=== PATIENT | female | born 1975 | race Caucasian/White ===

== ENCOUNTER → 2017-11-08 09:13 | Outpatient (CLI) | payer OTHER, SELFPAY ==
--- NOTE | 2017-11-08 09:19 | US_ITS ---
US abdomen limited COMPARISON: None HISTORY: Right upper quadrant pain and nausea TECHNIQUE: Ultrasound right upper quadrant FINDINGS: The pancreas appears normal. The liver is normal in size and shows diffuse overall increased echogenicity consistent with fatty infiltration. The gallbladder is surgically absent. The common bile duct is normal caliber. Right kidney measures 12.2 x 4.4 x 7.2 cm and shows a good cortical medullary junction with no abnormality. Scanning was performed over palpable lumps in the abdomen which are somewhat tender to pressure of the transducer. The largest appears be in right upper quadrant measuring 2.4 cm in diameter and showing increased echogenicity in relation to the adjacent subcutaneous tissue. There is another similar area in the midabdomen measuring 1.0 cm in diameter and showing increased echogenicity. IMPRESSION: 1. Diffuse fatty infiltration of liver. 2. Possible lipomas within the abdominal wall
== END ==
PROVIDERS: PCP Family Medicine; Visit Provider Nurse Practitioner Family
DX: R19.01 Right upper quadrant abdominal swelling, mass and lump (principal); R11.0 Nausea
CPT/HCPCS: 76705

== ENCOUNTER → 2018-06-17 08:37 | Outpatient (CLI) | payer OTHER, SELFPAY ==
--- NOTE | 2018-06-17 08:49 | XR_ITS ---
XR shoulder RT min 2V HISTORY: ITS.REASON: RT ANTERIOR SHOULDER PAIN ORDERING PHYSICIAN: Cami Davis PATIENT AGE: 42 years Comparison: None FINDINGS: No fracture or dislocation. No lytic or blastic change. There is normal mineralization. The joint spaces are well-preserved. No significant degenerative/arthritic changes. No erosive changes evident. IMPRESSION: Negative, no acute finding
== END ==
PROVIDERS: PCP Nurse Practitioner Family; Visit Provider Nurse Practitioner Family
DX: M25.511 Pain in right shoulder (principal)
CPT/HCPCS: 73030

== ENCOUNTER → 2018-07-01 15:54 | Outpatient (CLI) | payer OTHER, SELFPAY ==
--- NOTE | 2018-07-01 15:56 | MR_ITS ---
MR shoulder RT wo con COMPARISON: 06/17/2018 HISTORY: Anterior shoulder pain with limited range of motion ORDERING PHYSICIAN: Cami Davis PATIENT AGE: 42 years TECHNIQUE: Routine multiplanar multiecho sequences are performed without contrast. FINDINGS: There is mild acromioclavicular arthropathy with hypertrophic changes of the AC joint. The hypertrophic change does cause some contour deformity along the musculotendinous junction of the supraspinatus tendon. There is mild thickening of the supraspinatus tendon with slight increased T2 signal suggesting tendinopathy/tendinosis. The infraspinatus and teres minor tendons are unremarkable. There is mild thickening of the subscapularis tendon distally as well. No definite tendon tears. There is a curvilinear area of increased T2 signal along the superior aspect of the glenoid labrum. This has the appearance of a sublabral recess however, the abnormal signal intensity extends beyond the 12 to 1:00 position anteriorly and posteriorly and is suspicious for a SLAP lesion. No fracture or dislocation evident. The bicipital tendon is in place. There is a small amount of fluid in the subcoracoid region. IMPRESSION: 1. Acromioclavicular hypertrophy with mild impingement upon the supraspinatus tendon with mild tendinopathy/tendinosis of the supraspinatus tendon and subscapularis tendon. 2. No definite rotator cuff tears. 3. SLAP lesion of the superior glenoid labrum
== END ==
PROVIDERS: PCP Family Medicine; Visit Provider Nurse Practitioner Family
DX: M25.511 Pain in right shoulder (principal); M75.81 Other shoulder lesions, right shoulder
CPT/HCPCS: 73221

== ENCOUNTER 2018-07-02 08:00 | Outpatient (RCR) | payer OTHER, SELFPAY ==
--- NOTE | 2018-06-30 09:31 | HMH.OTOPEV ---
OT Inpatient Evaluation Rehab OT Outpatient Eval Start: 06/30/18 09:04 Freq: Status: Active Protocol: Document 06/30/18 09:05 JENNIE (Rec: 06/30/18 09:31 JENNIE [id number]) Electronically Signed By Kam Rolle OT 06/30/18 09:05 Outpatient Therapy Subjective History Subjective History Pt is a 42 year old female who reports to therapy for initial evaluation to right shoulder. Pt reports her shoulder began hurting her ~ 1 and 1/2 months ago. Pt does not recall a specific injury that would have caused her pain in the right shoulder. 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 Pt explains she does use her upper body significantly more than prior. Pt does demonstrate with decrease in right shoulder AROM and strength. Pt will continue to be seen twice a week in order to increase functional use of Upper body. Chief Complaint Pain Stiff Symptom Type Ache Throb Sharp Dull Stabbing Shooting Symptoms Relieved By Rest/Positioning Symptoms Aggravated By Physical Activity Lifting Prior Functional Limitations None Current Functional Limitations Reaching Lifting Housework Dressing Sleeping Recreation Activity Symptom Description Intermittent Activity Dependent Level of pain today (0-10) 2 Pain scale - at its best (0-10) 4 Pain scale - at its worst (0-10) 1 Shoulder/Elbow Eval Shoulder Objective Measurements Shoulder ROM Right Shoulder ROM Limitations Pain Shoulder Abduction Active Range of 132 degrees Motion (degrees) Shoulder Flexion Active Range of Motion 122 degrees (degrees) Query Text: Shoulder External Rotatio
== END 2018-07-02 08:05 | disposition home or self-care (01) ==
LOC: OT 08:00
PROVIDERS: Visit Provider Nurse Practitioner Family
DX: M75.81 Other shoulder lesions, right shoulder (principal)
CPT/HCPCS: 97014; 97033; 97110; 97165; G0283

== ENCOUNTER 2018-11-25 08:30 | Outpatient (RCR) | payer BC, SELFPAY | END 2018-11-25 08:35 | disposition home or self-care (01) | LOC: PT 08:30 | PROVIDERS: Visit Provider Orthopaedic Surgery | DX: M25.511 Pain in right shoulder (principal) | CPT/HCPCS: 97010; 97014; 97016; 97110; 97140; 97163; 97164; G0283 ==

== ENCOUNTER → 2020-09-16 11:41 | Outpatient (CLI) | payer BC, SELFPAY ==
--- NOTE | 2020-09-16 11:46 | XR_ITS ---
PROCEDURE: XR LUMBAR SPINE MIN 4V CLINICAL INDICATION: ACUTE MIDLINE LOW BACKPAIN W/O SCIATICA COMPARISON: CR LS5 LUMBAR SPINE 5 VIEWS from 08/06/2014 FINDINGS: No fracture or dislocation. No lytic or blastic change. There is normal mineralization. Minimal anterior osteophytes are present at L2-L3 and L4. These are not significantly changed. There is degenerative disc disease in the lower thoracic spine at T10-T11 and T11-T12. Other findings:None. IMPRESSION: 1. No acute finding of the lumbar spine with minimal degenerative changes. 2. Degenerative disc disease lower thoracic spine Dictated by: Jadiel Fan MD 09/16/2020 12:07 Jadiel Fan MD in [facility] 09/16/2020 12:07
== END ==
LOC: RAD 11:44
PROVIDERS: PCP Family Medicine; Visit Provider Nurse Practitioner Family
DX: M54.5 Low back pain (principal)
CPT/HCPCS: 72110

== ENCOUNTER → 2020-10-11 09:13 | Outpatient (CLI) | payer BC, SELFPAY ==
[2020-10-11 09:29] LABS: Basophils # 0.1 K/mm3 (0-0.2); Basophils % 0.5 % (0.1-2.0); Eosinophils # 0.2 K/mm3 (0.0-0.4); Eosinophils % 1.9 % (0.1-12.0); Hemoglobin 13.9 g/dL (12.2-16.2); Lymphocytes # 2.5 K/mm3 (0.7-4.5); Lymphocytes % 23.2 % (10-50); Mean Corpuscular HGB Conc 32.4 g/dL (31.8-35.4); Mean Corpuscular Volume 83.4 fl (81-99); Mean Platelet Volume 7.6 fl (7.4-10.4); Monocytes # 0.3 K/mm3 (0.1-1.0); Monocytes % 2.7 % (1.7-9.3); Neutrophils # 7.6 K/mm3 (1.8-7.8); Neutrophils % 71.7 % (37.0-80.0); Platelet Count 352 K/mm3 (142-424); Red Blood Count 5.15 M/mm3 (4.20-5.40); Red Cell Distribution Width 14.7 % (11.5-17.5); White Blood Count 10.6 K/mm3 (4.8-10.8)
--- NOTE | 2020-10-11 09:45 | ECG_ITS ---
APPROVED REPORT Exam: Resting ECG HR:83 bpm ECG Measurements Heart Rate 83 AXES MI 174 P 67 QRSd 84 QRS 81 QT 378 T 69 QTc 444 Conclusion Normal sinus rhythm Normal ECG Electronically signed by : Wing Vizcaino, 10/11/2020 14:47:19
[2020-10-11 10:30] LABS: Chloride 107 mmol/L (98-107); Sodium 140 mmol/L (136-145)
[2020-10-11 10:31] LABS: Potassium 4.8 mmoL/L (3.5-5.1)
[2020-10-11 10:33] LABS: Alanine Aminotransferase 27 U/L (12-78); Albumin Level 4.3 g/dl (3.5-5.0); Albumin/Globulin Ratio 1.4 (1.1-1.8); Alkaline Phosphatase 67 U/L (38-126); Anion Gap 11.8 mEq/L (5-15); Aspartate Amino Transferase 23 U/L (14-36); Bilirubin,Total 0.5 mg/dl (0.2-1.3); Blood Urea Nitrogen 16 mg/dl (7-17); Calcium 10.1 mg/dl (8.4-10.2); Carbon Dioxide 26 mmol/L (22.0-30.0); Cholesterol 186 mg/dl (140-200); Estimated Glomerular Filt Rate 91 ml/min (>60); GFR (African American) 110 ML/MIN (>60); Glucose 136 mg/dl (74-100); Total Protein,Serum 7.3 g/dl (6.3-8.2); Triglycerides 220 mg/dl (30-150); VLDL Cholesterol 44 mg/dL (0-40)
[2020-10-11 10:34] LABS: Chol/HDL Ratio 4.2 (1-3.5); HDL Cholesterol 44 mg/dl (40-60)
[2020-10-11 10:45] LABS: Direct LDL Cholesterol 111.42 mg/dL (100-129); Troponin I < 0.01 ng/ml (0.00-0.034)
[2020-10-11 11:02] LABS: Thyroid Stimulating Hormone 2.36 uIU/mL (0.465-4.68)
== END ==
PROVIDERS: Visit Provider Nurse Practitioner Family
DX: R07.9 Chest pain, unspecified (principal)
CPT/HCPCS: 36415; 80053; 80061; 83735; 84443; 84484; 85025; 93005

== ENCOUNTER 2020-10-19 13:00 | Outpatient (RCR) | payer BC, SELFPAY ==
--- NOTE | 2020-09-27 10:36 | HMH.PTOPEV ---
PT Outpatient Evaluation Rehab PT Outpatient Evaluation Start: 09/27/20 08:55 Freq: Status: Active Protocol: Document 09/27/20 09:56 SARAVANAN (Rec: 09/27/20 10:35 PHOSARBJIT [id number]) Electronically Signed By Donavan Crow, PT 09/27/20 09:56 Outpatient Therapy Subjective History Subjective History Pt is 45 yowf who presents with c/o acute, insidious onset of low back pain x ~ 1 wk. She reports she has had mild back discomfort for ~ 1 yr, but nothing like it was this episode. She had X-rays performed which shows mild DDD and OA. She reports no numbness or tingling in the LEs. She reports PMH of HTN. Chief Complaint Pain,Stiff Symptom Type Ache Symptoms Relieved By Rest/Positioning Symptoms Aggravated By Standing,Bending/Stooping Prior Functional Limitations None Current Functional Limitations Standing,Bending/Stooping Symptom Description Constant but Variable Level of pain today (0-10) 3 Pain scale - at its worst (0-10) 8 Lumbopelvic Eval Accessory Movement T-spine Vertebrae Accessory Movements Central P/A [place] that Elicit Symptoms T11 bilateral T12 bilateral L-spine Vertebrae Accessory Movements Central P/A [place] that [place] Symptoms L2 bilateral L3 bilateral L4 bilateral L5 bilateral Range of Motion Lumbar Spine Active Flexion Range of 0-65 Motion (degrees) Lumbar Spine Active Extension Range of 0-20 Motion (degrees) Left Lumbar Spine Lateral Flexion Active 0-20 Range of Motion (degrees) Right Lumbar Spine Lateral Flexion 0-20 Active Range of Motion (degrees) Manual Muscle Test Bilateral Knee Extension Strength Grade 5 Normal Knee Flexion Strength Grade 5 Normal Hip Flexion Strength Grade 5 Normal Hip Abduction Strength Grade 5 Normal Hip Adduction Strength Grade 5 Normal Extensor Hallucis Longus Strength Grade 5 Normal Ankle Dorsiflexion Strength Grade 5 Normal Gastronemius/Soleus Strength Grade 5 Normal DTR Rt Patellar 2+ Lt Patellar 2+ Rt Gastroc/Soleus 2+ Lt Gastroc/Soleus 2+ Special Tests Hip Scouring (Quadrant) Test Negative Left,Negative Right Hip Thomas (NORIS) Test Negative Left,Negative Right Hip Bowstring (Cram) Test Negative Left,Negative R
== END 2020-10-19 13:05 | disposition home or self-care (01) ==
LOC: PT 13:00
PROVIDERS: PCP Family Medicine; Visit Provider Nurse Practitioner Family
DX: M54.5 Low back pain (principal)
CPT/HCPCS: 97010; 97014; 97110; 97140; 97163; G0283

== ENCOUNTER → 2020-10-19 16:15 | Outpatient (CLI) | payer BC, SELFPAY ==
--- NOTE | 2020-10-19 16:27 | MR_ITS ---
PROCEDURE: MR LUMBAR SPINE WO CON CLINICAL INDICATION: LBP Pt c/o lbp with rt sided low back burning sensation. Pt denies injury or trauma and has no hx of surgery. COMPARISON: CR XR LUMBAR SPINE MIN 4V from 09/16/2020 TECHNIQUE: Standard multiplanar multiecho sequences are performed without contrast. 3-D MIP and myelographic images are also rendered and reviewed FINDINGS: There is normal alignment. The spinal cord ends at the L1 level. L1-L2: Unremarkable. L2-L3: Minimal bulging disc with minimal central disc protrusion. L3-L4: Mild degenerative disc disease with small broad-based right-sided foraminal and lateral disc protrusion/disc osteophyte complex resulting in right-sided foraminal narrowing abutting the exiting L3 nerve root. Mild facet and ligamentum hypertrophy. L4-5: Minimal bulging disc with facet ligamentum hypertrophy with mild bilateral lateral recess narrowing. L5-S1: Degenerative disc disease with bulging disc and small central disc protrusion abutting the medial aspect of both S1 nerve roots. There is mild facet and ligamentum hypertrophy. No extruded herniated disc or bony canal stenosis. IMPRESSION: 1. L2-L3: Minimal bulging disc with minimal central disc protrusion. 2. L3-L4: Mild degenerative disc disease with small broad-based right-sided foraminal and lateral disc protrusion/disc osteophyte complex resulting in right-sided foraminal narrowing abutting the exiting L3 nerve root. Mild facet and ligamentum hypertrophy. 3. L4-5: Minimal bulging disc with facet ligamentum hypertrophy with mild bilateral lateral recess narrowing. 4. L5-S1: Degenerative disc disease with bulging disc and small central disc protrusion abutting the medial aspect of both S1 nerve roots. There is mild facet and ligamentum hypertrophy. 5. No extruded herniated disc or bony canal stenosis. Dictated by: Jadiel Fan MD 10/23/2020 06:48 Jadiel Fan MD in [facility] 10/23/2020 06:48
== END ==
PROVIDERS: PCP Family Medicine; Visit Provider Nurse Practitioner Family
DX: M54.5 Low back pain (principal)
CPT/HCPCS: 72148; 76376

== ENCOUNTER → 2021-06-30 10:21 | Outpatient (CLI) | payer BC, SELFPAY ==
--- NOTE | 2021-06-30 10:27 | XR_ITS ---
PROCEDURE: XR CERVICAL SPINE 5V CLINICAL INDICATION: RADICULOPATHY,CERVICAL REGION/NECK PAIN COMPARISON: No exams were available for comparison FINDINGS: There is straightening/reversal of the normal lordosis which may be due to patient positioning or muscle spasm. Mild facet hypertrophic changes with mild foraminal narrowing on the right at C4-C5 and on the left at C4-C5. No fracture or dislocation. No lytic or blastic change. Other findings:None. IMPRESSION: Straightening of cervical lordosis with cervical spondylosis as described above Dictated by: Jadiel Fan MD 06/30/2021 12:26 Jadiel Fan MD in [facility] 06/30/2021 12:26
== END ==
PROVIDERS: PCP Family Medicine; Visit Provider Family Medicine
DX: M54.2 Cervicalgia (principal); M54.12 Radiculopathy, cervical region
CPT/HCPCS: 72050

== ENCOUNTER → 2021-07-17 07:26 | Outpatient (CLI) | payer BC, SELFPAY ==
--- NOTE | 2021-07-17 07:42 | MR_ITS ---
PROCEDURE: MR CERVICAL SPINE WO CON CLINICAL INDICATION: RADICULOPATHY OF CERVICAL REGION COMPARISON: CR XR CERVICAL SPINE 5V from 06/30/2021 TECHNIQUE: Standard multiplanar multiecho sequences are performed without contrast. 3-D MIP and myelographic images are also rendered and reviewed FINDINGS: There is normal alignment. The craniocervical junction has an unremarkable appearance. C2-C3: Unremarkable. C3-C4: 2 mm anterolisthesis of C3 with minimal bulging disc and a small central disc protrusion. Mild prominence of the posterior longitudinal ligament. Severe left-sided foraminal narrowing from facet hypertrophic change. There is narrowing of the canal at 9 mm. Minimal contour deformity of the cord anteriorly. C4-C5: Moderate to severe right and moderate left foraminal narrowing from facet and uncovertebral hypertrophic change. Tiny central disc protrusion with narrowing of the canal at 9 mm. C5-C6: There is a small broad-based left paracentral and foraminal disc protrusion/disc osteophyte complex with mild left lateral recess narrowing. Mild bilateral foraminal narrowing. C6-C7: Degenerative disc disease with a small right foraminal disc protrusion resulting in severe right-sided foraminal narrowing C7-T1 and T1-T2 have an unremarkable appearance. IMPRESSION: 1. C3-C4: 2 mm anterolisthesis of C3 with minimal bulging disc and a small central disc protrusion. Mild prominence of the posterior longitudinal ligament. Severe left-sided foraminal narrowing from facet hypertrophic change. There is narrowing of the canal at 9 mm. Minimal contour deformity of the cord anteriorly. 2. C4-C5: Moderate to severe right and moderate left foraminal narrowing from facet and uncovertebral hypertrophic change. Tiny central disc protrusion with narrowing of the canal at 9 mm. 3. C5-C6: There is a small broad-based left paracentral and foraminal disc protrusion/disc osteophyte complex with mild left lateral recess narrowing. Mild bilateral foraminal narrowing. 4. C6-C7: Degenerative disc disease with a small right foraminal disc protrusion resulting in severe right-sided foraminal narrowing Dictated by: Jadiel Fan MD 07/17/2021 14:21 Jadiel Fan MD in [facility] 07/17/2021 14:21
== END ==
PROVIDERS: PCP Family Medicine; Visit Provider Family Medicine
DX: M54.2 Cervicalgia (principal); M54.12 Radiculopathy, cervical region; M50.00 Cervical disc disorder with myelopathy, unspecified cervical region; G95.9 Disease of spinal cord, unspecified
CPT/HCPCS: 72141; 76376

== ENCOUNTER 2021-12-12 09:06 | Emergency (ER) | payer BC, SELFPAY ==
[2021-12-12 09:06] VITALS: BP 171/91; PULSE 79; RESP 18; TEMP 36.4; O2SAT 100; BMI 36.0
--- NOTE | 2021-12-12 09:10 | PC.NURSE ---
ED MD at
--- NOTE | 2021-12-12 09:13 | CT_ITS ---
FINAL REPORT CLINICAL HISTORY: Right flank pain FINDINGS: CT OF THE ABDOMEN AND PELVIS WITH CONTRAST Axial CT images of the abdomen and pelvis were obtained after the administration of IV contrast. Coronal reformatted images were also obtained and reviewed.This study was performed with techniques to keep radiation doses as low as reasonably achievable (ALARA). Individualized dose reduction techniques using automated exposure control or adjustment of mA and/or kV according to the patient's size were employed. Abdomen: There are calcified granulomas in the lingula.. The heart is normal in size. There is fatty infiltration of the liver. There is no evidence of mass or biliary ductal dilatation. The gallbladder is surgically absent. The spleen is unremarkable. No adrenal mass is present. The pancreas has an unremarkable appearance. There is right hydronephrosis secondary to a 2 mm right UVJ stone. The aorta is normal in caliber. There is no free fluid or adenopathy. No mass or abnormal fluid collection is seen. There is a small umbilical hernia containing fat. Pelvis: The appendix normal. The urinary bladder is unremarkable. No inflammatory process is seen. There is no evidence of mass or adenopathy. There is no evidence of bowel obstruction. IMPRESSION: 2 mm right UVJ stone with right hydronephrosis. Fatty infiltrated liver. Reviewed, Interpreted and Dictated by Ritesh Best III, MD Transcribed by Nai Euceda Authenticated by Ritesh Best III, MD on 12/12/2021 11:03:17 AM [facility]
--- NOTE | 2021-12-12 09:15 | HMH.EDGENADL ---
ED Disposition Clinical Impression: Kidney stone Disposition: Home, Self-Care Condition on Discharge: Good Instructions: DI for Kidney Stones Additional Instructions: You have been evaluated for right flank pain, diagnosed with a kidney stone. Stone is 2 mm, high likelihood of passing. Please take ibuprofen every 6 hours. Take Zofran for nausea. Take Flomax. Take Windsor as needed for severe pain. Follow-up with urology, Dr. Aleman for symptom recheck. Return to the emergency department at once for any new or worsening symptoms, pain, fever, vomiting, other concerns. Prescriptions: Hydrocod/Acet 5/325 mg [Windsor 5/325mg tablet] 1 tab PO Q6HP PRN #12 tab PRN Reason: Severe Pain Transmission Status: Sent to [facility] Tamsulosin HCl [Flomax 0.4mg capsule] 0.4 mg PO HS #5 cap Transmission Status: Pending to [facility] Ibuprofen [Ibuprofen 600mg Tablet] 600 mg PO Q6 PRN #30 tab PRN Reason: Moderate Pain Transmission Status: Pending to [facility] Ondansetron [Zofran 4mg ODT] 4 mg PO Q6 PRN #12 tab PRN Reason: Nausea Transmission Status: Pending to [facility] Referrals: Wing Rivera MD [Primary Care Provider] - Time of Disposition: 11:28 - Critical Care Critical Care Time: No Attestation: On 12/12/21, the high probability of a clinically significant, sudden or life threatening deterioration of the following system(s) required my full and direct attention, intervention and personal management. The time I documented below is in addition to time spent performing reported procedures but includes the following listed in this critical care notation. Medical Decision Making - Medical Records Medical records reviewed: Yes: I reviewed the patient's medical records. - Braulio Inquiry Pt receiving controlled substance: No Vital Signs: 12/12/21 09:06 12/12/21 09:57 12/12/21 10:01 Temperature 97.6 F Temperature Source Oral Pulse Rate 80 80 Pulse Rate [Right Radial] 79 Respiratory Rate 18 Blood Pressure 149/78 H 151/85 H Blood Pressure [Right Arm] 171/91 H Blood Pressure Mean [Right Arm] 117 Blood Pressure Source Automatic Cuff Automatic Cuff Blood Pressure Source [Right Arm] Automatic Cuff Blood Pressure Position Sitting Sitting Blood Pressure Position [Right Arm] Sitting 02 Sat by Pulse Oximetry 100 99 Oxygen Delivery Method Room Air Room Air - Lab Data Lab Results 12/12/21 09:18: WBC 8.3, RBC 5.07, Hgb 14.8, Hct 41.4, MCV 81.7, MCH 29.2, MCHC 35.7 H, RDW 14.4, Plt Count 328, MPV 8.1, Neut % (Auto) 65.8, Lymph % (Auto) 26.2, [place] % (Auto) 3.5, Eos % (Auto) 2.0, Baso % (Auto) 2.5 H, Neut # (Auto) 5.5, Lymph # (Auto) 2.2, [place] # (Auto) 0.3, Eos # (Auto) 0.2, Baso # (Auto) 0.2 12/12/21 09:18: Sodium 137, Potassium 3.8, Chloride 103, Carbon Dioxide 22, Anion Gap 15.8 H, BUN 15, Creatinine 0.60, Estimated Creat Clear 195, Estimated GFR 108, Est GFR ( Amer) 131, Glucose 244 H, Calcium 9.8, Total Bilirubin 0.8, AST 56 H, ALT 56, Alkaline Phosphatase 96, Total Protein 7.1, Albumin 4.2, Globulin 2.9, Albumin/Globulin Ratio 1.4, Lipase 137 Result diagrams: 12/12/21 09:18 12/12/21 09:18 Orders (Tests/Meds): ED MEDICATIONS Generic Name Dose Route Start Last Admin Trade Name Freq PRN Reason Stop Dose Admin Sodium Chloride 1,000 mls @ 200 mls/hr 12/12/21 09:15 12/12/21 09:27 Sod Chlor 0.9% 1000ml Bag IV 01/11/22 09:14 200 mls/hr .Q5H GUY Administration Discontinued Medications Generic Name Dose Route Start Last Admin Trade Name Freq PRN Reason Stop Dose Admin Iopamidol 75 ml 12/12/21 09:53 12/12/21 09:53 Iopamidol-370 (76%);100ml Bottle IV 12/12/21 09:54 75 ml ONCE ONE Administration Ketorolac Tromethamine 15 mg 12/12/21 09:19 12/12/21 09:26 Ketorolac 30mg/Ml Vial IV 12/12/21 09:20 15 mg ONCE ONE Administration Morphine Sulfate 4 mg 12/12/21 09:56 12/12/21 09:58 Morphine 4mg/Ml
[2021-12-12 09:27] LABS: Basophils # 0.2 K/mm3 (0-0.2); Basophils % 2.5 % (0.1-2.0); Eosinophils # 0.2 K/mm3 (0.0-0.4); Hematocrit 41.4 % (37.0-47.0); Hemoglobin 14.8 g/dL (12.2-16.2); Lymphocytes # 2.2 K/mm3 (0.7-4.5); Lymphocytes % 26.2 % (10-50); Mean Corpuscular HGB Conc 35.7 g/dL (31.8-35.4); Mean Corpuscular Hemoglobin 29.2 pg (27.0-31.2); Mean Corpuscular Volume 81.7 fl (81-99); Mean Platelet Volume 8.1 fl (7.4-10.4); Monocytes # 0.3 K/mm3 (0.1-1.0); Monocytes % 3.5 % (1.7-9.3); Neutrophils # 5.5 K/mm3 (1.8-7.8); Neutrophils % 65.8 % (37.0-80.0); Platelet Count 328 K/mm3 (142-424); Red Blood Count 5.07 M/mm3 (4.20-5.40); Red Cell Distribution Width 14.4 % (11.5-17.5); White Blood Count 8.3 K/mm3 (4.8-10.8)
[2021-12-12 09:30] LABS: Chloride 103 mmol/L (98-107); Potassium 3.8 mmoL/L (3.5-5.1); Sodium 137 mmol/L (136-145)
[2021-12-12 09:33] LABS: Alanine Aminotransferase 56 U/L (12-78); Albumin Level 4.2 g/dl (3.5-5.0); Albumin/Globulin Ratio 1.4 (1.1-1.8); Alkaline Phosphatase 96 U/L (38-126); Anion Gap 15.8 mEq/L (5-15); Aspartate Amino Transferase 56 U/L (14-36); Bilirubin,Total 0.8 mg/dl (0.2-1.3); Blood Urea Nitrogen 15 mg/dl (7-17); Calcium 9.8 mg/dl (8.4-10.2); Carbon Dioxide 22 mmol/L (22.0-30.0); Creatinine Clearance Estimated 195 mL/min (50-200); Estimated Glomerular Filt Rate 108 ml/min (>60); GFR (African American) 131 ML/MIN (>60); Globulin 2.9 g/dL (1.3-3.2); Glucose 244 mg/dl (74-100); Lipase 137 U/L (23-300); Total Protein,Serum 7.1 g/dl (6.3-8.2)
--- NOTE | 2021-12-12 09:50 | PC.NURSE ---
pt return from CT
[2021-12-12 09:57] VITALS: BP 149/78; PULSE 80
[2021-12-12 10:01] VITALS: BP 151/85; PULSE 80; O2SAT 99
[2021-12-12 12:00] LABS: Microscopic, Urine URINE MICROSCOPIC (MICROSCOPIC)
[2021-12-12 12:06] LABS: Appearance,Urine CLEAR (Clear); Bilirubin,Urine Negative (Negative); Blood, Urine Negative (Negative); Color,Urine YELLOW (Yellow); Glucose,Urine (UA) 1+ (Negative); Ketones,Urine 1+ (Negative); Leukocyte Esterase,Urine Negative (Negative); Nitrate,Urine Negative (Negative); PH,Urine 6.5 (5.0-8.5); Protein,Urine Negative (Negative); Urobilinogen,Urine 0.2 EU/dl (0.2)
[2021-12-12 12:20] LABS: Bacteria,Urine Trace /lpf
[2021-12-12 12:30] VITALS: BP 151/85; PULSE 80; RESP 18; TEMP 36.4; O2SAT 99
== END 2021-12-12 12:30 | disposition home or self-care (01) ==
PROVIDERS: Emergency Provider Emergency Medicine; PCP Family Medicine
DX: N13.2 Hydronephrosis with renal and ureteral calculous obstruction (principal); M54.9 Dorsalgia, unspecified; R11.2 Nausea with vomiting, unspecified; Z79.1 Long term (current) use of non-steroidal anti-inflammatories (NSAID); Z79.899 Other long term (current) drug therapy
CPT/HCPCS: 74177; 80053; 81001; 83690; 85025; 96374; 96375; 96376; 99285; J2405; Q9967

== ENCOUNTER → 2023-07-26 13:13 | Outpatient (CLI) | payer BC, SELFPAY ==
--- NOTE | 2023-07-26 13:18 | MM_ITS ---
PROCEDURE INFORMATION: Exam: Bilateral Screening 3D Mammography Exam date and time: 07/26/2023 1:11 PM Age: 48 years old Clinical indication: Screening mammogram TECHNIQUE: Imaging protocol: Bilateral Screening tomosynthesis and 2D mammography including computer-aided detection (CAD) when performed. COMPARISON: [facility] DIG MAMM-SCREEN ROMA 03/23/2014 8:20 AM FINDINGS: MAMMOGRAPHY: Breast composition: The breast is heterogeneously dense, which may obscure small masses. Mass: None. Architectural distortion: No new or suspicious architectural distortion. Calcifications: No new or suspicious calcifications are present Asymmetric density: No new or suspicious asymmetric density is present Skin thickening: None. Axillary adenopathy: None. IMPRESSION: No mammographic evidence of malignancy. Recommend annual screening mammography unless otherwise clinically indicated. ASSESSMENT: BI-RADS category 1: Negative
== END ==
PROVIDERS: PCP Family Medicine; Visit Provider Nurse Practitioner Family
DX: Z12.31 Encounter for screening mammogram for malignant neoplasm of breast (principal)
CPT/HCPCS: 77063; 77067

== ENCOUNTER 2023-09-09 12:58 | Outpatient (CLI) | payer BC, SELFPAY ==
--- NOTE | 2023-09-09 13:03 | XR_ITS ---
FINAL REPORT CLINICAL HISTORY: LT SHOULDER PAIN FINDINGS: LEFT SHOULDER 3 views of the left shoulder were obtained. There is a small calcification adjacent to the humeral head which may represent calcific tendinitis. There is mild AC joint arthrosis. There is no acute fracture or dislocation. Visualized joint spaces are normally aligned. Soft tissues are unremarkable. Postoperative changes are noted of the lower cervical spine. IMPRESSION: No acute bony abnormality. Reviewed, Interpreted and Dictated by Ritesh Best III, MD Transcribed by Sveta Hall Authenticated and [facility]
== END 2023-09-09 23:59 ==
PROVIDERS: PCP Nurse Practitioner Family; Visit Provider Nurse Practitioner Family
DX: M25.512 Pain in left shoulder (principal)
CPT/HCPCS: 73030

== ENCOUNTER 2024-03-30 05:36 | Observation (INO) | payer BC, SELFPAY ==
[2024-03-30] VITALS (26 sets, daily range): BP systolic 109–165; BP diastolic 62–100; PULSE 82–128; RESP 16–21; TEMP 36.6–37.6; O2SAT 91–99; BMI 28.8
--- NOTE | 2024-03-30 05:39 | CT_ITS ---
PROCEDURE INFORMATION: Exam: CT Abdomen And Pelvis With Contrast Exam date and time: 03/30/2024 6:26 AM Age: 48 years old Clinical indication: Abdominal pain; Additional info: Rlq abd pain TECHNIQUE: Imaging protocol: Computed tomography of the abdomen and pelvis with contrast. Radiation optimization: All CT scans at this facility use at least one of these dose optimization techniques: automated exposure control; mA and/or kV adjustment per patient size (includes targeted exams where dose is matched to clinical indication); or iterative reconstruction. Contrast material: ISOVUE; Contrast volume: 75 ml; Contrast route: IV; COMPARISON: CT ABDOMEN PELVIS W CON 12/12/2021 9:37 AM FINDINGS: Liver: Normal. No mass. Gallbladder and biliary ducts: There are postsurgical changes from a cholecystectomy. Pancreas: Normal. No ductal dilation. Spleen: Normal. No splenomegaly. Adrenal glands: Normal. No mass. Kidneys and ureters: Normal. No hydronephrosis. Stomach and bowel: There are postsurgical changes from a previous gastric surgery. The stomach is otherwise unremarkable. Appendix: The appendix is dilated measuring 12 mm. There are surrounding inflammatory changes. There is no evidence of perforation. There is no drainable fluid collection. Intraperitoneal space: Unremarkable. No free air. No significant fluid collection. Vasculature: Unremarkable. No abdominal aortic aneurysm. Lymph nodes: Unremarkable. No enlarged lymph nodes. Urinary bladder: Unremarkable as visualized. Reproductive: Unremarkable as visualized. Bones/joints: Unremarkable. No acute fracture. Soft tissues: Unremarkable. IMPRESSION: 1. Acute appendicitis. There is no perforation or abscess. 2. The remainder of the examination is unremarkable. There is no bowel obstruction. There is no other acute inflammatory process.
--- NOTE | 2024-03-30 05:45 | HMH.EDGENADL ---
Discharge Plan Disposition Chief Complaint: Abdominal Pain Prescriptions Prescriptions: No Action ibuprofen 600 MG tablet 600 mg PO Q6 PRN (Reason: Moderate Pain) Qty: 30 0RF ondansetron 4 MG tablet,disintegrating 4 mg PO Q6 PRN (Reason: Nausea) Qty: 12 0RF tamsulosin 0.4 MG capsule 0.4 mg PO HS Qty: 5 0RF hydrocodone-acetaminophen 1 TAB tablet 1 tab PO Q6HP PRN (Reason: Severe Pain) Qty: 12 0RF Referrals Follow up/Referrals: Debora Olsen APRN [Primary Care Provider] - See instructions Clinical Impressions Clinical Impression: Acute appendicitis Instructions Patient Instructions: DI for Acute Abdominal Pain Print Language Print Language: Nepalese Discharge ED Provider: Gume Osorio Adult HPI General Chief complaint: Abdominal Pain Stated complaint: right side abd pain Time Seen by Provider: 03/30/24 05:39 Mode of Arrival: Ambulatory Source of Information: Patient and Spouse Limitations: No Limitations Description of Symptoms (Recalled from ER Triage Doc. by RN): Patient reports that she began to have sudden right lower quadrant abdominal pain at approximately 5pm yesterday and she believed to be trapped gas patient states she gave herself and enema to attempt to relieve the pain. Reports nausea without emesis at this time. Denies dysuria, fevers. Patient states that the pain is currently 9/10 and remains relatively constant without factors that increase or relieve the pain. History of Present Illness HPI narrative: 48-year-old female with a history of unilateral nephrectomy, 2 previous C-sections presents to the ER for complaints of right lower quadrant abdominal pain that started around 5 PM yesterday. She states that initially started in the middle of her abdomen and migrated to the right lower quadrant. She has been nauseous but not having vomiting. No diarrhea. Patient reports pain is currently 9 out of 10 and has been gradually increasing since it started. Patient reports she has had intermittent similar episodes previously that were just trapped gas and spontaneously resolved, however the symptoms are not going away and she has been unable to sleep overnight. Patient did not take any medications for her symptoms prior to arrival. ROS otherwise negative Related Data Previous Rx's ?Medication ?Instructions ?Recorded hydrocodone 5 mg-acetaminophen 325 1 tab PO Q6HP PRN Severe Pain #12 05/10/22 mg tablet tabs ibuprofen 600 mg tablet 600 mg PO Q6 PRN Moderate Pain #30 12/12/21 tabs ondansetron 4 mg disintegrating 4 mg PO Q6 PRN Nausea #12 tabs 12/12/21 tablet tamsulosin 0.4 mg capsule 0.4 mg PO HS #5 caps 12/12/21 Allergies Allergy/AdvReac Type Severity Reaction Status Date / Time NO KNOWN ALLERGIES - NKA Allergy Unknown Uncoded 07/23/17 14:30 [facility] Disclaimer: The information contained in this section may have been updated after the patient was seen, as this information can be updated by other users. Social History Smoking Status: Former smoker alcohol intake: never current occupational status: other Travel in the last 8 weeks: None ROS Obtained: Yes All systems reviewed & no additional complaints except as documented Positive ROS per HPI Physical Exam General General appearance: alert Comment: Uncomfortable appearing but nontoxic Head Head exam: atraumatic and normocephalic Eye Eye exam: Present PERRL and EOMI ENT ENT exam: Present mucous membranes moist Neck Neck exam: Present normal inspection and full ROM Chest Chest inspection: Present symmetric chest wall rise Respiratory Respiratory exam: Absent respiratory distress or stridor Cardiovascular Cardiovascular exam: Present regular rate and normal rhythm Abdominal Exam Abdominal exam: Present soft, tenderness (Right lower quadrant), guarding (Voluntary), Rovsing's sign and tenderness at McBurney's Point; Absent distention or rigidity Extremities Exam Extremities exam: Pres
[2024-03-30 05:59] LABS: Basophils # 0.1 K/mm3 (0-0.2); Basophils % 0.4 % (0.1-2.0); Eosinophils # 0.2 K/mm3 (0.0-0.4); Eosinophils % 0.9 % (0.1-12.0); Hematocrit 42.4 % (37.0-47.0); Hemoglobin 14.4 g/dL (12.2-16.2); Lymphocytes # 1.8 K/mm3 (0.7-4.5); Lymphocytes % 10.4 % (10-50); Mean Corpuscular Hemoglobin 30.2 pg (27.0-31.2); Mean Corpuscular Volume 88.6 fl (81-99); Mean Platelet Volume 8.3 fl (7.4-10.4); Monocytes # 0.5 K/mm3 (0.1-1.0); Monocytes % 3.1 % (1.7-9.3); Neutrophils # 14.4 K/mm3 (1.8-7.8); Neutrophils % 85.1 % (37.0-80.0); Platelet Count 298 K/mm3 (142-424); Red Blood Count 4.78 M/mm3 (4.20-5.40); Red Cell Distribution Width 14.5 % (11.5-17.5)
[2024-03-30 06:01] LABS: MANUAL DIFFERENTIAL MANUAL DIFFERENTIAL (MANUAL DIFF)
[2024-03-30 06:03] LABS: Albumin Level 4.7 g/dl (3.5-5.0); Chloride 109 mmol/L (98-107); Sodium 142 mmol/L (136-145)
[2024-03-30 06:04] LABS: HCG Qualitative, Serum Negative (Negative); Potassium 4.8 mmoL/L (3.5-5.1)
[2024-03-30 06:05] LABS: Lipase 58 U/L (23-300)
[2024-03-30 06:06] LABS: Alanine Aminotransferase 31 U/L (12-78); Anion Gap 13.8 mEq/L (5-15); Aspartate Amino Transferase 34 U/L (14-36); Blood Urea Nitrogen 9 mg/dl (7-17); Carbon Dioxide 24 mmol/L (22.0-30.0); Creatinine Clearance Estimated 153 mL/min (50-200); Estimated Glomerular Filt Rate 107 ml/min (>60); GFR (African American) 130 ML/MIN (>60); INR 0.92 (0.9-1.1); Prothrombin Time 10.4 seconds (10.1-12.5)
[2024-03-30 06:07] LABS: Albumin/Globulin Ratio 1.5 (1.1-1.8); Alkaline Phosphatase 71 U/L (38-126); Calcium 9.7 mg/dl (8.4-10.2); Globulin 3.1 g/dL (1.3-3.2); Glucose 126 mg/dl (74-100); Lactic Acid 2.9 mmol/L (0.7-2.1); Total Protein,Serum 7.8 g/dl (6.3-8.2)
--- NOTE | 2024-03-30 06:42 | PC.NURSE ---
on phone w/ Sandeep regarding surgery.
--- NOTE | 2024-03-30 07:01 | EXP.SURG.CON ---
History of Present Illness *Admission Date: 03/30/24 *Reason for visit:: Appendicitis *History of present illness: Patient is a 48-year-old female from [facility] who has undergone previous unilateral oophorectomy, 2 prior C-sections, laparoscopic cholecystectomy, laparoscopic sleeve gastrectomy, who had developed mid abdominal pain beginning approximately 5 PM on 03/29/2024 which became localized to the right lower quadrant. She had nausea but no vomiting. Pain was quite significant and rated as a 9 out of 10. She has had previous similar symptoms which had been self-limited. Prior to presentation she had self administered enema without relief. Evaluation in the emergency department with a white blood cell count of 17,000. CT scan performed revealed findings of dilated inflamed appendix consistent with acute appendicitis. Surgical consultation was obtained. . [facility] Disclaimer: The information contained in this section may have been updated after the patient was seen, as this information can be updated by other users. Medical History (Updated 03/30/24 @ 08:55 by Kenneth Gale MD) Hypothyroid Surgical History (Updated 03/30/24 @ 08:19 by Margaret Muse RN) H/O gastric sleeve Hx of cholecystectomy H/O section H/O oophorectomy H/O neck surgery H/O shoulder surgery H/O knee surgery Family History (Updated 03/30/24 @ 08:19 by Margaret Muse RN) Other No significant family history Social History (Updated 03/30/24 @ 08:19 by Margaret Muse RN) Smoking Status: Former smoker alcohol intake: never current occupational status: other Travel in the last 8 weeks: None Meds Home Medications and Allergies Home Medications ?Medication ?Instructions ?Recorded ?Confirmed ?Type escitalopram oxalate 10 mg tablet 10 mg PO DAILY 03/30/24 03/30/24 History levothyroxine 50 mcg tablet 50 mcg PO DAILY 03/30/24 03/30/24 History levothyroxine 75 mcg tablet 75 mcg PO DAILY 03/30/24 03/30/24 History New Prescriptions to Start Prescriptions: Allergies Allergy/AdvReac Type Severity Reaction Status Date / Time No Known Allergies Allergy Unverified 03/30/24 07:37 Exam (Inpt) Vital signs and Labs for Last 24 Hours: Temp Pulse Resp BP Pulse Ox O2 Del Method 97.9 F 83 20 165/100 H 96 Room Air 03/30/24 05:37 03/30/24 05:37 03/30/24 05:37 03/30/24 05:37 03/30/24 05:37 03/30/24 05:37 Laboratory Results - last 24 hr 03/30/24 05:47: WBC 17.0 H, RBC 4.78, Hgb 14.4, Hct 42.4, MCV 88.6, MCH 30.2, MCHC 34.0, RDW 14.5, Plt Count 298, MPV 8.3, Neut % (Auto) 85.1 H, Lymph % (Auto) 10.4, [place] % (Auto) 3.1, Eos % (Auto) 0.9, Baso % (Auto) 0.4, Neut # (Auto) 14.4 H, Lymph # (Auto) 1.8, [place] # (Auto) 0.5, Eos # (Auto) 0.2, Baso # (Auto) 0.1, PT 10.4, INR 0.92, Sodium 142, Potassium 4.8, Chloride 109 H, Carbon Dioxide 24, Anion Gap 13.8, BUN 9, Creatinine 0.60, Estimated Creat Clear 153, Estimated GFR 107, Est GFR ( Amer) 130, Glucose 126 H, Lactate 2.9 H, Calcium 9.7, Total Bilirubin 1.0, AST 34, ALT 31, Alkaline Phosphatase 71, Total Protein 7.8, Albumin 4.7, Globulin 3.1, Albumin/Globulin Ratio 1.5, Lipase 58, Serum HCG, Qual Negative I & O for Labs for Last 24 Hours: Intake & Output 03/27/24 03/28/24 03/29/24 03/30/24 11:59 11:59 11:59 11:59 Weight 184 lb Constitutional: no acute distress Head: Present normocephalic Respiratory: Present CTA bilaterally Cardiac: Present Reg Rate and Rhythm GI: Present soft and tenderness Comments:: Patient has significant tenderness with some voluntary guarding diffusely most pronounced in the right lower quadrant. Rectal (female): Present deferred (female): Present deferred Results Labs 03/30/24 05:47 03/30/24 05:47 Labs: Laboratory Results - last 24 hr 03/30/24 05:47: WBC 17.0 H, RBC 4.78, Hgb 14.4, Hct 42.4, MCV 88.6, MCH 30.2, MCHC 34.0, RDW 14.5, Plt Count 298, MPV 8.3, Neut % (Auto) 85.1
[2024-03-30 07:05] LABS: Lymphocytes % 8 % (10-50); Monocytes % 2 % (2-9); Neutrophils % 90 % (42-76); RBC Morphology Normal; Total Cells Counted 100
[2024-03-30 07:06] LABS: Platelet Estimate Normal
--- NOTE | 2024-03-30 07:25 | PC.NURSE ---
assisted pt to the restroom and back to her room. pt tolerated well. no needs voiced at this time. at bedside. call light within reach.
--- NOTE | 2024-03-30 07:27 | PC.NURSE ---
Dr. Osorio s/w KATINAAD
--- NOTE | 2024-03-30 07:28 | PC.NURSE ---
per dr galo pt is accepted to hospitalist.
--- NOTE | 2024-03-30 07:29 | PC.NURSE ---
house aware of admission. pt is going to room 200.
--- NOTE | 2024-03-30 07:30 | PC.NURSE ---
coal yard supervisor notified of admission
--- NOTE | 2024-03-30 07:31 | PC.NURSE ---
admissions aware of pt getting admitted to room 200
--- NOTE | 2024-03-30 07:34 | PC.NURSE ---
hospitalist at bedside
--- NOTE | 2024-03-30 07:40 | PC.NURSE ---
called report to Afshan GOMEZ
--- NOTE | 2024-03-30 08:01 | PC.NURSE ---
arrived by w/c from ED
--- NOTE | 2024-03-30 08:02 | PC.NURSE ---
Surgery packet completed and reviewed with pt. New set of pt labels printed for surgery. Med/Surg staff here to take pt to room 200/ Called Maik in Surgery to notify that pt is headed to m/s 200.
--- NOTE | 2024-03-30 08:30 | EXP.HP ---
History of Present Illness *Admission Date: 03/30/24 *History of present illness: Really nice 48-year-old female with past medical history of hypothyroidism and perimenopausal syndrome(escitalopram) . Patient presents complaining of nausea, abdominal discomfort beginning at 5 PM 03/29/2024. Patient describes abdominal discomfort as 10/10, achy, focused in epigastric with eventual radiation of right lower quadrant, occurring with nausea chills and constipation. Patient presented to emergency room around 5 AM 03/30/2024, with CT abdomen/pelvis showing large appendix, and signs of acute appendicitis. Surgically evaluated patient, recommended patient be admitted to medicine service, and plans to take patient to the OR BRE. Patient admits to history of multiple surgeries including gastric sleeve, x 2, cholecystectomy, oophorectomy. Denies fevers, known sick contacts, recent travel. with patient emergency room and collaborates the story. Patient also noted left jaw swelling starting in emergency room around 7:30 AM. Denies any recent dental procedures, dental caries, or issues with dental abscesses. WBC in emergency room 17,000. Patient also reports using enema at home without relief of constipation. [facility] Disclaimer: The information contained in this section may have been updated after the patient was seen, as this information can be updated by other users. Medical History (Updated 03/30/24 @ 08:55 by Kenneth Gale MD) Hypothyroid Surgical History (Updated 03/30/24 @ 08:19 by Margaret Muse RN) H/O gastric sleeve Hx of cholecystectomy H/O section H/O oophorectomy H/O neck surgery H/O shoulder surgery H/O knee surgery Family History (Updated 03/30/24 @ 08:19 by Margaret Muse, JASON) Other No significant family history Social History (Updated 03/30/24 @ 08:19 by Margaret Muse RN) Smoking Status: Former smoker alcohol intake: never current occupational status: other Travel in the last 8 weeks: None Review of Systems Review of Systems Review of systems:: pertinent systems reviewed and negative unless documented below Meds Home Medications and Allergies Home Medications ?Medication ?Instructions ?Recorded ?Confirmed ?Type escitalopram oxalate 10 mg tablet 10 mg PO DAILY 03/30/24 03/30/24 History levothyroxine 50 mcg tablet 50 mcg PO DAILY 03/30/24 03/30/24 History levothyroxine 75 mcg tablet 75 mcg PO DAILY 03/30/24 03/30/24 History New Prescriptions to Start Prescriptions: Allergies Allergy/AdvReac Type Severity Reaction Status Date / Time No Known Allergies Allergy Unverified 03/30/24 07:37 Exam Data for Last 24 hours Vital signs and Labs for Last 24 Hours: Temp Pulse Resp BP Pulse Ox O2 Del Method 97.9 F 90 20 158/94 H 98 Room Air 03/30/24 08:03 03/30/24 08:03 03/30/24 08:03 03/30/24 08:03 03/30/24 08:00 03/30/24 08:03 Laboratory Results - last 24 hr 03/30/24 05:47: WBC 17.0 H, RBC 4.78, Hgb 14.4, Hct 42.4, MCV 88.6, MCH 30.2, MCHC 34.0, RDW 14.5, Plt Count 298, MPV 8.3, Neut % (Auto) 85.1 H, Lymph % (Auto) 10.4, [place] % (Auto) 3.1, Eos % (Auto) 0.9, Baso % (Auto) 0.4, Neut # (Auto) 14.4 H, Lymph # (Auto) 1.8, [place] # (Auto) 0.5, Eos # (Auto) 0.2, Baso # (Auto) 0.1, Total Counted 100, Neutrophils % (Manual) 90 H, Lymphocytes % (Manual) 8 L, Monocytes % (Manual) 2, Platelet Estimate Normal, RBC Morphology Normal, PT 10.4, INR 0.92, Sodium 142, Potassium 4.8, Chloride 109 H, Carbon Dioxide 24, Anion Gap 13.8, BUN 9, Creatinine 0.60, Estimated Creat Clear 153, Estimated GFR 107, Est GFR ( Amer) 130, Glucose 126 H, Lactate 2.9 H, Calcium 9.7, Total Bilirubin 1.0, AST 34, ALT 31, Alkaline Phosphatase 71, Total Protein 7.8, Albumin 4.7, Globulin 3.1, Albumin/Globulin Ratio 1.5, Lipase 58, Serum HCG, Qual Negative I & O for Last 24 hours: Intake & Output 03/27/24 03/28/24 03/29/24 08/26/24 23:59 23:59 23:59 23:59
--- NOTE | 2024-03-30 08:48 | CA_ITS ---
APPROVED REPORT EXAM: Comprehensive 2D, Doppler, and color-flow Echocardiogram Road Supervisor Of Engines: Reshma Bradford RVT Ht: 5 ft 6 in Wt: 184lbs BSA: 1.93 BP: 165/100 mmHg Indications: CP,S/P APPENDECTOMY TODAY,EX SMOKER,HLD TDS-S/P SURGERY AND FLAT ON BACK 2D Dimensions IVSd 1.41 cm F: 0.6-1.0 LVEF (Visual) 60.90 % PWd 1.22 cm F: 0.6 - 1.0 LA Volume 54.10 mL LVDd 4.04 cm F: 3.9 - 5.3 LA Volume Index 28.03 mL/m2 (M/F) 16-34 LVDs 2.74 cm F: 2.2 - 3.5 EF AP4 52.50 % Aortic Root 2.12 cm F: 2.7 - 3.3 GL Strain -17.2 % Left Atrium 4.12 cm F: 2.7 - 3.8 RVID Base (AP4) 2.33 cm (M/F) 2.5-4.1 LVOT 2.62 cm (M/F) 1.5-2.5 M-Mode Dimensions LVDd 4.04 cm (3.5-5.7) Ao Diam 2.76 cm (2.0-3.7) LVDs 2.74 cm (3.5-5.7) IVSd 1.41 cm (0.6-1.1) PWd 1.22 cm (0.6-1.1) FS 32.20% LV Diastology E Decel Time 150 (160-240 msec) E/A Ratio 2.9 MED E' 19.9 (>= 7 cm/sec) E'/MED E' Ratio 5.90 (<= 14) LAT E' 19.8 (>= 10 cm/sec) E/LAT E' Ratio 5.93 (<= 14) Aortic Valve LVOT Max 125.0 (70-110 cm/s) LUCRETIA Index 2.90 cm2/m2 LVOT VTI 24.07 cm AoV Peak Ari. 167.0 (50-130 cm/s) AO Peak GR. 11.20 mmHg AO Mean GR. 5.40 (<5 mmHg) AO VTI 23.2 (18-25 cm) LUCRETIA (VTI) 5.60 (2.5-4.5 cm2) Mitral Valve MV E Max Ari. 117.0 (40-130 cm/s) MV A Velocity 40.0 (40-130 cm/s) E/A Ratio 2.93 MV Decel. Time 150 (160-240 ms) Left Ventricle The left ventricle is normal size. The left ventricular systolic function is normal. The left ventricular ejection fraction is within the normal range. There is increased LV wall thickness. There is normal LV segmental wall motion. Transmitral Doppler flow pattern suggests impaired LV relaxation. LVEF is 60%. Right Ventricle The right ventricle is normal size. The right ventricular systolic function is normal. Atria The left atrium size is normal. The right atrium size is normal. The interatrial septum is not well-visualized. Aortic Valve The aortic valve opens well. There is no aortic valvular stenosis. No aortic regurgitation is present. Mitral Valve The mitral valve is normal in structure. No evidence of mitral valve stenosis. There is no mitral valve regurgitation noted. Tricuspid Valve The tricuspid valve leaflets are thin and pliable. Trace tricuspid regurgitation. There is insufficient TR jet to estimate RVSP. Pulmonic Valve The pulmonary valve is normal in structure. Trace pulmonic regurgitation. Great Vessels The aortic root is normal in size. The ascending aorta is not well-visualized. IVC is normal in size and collapses >50% with inspiration. Pericardium There is no pericardial effusion. Other Information Study Quality: Technically Difficult Conclusion Technically difficult study due to poor acoustic windows. Normal biventricular systolic function. No significant valvular stenosis or regurgitation. Electronically signed by : Mariana Wilson MD 03/30/2024 15:29:36
[2024-03-30 09:55] LABS: Reflex Lactic Add Lactic Reflex
--- NOTE | 2024-03-30 10:02 | EXP.ANES.CKL ---
[facility] Disclaimer: The information contained in this section may have been updated after the patient was seen, as this information can be updated by other users. Medical History (Updated 03/30/24 @ 08:55 by Kenneth Gale MD) Hypothyroid Surgical History (Updated 03/30/24 @ 08:19 by Margaret Muse, JASON) H/O gastric sleeve Hx of cholecystectomy H/O section H/O oophorectomy H/O neck surgery H/O shoulder surgery H/O knee surgery Family History (Updated 03/30/24 @ 08:19 by Margaret Muse, RN) Other No significant family history Social History (Updated 03/30/24 @ 08:19 by Margaret Muse RN) Smoking Status: Former smoker alcohol intake: never substance use type: denies use current occupational status: other Travel in the last 8 weeks: None [facility] Anesthesia Checklist Patient Identification Patient Identification: Arm Band, Family and Verbal (Name & ) Structural Data Admitted From: Emergency Dept Planned Operative Procedure/s: Lap Appy; possible open laparotomy Consent for Planned Operative Procedure(s) Verified: Yes Verified Documents: Surgical Consent and History and Physical NPO Status Verified Time NPO: 20:00 Chart Verification Results Verified: CBC, BMP, PT, PTT, INR, ECG and HCG Additional verifications Patient : No Anesthesia Reactions: No Cardiovascular Assessment Heart Sounds: S1 & S2 Pulse Rhythm: Irregular Peripheral Edema: No Airway Assessment Mallampati Score:: Class II C-Spine Mobility Assessed: Yes (FROM demonstrated) TMJ Mobility Assessed: No Dentition: Good Dentition (Nothing loose per pt.) Neurological Assessment Level of Consciousness: Awake, Alert, Appropriate and Follows Commands Hx Seizures: No Numbness or tingling in extremities: No Anesthesia Plan Anesthesia Risk discussed: Yes Anesthesia Plan: Verified ASA Class: III Anesthesia Type: General
--- NOTE | 2024-03-30 11:17 | P.OP_ITS ---
Date of procedure: 03/30/24 Pre-op Diagnosis:: Acute appendicitis Post-op Diagnosis:: Same Procedure performed:: Laparoscopic appendectomy Surgeon:: Ritesh Hopkins MD DATA ANALYTICS CHIEF SCIENTIST:: Criss Mcdonough Anesthesia: GETA Estimated blood loss (mL): 10 Operative findings:: Findings consistent with acute necrotizing suppurative appendicitis without perforation . Operative note:: Consent was obtained and patient was taken the operating room. She was positioned in supine position. General anesthesia was induced via endotracheal tube. Abdomen was prepped and draped in the standard surgical fashion. Subumbilical skin incision was made in the previous laparoscopy scar. Dissection was carried down to the fascia. While performing abdominal wall lift Veress needle was inserted. CO2 pneumoperitoneum was achieved. 12 mm optical trocar was inserted at the umbilicus. Initially the trocar was posterior to the omentum as there were minimal focal adhesions at the umbilicus. Trocar was slowly withdrawn and positioned above the omentum. Laparoscopic surveillance was carried out. 5 mm trocar was inserted in the lower abdomen in her previous scar. 5 mm trocar was inserted in right upper abdominal trocar scar. Appendix was identified and found to be significantly distended and adherent to the right pelvic sidewall. It was dissected free as this was acute inflammatory adhesions. There were a few adhesions of periappendiceal fat to the appendix which were dissected free. The appendix was suppurative with necrosis but no perforation. Appendix was grasped with endoscopic [place]. Is elevated. The mesoappendix was carefully divided with a's ultrasonic harmonic jackson with dissection carried down to the appendiceal base. At the appendiceal stump there was limited inflammation. The appendix was divided at its base with a endoscopic SELENA linear cutting stapling device. For a few remaining attachments additional load of the stapler was used to divide the remaining attachments. Appendix was placed within an Endo Catch retrieval device and removed from the peritoneal cavity via the umbilical trocar site which required some minimal extension of the fascial incision for delivery. The appendiceal stump staple line was then inspected for hemostasis and integrity which was assured. Limited irrigation was performed with aspiration until clear. Trocars were then removed and CO2 pneumoperitoneum was evacuated. Fascia at the umbilicus was closed with multiple interrupted 0 Vicryl sutures. Local anesthetic was infiltrated. Skin incision was closed with 4-0 Monocryl in a subcuticular fashion. Dressings were applied. . Condition: stable Disposition: PACU Complications:: None immediately apparent .
[2024-03-30 11:30] LABS: Microscopic,Cath URINE MICROSCOPIC (MICROSCOPIC)
--- NOTE | 2024-03-30 11:33 | P.PNANES_ITS ---
[facility] Anesthesia Record Part I Anesthesia Record I Intake, IV Amount: 1,000 Hydration: Adequate Estimated blood loss (mL): 25 Urine output (mL): 750 Blood Products used (#): none Blood Pressure: 125/65 SaO2: 94 Pulse Rate: 122 Airway Patency: Patent Respiratory Rate: 16 Temperature: 99.3 F Patient is:: Awake (Talking after removal of oral airway.), Drowsy, Oral/Nasal airway (9.0 oral airway upon arrival to PACU. Removed @ 1130.) and Stable Stable to PACU at:: 11:30
--- NOTE | 2024-03-30 11:36 | SUR.PHASEI ---
30 mg Toradol given IV per v/o from Milagros McdonoughRN @ 5250
[2024-03-30 11:39] LABS: Appearance,Urine/Cath CLEAR (Clear); Bilirubin,Cath Negative (Negative); Blood, Urine/Cath 1+ (Negative); Color,Urine/Cath YELLOW (Yellow); Glucose,Urine/Cath (UA) Negative (Negative); Ketones,Urine/Cath Negative (Negative); Leukocyte Esterase,Cath Negative (Negative); Nitrate,Cath Negative (Negative); Protein,Urine/Cath Negative (Negative); Urobilinogen,Cath 0.2 EU/dl (0.2)
[2024-03-30 12:03] LABS: Bacteria,Urine/Cath TRACE /lpf; Squamous Epithelial Ur./Cath Occasional #/hpf (0-5); WBC,Urine/Cath Occasional #/hpf (0-3)
[2024-03-30 12:45] LABS: Lactic Acid Follow Up (RFLX 1) 2.5 mmol/L (0.7-2.1)
[2024-03-30 12:54] LABS: Troponin I < 0.01 ng/ml (0.00-0.034)
--- NOTE | 2024-03-30 13:43 | P.PNANES_ITS ---
[facility] Anesthesia Record Part II Anesthesia Record Part II Discharge Time: 11:55 Destination: Medical Surgical Department PACU nurse assessment reviewed?: Yes Patient Condition:: Good Anesthesia Complications:: None Swallowing reflex intact?: Yes Airway Patency: Patent Cyanosis?: No Blood Pressure: 133/69 SaO2: 94 Respiratory Rate: 17 Pulse Rate: 123 Temperature: 99.6 F Mental Status: Alert & Oriented Pain level:: 0 Nausea and/or vomitting:: None Intake, IV Amount: 1,000 Hydration: Adequate
[2024-03-30 14:25] LABS: Reflex Lactic (2 hrs) Add Lactic Reflex
[2024-03-30 15:02] LABS: Lactic Acid Follow up (RFLX 2) 4.2 mmol/L (0.7-2.1)
--- NOTE | 2024-03-30 15:36 | EXP.CARD.CON ---
History of Present Illness History of Present Illness Consult date: 03/30/24 Requesting physician: Kenneth Gale Consult reason: chest pain Chief complaint: Chest pain, abdominal pain History of present illness: This is a 48-year-old white female with past medical history of kidney stones who presented to emergency department with complaints of epigastric pain and right lower abdominal pain. A CT abdomen pelvis was obtained which showed a large appendix with signs of acute appendicitis. Patient was admitted for surgical evaluation and is status post appendectomy. Patient denies any further episodes of chest pain. EKG is normal sinus rhythm without any acute ischemic changes noted. Troponin is negative. Preliminary echo shows a normal ejection fraction without wall motion abnormalities present. Other labs reviewed and stable. [facility] Disclaimer: The information contained in this section may have been updated after the patient was seen, as this information can be updated by other users. Medical History (Updated 03/30/24 @ 08:55 by Kenneth Gale MD) Hypothyroid Surgical History (Updated 03/30/24 @ 08:19 by Margaret Muse RN) H/O gastric sleeve Hx of cholecystectomy H/O section H/O oophorectomy H/O neck surgery H/O shoulder surgery H/O knee surgery Family History (Updated 03/30/24 @ 08:19 by Margaret Muse, JASON) Other No significant family history Social History (Updated 03/30/24 @ 10:03 by Criss Mcdonough CRNA) Smoking Status: Former smoker alcohol intake: never substance use type: denies use current occupational status: other Travel in the last 8 weeks: None Review of Systems Review of Systems Review of systems:: pertinent systems reviewed and negative unless documented below Exam Data for Last 24 hours Vital signs and Labs for Last 24 Hours: Temp Pulse Resp BP Pulse Ox O2 Del Method 98.6 F 112 H 18 113/64 96 Room Air 03/30/24 14:24 03/30/24 14:54 03/30/24 14:54 03/30/24 14:54 03/30/24 14:54 03/30/24 14:42 Laboratory Results - last 24 hr 03/30/24 05:47: WBC 17.0 H, RBC 4.78, Hgb 14.4, Hct 42.4, MCV 88.6, MCH 30.2, MCHC 34.0, RDW 14.5, Plt Count 298, MPV 8.3, Neut % (Auto) 85.1 H, Lymph % (Auto) 10.4, [place] % (Auto) 3.1, Eos % (Auto) 0.9, Baso % (Auto) 0.4, Neut # (Auto) 14.4 H, Lymph # (Auto) 1.8, [place] # (Auto) 0.5, Eos # (Auto) 0.2, Baso # (Auto) 0.1, Total Counted 100, Neutrophils % (Manual) 90 H, Lymphocytes % (Manual) 8 L, Monocytes % (Manual) 2, Platelet Estimate Normal, RBC Morphology Normal, PT 10.4, INR 0.92, Sodium 142, Potassium 4.8, Chloride 109 H, Carbon Dioxide 24, Anion Gap 13.8, BUN 9, Creatinine 0.60, Estimated Creat Clear 153, Estimated GFR 107, Est GFR ( Amer) 130, Glucose 126 H, Lactate 2.9 H, Calcium 9.7, Total Bilirubin 1.0, AST 34, ALT 31, Alkaline Phosphatase 71, Total Protein 7.8, Albumin 4.7, Globulin 3.1, Albumin/Globulin Ratio 1.5, Lipase 58, Serum HCG, Qual Negative 03/30/24 10:31: Urine Color Yellow, Urine Appearance Clear, Urine pH 6.0, Ur Specific [place] 1.010, Urine Protein Negative, Urine Glucose (UA) Negative, Urine Ketones Negative, Urine Blood 1+, Urine Nitrate Negative, Urine Bilirubin Negative, Urine Urobilinogen 0.2, Ur Leukocyte Esterase Negative, Urine RBC 3-5, Urine WBC Occasional, Ur Squamous Epith Cells Occasional, Urine Bacteria Trace 03/30/24 12:20: Lactate 2.5 H, Troponin I < 0.01 03/30/24 14:40: Lactate 4.2 H I & O for Last 24 hours: Intake & Output 03/27/24 03/28/24 03/29/24 03/30/24 23:59 23:59 23:59 23:59 Intake Total 2024 Balance 2024 Weight 184 lb Constitutional Constitutional: no acute distress *Routine Respiratory Exam Respiratory: Present CTA bilaterally and symmetric chest movement *Routine Cardiovascular Exam Cardiovascular: Present RRR, Normal S1 and Normal S2 *Routine Abdominal Exam Abdominal: Present soft and normoactive bowel sounds; Absent tenderness *Routine Extre
--- NOTE | 2024-03-30 17:57 | PC.NURSE ---
Pt post op lap appendectomy. VSS. pt has had no c/o pain this shift. Pt ambulating to and from bathroom with standby assist until sedation wore off then was able to go independently. thigh high SCDs in place for VTE. Pt tolerating regular diet with no c/o nausea/vomiting. Pt resting in bed comfortably with family at bedside.
[2024-03-30 19:37] LABS: Troponin I < 0.01 ng/ml (0.00-0.034)
[2024-03-31] VITALS: PULSE 80
[2024-03-31 00:48] LABS: Troponin I < 0.01 ng/ml (0.00-0.034)
[2024-03-31 04:00] VITALS: BP 107/67; PULSE 70; PULSE 79; RESP 16; TEMP 37.1; O2SAT 95; BMI 28.8
[2024-03-31 06:28] LABS: Basophils % 0.2 % (0.1-2.0); Eosinophils % 0.2 % (0.1-12.0); Hematocrit 35.1 % (37.0-47.0); Hemoglobin 11.6 g/dL (12.2-16.2); Lymphocytes # 0.5 K/mm3 (0.7-4.5); Lymphocytes % 4.3 % (10-50); Mean Corpuscular HGB Conc 33.1 g/dL (31.8-35.4); Mean Corpuscular Hemoglobin 29.5 pg (27.0-31.2); Mean Corpuscular Volume 89.1 fl (81-99); Mean Platelet Volume 8.4 fl (7.4-10.4); Monocytes # 0.4 K/mm3 (0.1-1.0); Monocytes % 3.6 % (1.7-9.3); Neutrophils # 10.9 K/mm3 (1.8-7.8); Neutrophils % 91.7 % (37.0-80.0); Platelet Count 198 K/mm3 (142-424); Red Blood Count 3.94 M/mm3 (4.20-5.40); Red Cell Distribution Width 14.7 % (11.5-17.5); White Blood Count 11.9 K/mm3 (4.8-10.8)
[2024-03-31 06:32] LABS: MANUAL DIFFERENTIAL MANUAL DIFFERENTIAL (MANUAL DIFF)
[2024-03-31 06:35] LABS: Albumin Level 3.2 g/dl (3.5-5.0); Chloride 111 mmol/L (98-107); Sodium 139 mmol/L (136-145)
[2024-03-31 06:36] LABS: Potassium 3.9 mmoL/L (3.5-5.1)
[2024-03-31 06:38] LABS: Alanine Aminotransferase 64 U/L (12-78); Albumin/Globulin Ratio 1.3 (1.1-1.8); Alkaline Phosphatase 59 U/L (38-126); Anion Gap 5.9 mEq/L (5-15); Aspartate Amino Transferase 48 U/L (14-36); Bilirubin,Total 0.8 mg/dl (0.2-1.3); Blood Urea Nitrogen 14 mg/dl (7-17); Carbon Dioxide 26 mmol/L (22.0-30.0); Creatinine Clearance Estimated 131 mL/min (50-200); Estimated Glomerular Filt Rate 90 ml/min (>60); GFR (African American) 109 ML/MIN (>60); Globulin 2.5 g/dL (1.3-3.2); Total Protein,Serum 5.7 g/dl (6.3-8.2)
[2024-03-31 06:39] LABS: Calcium 8.2 mg/dl (8.4-10.2); Glucose 110 mg/dl (74-100); Magnesium 1.8 mg/dl (1.6-2.3)
[2024-03-31 06:42] LABS: Lactic Acid 0.8 mmol/L (0.7-2.1)
--- NOTE | 2024-03-31 07:37 | EXP.SURG.PN ---
Subjective Narrative: Patient states that she feels much better. No issues overnight. Taking clear liquids Exam Data for Last 24 hours Vital signs and Labs for Last 24 Hours: Temp Pulse Resp BP Pulse Ox O2 Del Method 98.7 F 79 16 107/67 L 95 Room Air 03/31/24 04:00 03/31/24 04:00 03/31/24 04:00 03/31/24 04:00 03/31/24 04:00 03/31/24 06:51 Laboratory Results - last 24 hr 03/30/24 10:31: Urine Color Yellow, Urine Appearance Clear, Urine pH 6.0, Ur Specific [place] 1.010, Urine Protein Negative, Urine Glucose (UA) Negative, Urine Ketones Negative, Urine Blood 1+, Urine Nitrate Negative, Urine Bilirubin Negative, Urine Urobilinogen 0.2, Ur Leukocyte Esterase Negative, Urine RBC 3-5, Urine WBC Occasional, Ur Squamous Epith Cells Occasional, Urine Bacteria Trace 03/30/24 12:20: Lactate 2.5 H, Troponin I < 0.01 03/30/24 14:40: Lactate 4.2 H 03/30/24 18:53: Troponin I < 0.01 03/31/24 00:15: Troponin I < 0.01 03/31/24 05:57: WBC 11.9 H D, RBC 3.94 L, Hgb 11.6 L, Hct 35.1 L, MCV 89.1, MCH 29.5, MCHC 33.1, RDW 14.7, Plt Count 198 D, MPV 8.4, Neut % (Auto) 91.7 H, Lymph % (Auto) 4.3 L, [place] % (Auto) 3.6, Eos % (Auto) 0.2, Baso % (Auto) 0.2, Neut # (Auto) 10.9 H, Lymph # (Auto) 0.5 L, [place] # (Auto) 0.4, Eos # (Auto) 0.0, Baso # (Auto) 0.0, Sodium 139, Potassium 3.9, Chloride 111 H, Carbon Dioxide 26, Anion Gap 5.9, BUN 14 D, Creatinine 0.70, Estimated Creat Clear 131, Estimated GFR 90, Est GFR ( Amer) 109, Glucose 110 H, Lactate 0.8, Calcium 8.2 L, Magnesium 1.8, Total Bilirubin 0.8, AST 48 H D, ALT 64 D, Alkaline Phosphatase 59, Total Protein 5.7 L D, Albumin 3.2 L D, Globulin 2.5, Albumin/Globulin Ratio 1.3 I & O for Last 24 hours: Intake & Output 03/28/24 03/29/24 03/30/24 03/31/24 11:59 11:59 11:59 11:59 Intake Total 1000 / 1000 2940 / 2940 Output Total 0 / 0 Balance 1000 / 1000 2940 / 2940 Weight 184 lb 184 lb *Routine Abdominal Exam Abdominal: Present soft Progress Note: A&P Assessment and plan (1) Chest pain: Status: Acute (2) Acute appendicitis: Status: Acute Assessment and plan: Discharge home. Prescriptions for pain medication and several days of antibiotics given. Follow-up in the office in about 2 weeks.
[2024-03-31 08:00] VITALS: BP 118/70; PULSE 80; RESP 20; TEMP 37.1; O2SAT 95
--- NOTE | 2024-03-31 08:50 | EXP.DC.SUM ---
General Admission date:: 03/30/24 Discharge date: 03/31/24 HPI HPI HPI: Patient is a 48-year-old female from [facility] who has undergone previous unilateral oophorectomy, 2 prior C-sections, laparoscopic cholecystectomy, laparoscopic sleeve gastrectomy, who had developed mid abdominal pain beginning approximately 5 PM on 03/29/2024 which became localized to the right lower quadrant. She had nausea but no vomiting. Pain was quite significant and rated as a 9 out of 10. She has had previous similar symptoms which had been self-limited. Prior to presentation she had self administered enema without relief. Evaluation in the emergency department with a white blood cell count of 17,000. CT scan performed revealed findings of dilated inflamed appendix consistent with acute appendicitis. Surgical consultation was obtained. . Hospital Course Hospital Course Hospital Course: 48-year-old female with past medical history of hypothyroidism, perimenopausal syndrome presents with acute abdominal discomfort. CT abdomen/pelvis shows signs of acute appendicitis. White blood count 17. Patient being taken to the OR immediately for exploratory laparotomy. Tolerated surgery well. Improvement in symptoms by morning. Stable to discharge home. Problems addressed as follows: Acute appendicitis: ? Admitted to medicine service, taken to the OR for appendectomy. Patient found to have Acute necrotizing suppurative appendicitis without perforation. Initiated on empiric antibiotics due to elevated white count. Some improvement in white count by morning to 11.9. Plan to continue Augmentin for 3 more days for total of 5 days of antibiotics. Follow-up with surgery in the next 2 weeks for reevaluation of surgical incisions. Pain medication sent by surgeon. Chest discomfort: ? May be noncardiac and related to acute appendicitis. Cardiology consulted. Troponins negative. Echo obtained, formal read still pending at discharge but preliminarily normal. EKG normal sinus rhythm without acute ischemic changes. Patient would benefit from further eval with cardiology as an outpatient if continues to have symptoms. Recommend reevaluating with PCP and considering referral if remains symptomatic. Hypothyroidism: Continue levothyroxine per home regimen Perimenopausal syndrome: Continue home escitalopram 10 mg daily Exam Data for Last 24 hours Vital signs and Labs for Last 24 Hours: Temp Pulse Resp BP Pulse Ox O2 Del Method 98.7 F 80 20 118/70 95 Room Air 03/31/24 08:00 03/31/24 08:00 03/31/24 08:00 03/31/24 08:00 03/31/24 08:00 03/31/24 08:00 Laboratory Results - last 24 hr 03/30/24 10:31: Urine Color Yellow, Urine Appearance Clear, Urine pH 6.0, Ur Specific [place] 1.010, Urine Protein Negative, Urine Glucose (UA) Negative, Urine Ketones Negative, Urine Blood 1+, Urine Nitrate Negative, Urine Bilirubin Negative, Urine Urobilinogen 0.2, Ur Leukocyte Esterase Negative, Urine RBC 3-5, Urine WBC Occasional, Ur Squamous Epith Cells Occasional, Urine Bacteria Trace 03/30/24 12:20: Lactate 2.5 H, Troponin I < 0.01 03/30/24 14:40: Lactate 4.2 H 03/30/24 18:53: Troponin I < 0.01 03/31/24 00:15: Troponin I < 0.01 03/31/24 05:57: WBC 11.9 H D, RBC 3.94 L, Hgb 11.6 L, Hct 35.1 L, MCV 89.1, MCH 29.5, MCHC 33.1, RDW 14.7, Plt Count 198 D, MPV 8.4, Neut % (Auto) 91.7 H, Lymph % (Auto) 4.3 L, [place] % (Auto) 3.6, Eos % (Auto) 0.2, Baso % (Auto) 0.2, Neut # (Auto) 10.9 H, Lymph # (Auto) 0.5 L, [place] # (Auto) 0.4, Eos # (Auto) 0.0, Baso # (Auto) 0.0, Sodium 139, Potassium 3.9, Chloride 111 H, Carbon Dioxide 26, Anion Gap 5.9, BUN 14 D, Creatinine 0.70, Estimated Creat Clear 131, Estimated GFR 90, Est GFR ( Amer) 109, Glucose 110 H, Lactate 0.8, Calcium 8.2 L, Magnesium 1.8, Total Bilirubin 0.8, AST 48 H D, ALT 64 D, Alkaline Phosphatase 59, Total Protein 5.7 L D, Albumin 3.2 L D, Globulin 2.5, Albumin/Globulin Ratio 1.3 I & O for Last 24 hours: Intake &
[2024-03-31 10:59] LABS: Lymphocytes % 3 % (10-50); Monocytes % 1 % (2-9); Neutrophils % 96 % (42-76); Total Cells Counted 100
[2024-03-31 11:00] LABS: Platelet Estimate Normal; RBC Morphology Normal
--- NOTE | 2024-04-01 12:39 | SW/DCPLANNER ---
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 Patient did not have any further needs/questions at this time.
== END 2024-03-31 09:40 | disposition home or self-care (01) ==
LOC: ER 05:48 → 2ND 07:33
PROVIDERS: Surgery; Admitting Provider Internal Medicine; Emergency Provider Emergency Medicine; PCP Nurse Practitioner Family; Visit Provider Internal Medicine
PROC: (CPT 44950; principal; 2024-03-30 09:55)
DX: K35.80 Unspecified acute appendicitis (principal); R10.31 Right lower quadrant pain; R07.9 Chest pain, unspecified; D72.829 Elevated white blood cell count, unspecified; E03.9 Hypothyroidism, unspecified; Z09 Encounter for follow-up examination after completed treatment for conditions other than malignant neoplasm; Z87.891 Personal history of nicotine dependence; N95.9 Unspecified menopausal and perimenopausal disorder
CPT/HCPCS: 44970; 36415; 74177; 80053; 81001; 83605; 83690; 83735; 84484; 84703; 85007; 85025; 85027; 85610; 93306; 99285; J3490; G0378; J0330; J0690; J1100; J2250; J2270; J2405; J2543; J3010; J7030; J7120; Q9967

== ENCOUNTER 2024-06-09 18:47 | Emergency (ER) | payer BC, SELFPAY ==
[2024-06-09] VITALS (9 sets, daily range): BP systolic 139–174; BP diastolic 82–110; PULSE 72–86; RESP 11–20; TEMP 36.6–36.8; O2SAT 93–99; BMI 29.0
--- NOTE | 2024-06-09 18:50 | ED_ITS ---
Discharge Plan Disposition Patient Disposition: Home, Self-Care Condition: Good Prescriptions Prescriptions: New pantoprazole [Protonix] 40 mg tablet,delayed release (DR/EC) 40 mg PO DAILY Qty: 30 0RF No Action escitalopram oxalate 10 mg tablet 10 mg PO DAILY levothyroxine 50 mcg tablet 50 mcg PO DAILY Referrals Follow up/Referrals: Adam Crawford II, MD [Staff Physician] - See instructions Debora Olsen APRN [Primary Care Provider] - See instructions Activity Restrictions/Add. Instructions Additional Instructions/Restrictions: Please call in the morning to schedule your appointment with gastroenterology. You may start taking your Protonix tomorrow evening. He had findings consistent with a viral infection on your imaging suggesting that you may have cough cold fever. You may utilize Tylenol Motrin as needed for your symptoms. Clinical Impressions Clinical Impression: Acute epigastric pain Print Language Print Language: Khmer Discharge ED Provider: Thee Rudolph HPI <MAVERICK Judge - Last Filed: 06/09/24 22:10> General Chief Complaint: Chest Pain Stated Complaint: sent by holden Cazares earlier Time Seen by Provider: 06/09/24 18:50 History of Present Illness HPI narrative: Patient presents for evaluation of chest pain. 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 She slept for 12 hours on Saturday and woke up with slight epigastric chest/abdominal pain. She denies any shortness of breath fever chills hemoptysis hematochezia melena nausea vomiting diarrhea. The epigastric abdominal pain has persisted and she went to see her PCP who sent her to the emergency department for further evaluation. On arrival patient does report that she has epigastric abdominal pain that radiates to her back with no rebound or guarding or rigidity. She has had a bowel movement and is passing flatus and is tolerating oral intake denies dyspnea increased work of breathing wheezing. Related Data Home Medications ?Medication ?Instructions ?Recorded ?Confirmed escitalopram oxalate 10 mg tablet 10 mg PO DAILY 03/30/24 04/14/24 levothyroxine 50 mcg tablet 50 mcg PO DAILY 03/30/24 04/14/24 Previous Rx's ?Medication ?Instructions ?Recorded pantoprazole 40 mg tablet,delayed 40 mg PO DAILY #30 tabs 06/09/24 release (Protonix) Allergies Allergy/AdvReac Type Severity Reaction Status Date / Time No Known Allergies Allergy Unverified 04/14/24 10:06 [facility] <MAVERICK Judge - Last Filed: 06/09/24 22:10> [facility] Disclaimer: The information contained in this section may have been updated after the patient was seen, as this information can be updated by other users. Medical History (Updated 06/09/24 @ 22:09 by MAVERICK Judge) Hypothyroid Surgical History (Updated 04/14/24 @ 10:07 by VANESSA Phillips) History of colonoscopy History of appendectomy H/O gastric sleeve Hx of cholecystectomy H/O section H/O oophorectomy H/O neck surgery H/O shoulder surgery H/O knee surgery Family History Other No significant family history Social History Smoking Status: Former smoker alcohol intake: never substance use type: denies use current occupational status: other Travel in the last 8 weeks: None Other Medical History Have you received the Flu Vaccine for this season: No Have you received the Pneumonia Vaccine: No <MAVERICK Judge - Last Filed: 06/09/24 22:10> ROS Obtained: Yes Systems reviewed as appropriate & no additional complaints except as documented Physical Exam <MAVERICK Judge - Last Filed: 06/09/24 22:10> General General appearance: alert and in no apparent distress Respiratory Respiratory exam: Present normal lung sounds bilaterally Cardiovascular Cardiovascular exam: Present regular rate Neurological Exam Neurological exam: Present alert and oriented X3 HEART Score <MAVERICK Judge - Last Filed: 06/09/24 22:10> HEART Score HEART Score assessment performed?: Yes History (anamnesis): Slightly suspicious ECG: Normal Age: 45-65 years Risk factors: 1-2 risk factors Troponin: </= normal limit HEART Score: 2 <Thee Rudolph MD - Last Filed: 06/09/24 22:55> HEART Score HEART Score: 2 Critical Care <MAVERICK Judge - Last Filed: 06/09/24 22:10> Critical Care Time Critical Care Time: No Medical Decision Making <MAVERICK Judge - Last Filed: 06/09/24 22:10> Medical Records Medical records reviewed: Yes I reviewed the patient's medical records. Braulio Inquiry Pt receiving controlled substance: No Vital Signs Vital Signs: 06/09/24 18:48 06/09/24 19:00 06/09/24 19:03 Temperature 97.9 F Temperature Source Oral Pulse Rate 81 81 Pulse Rate [Left Radial] 86 Respiratory Rate 13 15 15 Blood Pressure 174/104 H 164/100 H Blood Pressure [Right Arm] 172/110 H Blood Pressure Mean 142 121 Blood Pressure Mean [Right Arm] 130 Blood Pressure Source Blood Pressure Position 02 Sat by Pulse Oximetry 98 98 98 Oxygen Delivery Method Room Air 06/09/24 19:30 06/09/24 19:49 06/09/24 20:00 Temperature Temperature Source Pulse Rate 83 77 72 Pulse Rate [Left Radial] Respiratory Rate 16 11 L 11 L Blood Pressure 166/100 H 145/93 H 142/92 H Blood Pressure [Right Arm] Blood Pressure Mean 130 110 105 Blood Pressure Mean [Right Arm] Blood Pressure Source Blood Pressure Position 02 Sat by Pulse Oximetry 99 97 99 Oxygen Delivery Method 06/09/24 20:30 06/09/24 21:30 06/09/24 22:10 Temperature 98.2 F Temperature Source Oral Pulse Rate 84 85 81 Pulse Rate [Left Radial] Respiratory Rate 17 20 18 Blood Pressure 158/105 H 149/90 H 139/82 Blood Pressure [Right Arm] Blood Pressure Mean 122 109 Blood Pressure Mean [Right Arm] Blood Pressure Source Automatic Cuff Blood Pressure Position Sitting 02 Sat by Pulse Oximetry 97 93 L Oxygen Delivery Method Room Air Lab Data Lab results reviewed: Yes I reviewed the patient's lab results. Labs: Lab Results 06/09/24 19:08: WBC 8.4, RBC 4.51, Hgb 13.4, Hct 37.5, MCV 83.2, MCH 29.8, MCHC 35.8 H, RDW 13.9, Plt Count 263, MPV 7.4, Neut % (Auto) 60.8, Lymph % (Auto) 28.3, [place] % (Auto) 5.6, Eos % (Auto) 3.8, Baso % (Auto) 1.5, Neut # (Auto) 5.1, Lymph # (Auto) 2.4, [place] # (Auto) 0.5, Eos # (Auto) 0.3, Baso # (Auto) 0.1, PT 10.7, INR 0.95, D-Dimer 1.41 H, Sodium 141, Potassium 4.0, Chloride 108 H, Carbon Dioxide 26, Anion Gap 11.0, BUN 10, Creatinine 0.60, Estimated Creat Clear 154, Estimated GFR 107, Est GFR ( Amer) 130, Glucose 96, Calcium 9.5, Magnesium 2.1, Total Bilirubin 1.0, AST 29, ALT 29, Alkaline Phosphatase 62, Troponin I < 0.01, NT-Pro-B Natriuret Pep 197 H, Total Protein 7.2 D, Albumin 4.2, Globulin 3.0, Albumin/Globulin Ratio 1.4, Lipase 51, HIV 1&2 Antibody Rapid Nonreactive 06/09/24 19:30: Urine Color Yellow, Urine Appearance Clear, Urine pH 7.5, Ur Specific [place] 1.010, Urine Protein Negative, Urine Glucose (UA) Negative, Urine Ketones Negative, Urine Blood Negative, Urine Nitrate Negative, Urine Bilirubin Negative, Urine Urobilinogen 1.0, Ur Leukocyte Esterase Negative, Urine RBC 5-10, Urine WBC 20-50, Ur Squamous Epith Cells 20-50, Urine Bacteria 4+ 06/09/24 19:08 06/09/24 19:08 Response Orders (Tests/Meds): ED MEDICATIONS Discontinued Medications Generic Name Dose Route Start Last Admin Trade Name Aditi PRN Reason Stop Dose Admin Acetaminophen 1,000 mg 06/09/24 19:02 06/09/24 19:23 Acetaminophen 1,000mg/100ml Vial IV 06/09/24 19:03 1,000 mg ONCE ONE Administration Belladonna Alkaloids 60 ml 06/09/24 19:02 06/09/24 19:23 Belladonna Alkaloids 60 Ml Ml PO 06/09/24 19:03 60 ml ONCE ONE Administration Diphenhydramine HCl 50 mg 06/09/24 20:16 06/09/24 20:19 Diphenhydramine 50mg/Ml Vial IV 06/09/24 20:17 50 mg ONCE ONE Administration Sodium Chloride 1,000 mls @ 999 mls/hr 06/09/24 20:16 06/09/24 20:20 Sod Chlor 0.9% 1000ml Bag IV 06/09/24 21:16 999 mls/hr .Q1H1M ONE Administration Iopamidol 70 ml 06/09/24 21:05 06/09/24 21:06 Iopamidol-370 (76%);100ml Bottle IV 06/09/24 21:06 70 ml ONCE ONE Administration Ketorolac Tromethamine 15 mg 06/09/24 19:02 06/09/24 19:23 Ketorolac 30mg/Ml Vial IV 06/09/24 19:03 15 mg ONCE ONE Administration Methylprednisolone Sodium Succinate 125 mg 06/09/24 20:16 06/09/24 20:19 Methylprednisolone Sod Succ 125mg Vial IV 06/09/24 20:17 125 mg ONCE ONE Administration Sodium Chloride 50 ml 06/09/24 21:05 06/09/24 21:06 0.9 % Sodium Chloride 50 Ml Vial IV 06/09/24 21:06 50 ml ONCE ONE Administration Sodium Chloride 10 ml 06/09/24 21:05 06/09/24 21:06 Sodium Chloride 0.9% 10ml Syr (Rad Only) IV 06/09/24 21:06 10 ml ONCE ONE Administration ORDERS Category Date Time Status CT angio chest PE protocol Stat Cat Scan 06/09/24 19:46 Completed Chest XR -- portable [XR chest portable] Stat Exams 06/09/24 19:02 Completed BNP [NT Pro Brain Natriuretic Pep.] Stat Lab 06/09/24 19:08 Completed CBC w/Auto Diff [Complete Blood Count Auto Diff] Stat Lab 06/09/24 19:08 Completed CMP [Comprehensive Metabolic Panel] Stat Lab 06/09/24 19:08 Completed D-Dimer Stat Lab 06/09/24 19:08 Completed HIV (1&2) Antibody Rapid Stat Lab 06/09/24 19:08 Completed Hep C Ab with Reflex to RNA Stat Lab 06/09/24 19:08 Received INR [Prothrombin Time INR] Stat Lab 06/09/24 19:08 Completed Lipase Stat Lab 06/09/24 19:08 Completed Magnesium Stat Lab 06/09/24 19:08 Completed Trop I [Troponin I] Stat Lab 06/09/24 19:08 Completed UA [Urinalysis and Microscopic] Stat Lab 06/09/24 19:30 Completed Urine Culture Stat Micro 06/09/24 19:30 Received MDM Narrative Medical Decision Narrative: In summary patient is a 48-year-old female who presents to the emergency department for evaluation of epigastric chest/abdominal pain. Patient is initially hypertensive with a blood pressure 172/110 heart rate 86 respiratory rate is 13 O2 sats 98% on room air upon arrival, afebrile. Physical exam is remarkable for clear breath sounds bilaterally to the bases without adventitious sounds, no increased work of breathing or accessory muscle use, normal heart sounds with normal sinus rhythm on the bedside monitor, tenderness to palpation in the epigastrium but no rebound or guarding or rigidity. Bowel sounds normal active.. Differential diagnosis includes ACS versus PE versus pancreatitis versus gastroenteritis versus other viral bacterial infection etc. Initial workup will be conducted with hematologic labs plain film chest x-ray urinalysis. Initial interventions include crystalloid bolus Toradol Tylenol Zofran GI cocktail. Initial workup reviewed by me shows that her hematologic labs are nonactionable with the exception of a markedly elevated D-dimer at 1.4, troponins undetectable, my informal l interpretation of her plain film chest x- ray shows no acute processes. Upon repeat evaluation patient actually had complete resolution after the GI cocktail of her symptoms but given the elevated D-dimer ordered CTA PE protocol. Patient reportedly had an allergic reaction to contrast in the past so accordingly patient was premedicated with Benadryl prednisone and a crystalloid bolus.. My informal interpretation of her CTA PE protocol does not show any thrombus however it does show groundglass opacities consistent with a possible viral infection. Given this patient is appropriate for discharge with a prescription for a PPI, referral to GI, and symptomatic treatment for her viral syndrome. <Thee Rudolph MD - Last Filed: 06/09/24 22:55> Vital Signs Vital Signs: 06/09/24 18:48 06/09/24 19:00 06/09/24 19:03 Temperature 97.9 F Temperature Source Oral Pulse Rate 81 81 Pulse Rate [Left Radial] 86 Respiratory Rate 13 15 15 Blood Pressure 174/104 H 164/100 H Blood Pressure [Right Arm] 172/110 H Blood Pressure Mean 142 121 Blood Pressure Mean [Right Arm] 130 Blood Pressure Source Blood Pressure Position 02 Sat by Pulse Oximetry 98 98 98 Oxygen Delivery Method Room Air 06/09/24 19:30 06/09/24 19:49 06/09/24 20:00 Temperature Temperature Source Pulse Rate 83 77 72 Pulse Rate [Left Radial] Respiratory Rate 16 11 L 11 L Blood Pressure 166/100 H 145/93 H 142/92 H Blood Pressure [Right Arm] Blood Pressure Mean 130 110 105 Blood Pressure Mean [Right Arm] Blood Pressure Source Blood Pressure Position 02 Sat by Pulse Oximetry 99 97 99 Oxygen Delivery Method 06/09/24 20:30 06/09/24 21:30 06/09/24 22:10 Temperature 98.2 F Temperature Source Oral Pulse Rate 84 85 81 Pulse Rate [Left Radial] Respiratory Rate 17 20 18 Blood Pressure 158/105 H 149/90 H 139/82 Blood Pressure [Right Arm] Blood Pressure Mean 122 109 Blood Pressure Mean [Right Arm] Blood Pressure Source Automatic Cuff Blood Pressure Position Sitting 02 Sat by Pulse Oximetry 97 93 L Oxygen Delivery Method Room Air Lab Data Labs: Lab Results 06/09/24 19:08: WBC 8.4, RBC 4.51, Hgb 13.4, Hct 37.5, MCV 83.2, MCH 29.8, MCHC 35.8 H, RDW 13.9, Plt Count 263, MPV 7.4, Neut % (Auto) 60.8, Lymph % (Auto) 28.3, [place] % (Auto) 5.6, Eos % (Auto) 3.8, Baso % (Auto) 1.5, Neut # (Auto) 5.1, Lymph # (Auto) 2.4, [place] # (Auto) 0.5, Eos # (Auto) 0.3, Baso # (Auto) 0.1, PT 10.7, INR 0.95, D-Dimer 1.41 H, Sodium 141, Potassium 4.0, Chloride 108 H, Carbon Dioxide 26, Anion Gap 11.0, BUN 10, Creatinine 0.60, Estimated Creat Clear 154, Estimated GFR 107, Est GFR ( Amer) 130, Glucose 96, Calcium 9.5, Magnesium 2.1, Total Bilirubin 1.0, AST 29, ALT 29, Alkaline Phosphatase 62, Troponin I < 0.01, NT-Pro-B Natriuret Pep 197 H, Total Protein 7.2 D, Albumin 4.2, Globulin 3.0, Albumin/Globulin Ratio 1.4, Lipase 51, HIV 1&2 Antibody Rapid Nonreactive 06/09/24 19:30: Urine Color Yellow, Urine Appearance Clear, Urine pH 7.5, Ur Specific [place] 1.010, Urine Protein Negative, Urine Glucose (UA) Negative, Urine Ketones Negative, Urine Blood Negative, Urine Nitrate Negative, Urine Bilirubin Negative, Urine Urobilinogen 1.0, Ur Leukocyte Esterase Negative, Urine RBC 5-10, Urine WBC 20-50, Ur Squamous Epith Cells 20-50, Urine Bacteria 4+ Response Orders (Tests/Meds): ED MEDICATIONS Discontinued Medications Generic Name Dose Route Start Last Admin Trade Name Aditi PRN Reason Stop Dose Admin Acetaminophen 1,000 mg 06/09/24 19:02 06/09/24 19:23 Acetaminophen 1,000mg/100ml Vial IV 06/09/24 19:03 1,000 mg ONCE ONE Administration Belladonna Alkaloids 60 ml 06/09/24 19:02 06/09/24 19:23 Belladonna Alkaloids 60 Ml Ml PO 06/09/24 19:03 60 ml ONCE ONE Administration Diphenhydramine HCl 50 mg 06/09/24 20:16 06/09/24 20:19 Diphenhydramine 50mg/Ml Vial IV 06/09/24 20:17 50 mg ONCE ONE Administration Sodium Chloride 1,000 mls @ 999 mls/hr 06/09/24 20:16 06/09/24 20:20 Sod Chlor 0.9% 1000ml Bag IV 06/09/24 21:16 999 mls/hr .Q1H1M ONE Administration Iopamidol 70 ml 06/09/24 21:05 06/09/24 21:06 Iopamidol-370 (76%);100ml Bottle IV 06/09/24 21:06 70 ml ONCE ONE Administration Ketorolac Tromethamine 15 mg 06/09/24 19:02 06/09/24 19:23 Ketorolac 30mg/Ml Vial IV 06/09/24 19:03 15 mg ONCE ONE Administration Methylprednisolone Sodium Succinate 125 mg 06/09/24 20:16 06/09/24 20:19 Methylprednisolone Sod Succ 125mg Vial IV 06/09/24 20:17 125 mg ONCE ONE Administration Sodium Chloride 50 ml 06/09/24 21:05 06/09/24 21:06 0.9 % Sodium Chloride 50 Ml Vial IV 06/09/24 21:06 50 ml ONCE ONE Administration Sodium Chloride 10 ml 06/09/24 21:05 06/09/24 21:06 Sodium Chloride 0.9% 10ml Syr (Rad Only) IV 06/09/24 21:06 10 ml ONCE ONE Administration ORDERS Category Date Time Status CT angio chest PE protocol Stat Cat Scan 06/09/24 19:46 Completed Chest XR -- portable [XR chest portable] Stat Exams 06/09/24 19:02 Completed BNP [NT Pro Brain Natriuretic Pep.] Stat Lab 06/09/24 19:08 Completed CBC w/Auto Diff [Complete Blood Count Auto Diff] Stat Lab 06/09/24 19:08 Completed CMP [Comprehensive Metabolic Panel] Stat Lab 06/09/24 19:08 Completed D-Dimer Stat Lab 06/09/24 19:08 Completed HIV (1&2) Antibody Rapid Stat Lab 06/09/24 19:08 Completed Hep C Ab with Reflex to RNA Stat Lab 06/09/24 19:08 Received INR [Prothrombin Time INR] Stat Lab 06/09/24 19:08 Completed Lipase Stat Lab 06/09/24 19:08 Completed Magnesium Stat Lab 06/09/24 19:08 Completed Trop I [Troponin I] Stat Lab 06/09/24 19:08 Completed UA [Urinalysis and Microscopic] Stat Lab 06/09/24 19:30 Completed Urine Culture Stat Micro 06/09/24 19:30 Received ECG Data Tracing #1: Attestation: I reviewed this ECG and interpreted as documented below: (Sinus rhythm [address] or T wave changes concern for acute ischemia. OR 182, QRS 90, QTc 405. Normal axis) MDM Narrative Medical Decision Narrative: In summary patient is a 48-year-old female who presents to the emergency department for evaluation of epigastric chest/abdominal pain. Patient is initially hypertensive with a blood pressure 172/110 heart rate 86 respiratory rate is 13 O2 sats 98% on room air upon arrival, afebrile. Physical exam is remarkable for clear breath sounds bilaterally to the bases without adventitious sounds, no increased work of breathing or accessory muscle use, normal heart sounds with normal sinus rhythm on the bedside monitor, tenderness to palpation in the epigastrium but no rebound or guarding or rigidity. Bowel sounds normal active.. Differential diagnosis includes ACS versus PE versus pancreatitis versus gastroenteritis versus other viral bacterial infection etc. Initial workup will be conducted with hematologic labs plain film chest x-ray urinalysis. Initial interventions include crystalloid bolus Toradol Tylenol Zofran GI cocktail. Initial workup reviewed by me shows that her hematologic labs are nonactionable with the exception of a markedly elevated D-dimer at 1.4, troponins undetectable, my informal l interpretation of her plain film chest x- ray shows no acute processes. Upon repeat evaluation patient actually had complete resolution after the GI cocktail of her symptoms but given the elevated D-dimer ordered CTA PE protocol. Patient reportedly had an allergic reaction to contrast in the past so accordingly patient was premedicated with Benadryl prednisone and a crystalloid bolus.. My informal interpretation of her CTA PE protocol does not show any thrombus however it does show groundglass opacities consistent with a possible viral infection. Given this patient is appropriate for discharge with a prescription for a PPI, referral to GI, and symptomatic treatment for her viral syndrome. I was consulted by the ÁNGEL, and we discussed the complexity of the problems being addressed. I approved the treatment and management plan for this patient's care in the Emergency Department, thus performing a substantive portion of the medical decision making. Thee Rudolph MD
--- NOTE | 2024-06-09 18:53 | ECG_ITS ---
APPROVED REPORT Exam: Resting ECG HR:84 bpm ECG Measurements Heart Rate 84 AXES NH 182 P 35 QRSd 90 QRS 53 QT 363 T 30 QTc 405 Conclusion SINUS RHYTHM Electronically signed by : DELILAH DURAN, 06/09/2024 23:08:34
--- NOTE | 2024-06-09 19:02 | XR_ITS ---
PROCEDURE INFORMATION: Exam: XR Chest Exam date and time: 06/09/2024 7:12 PM Age: 48 years old Clinical indication: Other: Chest pain TECHNIQUE: Imaging protocol: Radiologic exam of the chest. Views: 1 view. COMPARISON: CT ABDOMEN PELVIS W CON 03/30/2024 6:26 AM FINDINGS: Lungs: Granulomatous changes. No consolidation. Pleural spaces: Unremarkable. No pleural effusion. No pneumothorax. Heart/Mediastinum: Unremarkable. No cardiomegaly. Bones/joints: Unremarkable. IMPRESSION: No acute findings.
[2024-06-09 19:19] LABS: Basophils # 0.1 K/mm3 (0-0.2); Basophils % 1.5 % (0.1-2.0); Eosinophils # 0.3 K/mm3 (0.0-0.4); Eosinophils % 3.8 % (0.1-12.0); Hematocrit 37.5 % (37.0-47.0); Hemoglobin 13.4 g/dL (12.2-16.2); Lymphocytes # 2.4 K/mm3 (0.7-4.5); Lymphocytes % 28.3 % (10-50); Mean Corpuscular HGB Conc 35.8 g/dL (31.8-35.4); Mean Corpuscular Hemoglobin 29.8 pg (27.0-31.2); Mean Corpuscular Volume 83.2 fl (81-99); Mean Platelet Volume 7.4 fl (7.4-10.4); Monocytes # 0.5 K/mm3 (0.1-1.0); Monocytes % 5.6 % (1.7-9.3); Neutrophils # 5.1 K/mm3 (1.8-7.8); Neutrophils % 60.8 % (37.0-80.0); Platelet Count 263 K/mm3 (142-424); Red Blood Count 4.51 M/mm3 (4.20-5.40); Red Cell Distribution Width 13.9 % (11.5-17.5); White Blood Count 8.4 K/mm3 (4.8-10.8)
[2024-06-09] MEDS: KETOROLAC 30MG/ML VIAL 15 MG IV (19:23)
[2024-06-09] MEDS: ACETAMINOPHEN 1,000MG/100ML VIAL 1000 MG IV (19:23)
[2024-06-09] MEDS: BELLADONNA ALKALOIDS 60 ML ML PO (19:23)
[2024-06-09 19:28] LABS: INR 0.95 (0.9-1.1); Prothrombin Time 10.7 seconds (10.1-12.5)
[2024-06-09 19:30] LABS: Alanine Aminotransferase 29 U/L (12-78); Albumin Level 4.2 g/dl (3.5-5.0); Albumin/Globulin Ratio 1.4 (1.1-1.8); Alkaline Phosphatase 62 U/L (38-126); Aspartate Amino Transferase 29 U/L (14-36); Blood Urea Nitrogen 10 mg/dl (7-17); Calcium 9.5 mg/dl (8.4-10.2); Carbon Dioxide 26 mmol/L (22.0-30.0); Chloride 108 mmol/L (98-107); Creatinine Clearance Estimated 154 mL/min (50-200); Estimated Glomerular Filt Rate 107 ml/min (>60); GFR (African American) 130 ML/MIN (>60); Glucose 96 mg/dl (74-100); Lipase 51 U/L (23-300); Magnesium 2.1 mg/dl (1.6-2.3); Sodium 141 mmol/L (136-145); Total Protein,Serum 7.2 g/dl (6.3-8.2)
[2024-06-09 19:41] LABS: NT Pro Brain Natriuretic Pep. 197 pg/mL (0-125)
[2024-06-09 19:42] LABS: Troponin I < 0.01 ng/ml (0.00-0.034)
[2024-06-09 19:45] LABS: Microscopic, Urine URINE MICROSCOPIC (MICROSCOPIC)
[2024-06-09 19:45] LABS: D-Dimer 1.41 ug/mL (0.0-0.5)
--- NOTE | 2024-06-09 19:46 | CT_ITS ---
PROCEDURE INFORMATION: Exam: CTA Chest With Contrast Exam date and time: 06/09/2024 8:11 PM Age: 48 years old Clinical indication: Pain; Chest pressure; Additional info: Chest pain, positive d-dimer TECHNIQUE: Imaging protocol: Computed tomographic angiography of the chest with contrast. Exam focused on the arteries. 3D rendering (Not supervised by radiologist): MIP and/or 3D reconstructed images were created by the technologist. Radiation optimization: All CT scans at this facility use at least one of these dose optimization techniques: automated exposure control; mA and/or kV adjustment per patient size (includes targeted exams where dose is matched to clinical indication); or iterative reconstruction. Contrast material: ISOVUE; Contrast volume: 70 ml; Contrast route: INTRAVENOUS (IV); COMPARISON: CR XR CHEST PORTABLE 06/09/2024 7:12 PM FINDINGS: Pulmonary arteries: Normal. No pulmonary emboli. Aorta: Unremarkable. No aortic aneurysm. No aortic dissection. Lungs: Unremarkable. No consolidation. No masses. Pleural spaces: Unremarkable. No pneumothorax. No pleural effusion. Heart: Unremarkable. No cardiomegaly. No pericardial effusion. Lymph nodes: Unremarkable. No enlarged lymph nodes. Bones/joints: Unremarkable. No acute fracture. Soft tissues: Unremarkable. IMPRESSION: No acute findings.
[2024-06-09 19:48] LABS: Appearance,Urine CLEAR (Clear); Bilirubin,Urine Negative (Negative); Blood, Urine Negative (Negative); Color,Urine YELLOW (Yellow); Glucose,Urine (UA) Negative (Negative); Ketones,Urine Negative (Negative); Leukocyte Esterase,Urine Negative (Negative); Nitrate,Urine Negative (Negative); PH,Urine 7.5 (5.0-8.5); Protein,Urine Negative (Negative)
[2024-06-09 20:09] LABS: WBC,Urine 20-50 #/hpf (0-3)
[2024-06-09 20:10] LABS: Bacteria,Urine 4+ /lpf; Squamous Epithelial Cell,Urine 20-50 #/hpf (0-5)
[2024-06-09] MEDS: diphenhydrAMINE 50MG/ML VIAL 50 MG IV (20:19)
[2024-06-09] MEDS: METHYLPREDNISOLONE SOD SUCC 125MG VIAL 125 MG IV (20:19)
[2024-06-09] MEDS: 0.9 % SODIUM CHLORIDE 1000ML 1,000 ML 999 ML IV (20:20)
[2024-06-09 20:54] LABS: HIV (1&2) Antibody Rapid NONREACTIVE (NONREACTIVE)
[2024-06-09] MEDS: 0.9 % SODIUM CHLORIDE 50 ML VIAL IV (21:06)
[2024-06-09] MEDS: SODIUM CHLORIDE 0.9% 10ML SYR (RAD ONLY) 10 ML IV (21:06)
[2024-06-09] MEDS: IOPAMIDOL-370 (76%);100ML BOTTLE 70 ML IV (21:06)
[2024-06-11 07:20] LABS: HCV Ab Non Reactive (Non Reactive)
== END 2024-06-09 22:15 | disposition home or self-care (01) ==
PROVIDERS: Physician Assistant; Emergency Provider Emergency Medicine; PCP Nurse Practitioner Family
DX: R10.13 Epigastric pain (principal); R07.9 Chest pain, unspecified
CPT/HCPCS: 71045; 71275; 80053; 81001; 83690; 83735; 83880; 84484; 85025; 85378; 85610; 86803; 87086; 87389; 93005; 96361; 96374; 96375; 99285; J0131; J1200; J1885; J2919; J7030; Q9967

== ENCOUNTER 2024-06-18 12:48 | Day surgery (SDC) | payer BC, SELFPAY ==
[2024-06-17 13:06] VITALS: BMI 28.8
--- NOTE | 2024-06-18 13:21 | EXP.ANES.CKL ---
[facility] Disclaimer: The information contained in this section may have been updated after the patient was seen, as this information can be updated by other users. Medical History Hypothyroid Surgical History History of colonoscopy History of appendectomy H/O gastric sleeve Hx of cholecystectomy H/O section H/O oophorectomy H/O neck surgery H/O shoulder surgery H/O knee surgery Family History Other No significant family history Social History Smoking Status: Former smoker alcohol intake: never substance use type: denies use current occupational status: other Travel in the last 8 weeks: None [facility] Anesthesia Checklist Patient Identification Patient Identification: Arm Band and Verbal (Name & ) Structural Data Admitted From: Home Planned Operative Procedure/s: EGD Consent for Planned Operative Procedure(s) Verified: Yes Verified Documents: Surgical Consent and History and Physical NPO Status Verified Time NPO: 00:00 Additional verifications Anesthesia Reactions: No Airway Assessment Mallampati Score:: Class I C-Spine Mobility Assessed: Yes TMJ Mobility Assessed: Yes Dentition: Good Dentition Neurological Assessment Level of Consciousness: Awake Hx Seizures: No Numbness or tingling in extremities: No Anesthesia Plan Anesthesia Risk discussed: Yes Anesthesia Plan: Verified ASA Class: II Anesthesia Type: MAC
[2024-06-18 13:23] LABS: Urine Pregnancy, HCG Qual. Negative (Negative)
[2024-06-18] MEDS: LACTATED RINGERS 1000ML 1,000 ML 25 ML IV (13:26)
[2024-06-18 13:28] VITALS: BP 158/96; PULSE 72; RESP 16; TEMP 36.6; O2SAT 100
[2024-06-18 14:54] VITALS: O2SAT 100
--- NOTE | 2024-06-18 15:04 | P.HP_ITS ---
History of Present Illness *Admission Date: 06/18/24 *Reason for visit:: Noncardiac chest pain *History of present illness: Mrs. Olsen is a 48-year-old female who is here for sharp noncardiac chest pain. The examination is deemed medically necessary for upper endoscopy. The patient has been seen, interviewed and examined prior to the procedure by both myself and the anesthesia provider. [facility] Disclaimer: The information contained in this section may have been updated after the patient was seen, as this information can be updated by other users. Medical History Hypothyroid Surgical History History of colonoscopy History of appendectomy H/O gastric sleeve Hx of cholecystectomy H/O section H/O oophorectomy H/O neck surgery H/O shoulder surgery H/O knee surgery Family History Other No significant family history Social History Smoking Status: Former smoker alcohol intake: never substance use type: denies use current occupational status: other Travel in the last 8 weeks: None Other Medical History Have you received the Flu Vaccine for this season: No Have you received the Pneumonia Vaccine: No Review of Systems Review of Systems Review of systems (narrative): Negative *Cardiovascular Comments: Negative *Gastrointestinal Comments: Negative *Genitourinary Comments: Negative *Musculoskeletal Comments: Negative *Neurologic Comments: Negative Meds Home Medications and Allergies Home Medications ?Medication ?Instructions ?Recorded ?Confirmed ?Type escitalopram oxalate 10 mg tablet 10 mg PO DAILY 03/30/24 06/18/24 History levothyroxine 50 mcg tablet 50 mcg PO DAILY 03/30/24 06/18/24 History New Prescriptions to Start Prescriptions: Allergies Allergy/AdvReac Type Severity Reaction Status Date / Time Iodinated Contrast Media Allergy Hives Verified 06/18/24 13:28 Exam Data for Last 24 hours Vital signs and Labs for Last 24 Hours: Temp Pulse Resp BP Pulse Ox O2 Del Method 97.8 F 72 16 158/96 H 100 Room Air 06/18/24 13:28 06/18/24 13:28 06/18/24 13:28 06/18/24 13:28 06/18/24 13:28 06/18/24 13:28 Laboratory Results - last 24 hr 06/18/24 13:13: Urine HCG, Qual Negative I & O for Last 24 hours: Intake & Output 06/15/24 06/16/24 06/17/24 06/18/24 23:59 23:59 23:59 23:59 Weight 184 lb *Routine HEENT Exam Head: Present normocephalic Eye: Present EOMI and PERRL ENT: Present mucous membranes moist *Routine Neck Exam Neck: Present supple *Routine Respiratory Exam Respiratory: Present CTA bilaterally *Routine Cardiovascular Exam Cardiovascular: Present RRR *Routine Abdominal Exam Abdominal: Present soft and normoactive bowel sounds; Absent tenderness *Routine Rectal Exam Rectal:: deferred *Routine Genitalia Exam Genitalia:: deferred *Routine Extremities Exam Extremities: Absent cyanosis, clubbing or edema *Routine Skin Exam Skin: Present warm; Absent rash *Routine Neurological Exam Neurological: Present alert and oriented X3 Assessment and Plan *Assessment and plan (1) Non-cardiac chest pain: Status: Acute Category: Medical Code(s): R07.89 - Other chest pain Plan A/P: 1. Noncardiac chest pain is the preprocedural diagnosis. The patient will be anesthetized/sedated using MAC sedation. The patient has been seen and examined. Cardiac and lung assessment prior to the examination is stable. Proceed with planned EGD
--- NOTE | 2024-06-18 15:05 | HMH.PROCNOTE ---
[facility] Procedure Note Date: 06/18/24 Time: 15:11 Procedure Note:: Upper Endoscopy Procedure Report: Esophagogastroduodenoscopy with cold biopsies Endoscopost: Adam Crawford II, MD Referring Physician: BRE Wheeler Date of Procedure: June 18, 2024 Equipment: Olympus GIF 190 standard upper endoscope Sedation: MAC sedation Indications: Mrs. Olsen is a 48-year-old female with chest pain. This is deemed to be noncardiac chest pain and she has had cardiac evaluation. The patient had normal EKG and troponins. Her echocardiogram showed normal ejection fraction. The patient does state that she gets the pain during sleep and this can radiate to her shoulder. This is retrosternal. She reports no heartburn, reflux, bloating, belching or abdominal pain. She does state that when she had gastric sleeve surgery (Dr. Munguia at [facility]) she also had hiatal hernia repair. The patient also has had appendectomy. The patient does report her chest pain is sometimes sharp. It is not exertional in nature. She reports no musculoskeletal pain or shallow pain. Procedure: Prior to the procedure, a history and physical exam was performed, and patient's medications and allergies were reviewed. The risks, benefits and alternatives of the sedation and procedure were discussed with the patient. All questions were answered and informed consent was obtained. The patient was brought to the procedure room. Patient identification and proposed procedure were verified by the physician and the nurse. The patient was placed in a left lateral decubitus position and the scope was passed under direct vision. Throughout the procedure, the patient's blood pressure, pulse, and oxygen saturations were monitored continuously. The upper GI endoscopy was accomplished without difficulty. The patient tolerated the procedure well. Findings: The scope was passed directly into the upper esophagus and advanced to the third portion of the duodenum. The post bulbar duodenum and duodenal bulb were normal with normal mucosa and conniventes. There was mild duodenitis of the bulb of the duodenum. Cold biopsies were obtained. The scope was withdrawn through a normal pylorus into the stomach. There was some chronic gastritis of the remaining body and cardia of the stomach. There was reduced luminal diameter of the stomach related to the gastric sleeve surgery. There was a very small sliding hiatal hernia. Biopsies were taken from the body of the stomach. The scope was then withdrawn into the esophagus. There was no evidence of reflux esophagitis or Cantu's. There was no diverticulum or strictures. There were some mild tertiary contractions/mild esophageal dysmotility. The remainder of the esophageal mucosa was normal. Impression: 1. Mild esophageal dysmotility 2. Gastric sleeve surgery with some chronic gastroduodenitis Plan: I will follow-up the biopsies to rule out H. pylori. I am not convinced that the patient's chest pain is esophageal in origin. I will discuss the findings with the patient and family. I would consider a trial of neuromodulation.
[2024-06-18 15:14] VITALS: BP 151/93; PULSE 83; RESP 16; TEMP 36.3; O2SAT 96
[2024-06-18 15:28] VITALS: BP 142/86; PULSE 80; RESP 16; O2SAT 98
[2024-06-18 15:40] VITALS: BP 128/98; PULSE 81; RESP 16; O2SAT 99
== END 2024-06-18 15:40 | disposition home or self-care (01) ==
PROVIDERS: PCP Nurse Practitioner Family; Visit Provider Internal Medicine Gastroenterology
PROC: 0DJ08ZZ Inspection of Upper Intestinal Tract, Via Natural or Artificial Opening Endoscopic (ICD-10-PCS; CPT 43235; principal; 2024-06-18 14:30)
DX: R07.89 Other chest pain (principal); K22.4 Dyskinesia of esophagus; K29.90 Gastroduodenitis, unspecified, without bleeding; K44.9 Diaphragmatic hernia without obstruction or gangrene
CPT/HCPCS: 43239; 81025; J7120

== ENCOUNTER 2024-07-01 11:28 | Outpatient (CLI) | payer BC, SELFPAY ==
[2024-07-01 11:48] LABS: Basophils # 0.1 K/mm3 (0-0.2); Basophils % 1.4 % (0.1-2.0); Eosinophils # 0.2 K/mm3 (0.0-0.4); Eosinophils % 2.4 % (0.1-12.0); Hematocrit 41.2 % (37.0-47.0); Lymphocytes # 2.6 K/mm3 (0.7-4.5); Lymphocytes % 27.3 % (10-50); Mean Corpuscular HGB Conc 34.1 g/dL (31.8-35.4); Mean Corpuscular Hemoglobin 29.1 pg (27.0-31.2); Mean Corpuscular Volume 85.3 fl (81-99); Mean Platelet Volume 7.5 fl (7.4-10.4); Monocytes # 0.5 K/mm3 (0.1-1.0); Monocytes % 4.9 % (1.7-9.3); Neutrophils # 6.1 K/mm3 (1.8-7.8); Platelet Count 343 K/mm3 (142-424); Red Blood Count 4.83 M/mm3 (4.20-5.40); Red Cell Distribution Width 14.5 % (11.5-17.5); White Blood Count 9.5 K/mm3 (4.8-10.8)
[2024-07-01 12:18] LABS: Alanine Aminotransferase 27 U/L (12-78); Alkaline Phosphatase 59 U/L (38-126); Anion Gap 11.3 mEq/L (5-15); Aspartate Amino Transferase 22 U/L (14-36); Bilirubin,Direct 0.3 mg/dl (0.0-0.4); Bilirubin,Indirect 0.4 mg/dL (0.0-0.9); Bilirubin,Total 0.7 mg/dl (0.2-1.3); Bilirubin,Unconjugated 0.4 mg/dL (0.0-1.1); Blood Urea Nitrogen 7 mg/dl (7-17); Calcium 9.5 mg/dl (8.4-10.2); Carbon Dioxide 27 mmol/L (22.0-30.0); Chloride 109 mmol/L (98-107); Chol/HDL Ratio 4.7 (1-3.5); Cholesterol 191 mg/dl (140-200); Estimated Glomerular Filt Rate 107 ml/min (>60); GFR (African American) 130 ML/MIN (>60); Glucose 92 mg/dl (74-100); HDL Cholesterol 41 mg/dl (40-60); Potassium 4.3 mmoL/L (3.5-5.1); Sodium 143 mmol/L (136-145); Total Protein,Serum 6.3 g/dl (6.3-8.2); Triglycerides 171 mg/dl (30-150); VLDL Cholesterol 34 mg/dL (0-40)
[2024-07-01 12:28] LABS: Direct LDL Cholesterol 124.51 mg/dL (100-129)
== END 2024-07-01 23:59 | disposition home or self-care (01) ==
LOC: LAB 11:29
PROVIDERS: PCP Nurse Practitioner Family; Visit Provider Nurse Practitioner
DX: I10 Essential (primary) hypertension (principal); R07.9 Chest pain, unspecified; E03.9 Hypothyroidism, unspecified
CPT/HCPCS: 36415; 80048; 80061; 80076; 83036; 85025

== ENCOUNTER 2024-07-03 07:14 | Outpatient (CLI) | payer BC, SELFPAY ==
--- NOTE | 2024-07-03 | CA_ITS ---
APPROVED REPORT Exam: Exercise Treadmill Technologist: Anjana Mayers Ht: 5 ft 7 in Wt: 186 lbs BSA: 1.96 m2 BP: 160/96 mmHg Stress Test Details HR Resting HR: 78 bpm Max Heart Rate (APMHR): 173.536993 bpm Max HR Achieved: 163 bpm Target HR (85% APMHR): 147.252655 bpm % of APMHR: 94.22 Recovery HR: 91 bpm BP Resting BP: 160.0/96.0 mmHg Max BP: 195.0/100.0 mmHg Recovery BP: 162.0/94.0 mmHg ECG Resting ECG: NSR, rightward axis Clinical Highest Stage Achieved: II Stress ECG Conclusion Exercised 6:00 on Mike Protocol. Max HR: 163 % of PM: 94% Max BP: 195/100 METs: 7.1 Test stopped due to: SOA Symptoms: No CP. Arrhythmias/Ectopy: None ST-T Changes: Allowing for motion artifact the ST response for exercise is within normal. Conclusion: Normal GXT. Myoview images reported separately. Electronically signed by : Mariana Wilson MD 07/06/2024 12:51:19
--- NOTE | 2024-07-03 07:15 | NM_ITS ---
APPROVED REPORT Exam: Nuclear Stress Test Indication: Chest pain, SOB, HTN, Family history Patient Location: Outpatient Stress Tech: Anjana Benito [place] Tech:Ritu Herrera, ARRT, RT (R)(N) Ht: 5 ft 6 in Wt: 185 lbs Bra Size: 40D HR: 79 bpm BP: 160/96 mmHg BSA: 1.93 m2 TID: 1.20 BMI: 29.8 History: Chest pain, SOB, HTN, Family history Procedure: Patient exercised on Mike protocol 6:01 minutes and sec, resting heart rate 79 bpm, resting blood pressure 160/96 mmHg, with exercise maximum heart rate achived was 163 bpm which is 94 % of the maximum predicted heart rate and blood pressure was 195/100 mmHg. Test was stopped due to SOB. Patient denied any complaint of chest pain. Patient has Average exercise capacity, achieved 7.1 METs of workload on treadmill, the blood pressure response to exercise was Normal. Cardiac Stress and Resting SPECT Images: Cardiac Stress and Resting SPECT images were obtained using technetium 99m Myoview 32.7 mCi stress and 10.03 mCi at rest. Resting and stress imaging in supine and prone positions demonstrate no evidence of fixed or reversible perfusion defects. There is borderline increase in transient ischemic dilatation ratio (TID 1.20), suggestive of possible multivessel disease or balanced ischemia. Gated imaging demonstrates normal global and regional LV systolic function. LVEF is estimated at 61%. Conclusion: No evidence of fixed or reversible perfusion defects. There is borderline increase in transient ischemic dilatation ratio (TID 1.20), suggestive of possible multivessel disease or balanced ischemia. Gated imaging demonstrates normal global and regional LV systolic function. LVEF is estimated at 61%. In the setting of young age, normal LV systolic function, and presence of borderline TID, further evaluation noninvasively with CCTA suggested prior to proceeding with invasive coronary angiography. Electronically signed by : Mariana Wilson MD 07/06/2024 12:52:57
[2024-07-03] MEDS: ISOTOPE MYOVIEW (PER STUDY) 1 DOSE IV (09:07)
[2024-07-03] MEDS: SODIUM CHLORIDE 0.9% 10ML SYR (RAD ONLY) 10 ML IV ×2 (09:07)
== END 2024-07-03 23:59 | disposition home or self-care (01) ==
LOC: RAD 07:15
PROVIDERS: PCP Nurse Practitioner Family; Visit Provider Nurse Practitioner
DX: R07.9 Chest pain, unspecified (principal); I10 Essential (primary) hypertension; E03.9 Hypothyroidism, unspecified
CPT/HCPCS: 78452; 93017; 93018; A9502

== ENCOUNTER 2024-08-24 11:51 | Outpatient (CLI) | payer BC, SELFPAY ==
[2024-08-24 08:36] VITALS: BMI 29.6
--- NOTE | 2024-08-24 11:52 | CT_ITS ---
APPROVED REPORT Ear Specialist: CLINICAL INDICATION Chest Pain, presence of TID on nuclear stress testing TECHNIQUE Image Acquisition: A 128 slice MDCT scanner ([employer] View) was used for data acquisition. A noncontrast coronary calcium scan was performed. A CT attenuation threshold of 130 Hounsfield units (HU) was used for the detection of calcium in contiguous voxels of 1 sq mm in area to be counted as individual lesions. Bolus tracking in the ascending aorta with a threshold of 180 HU was performed. Immediately afterwards, ECG synchronized cardiac CT was then performed from the cardiac base to apex using retrospective gating with ECG tube current modulation. A total of 85 mL of Isovue 370 mg/mL contrast medium was administered at 5 mL/sec followed by a saline flush using a biphasic injection protocol. A tube voltage of 120 KVp was used. The patient received the following medications prior to the cardiac CT. 50 mg of oral metoprolol 15 mg of oral ivabradine 0.8 mg of sublingual nitroglycerin The average heart rate at the time of acquisition was 64 bpm and regular. Image Reconstruction Transaxial images were reconstructed at 0.67 mm slide thickness. Data was reviewed interactively on an advanced workstation capable of 2 and 3-dimensional displays in all conventional reconstruction formats, including multiplanar reformations, maximum intensity projections, curved multiplanar reformations, and volume rendered reconstructions. When applicable, selected routine images describing the relevant coronary anatomy and pathology were saved and sent to PACS. Complications None Technical Quality Overall image quality was good. Coronary artery opacification was adequate. Total DLP (Dose-Length Product) is 1435.8 mGy-cm. The reported value represents the total of one or more individual components during the CT acquisition of this date and at this time, and as such, the same value may appear in more than one CT report depending on the interpreting/reporting physicians. COMPARISON None FINDINGS CT Coronary Calcium Scoring LMA (Left Main Artery) = 0 LAD (Left Anterior Descending) = 5 LCX (Left Coronary Circumflex) = 0 RCA (Right Coronary Artery) = 0 Total Calcium Score = 5 using the AJ-130 method. The observed calcium score of 5 is at 91st percentile for subjects of the same age, sex, and race/ethnicity. The interpretation of the calcium heart score is based on the following continuum*: 0 = no calcified plaque detected (risk of coronary artery disease is very low ??? less than 5%) 1-10 = calcium detected in extremely minimal levels (risk of coronary diseases is still low ??? less than 10%) 11-100 = mild levels of plaque detected with certainty (mild or minimal narrowing of heart arteries is likely) 101-400 = definite,at least moderate levels of plaque detected (relatively high risk of a heart attack within 3-5 years) >401-999 = extensive levels of plaque detected (high risk of heart attack, high levels of vascular disease are present, high likelihood of at least one significant coronary narrowing) *The calcium heart score quantifies the burden of coronary calcification/plaque in the coronary arteries. The calcium heart score is not able to evaluate the presence or burden of non-calcified (i.e. soft) plaque. There is no identifiable calcification in the aortic valve, mitral annulus or mitral valve, pericardium, or myocardium. Coronary CT Angiography The coronary arterial system is right dominant. Quantitative Stenosis Grading: Left Main (LM): The left main originates normally from the left sinus of Valsalva. The LM bifurcates into the left anterior descending artery and left circumflex artery. The LM is patent with no evidence of atherosclerosis. Left Anterior Descending (LAD) and Diagonal Branches: The LAD gives off 3 diagonal branch(es). There is 1 focus of calcified plaque in the proximal LAD segment, with no evidence of luminal stenosis. There is no evidence of LAD-myocardial bridge. Left Circumflex (LCX) and Obtuse Marginals (OM): The LCX gives off 1 Obtuse Marginal (OM) branch(es). The LCX and its branches are patent with no evidence of atherosclerosis. Right Coronary Artery (RCA): The RCA originates normally from the right sinus of Valsalva. The RCA gives off a posterior descending artery (PDA) and posterolateral (PL) branches. The RCA and its branches are patent with no evidence of atherosclerosis. Non-Coronary Cardiac Findings: Analysis of the left ventricular (LV) structure and function was performed after 3-D reconstruction of the LV from axial images, with user-corrected automatic contouring for assessment of LV volumes and user-defined reconstruction from oblique planes for measurement of 3-D cardiac structure and function. -The left ventricle systolic function is normal. -There is no left atrial appendage filling defect. Two right pulmonary veins and two left pulmonary veins drain normally into the left atrium. -No pericardial thickening or calcification. -Central and branch pulmonary arteries in the [id number] are unremarkable. -Thoracic aorta within the visualized thoracic aortic-branches in the [id number] is unremarkable. Extracardiac Structures No significant extra-cardiac findings. Note, however, that this study is focused on the cardiac findings. IMPRESSION -Minimal coronary calcification with an Agatston score = 5 using the AJ-130 method. -The observed calcium score of 5 is at 91st percentile for subjects of the same age, sex, and race/ethnicity. -No evidence of significant flow-limiting atherosclerosis of the coronary arteries. -CAD-RADS 1. Management recommendations per ACC/AHA guidelines*, as clinically appropriate. *Recommendations: CAD RADS 0: Reassurance. Consider non-atherosclerotic causes of chest pain. CAD RADS 1: Consider non-atherosclerotic causes of chest pain. Consider preventive therapy and risk factor modification. CAD RADS 2: Consider non-atherosclerotic causes of chest pain. Consider preventive therapy and risk factor modification, particularly for patients with nonobstructive plaque in multiple segments. CAD RADS 3: Consider further functional testing. Consider symptom-guided anti-ischemic and preventive pharmacotherapy as well as risk factor modification per published guideline statements. CAD RADS 4A: Consider further functional testing or invasive coronary angiography with revascularization per published guideline statements. Consider symptom-guided anti-ischemic and preventive pharmacotherapy as well as risk factor modification per published guideline statements. CAD RADS 4B: Invasive coronary angiography recommended with revascularization per published guideline statements. Consider symptom-guided anti-ischemic and preventive pharmacotherapy as well as risk factor modification per published guideline statements. CAD RADS 5: Consider invasive angiography and/or viability assessment with revascularization per published guideline statements. Consider symptom-guided anti-ischemic and preventive pharmacotherapy as well as risk factor modification per published guideline statements. CRITICAL RESULT None COMMUNICATION Per this written report The coronary and cardiac findings of this CCTA were reviewed, reported, and signed by Patrice Wilson MD (Gasoline Tractor Operator) Conclusion Electronically signed by : Mariana Wilson MD 08/26/2024 10:45:25
[2024-08-24] MEDS: IVABRADINE HCL 7.5MG TABLET *IVABRADINE+METOPROLOL REGIMINE 15 MG PO (12:18)
[2024-08-24] MEDS: METOPROLOL TARTRATE 50MG TABLET *IVABRADINE+METOPROLOL REGIMINE 50 MG PO (12:18)
[2024-08-24 12:20] VITALS: BP 157/91; PULSE 67; RESP 18; TEMP 36.3; O2SAT 99
[2024-08-24 12:50] LABS: Chloride 104 mmol/L (98-107); Sodium 140 mmol/L (136-145)
[2024-08-24 12:53] LABS: Blood Urea Nitrogen 11 mg/dl (7-17); Creatinine Clearance Estimated 155 mL/min (50-200); Estimated Glomerular Filt Rate 107 ml/min (>60); GFR (African American) 129 ML/MIN (>60)
[2024-08-24 12:54] LABS: Calcium 9.6 mg/dl (8.4-10.2); Carbon Dioxide 27 mmol/L (22.0-30.0); Glucose 93 mg/dl (74-100); Urine Pregnancy, HCG Qual. Negative (Negative)
[2024-08-24] MEDS: FAMOTIDINE 20MG/2ML VIAL 20 MG IV (13:15)
[2024-08-24] MEDS: diphenhydrAMINE 50MG/ML VIAL 25 MG IV (13:17)
[2024-08-24 13:39] VITALS: BP 154/92; PULSE 61; RESP 18; O2SAT 98
[2024-08-24 13:40] VITALS: BP 134/82; PULSE 63; O2SAT 99
[2024-08-24] MEDS: NITROGLYCERIN 0.4MG SL TABLET 0.8 MG SL (13:40)
[2024-08-24] MEDS: METHYLPREDNISOLONE SOD SUCC 125MG VIAL 125 MG IV (13:45)
[2024-08-24] MEDS: 0.9 % SODIUM CHLORIDE 50 ML VIAL IV (14:01)
[2024-08-24] MEDS: SODIUM CHLORIDE 0.9% 10ML SYR (RAD ONLY) 10 ML IV (14:02)
[2024-08-24] MEDS: IOPAMIDOL-370 (76%);100ML BOTTLE 85 ML IV (14:02)
== END 2024-08-24 14:00 | disposition home or self-care (01) ==
PROVIDERS: PCP Nurse Practitioner Family; Visit Provider Physician Assistant
DX: R94.30 Abnormal result of cardiovascular function study, unspecified (principal); I10 Essential (primary) hypertension
CPT/HCPCS: 75574; 80048; 81025; J1200; J2919; Q9967; S0028

== ENCOUNTER 2024-11-02 09:04 | Outpatient (POV) | payer BC, SELFPAY ==
--- NOTE | 2024-11-02 09:11 | EXP.PAIN.OV ---
HPI Data of Consult Patient: new to practice Consult date: 11/02/24 Requesting Physician: Janina Dee APRN Primary Care Provider: Debora Olsen APRN Consult Narrative Reason for consult: Low back pain History of present illness: Ms. Olsen is a 49 year old female who presents today as a new patient. She rates her pain today a 5 out of 10. Patient states that she has had chronic low back pain for the last several years. Patient did have imaging back in 2020. She denies any updated imaging and states that this was going on before. Patient does describe it as a constant achy sensation that will occasionally have sharp pains. She states it is dependent on what she is doing such as positioning. Patient does state it is worse with increased activity or certain movements such as bending, twisting and lifting. Patient states that even prolonged sitting causes the pain to be worse. Patient states that she did see an orthospine doctor in 2020 who was stating that she was not a candidate for surgical intervention however recommended injections. Patient states at that time she was very hesitant about this option however over the last 4 years she is decided she would like to try conservative treatment such as the injections. Patient states that her mother and another family member come to our office and they do state that the injections helped. Patient has had oral medications, heat and ice and topicals with minimal relief. Patient did complete physical therapy with no additional changes. Patient has continued at home exercising and stretching for longer than 12 weeks that was physician guided with no additional improvement. Patient denies any prior low back surgery however did have a cervical fusion in the past.Patient is not on any current scheduled medications. Her Braulio has been reviewed and is appropriate. CC: Janina Dee APRN [facility] Disclaimer: The information contained in this section may have been updated after the patient was seen, as this information can be updated by other users. Medical History Hypothyroid Surgical History History of colonoscopy History of appendectomy H/O gastric sleeve Hx of cholecystectomy H/O section H/O oophorectomy H/O neck surgery H/O shoulder surgery H/O knee surgery Family History Other No significant family history Social History (Updated 11/02/24 @ 09:31 by Quyen Millard RN) Smoking Status: Former smoker alcohol intake: never substance use type: denies use current occupational status: other Travel in the last 8 weeks: None Review of Systems Review of Systems Review of systems:: pertinent systems reviewed and negative unless documented below Review of systems (narrative): Review of Systems: General: No recent weight changes, no fever, no sleep disturbances Respiratory: No cough, no shortness of air, no recurring pulmonary infections Cardiovascular/peripheral vascular: No chest pain, no palpitations, no edema, no shortness of breath Gastrointestinal: No new onset incontinence, normal bowel movements reported Genitourinary: No new onset incontinence Musculoskeletal: Low back pain Psychiatric: [Normal mood/affect] Neurological: [Denies weakness in extremities], [denies balance issues] Meds Home Medications and Allergies Home Medications ?Medication ?Instructions ?Recorded ?Confirmed ?Type escitalopram oxalate 10 mg tablet 10 mg PO DAILY 03/30/24 11/02/24 History levothyroxine 75 mcg tablet 75 mcg PO Q OTHER DAY 06/30/24 11/02/24 History aspirin 81 mg tablet,delayed 81 mg PO DAILY #90 tabs 08/27/24 11/02/24 Rx release (Adult Low Dose Aspirin) atorvastatin 20 mg tablet 20 mg PO DAILY #90 tabs 08/27/24 11/02/24 Rx New Prescriptions to Start Prescriptions: Allergies Allergy/AdvReac Type Severity Reaction Status Date / Time Iodinated Contrast Media Allergy Hives Verified 08/27/24 09:40 Objective Narrative: Physical Exam: General: Alert and oriented x3, no acute distress, pleasant and cooperative Lungs: Respirations even and unlabored, symmetrical chest expansion Eyes: PERRL Musculoskeletal: Flexion and extension of lumbar [spine] somewhat guarded secondary to pain, [antalgic gait noted] positive Kemps test Neurological: Speech clear, no gross sensory deficit Additional findings Additional findings: FINDINGS: There is normal alignment. The spinal cord ends at the L1 level. L1-L2: Unremarkable. L2-L3: Minimal bulging disc with minimal central disc protrusion. L3-L4: Mild degenerative disc disease with small broad-based right-sided foraminal and lateral disc protrusion/disc osteophyte complex resulting in right-sided foraminal narrowing abutting the exiting L3 nerve root. Mild facet and ligamentum hypertrophy. L4-5: Minimal bulging disc with facet ligamentum hypertrophy with mild bilateral lateral recess narrowing. L5-S1: Degenerative disc disease with bulging disc and small central disc protrusion abutting the medial aspect of both S1 nerve roots. There is mild facet and ligamentum hypertrophy. No extruded herniated disc or bony canal stenosis. Assessment and Plan *Assessment and plan (1) Lumbar spondylosis: Status: Acute Category: Medical Code(s): M47.816 - Spondylosis without myelopathy or radiculopathy, lumbar region (2) Low back pain: Status: Acute Category: Medical Code(s): M54.50 - Low back pain, unspecified (3) Degenerative disc disease: Status: Acute Category: Medical Plan Patient is experiencing significant pain in her low back that is worse with bending, twisting or lifting. Patient did have limited range of motion of her lumbar spine with a positive Kemps test during today's visit. I did discuss with the patient that I do believe she would benefit from a lumbar medial branch block. Risk and benefits were discussed with the patient and she would like to proceed forward with this plan of care. Patient has tried and failed conservative therapy including oral medications, heat and ice, topicals, at home stretching exercise for longer than 12 weeks. Patient has been experiencing chronic low back pain for years. Patient was counseled that if she does get significant relief with her first lumbar medial branch block that we will plan on repeating it with the plan to progress forward to a lumbar RFA at a later date. Patient agrees with this plan of care. Patient will be scheduled for her first diagnostic lumbar medial branch block bilaterally L4-L5 and L5-S1 under fluoroscopy. I will also order the patient a compounded cream. Patient has been instructed to contact the clinic with any concerns before the next appointment. Dr. Nuñez has reviewed this note and agrees with this plan of care. This note was dictated using voice recognition software and make contain errors or omissions. All injections are used with Lidocaine, Bupivacaine and Depo Medrol. Occasionally urine drug screen is needed to verify patient's compliance with our office pain contract. This is ordered based off specific treatments related to chronic pain with the potential to abuse certain medications.
[2024-11-02 09:28] VITALS: BP 133/85; PULSE 88; RESP 18; O2SAT 96; BMI 29.7
== END 2024-11-02 23:59 | disposition home or self-care (01) ==
LOC: SC.PAIN 09:07
PROVIDERS: PCP Nurse Practitioner Family; Visit Provider Nurse Practitioner Family
DX: M47.816 Spondylosis without myelopathy or radiculopathy, lumbar region (principal); M54.50 Low back pain, unspecified; Z87.891 Personal history of nicotine dependence
CPT/HCPCS: 99202; G0463

== ENCOUNTER 2024-11-25 08:38 | Outpatient (CLI) | payer BC, SELFPAY ==
[2024-11-25 09:36] LABS: Alanine Aminotransferase 27 U/L (12-78); Albumin Level 4.5 g/dl (3.5-5.0); Alkaline Phosphatase 61 U/L (38-126); Aspartate Amino Transferase 23 U/L (14-36); Bilirubin,Direct 0.1 mg/dl (0.0-0.4); Bilirubin,Indirect 0.6 mg/dL (0.0-0.9); Bilirubin,Total 0.7 mg/dl (0.2-1.3); Bilirubin,Unconjugated 0.6 mg/dL (0.0-1.1); Chol/HDL Ratio 2.9 (1-3.5); Cholesterol 123 mg/dl (140-200); HDL Cholesterol 43 mg/dl (40-60); Total Protein,Serum 7.5 g/dl (6.3-8.2); Triglycerides 123 mg/dl (30-150); VLDL Cholesterol 25 mg/dL (0-40)
[2024-11-25 09:47] LABS: Direct LDL Cholesterol 54.93 mg/dL (100-129)
== END 2024-11-25 23:59 | disposition home or self-care (01) ==
LOC: LAB 08:38
PROVIDERS: PCP Nurse Practitioner Family; Visit Provider Nurse Practitioner
DX: E03.9 Hypothyroidism, unspecified (principal); I10 Essential (primary) hypertension; Z87.891 Personal history of nicotine dependence
CPT/HCPCS: 36415; 80061; 80076

== ENCOUNTER 2024-12-01 11:16 | Day surgery (SDC) | payer BC, SELFPAY ==
[2024-12-01 11:21] VITALS: BP 163/81; PULSE 78; RESP 18; O2SAT 95
[2024-12-01] MEDS: BUPIVACAINE 0.25% 10ML INJ 25 MG IJ (11:24)
[2024-12-01] MEDS: LIDOCAINE 1% 5ML PF VIAL 5 ML (11:24)
[2024-12-01] MEDS: DEXAMETHASONE 10MG/ML 1ML VIAL 10 MG (11:24)
[2024-12-01 11:25] VITALS: BP 130/80; PULSE 77; RESP 16; TEMP 36.6; O2SAT 100; BMI 30.4
--- NOTE | 2024-12-01 11:37 | P.PCN_ITS ---
Procedure Date: 12/01/24 Time: 11:30 Anesthesiologist:: Thomas Mckeon CRNA Complications:: None Pre-procedure Diagnosis:: Degenerative disc lumbar spine multilevels. Lumbar radiculopathy. Lumbar spondylosis. Multilevel lumbar facet arthropathy Post-procedure Diagnosis:: Same. Indications for Procedure:: Patient is a very pleasant 49-year-old female who comes to our clinic today for ROUND ONE of lumbar medial branch blocks/facet injections at the bilateral L4-5, L5-S1 level. Patient describes low lumbar back pain as constant, dull, aching. She reports difficulty with lumbar flexion, extension, left and right rotation. She rates her pain 7/10. Procedure Details:: Informed consent was obtained and the risk and benefits of the procedure was explained to the patient. Patient was taken to the procedure room where noninvasive monitors were placed, including noninvasive blood pressure cuff as well as pulse oximeter. The area over the lumbar spine was cleansed using chlorhexidine as a cleansing solution. I anesthetized the skin and subcutaneous tissues with 1% Lidocaine. I placed 22-gauge spinal needles into the facet joint/ medial branches of L4-L5, and L5-S1] bilaterally. Needle placement was confirmed with fluoroscopy. After confirmation of needle placement, each site was injected with 1 mL of 1% lidocaine and 0.25 % Marcaine and 10 mg of Depo- Medrol. A total of 80 mg of depo medrol was used for bilateral medial branch blocks of L4-L5, and L5-S1] bilaterally. Patient tolerated the procedure without difficulty. There were no complications. Plan and Disposition:: Patient was discharged without incident.
[2024-12-01 11:40] VITALS: BP 158/80; PULSE 76; RESP 16; TEMP 36.6; O2SAT 97
== END 2024-12-01 11:40 | disposition home or self-care (01) ==
PROVIDERS: PCP Nurse Practitioner Family; Visit Provider Nurse Anesthetist, Certified Registered
DX: M47.816 Spondylosis without myelopathy or radiculopathy, lumbar region (principal); M51.369 Other intervertebral disc degeneration, lumbar region without mention of lumbar back pain or lower extremity pain
CPT/HCPCS: 64493; 64494; J1100

== ENCOUNTER 2024-12-16 14:43 | Outpatient (POV) | payer BC, SELFPAY ==
[2024-12-16 14:52] VITALS: BP 151/101; BP 159/97; PULSE 80; RESP 14; O2SAT 99; BMI 31.0
--- NOTE | 2024-12-16 15:08 | EXP.PAIN.SOA ---
[facility] Disclaimer: The information contained in this section may have been updated after the patient was seen, as this information can be updated by other users. Medical History Hypothyroid Surgical History History of colonoscopy History of appendectomy H/O gastric sleeve Hx of cholecystectomy H/O section H/O oophorectomy H/O neck surgery H/O shoulder surgery H/O knee surgery Family History Other No significant family history Social History Smoking Status: Former smoker alcohol intake: never substance use type: denies use current occupational status: other Travel in the last 8 weeks?: None PM Subjective & Objective Subjective Subjective:: Patient is a pleasant 49-year-old female who presents today for follow-up of her first lumbar medial branch block bilaterally L4-L5 and L5-S1 on 12/01/2024. Today she rates her pain a 2 out of 10. Patient states that she has had at least 80% improvement following this injection. Patient does state that the pain is not as severe and not as constant. She does feel like she is able to sleep longer and feel more rested overall. She denies any side effects from this procedure. Patient was ordered compounded cream at our last visit. Her Braulio has been reviewed and is appropriate. Review of Systems: General: No recent weight changes, no fever, no sleep disturbances Respiratory: No cough, no shortness of air, no recurring pulmonary infections Cardiovascular/peripheral vascular: No chest pain, no palpitations, no edema, no shortness of breath Gastrointestinal: No new onset incontinence, normal bowel movements reported Genitourinary: No new onset incontinence Musculoskeletal: Low back pain Psychiatric: [Normal mood/affect] Neurological: [Denies weakness in extremities], [denies balance issues] Pain at rest (0-10 scale): 2 Objective Objective:: Physical Exam: General: Alert and oriented x3, no acute distress, pleasant and cooperative Lungs: Respirations even and unlabored, symmetrical chest expansion Eyes: PERRL Musculoskeletal: Flexion and extension of lumbar [spine] within normal limits Neurological: Speech clear, no gross sensory deficit Has patient had previous pain injection?: Yes Percent improvement in pain since last injection: 75 to 80% Conservative treatment options previously tried: Home exercise plan Length of treatment: Longer than 12 weeks Meds Home Medications and Allergies Home Medications ?Medication ?Instructions ?Recorded ?Confirmed ?Type escitalopram oxalate 10 mg tablet 10 mg PO DAILY 03/30/24 12/16/24 History levothyroxine 75 mcg tablet 75 mcg PO Q OTHER DAY 06/30/24 12/16/24 History aspirin 81 mg tablet,delayed 81 mg PO DAILY #90 tabs 08/27/24 12/16/24 Rx release (Adult Low Dose Aspirin) atorvastatin 20 mg tablet 20 mg PO DAILY #90 tabs 08/27/24 12/16/24 Rx levothyroxine 50 mcg tablet 50 mcg PO Q OTHER DAY 11/25/24 12/16/24 History New Prescriptions to Start Prescriptions: Allergies Allergy/AdvReac Type Severity Reaction Status Date / Time Iodinated Contrast Media Allergy Hives Verified 11/25/24 08:24 Assessment and Plan *Assessment and plan (1) Lumbar spondylosis: Status: Acute Category: Medical Code(s): M47.816 - Spondylosis without myelopathy or radiculopathy, lumbar region (2) Degenerative disc disease: Status: Acute Category: Medical (3) Low back pain: Status: Acute Category: Medical Code(s): M54.50 - Low back pain, unspecified Plan Patient has had significant improvement following her first lumbar medial branch block and does not require any additional injection therapy at this time. Patient will return to clinic in 1 month for reevaluation of symptoms and plan of care. I did discuss with the patient in future when her pain does return and that we will plan on repeating her prior injection with the plan to proceed forward with a lumbar RFA at a later date. Patient agrees with this plan of care. Patient has been instructed to contact the clinic with any concerns before the next appointment. Dr. Nuñez has reviewed this note and agrees with this plan of care. This note was dictated using voice recognition software and make contain errors or omissions. All injections are used with Lidocaine, Bupivacaine and dexamethasone. Occasionally urine drug screen is needed to verify patient's compliance with our office pain contract. This is ordered based off specific treatments related to chronic pain with the potential to abuse certain medications.
== END 2024-12-16 23:59 | disposition home or self-care (01) ==
LOC: SC.PAIN 14:45
PROVIDERS: PCP Nurse Practitioner Family; Visit Provider Nurse Practitioner Family
DX: M47.816 Spondylosis without myelopathy or radiculopathy, lumbar region (principal); M54.50 Low back pain, unspecified; Z87.891 Personal history of nicotine dependence
CPT/HCPCS: 99212; G0463

== ENCOUNTER 2025-01-07 17:21 | Outpatient (CLI) | payer BC, SELFPAY ==
--- OUTSIDE RECORDS SUMMARY | 2025-01-08 12:32 | XMS_ITS | Encounter Summary ---
Author Organization [employer] Address [address] [facility] [place] [address] Care Team Providers Care Medical Record Transcriber Name Role Phone Daniel Carranza MD Primary Care Provider [phone] Encounter Details Date Type Department Care Team (Late st Contact Info) Description 03/02/2022 Transcribed Document [facility] [place] [address] Lashaun Moseley MD [address] [place] [id number] Social History Tobacco Use Types Packs/Day Years Used Date Smoking Tobacco: Never Assessed Comments Unknown Sex and Gender Information Value Date Recorded Sex Assigned at Not on file Legal Sex Female 1:26 PM CDT Gender Identity Not on file Sexual Orientation Not on file documented as of this encounter Miscellaneous Notes * Cerner Conversion Note - Lashaun Moseley MD - 03/02/2022 8:57 AM CDT Patient Education Materials Follows: Upper Endoscopy, Adult, Care After This sheet gives you information about how to care for yourself after your procedure. Your health care provider may also give you more specific instructions. If you have problems or questions, contact your health care provider. What can I expect after the procedure? After the procedure, it is common to have: ??? A sore throat. ??? Mild stomach pain or discomfort. ??? Bloating. ??? Nausea. Follow these instructions at home: ??? Follow instructions from your health care provider about what to eat or drink after your procedure. ??? Return to your normal activities as told by your health care provider. Ask your health care provider what activities are safe for you. ??? Take vrvl-zuv-itvxmgl and prescription medicines only as told by your health care provider. ??? If you were given a sedative during the procedure, it can affect you for several hours. Do not drive or operate machinery until your health care provider says that it is safe. ??? Keep all follow-up visits as told by your health care provider. This is important. Contact a health care provider if you have: ??? A sore throat that lasts longer than one day. ??? Trouble swallowing. Get help right away if: ??? You vomit blood or your vomit looks like coffee grounds. ??? You have: ? A fever. ? Bloody, black, or tarry stools. ? A severe sore throat or you cannot swallow. ? Difficulty breathing. ? Severe pain in your chest or abdomen. Summary ??? After the procedure, it is common to have a sore throat, mild stomach discomfort, bloating, and nausea. ??? If you were given a sedative during the procedure, it can affect you for several hours. Do not drive or operate machinery until your health care provider says that it is safe. ??? Follow instructions from your health care provider about what to eat or drink after your procedure. ??? Return to your normal activities as told by your health care provider. This information is not intended to replace advice given to you by your health care provider. Make sure you discuss any questions you have with your health care provider. Document Revised: 07/19/2020 Document Reviewed: 12/22/2018 [employer] Patient Education ? 2020 [employer]. Helicobacter Pylori Antibodies Test Why am I having this test? This test is used to check for a type of bacteria called Helicobacter pylori (H. pylori). H. pylori can be found in the cells that line the stomach. Having high levels of H. pylori in your stomach puts you at risk for: ??? Stomach ulcers and small bowel ulcers. ??? Long-term (chronic) inflammation of the lining of the stomach. ??? Ulcers in the part of the body that moves food from the mouth to the stomach (esophagus). ??? Stomach cancer if the infection is not treated. Most people with H. pylori in their stomach have no symptoms. Your health care provider may ask you to have this test if you have symptoms of a stomach ulcer or small bowel ulcer, such as stomach pain before or after eating, heartburn, or nausea after eating. What is being tested? This test checks your blood for antibodies to the H. pylori bacteria. Antibodies are proteins made by your immune system to fight germs and infection. The test checks for antibodies that the immune system produces in response to infection with H. pylori. What kind of sample is taken? A blood sample is required for this test. It is usually collected by inserting a needle into a blood vessel or by sticking a finger with a small needle. Tell a health care provider about: ??? All medicines you are taking, including vitamins, herbs, eye drops, creams, and bnbe-xrh-ikaffos medicines. How are the results reported? Your test results will be reported as values that are categorized as positive, negative, or equivocal. Equivocal means that your results are neither positive nor negative. Your health care provider will compare your results to normal ranges that were established after testing a large group of people (reference ranges). Reference ranges may vary among labs and hospitals. For this test, common reference ranges for the two types of antibodies that may be tested are: ??? IgG antibodies: ? Less than 0.75 units/mL. This is negative. ? Greater than or equal to 1 unit/mL. This is positive. ? 0.75?0.99 units/mL. This is equivocal. ??? IgM antibodies: ? Less than or equal to 30 units/mL. This is negative. ? Greater than or equal to 40 units/mL. This is positive. ? 30.01?39.99 units/mL. This is equivocal. What do the results mean? Test results that are higher than normal, or positive, may indicate various health conditions, such as: ??? Short-term or long-term irritation of the stomach lining (gastritis). ??? Small bowel ulcer. ??? Stomach ulcer. ??? Stomach cancer. Talk with your health care provider about what your results mean. Questions to ask your health care provider Ask your health care provider, or the department that is doing the test: ??? When will my results be ready? How will I get my results? What are my treatment options? What other tests do I need? What are my next steps? Summary ??? This test is used to check for a type of bacteria called Helicobacter pylori (H. pylori). Having high levels of H. pylori in your stomach puts you at risk for ulcers in the gastrointestinal tract or stomach cancer. ??? This test checks your blood for antibodies to the H. pylori bacteria. ??? Most people with H. pylori in their stomach have no symptoms. Your health care provider may ask you to have this test if you have symptoms of a stomach ulcer or small bowel ulcer, such as stomach pain before or after eating, heartburn, or nausea after eating. ??? Talk with your health care provider about what your results mean. This information is not intended to replace advice given to you by your health care provider. Make sure you discuss any questions you have with your health care provider. Document Revised: 07/04/2018 Document Reviewed: 03/04/2018 [employer] Patient Education ? 2020 [employer]. Pharmacology Monitored Anesthesia Care Anesthesia refers to techniques, procedures, and medicines that help a person stay safe and comfortable during a medical or dental procedure. Monitored anesthesia care, or sedation, is one type of anesthesia. Your anesthesia specialist may recommend sedation if you will be having a procedure that does not require you to be unconscious. You may have this procedure for: ??? Cataract surgery. ??? A dental procedure. ??? A biopsy. ??? A colonoscopy. During the procedure, you may receive a medicine to help you relax (sedative). There are three levels of sedation: ??? Mild sedation. At this level, you may feel awake and relaxed. You will be able to follow directions. ??? Moderate sedation. At this level, you will be sleepy. You may not remember the procedure. ??? Deep sedation. At this level, you will be asleep. You will not remember the procedure. The more medicine you are given, the deeper your level of sedation will be. Depending on how you respond to the procedure, the anesthesia specialist may change your level of sedation or the type of anesthesia to fit your needs. An anesthesia specialist will monitor you closely during the procedure. Tell a health care provider about: ??? Any allergies you have. ??? All medicines you are taking, including vitamins, herbs, eye drops, creams, and ywng-fno-kztslan medicines. ??? Any problems you or family members have had with anesthetic medicines. ??? Any blood disorders you have. ??? Any surgeries you have had. ??? Any medical conditions you have, such as sleep apnea. ??? Whether you are or may be . ??? Whether you use cigarettes, alcohol, or drugs. ??? Any use of steroids, whether by mouth or as a cream. What are the risks? Generally, this is a safe procedure. However, problems may occur, including: ??? Getting too much medicine (oversedation). ??? Nausea. ??? Allergic reaction to medicines. ??? Trouble breathing. If this happens, a breathing tube may be used to help with breathing. It will be removed when you are awake and breathing on your own. ??? Heart trouble. ??? Lung trouble. ??? Confusion that gets better with time (emergence delirium). What happens before the procedure? Staying hydrated Follow instructions from your health care provider about hydration, which may include: ??? Up to 2 hours before the procedure ? you may continue to drink clear liquids, such as water, clear fruit juice, black coffee, and plain tea. Eating and drinking restrictions Follow instructions from your health care provider about eating and drinking, which may include: ??? 8 hours before the procedure ? stop eating heavy meals or foods, such as meat, fried foods, or fatty foods. ??? 6 hours before the procedure ? stop eating light meals or foods, such as toast or cereal. ??? 6 hours before the procedure ? stop drinking milk or drinks that contain milk. ??? 2 hours before the procedure ? stop drinking clear liquids. Medicines Ask your health care provider about: ??? Changing or stopping your regular medicines. This is especially important if you are taking diabetes medicines or blood thinners. ??? Taking medicines such as aspirin and ibuprofen. These medicines can thin your blood. Do not take these medicines unless your health care provider tells you to take them. ??? Taking cedb-aqy-jkdvkyn medicines, vitamins, herbs, and supplements. Tests and exams ??? You will have a physical exam. ??? You may have blood tests done to show: ? How well your kidneys and liver are working. ? How well your blood can clot. General instructions ??? Plan to have a responsible adult take you home from the hospital or clinic. ??? If you will be going home right after the procedure, plan to have a responsible adult care for you for the time you are told. This is important. What happens during the procedure? Your blood pressure, heart rate, breathing, level of pain, and overall condition will be monitored. ??? An IV will be inserted into one of your veins. ??? You will be given medicines as needed to keep you comfortable during the procedure. This may mean changing the level of sedation. ? Depending on your age or the procedure, the sedative may be given: ? As a pill that you will swallow or as a pill that is inserted into the rectum. ? As an injection into the vein or muscle. ? As a spray through the nose. ??? The procedure will be performed. ??? Your breathing, heart rate, and blood pressure will be monitored during the procedure. ??? When the procedure is over, the medicine will be stopped. The procedure may vary among health care providers and hospitals. What happens after the procedure? Your blood pressure, heart rate, breathing rate, and blood oxygen level will be monitored until you leave the hospital or clinic. ??? You may feel sleepy, clumsy, or nauseous. ??? You may feel forgetful about what happened after the procedure. ??? You may vomit. ??? You may continue to get IV fluids. ??? Do not drive or operate machinery until your health care provider says that it is safe. Summary ??? Monitored anesthesia care is used to keep a patient comfortable during short procedures. ??? Tell your health care provider about any allergies or health conditions you have and about all the medicines you are taking. ??? Before the procedure, follow instructions about when to stop eating and drinking and about changing or stopping any medicines. ??? Your blood pressure, heart rate, breathing rate, and blood oxygen level will be monitored until you leave the hospital or clinic. ??? Plan to have a responsible adult take you home from the hospital or clinic. This information is not intended to replace advice given to you by your health care provider. Make sure you discuss any questions you have with your health care provider. Document Revised: 04/06/2021 Document Reviewed: 06/23/2020 [employer] Patient Education ? 2020 [employer] documented in this encounter Plan of Treatment Not on file documented as of this encounter Visit Diagnoses Not on filedocumented in this encounter Care Teams Medical Record Transcriber Relationship Specialty Start Date End Date Daniel Carranza MD [address] [place], [place] [id number] PCP - General Family Medicine 07/04/22 documented as of this encounter
--- OUTSIDE RECORDS SUMMARY | 2025-01-08 12:32 | XMS_ITS | Encounter Summary ---
Author Organization [employer] Address [address] [place] [address] Care Team Providers Care Material Carrier Name Role Phone Daniel Carranza MD Primary Care Provider [phone] Encounter Details Date Type Department Care Team (Late st Contact Info) Description 03/02/2022 Transcribed Document [facility] [place] [address] ProviderLashaun MD [address] [place], [place] [id number] Social History Tobacco Use Types Packs/Day Years Used Date Smoking Tobacco: Never Assessed Comments Unknown Sex and Gender Information Value Date Recorded Sex Assigned at Not on file Legal Sex Female 1:26 PM CDT Gender Identity Not on file Sexual Orientation Not on file documented as of this encounter Miscellaneous Notes * Cerner Conversion Note - Lashaun ProviderMD - 03/02/2022 12:30 PM CDT JENNI Walters PreOp Summary Primary Physician: MESSI STEEL MD-JOCELYN Finalized Date/Time: 03/02/22 11:36:30 Pt. Name: JIMMY OLSEN/Sex: 1975 Female Med Rec #: [id number] Physician: MESSI STEEL MD-JOCELYN Financial #: [id number] Pt. Type: Room/Bed: [facility] Admit/Disch: 03/02/22 10:46:00 - Institution: [facility] PreOp Case Times Entry 1 In Preop 03/02/22 10:51:00 Ready for Holding n/a Room Patient Ready for 03/02/22 11:36:00 Surgery Patient Out of Preop 03/02/22 11:36:00 Patient Out of n/a Holding Room [facility] PreOp Case Times Audit 03/02/22 11:36:28 [employer] Recovery: [id number] Modifier: [id number] <+> 1 Patient Out of Preop <+> 1 Patient Ready for Surgery Finalized By: Romana Polanco RN Document Signatures Signed By: Romana Polanco RN 03/02/22 11:36 documented in this encounter Plan of Treatment Not on file documented as of this encounter Visit Diagnoses Not on filedocumented in this encounter Care Teams Material Carrier Relationship Specialty Start Date End Date Daniel Carranza MD [address] [place] [id number] PCP - General Family Medicine 07/04/22 documented as of this encounter
--- OUTSIDE RECORDS SUMMARY | 2025-01-08 12:32 | XMS_ITS | Data Portability ---
Author Organization [facility] Address [address] [place] [address] Care Team Providers Care Manager Technology Name Role Phone CHRISTINA DAVIS Referring Provider Assessment Encounter Date Assessment Date Assessment LastModified by Organization Details LastModified Time 04/07/2024 04/07/2024 -Medications were reviewed and any necessary updates and renewals were made, patient instructed to complete as prescribed. -The potential side effects of medications were discussed. -Counseling was done on care goals and ways to prevent future hospitalizatio ns. -Further treatment per orders listed below. [email or web address] Not available 04/07/2024 09:28:06 Plan of Treatment Reminders Order Date Submit Date Provider Last Modified By Organization Details Last Modified Time Details Appointments None recorded. Lab TSH + free T4, serum 2024 025 M[place], [address], [facility], [place], [address], 5 08:11:38 Referral pain management referral 2024 025 ALBERT Nuñez MD, [address] [facility], [facility] [address], [place], [address], 5 10:26:18 Procedures None recorded. Surgeries None recorded. Imaging electrocard iogram 2023 024 [facility], [address] [facility], [place], [address], 4 18:01:59 Medication Orders escitalopra m 10 mg tablet 2024 025 [facility], [address] [place] [address], [address], [place], [address], 16:28:29 levothyroxi ne 50 mcg tablet 2024 025 [facility], [address] [place] [address], [address], [place], [address], 16:28:30 prednisone 20 mg tablet 2023 025 [facility], [address] [place] [address], [facility], [place], [address], 15:48:11 Patient TargetsNo targets recorded. Patient Instructions Encounter Date Encounter Id Patient Instructions Last Modified By Organization Details Last Modified Time 10/27/2024 [id number] learning about healthy weight efryman Not available 10/27/2024 18:10:52 body mass index: care instructions [email or web address] Not available 10/27/2024 18:10:52 Reason for Referral Pain Management Referral for Chronic back pain Referring Physician: Debora Olsen, Family Medicine, Encounter Date: 10/27/2024 Results Created Date Observation Date Name Description Value Unit Range Abnormal Flag Note LastModifiedBy Organization Detail LastModifiedTime 09/01/1909/02/2024 TSH+F REE T4 TSH 1.230 uIU/m L 0.450- 4.500 normal Not Available [facility] ([facility]) [address] [place], [address], 09/02/2024 08:11:38 09/01/19 25 09/02/2024 TSH+F REE T4 T4,free(dire ct) 1.09 NG/dL 0.82-1 .77 normal Not Available [facility] ([facility]) [address] [place], [address], 09/02/2024 08:11:38 03/30/20 24 03/30/2024 CT, abdom en + pelvi s, w/ contr ast No observ ation record ed. [facility] [address], [place], [address], 03/30/2024 09:22:21 03/30/20 24 03/30/2024 CT, abdom en + pelvi s, w/ contr ast No observ ation record ed. [facility] [address], [place], [address], 03/30/2024 09:22:08 03/30/20 24 03/30/2024 stres s echoc ardio gram with doppl er color flow (PROC ) No observ ation record ed. [facility] [address], [place], [address], 03/30/2024 16:07:26 06/09/20 24 06/09/2024 elect rocar diogr am No observ ation record ed. [email or web address] [address], [address], 06/11/2024 08:32:20 06/09/20 24 06/09/2024 elect rocar diogr am No observ ation record ed. [email or web address] [address], [address], 06/12/2024 11:43:27 06/09/20 24 06/09/2024 XR, chest , 2 view No observ ation record ed. [facility] [address], [place], [address], 06/11/2024 08:56:51 06/09/20 24 06/09/2024 CT, angio gram, chest , w/ contr ast No observ ation record ed. [facility] [address], [place], [address], 06/11/2024 08:54:36 06/09/20 24 06/09/2024 elect robert shepardgr am No observ ation record ed. [facility] [address], [place], [address], 06/11/2024 08:54:03 07/06/20 24 07/03/2024 cardi ac stres s test No observ ation record ed. [facility] [address], [place], [place], [address], 07/06/2024 13:48:22 07/06/20 24 07/03/2024 NM, myoca rdial perfu dylan scan, w/ stres s No observ ation record ed. [facility] [address], [place], [place], [address], 07/06/2024 13:48:09 08/26/19 25 08/24/2024 CT, angio gram, coron seven arter ies, w/ contr ast No observ ation record ed. [facility] [address], [place], [address], 08/27/2024 08:26:45 Result Notes None recorded. Problems Name Problem SNOMED Code Status Onset Date Resolution Date Notes Provider Name and Address Organization Details Recorded Time Anxiety 23183784 Active Hiwot Beaulieu null, [place] - [facility] 3 09:09:45 Hypothyroi dism 80008104 Active Hiwot Beaulieu null, [place] - [facility] 3 09:10:07 Non-alcoho lic fatty liver 593810091 Active Hiwot Beaulieu null, [place] - [facility] 3 09:10:31 Chronic neck pain 8267805383000 Active 2022 Debora Olsen, [employer] [address], [place], [address] , [place] - [facility] 3 11:24:20 Problem Notes None recorded. Procedures Surgical History Date Name Laterality Status Provider Name and Address Organization Details Recorded Time 04/07/20 24 Medication Reconcilliation completed Michelle Bordens [place] - [facility] 04/07/2024 09:28:06 09/06/19 24 Date of Last Colonoscopy completed Hiwot SUBRAMANIAN - [facility] 03/03/2024 09:45:11 07/26/20 23 Date of Last Mammogram completed Michelle Bordens [place] - [facility] 08/01/2023 10:52:51 10/12/19 07 Caesarean Section completed Hiwot SUBRAMANIAN - [facility] 12/11/2022 08:55:20 Arthroscopic Surgery completed Hiwot Beaulieu [place] - [facility] 12/11/2022 08:55:20 Gastric Bypass completed Hiwot SUBRAMANIAN - [facility] 12/11/2022 08:55:20 Orthopedic Surgery completed Chaz SUBRAMANIAN - [facility] 12/11/2022 08:55:20 Adnexal surgery completed Hiwot SUBRAMANIAN - [facility] 12/11/2022 08:55:20 appendectomy completed Michelle Bordens [place] - [facility] 06/09/2024 17:34:34 Imaging Results None recorded. Procedure Notes None recorded. Medical Equipment None Reported. Allergies No known drug allergies Medications Name Sig Start Date Stop Date Status Note LastModified by Organization Details LastModified Time blood pressu solution kit 06/17 completed Not Available Not Available Not Available cyclobenzap rine 10 mg tablet 04/07 completed Not Available Not Available Not Available neomycin-po lymyxin-hyd rocort 3.5 mg/mL-10,00 0 unit/mL-1 % ear solution 03/22 completed Not Available Not Available Not Available atorvastati n 20 mg tablet 1 qd active Not Available Not Available Not Available hydrocodone 5 mg-acetamin ophen 325 mg tablet TAKE 1 TO 2 TABLET(S) BY MOUTH EVERY 6 HOURS NEEDED FOR PAIN MAY CAUSE DROWSINES S 06/09 completed Not Available Not Available Not Available ondansetron HCl 8 mg tablet 12/11 completed Not Available Not Available Not Available prednisone 20 mg tablet Take 1 tablet twice a day by oral route for 5 days. 09/01 completed Not Available Not Available Not Available aspirin 81 mg tablet,timothy yed release 1 qd active Not Available Not Available Not Available levothyroxi ne 75 mcg tablet Take 1 tablet every other day by oral route. active Not Available Not Available No t Available tamsulosin 0.4 mg capsule 12/11 completed Not Available Not Available Not Available levothyroxi ne 50 mcg tablet Take 1 tablet every other day by oral route. active Not Available Not Available No t Available cephalexin 500 mg capsule Take 1 capsule twice a day by oral route for 10 days. 09/05 completed Not Available Not Available Not Available pantoprazol e 40 mg tablet,timothy yed release TAKE ONE TABLET BY MOUTH EVERY DAY 09/01 completed Not Available Not Available Not Available omeprazole 20 mg capsule,del ayed release 12/11 completed Not Available Not Available Not Available mupirocin 2 % topical ointment APPLY A SMALL AMOUNT TO THE AFFECTED AREA BY TOPICAL ROUTE 3 TIMES PER DAY 11/17 completed Not Available Not Available Not Available ibuprofen 600 mg tablet 12/11 completed Not Available Not Available Not Available ondansetron 4 mg disintegrat ing tablet 12/11 completed Not Available Not Available Not Available amoxicillin 500 mg-potassiu m clavulanate 125 mg tablet TAKE ONE TABLET BY MOUTH TWICE DAILY FOR 3 DAYS -- FINISH ALL MEDICINE -- 04/07 completed Not Available Not Available Not Available oxycodone 5 mg tablet 12/11 completed Not Available Not Available Not Available neomycin-po lymyxin-hyd rocort 3.5 mg-10,000 unit/mL-1 % ear drops,susp INSTILL 4 DROPS INTO AFFECTED EAR(S) BY OTIC ROUTE 3 TIMES PER DAY 03/22 completed Not Available Not Available Not Available escitalopra m 10 mg tablet Take 1 tablet every day by oral route for 90 days. active Not Available Not Available No t Available losartan 100 mg-hydrochl orothiazide 12.5 mg tablet 12/11 completed Not Available Not Available Not Available sodium,pota ssium,mag sulfates 17.5 gram-3.13 gram-1.6 gram oral soln 11/17 completed Not Available Not Available Not Available Vitals Date Recorded Body height Respiratory rate Body mass index (BMI) Body weight Body temperature Heart rate Oxygen saturation Oxygen saturation in Arterial blood by Pulse oximetry Systolic blood pressure Diastolic blood pressure Provider Name and Address Organization Details Last Updated DateTime 5 170.18 cm 18 /min 29.3 kg/m2 60485.7 7 g 98 [degF] 78 /min 98 % 98 % 138 mm[Hg] 82 mm[Hg] Michelle Stears [place] - [facility] 5 15:40:28 Date Recorded Body height Body mass index (BMI) Body weight Body temperature Respiratory rate Heart rate Oxygen saturation Oxygen saturation in Arterial blood by Pulse oximetry Systolic blood pressure Diastolic blood pressure Provider Name and Address Organization Details Last Updated DateTime 5 170.18 cm 30.5 kg/m2 69873.5 1 g 98 [degF] 18 /min 88 /min 99 % 99 % 132 mm[Hg] 78 mm[Hg] Michelle Stears [place] - [facility] 5 17:51:39 Date Recorded Body height Respiratory rate Body mass index (BMI) Body weight Heart rate Oxygen saturation Oxygen saturation in Arterial blood by Pulse oximetry Body temperature Systolic blood pressure Diastolic blood pressure Provider Name and Address Organization Details Last Updated DateTime 4 170.18 cm 18 /min 28.8 kg/m2 50956 g 80 /min 98 % 98 % 98 [degF] 138 mm[Hg] 76 mm[Hg] Michelle Stears [place] - [facility] 4 09:39:59 Date Recorded Body height Body mass index (BMI) Body weight Body temperature Respiratory rate Oxygen saturation Oxygen saturation in Arterial blood by Pulse oximetry Heart rate Systolic blood pressure Diastolic blood pressure Provider Name and Address Organization Details Last Updated DateTime 4 170.18 cm 29 kg/m2 40201.5 9 g 98.3 [degF] 18 /min 99 % 99 % 88 /min 142 mm[Hg] 84 mm[Hg] Michelle Stears [place] - [facility] 4 17:33:50 Date Recorded Body height Respiratory rate Body mass index (BMI) Body weight Heart rate Oxygen saturation Oxygen saturation in Arterial blood by Pulse oximetry Body temperature Systolic blood pressure Diastolic blood pressure Provider Name and Address Organization Details Last Updated DateTime 4 170.18 cm 18 /min 28.8 kg/m2 76122 g 88 /min 96 % 96 % 97.9 [degF] 156 mm[Hg] 88 mm[Hg] Michelle Stears [place] - [facility] 4 09:31:19 Social History Question Answer Notes LastModified by Organizat ion Details LastModified Time Tobacco Smoking Status Former Smoker Hiwot Beaulieu null, - [facility] 12/11/2022 08:55:20 Do You Have An Advance Directive? No Information not available 12/11/2022 Are You Blind Or Do You Have Difficulty Seeing? No Information not available 12/11/2022 Is Blood Transfusion Acceptable In An Emergency? Yes Information not available 12/11/2022 What Is Your Level Of Caffeine Consumption? Occasional Information not available 12/11/2022 How Much Tobacco Do You Chew? None Information not available 12/11/2022 In The 14 Days Before Symptom Onset, Have You Had Close Contact With A Laboratory-confir med COVID-19 While That Case Was Ill? No Information not available 12/11/2022 In The 14 Days Before Symptom Onset, Have You Had Close Contact With A Person Who Is Under Investigation For COVID-19 While That Person Was Ill? No Information not available 12/11/2022 Have You Been To An Area Known To Be High Risk For COVID-19? No Information not available 12/11/2022 Are You Deaf Or Do You Have Serious Difficulty Hearing? No Information not available 12/11/2022 What Type Of Diet Are You Following? SPECIFIC Information not available 12/11/2022 Have You Processed Blood Or Body Fluids From An Ebola Virus Disease Patient Without Appropriate PPE? No Information not available 12/11/2022 Do You Reside In Or Have You Traveled To An Area Where Ebola Virus Transmission Is Active? No Information not available 12/11/2022 What Is The Highest Grade Or Level Of School You Have Completed Or The Highest Degree You Have Received? [id number] Information not available 12/11/2022 Have There Been Any Changes To Your Family Or Social Situation? No Information no t available 12/11/2022 What Is The Fluoride Status Of Your Home? Fluoridated Information not available 12/11/2022 When Did You Quit Smoking? 1-5yearsbartolo hernandez 2019 Information not available 03/22/2023 Have You Recently Or Are You Planning To Travel To An Area With Zika Virus? No Information not available 12/11/2022 Do You Have A Medical Power Of Monument Installer? No Information not available 12/11/2022 What Was The Date Of Your Most Recent Tobacco Screening? 09/01/2024 Information not available 09/01/2024 How Many Children Do You Have? 2 Information not available 12/11/2022 What Is Your Current Pack Years? 20-29packyears Information not available 03/22/2023 Do You Use Protection Against STDs? Always Information not available 12/11/2022 What Is Your Relationship Status? Information not available 12/11/2022 Do You Use Your Seat Belt Or Car Seat Routinely? Yes Information not available 12/11/2022 Are You Sexually Active? Yes Information not available 12/11/2022 Do You Have Smoke And Carbon Monoxide Detectors In Your Home? Yes Information not available 12/11/2022 At What Age Did You Start Smoking Tobacco? 16 Information not available 12/11/2022 Are You Passively Exposed To Smoke? No Information no t available 12/11/2022 How Much Tobacco Do You Smoke? No Information not available 09/05/2023 Do You Use Sunscreen Routinely? No Information not available 12/11/2022 Has Tobacco Cessation Counseling Been Provided? No Information not available 12/11/2022 How Many Years Have You Smoked Tobacco? 27 Information not available 03/22/2023 Do You Have Difficulty Walking Or Climbing Stairs? No Information not available 12/11/2022 Sex: Female Functional Status Question Answer Note LastModified by Organization Details LastModified Time Do you or have you ever used smokeless tobacco? Never used smokeless tobacco Information not available 12/11/2022 Are you currently employed? Yes Information not available 12/11/2022 Do you have transportation difficulties? No Information not available 12/11/2022 Are you able to care for yourself? Yes Information not available 12/11/2022 Do you have difficulty dressing or bathing? No Information not available 12/11/2022 Do you or have you ever used e-cigarettes or vape? Never used electronic cigarettes Information not available 12/11/2022 What is your exercise level? Occasional Information not available 12/11/2022 Do you use any illicit or recreational drugs? No Information not available 12/11/2022 Do you or have you ever used any other forms of tobacco or nicotine? No Information not available 03/22/2023 What is your level of alcohol consumption? None Information not available 12/11/2022 Are you able to walk? YESWOREST Information not available 12/11/2022 Do you have difficulty doing errands alone? 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 [id number] Information not available 12/11/2022 Do you have difficulty concentrating, remembering or making decisions? No Information no t available 12/11/2022 Family History Relationship Description Onset Age of this Age Resolved Age Notes LastModified by Organization Details LastModified Time Mother Disorder of thyroid gland cbuckler Not available 2022 08:55:19 Maternal Aunt Malignant neoplastic disease cbuckler Not available 2022 08:55:19 Maternal Aunt Malignant tumor of colon x2 bstears Not available 2022 14:21:19 Paternal Aunt Malignant neoplastic disease cbuckler Not available 2022 08:55:19 Paternal Aunt Malignant neoplasm of ovary cbuckler Not available 2022 08:55:19 Paternal Grandfather Malignant neoplastic disease cbuckler Not available 2022 08:55:19 Father Malignant neoplastic disease cbuckler Not available 2022 08:55:19 Father Malignant neoplasm of lung cbuckler Not available 2022 08:55:19 Father Hypertensive disorder cbuckler Not available 2022 08:55:19 Medical History Condition Response Vision or Eye Problems Y Degenerative Disc Disease Y Thyroid Problems Y Hypothyroidism Y Gynecological History Statement/Question Response Abnormal Pap N Date of Last Mammogram 07/26/2023 Flow Heavy Date of LMP 10/09/2024 STIs/STDs N HPV Vaccine N Duration of Flow (days) 5 Current Control Method Tubal Ligat ion Age at Menarche 13 Age at First Child 26 Date of Last Colonoscopy 09/06/2023 Frequency of Cycle (Q days) 28 Most Recent Bone Density Sexually Active? Y Menses Monthly Y Date of Last Pap Smear Sexual Problems? N LMP Approximate Hormone Replacement Therapy N Obstetrics History GPAL:G 2 P 2 0 0 2 Type Value Multiple Births 0 Full Term 2 Induced 0 Spontaneous 0 Premature 0 Living 2 Ectopics 0 Total 2 Immunizations Vaccine Type Date Status Note Provider Nam e and Address Organization Details Recorded Time Influenza, split virus, trivalent, PF 05/28/2024 completed Not Available [facility] 2024 17:43:23 Tdap 07/08/2023 completed Hiwot Beaul[place], [place] - [facility] 07/08/2023 13:25:04 COVID-19 vaccine, vector-nr, rS-Ad26, PF, 0.5 mL 10/12/2020 completed Michelle [place] null, [place] - [facility] 03/22/2023 14:13:03 Influenza, split virus, quadrivalent, PF 05/10/2022 completed Michelle [place], [place] - [facility] 03/22/2023 14:13:03 Influenza, split virus, quadrivalent, PF 06/05/2023 completed Michelle [place], [place] - [facility] 04/07/2024 09:28:33 Past Encounters Encounter ID Performer Location Encounter Start Date Encounter Closed Date Diagnosis/Indication Diagnosis SNOMED-CT Code Diagnosis ICD10 Code Diagnosis Note [id number] Debora Olsen APRN [address] [address] 12/11/2022 08:47:06 12/11/2022 09:56:35 Body mass index 25-29 - overweight 587605336 Z68.26 Overweight 894278173 E66 .3 Anxiety 52595050 F41.9 Otitis ext bria of right ear 5549520034 302002 H60.91 Chronic ne ck pain for greater than 3 months 4299072043 88434 M54.2 see forms filled out for disability - see notecan work with restrictio ns as stated by surgeon.se dentary work only [id number] Debora Olsen [address] [address] 03/22/2023 14:06:48 03/22/2023 14:52:51 Chronic neck pain 0832328494 107 M54.2 follow up with neurosurge ry Chronic back pain 515692 002 G89.29 pt needs a job that is statuary and has freq breaks Disorder o f cervical spine 843216583 M53.82 Degenerati on of lumbar intervertebral disc 71333050 M51.36 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 64972125 M51.34 Lumbar fac et joint pain 437266998 M54.51 [id number] [facility] [address] [address] 06/17/2023 08:21:13 06/17/2023 08:59:37 Anxiety 16159600 F41.9 Chronic neck pain 468559 4844 107 M54.2 follow up with neurosurge ry Hypothyroidism 68922421 E03.9 Non-alcoho lic fatty liver 164386322 K76.0 [id number] Debora Olsen [address] [address] 06/18/2023 17:23:01 06/26/2023 08:47:14 [id number] [facility] [address] [address] 07/08/2023 10:52:29 07/08/2023 11:52:35 Administration of diphtheria, pertussis, and tetanus vaccine 634637040 Z23 Dog bite of forearm 9957 83311 S51.851A monitor for s/s of infection Screening for malignant neoplasm of colon 480340564 Z12.11 Screening mammography of bilateral breasts 7957605332 00969 Z12.31 [id number] Debora Olsen [address] [place] [address] 09/05/2023 10:39:55 09/05/2023 11:33:10 Chronic neck pain 8463592229 107 M54.2 follow up with neurosurge rypaper work completed- she may return to work on restrictio ns [id number] Debora Olsen [address] [address] 11/18/2023 14:06:59 11/18/2023 15:55:21 Chronic neck pain 8471403736 107 M54.2 follow up with neurosurge rypaper work completed- she may return to work on restrictio ns [id number] Debora Olsen [address] [address] 01/21/2024 08:53:10 01/21/2024 09:33:23 Chronic neck pain 5955378059 107 M54.2 pt can return to work for sedentary work only with freq breaks Hypothyroidism 00732540 E03.9 Non-alcoho lic fatty liver 189158811 K76.0 [id number] Debora Olsen [address] [address] 04/07/2024 09:19:38 04/07/2024 10:10:10 History of appendectomy 502550013 Z90.49 follow up with surgeon Tachycardia 2069190 R00. 0 follow up with cardiology [id number] Debora Olsen APRN [address] [address] 06/09/2024 17:26:40 06/09/2024 17:59:42 Chest pain 05797184 R07.9 sent to ed for eval Headache 39728078 R51.9 [id number] Debora Olsen [address] [address] 06/18/2024 09:17:45 06/18/2024 10:10:26 Allergic reaction 729366860 T78.40XA benadryl as neededretu rn if worsen or no improvemen t [id number] Debora Olsen APRN [address] [address] 09/01/2024 15:11:47 09/01/2024 17:02:46 Hypothyroidism 05359468 E03.9 Anxiety 87496171 F41.9 [id number] Debora Olsen APRN [address] [address] 10/27/2024 17:42:41 10/27/2024 18:09:21 Body mass index 30+ - obesity 347338847 Z68.30 30.5 Obesity 631518424 E66.9 Chronic back pain 652676 002 G89.29 if symptoms worsen or no improvemen t return Health Concerns Section Related Observation LastModified by Organization Detai ls LastModified Time None Recorded Concern Status LastModified by Organization Details LastModified Time None Recorded Advance Directives Directive N: Payers Insurance Date Sequence Insurance Name Policy Number Policy Peterson Covered Member ID Peterson Member ID Guarantor Name 09/01/2024 1 [place] [id number] Mayte Olsen [id number] Mayte Olsen 11/18/2024 1 [place] ([place] [id number] Moises Olsen [id number] Mayte Olsen Notes Date Note Type Note Provider Name and Address Organization Details Recorded Time 04/07/2024 text/html Emergency Depart ment Follow-Up RecordReported bypatient.Discharge InformationName of hospital/urgent care patient was seen: ([facility]); Patient presented to hospital/urgent care on or around: actual date 03-30-24; Patient presented to hospital for treatment of: (appendicitis); Treatment received by hospital/urgent care: (appendectomy); Patient's condition has: improved; Hospital records available at the time of this visit: Yes 48 year old female who presents to the office today for a hospital follow up after having her appendix removed. pt states while in surgery her hr increased and she was worked up by cardiology and now needs a stress test Debora Olsen APRN [facility] [address], [place], [address], [place] - [facility] 04/07/2024 10:19:36 06/09/2024 text/html 48 year old mima keene who presents to the office today with concerns of sweats, chest pain, pain in left shoulder states Saturday she had a sore throat, little cough, has headache that will not go away Deontenir [employer] miller [address], [place], [address], [place] - [facility] 06/09/2024 18:01:01 06/18/2024 text/html 48 year old mima keene who presents to the office today with concerns of itchy rash on lower legs/feet since Saturdaywas started on Pantoprazole on 06-10-24 from ER visit on 06-09-24. she stopped taking medicine after Saturday morning 06-13-24 thinking rash could be from this medication, rash has improved some now manly on feet and anklescontinued itching/redness since stopping medication Deontenir Olsen APRN [address], [place], [address], [place] - [facility] 06/18/2024 10:04:30 09/01/2024 text/html 49 year old mima keene who presents to the office today for a follow up onhypothyroidism -needs medication refill, needs labsanxiety-needs refill on escitalopram Deontenir BASIL miller [address], [place], [address], [place] - [facility] 09/01/2024 16:28:13 10/27/2024 text/html 49 year old mima keene who presents to the office today with concerns of low back pain- pt states she started sleeping in a recliner about 4-5 years ago due to back pain and now that is not helping either.pt states she was offered back injections in -2020 by previous ortho [facility], Asa Dee MD in [place]. would like referral to pain management for injections. no change in bowel or bladder Deontenir BASIL miller [address], [place], [address], [place] - [facility] 10/27/2024 18:11:26 OBGyn Episode No OBEpisode recorded.
--- OUTSIDE RECORDS SUMMARY | 2025-01-08 12:32 | XMS_ITS | Encounter Summary ---
Author Organization [employer] Address [address] [place] [address] Care Team Providers Care Yardage Control Operator Name Role Phone Daniel Carranza MD Primary Care Provider [phone] Encounter Details Date Type Department Care Team (Late st Contact Info) Description 03/02/2022 Transcribed Document [place] [facility] [place] [address] ProviderLashaun MD [address] [place], [place] [id number] Social History Tobacco Use Types Packs/Day Years Used Date Smoking Tobacco: Never Assessed Comments Unknown Sex and Gender Information Value Date Recorded Sex Assigned at Not on file Legal Sex Female 1:26 PM CDT Gender Identity Not on file Sexual Orientation Not on file documented as of this encounter Miscellaneous Notes * Cerner Conversion Note - Lashaun ProviderMD - 03/02/2022 11:53 AM CDT [facility]EN[facility] IntraOp Summary Primary Physician: MESSI STEEL MD-JOCELYN Finalized Date/Time: 03/02/22 12:52:30 Pt. Name: JIMMY OLSEN/Sex: 1975 Female Med Rec #: [id number] Physician: MESSI STEEL MD-JOCELYN Financial #: [id number] Pt. Type: Room/Bed: [facility] Admit/Disch: 03/02/22 10:46:00 - Institution: [facility] Endo - Case Attendance Entry 1 Entry 2 Entry 3 Case Attendee MESSI STEEL [facility], BRITTANY, CIELO OTHER, ATTENDEE -JOCELYN Role Performed Surgeon/Proceduralist, TAXONOMY TEACHER/Nurse Production Support Consultant Student First Time In 03/02/22 11:51:00 03/02/22 11:51:00 03/02/22 11:51:00 Time Out 03/02/22 11:56:00 03/02/22 11:56:00 03/02/22 11:56:00 Procedure Esophagogastroduodenosco Esophagogastroduodenosco Esophagogastroduodenosco py, Gastric Biopsy py, Gastric Biopsy py, Gastric Biopsy Other Attendee Ambrosio MENDEZ Superficial Wound Closed By: Last Modified By: Vangei Tanner Kindred, Pamela, Kindred, Pamela, RN-PATIENT CARE BEDSIDE RN-PATIENT CARE BEDSIDE RN-PATIENT CARE BEDSIDE NON-EXEMPT 03/02/22 NON-EXEMPT 03/02/22 NON-EXEMPT 03/02/22 12:46:28 12:46:28 12:46:28 Entry 4 Entry 5 Case Attendee Vangie Tanner CHILDERS, BRIAN, TECH RN-PATIENT CARE BEDSIDE NON-EXEMPT Role Performed Wheel Blocker, First Scrub, First Time In 03/02/22 11:51:00 03/02/22 11:51:00 Time Out 03/02/22 11:56:00 03/02/22 11:56:00 Procedure Esophagogastroduodenosco Esophagogastroduodenosco py, Gastric Biopsy py, Gastric Biopsy Other Attendee Superficial Wound Closed By: Last Modified By: Vangie Tanner Kindred, Pamela, RN-PATIENT CARE BEDSIDE RN-PATIENT CARE BEDSIDE NON-EXEMPT 03/02/22 NON-EXEMPT 03/02/22 12:46:28 12:46:28 [facility] Endo - Case Attendance Audit 03/02/22 12:46:28 Tool Crib Supervisor: [id number] Modifier: [id number] 1 <*> Procedure Esophagogastroduodenoscopy 2 <*> Procedure Esophagogastroduodenoscopy 3 <*> Procedure Esophagogastroduodenoscopy 4 <*> Procedure Esophagogastroduodenoscopy 5 <*> Procedure Esophagogastroduodenoscopy 03/02/22 12:44:04 Tool Crib Supervisor: [id number] Modifier: [id number] <+> 1 Procedure 2 <*> Procedure Esophagogastroduodenoscopy 3 <*> Procedure Esophagogastroduodenoscopy 4 <*> Procedure Esophagogastroduodenoscopy 5 <*> Procedure Esophagogastroduodenoscopy 03/02/22 12:42:17 Tool Crib Supervisor: [id number] Modifier: [id number] <*> Procedure Esophagogastroduodenoscopy 3 <*> Other Attendee 03/02/22 12:09:39 Tool Crib Supervisor: [id number] Modifier: [id number] <+> 1 Time In <+> 1 Time Out <+> 2 Case Attendee <+> 2 Role Performed <+> 2 Time In <+> 2 Time Out <+> 2 Procedure <+> 3 Case Attendee <+> 3 Role Performed <+> 3 Time In <+> 3 Time Out <+> 3 Procedure <+> 3 Other Attendee <+> 4 Case Attendee <+> 4 Role Performed <+> 4 Time In <+> 4 Time Out <+> 4 Procedure <+> 4 Other Attendee <+> 5 Case Attendee <+> 5 Role Performed <+> 5 Time In <+> 5 Time Out <+> 5 Procedure [facility] - Case Times Entry 1 Patient In Room Time 03/02/22 11:51:00 Out Room Time 03/02/22 11:56:00 Anesthesia Start Time 03/02/22 11:51:00 Stop Time 03/02/22 11:54:00 Anesthesia Ready 03/02/22 11:51:00 Surgery / Procedure Times Start Time 03/02/22 11:53:00 Stop Time 03/02/22 11:54:00 Last Modified By: Vangie Tanner RN-PATIENT CARE BEDSIDE NON-EXEMPT 03/02/22 12:42:39 [facility] - Case Times Audit 03/02/22 12:42:39 Tool Crib Supervisor: [id number] Modifier: [id number] <+> 1 Stop Time <+> 1 Anesthesia Ready [facility] - Cultures and Spec Summary Entry 1 Cultrures and Specimens Specimen Ordered: Yes Test(s) Routine/Path-Lab Requested/Final Disposition Last Modified By: Vangie Tanner RN-PATIENT CARE BEDSIDE NON-EXEMPT 03/02/22 12:46:37 [facility] - Departure from OR Entry 1 Integumentary Assessment Integumentary WDL Assessment WDL Transfer/Handoff Transfer to PACU Phase I Handoff Method Bedside/Face to face Handoff Reported to FERNANDO JHA RN Post-op Transport Stretcher/Gurney Via Patient Transport Vangie Tanner, Accompanied by RN-PATIENT CARE BEDSIDE NON-EXEMPT, CHAY WILKINS, TAXONOMY TEACHER, OTHER, ATTENDEE Last Modified By: Vangie Tanner RN-PATIENT CARE BEDSIDE NON-EXEMPT 03/02/22 12:10:05 [facility] - Endoscopy Details Entry 1 Abdomen Procedure Soft, Non-Tender Assessment Procedure Abdomen 03/02/22 11:51:00 Assessment D/T Radio Frequency Ablation Abdominal Pressure Last Modified By: Vangie Tanner RN-PATIENT CARE BEDSIDE NON-EXEMPT 03/02/22 12:10:25 [facility] - Fire Risk Assessment Entry 1 Fire Info Surgical Site or 1- Yes Incision Above the Xyphoid Open O2 Source 1- Yes (Mask or Cannula) Available Ignition 1- Yes (ESU, Laser, Light Source) Fire Risk 3 Assessment Score Fire Score Fire Risk Yes Assessment Complete Fire Risk Vangie Tanner, Assessment Verified RN-PATIENT CARE BEDSIDE By NON-EXEMPT Fire Risk 03/02/22 11:51:00 Assessment Verified Date/Time Fire Risk High Risk Protocol Yes Implemented Standard Fire Yes Safety Precautions Followed Last Modified By: Vangie Tanner RN-PATIENT CARE BEDSIDE NON-EXEMPT 03/02/22 12:43:16 [facility] - Fire Risk Assessment Audit 03/02/22 12:43:16 Tool Crib Supervisor: [id number] Modifier: [id number] 1 <*> Fire Risk Assessment Verified 03/02/22 11:47:00 Date/Time 03/02/22 12:43:03 Tool Crib Supervisor: [id number] Modifier: [id number] <+> 1 Fire Risk Assessment Verified Date/Time [facility] - General Case Plasma Processing Technician 1 Case Information OR Endo 02 [facility] Case Level 1 Room Verified Yes Wound Class 2 - Clean-Contaminated Specialty General Anesthesia Type MAC ASA Class 3 Diagnosis Preop Diagnosis GERD, dyspepsia Postop Diagnosis see MD report Wound Class Definitions Last Modified By: Vangie Tanner RN-PATIENT CARE BEDSIDE NON-EXEMPT 03/02/22 12:52:00 [facility] - General Case Data Audit 03/02/22 12:52:00 Tool Crib Supervisor: [id number] Modifier: [id number] <+> 1 ASA Class [facility] - Intraoperative Assessment Entry 1 Handoff Method Other Valid History / Yes Physical in Chart Preoperative Yes Checklist Reviewed/Evaluated Allergies Reviewed Yes Patient is Latex No Sensitive Isolation Not applicable Precautions Noted Level of WDL Consciousness (WDL = Alert, Oriented to Person, Place, and Time) Present Upon IVs, ECG monitored Arrival to OR Last Modified By: Vangie Tanner RN-PATIENT CARE BEDSIDE NON-EXEMPT 03/02/22 11:54:05 [facility] - Intraoperative Equipment Entry 1 Type Scope Equipment Intraop Monitoring Electrocardiogram Three lead placement (ECG) Electrode Placement Blood Pressure Arm, left upper Location Pulse Oximeter Hand, right Probe Site Antiembolic Devices Scopes Flexible Endoscopes Gastroscope Used Scope Serial [id number] Number/Identificatio n Number Photo/Video Documentation Photo Yes Video No Last Modified By: Vangie Tanner RN-PATIENT CARE BEDSIDE NON-EXEMPT 03/02/22 11:51:56 [facility] - Patient Positioning Entry 1 Procedure Esophagogastroduodenosco py, Gastric Biopsy Positioned By JANUSZ ULLOA, KESHIA, OTHER, ATTENDEE Position Verified Last Modified By: Vangie Tanner RN-PATIENT CARE BEDSIDE NON-EXEMPT 03/02/22 12:46:30 [facility] - Patient Positioning Audit 03/02/22 12:46:30 Tool Crib Supervisor: [id number] Modifier: [id number] 1 <*> Procedure Esophagogastroduodenoscopy [facility] - Sign In Entry 1 Patient, Site, Yes Procedure Identified Surgical Consent Yes Confirmed Relevant Surgical Yes Documents Available Surgical Site N/A Marked by person performing procedure Medication Checks Yes Completed Allergies No Airway Difficult No Airway/Aspiration Risk Difficult No Airway/Aspiration Intervention Equipment Available Blood Loss Risk No Blood Loss No Intervention Equipment Prepared and Ready Blood Identifiers Not applicable Verified Per Policy Hypothermia Risk No Warming Measures Yes Taken Last Modified By: Vangie Tanner RN-PATIENT CARE BEDSIDE NON-EXEMPT 03/02/22 12:44:36 [facility] - Sign Out Entry 1 RN Confirmation Surgical Yes Procedure(s) Identified Instrument, Sponge N/A and Sharps Counts Correct/Documented Equipment Problems N/A Documented Specimen Labeled Yes Correctly Urinary Catheter N/A Documented in IView Wound Yes classification reviewed, verified and updated post case in both the General Case Data and Procedure segments Safety Checklist Yes Elements Complete? RN Sign Out Vangie Tanner, Signature RN-PATIENT CARE BEDSIDE NON-EXEMPT RN Sign Out 03/02/22 11:55:00 Signature Date/Time Plan of Care Outcome - Fire Risk OUTCOME STATEMENT: Goal met Patient is free from injury related to surgical fire Plan of Care Outcome - Pt Positioning OUTCOME STATEMENT: Goal met Absence of signs and symptoms of positioning injury. Plan of Care Outcome - Skin Prep OUTCOME STATEMENT: Goal met Intraoperative care is consistent with measures to prevent infection Plan of Care Outcome - Xray/Images OUTCOME STATEMENT: N/A Absence of observable signs or symptoms of radiation injury Plan of Care Outcome - Counts OUTCOME STATEMENT: N/A Absence of signs and symptoms of injury related to extraneous objects Last Modified By: Vangie Tanner RN-PATIENT CARE BEDSIDE NON-EXEMPT 03/02/22 12:45:01 [facility] - Surgical Procedures Entry 1 Entry 2 Procedure Esophagogastroduodenosco Gastric Biopsy py Modifiers Additional W/BX W/BX Procedure Description Primary Procedure Yes No Primary Surgeon MESSI STEEL, MESSI STEEL MD-JOCELYN -JOCELYN Start 03/02/22 11:53:00 03/02/22 11:53:00 Stop 03/02/22 11:54:00 03/02/22 11:54:00 Physician States Cecum Reached Anesthesia Type MAC MAC Specialty General General Wound Class 2 - Clean-Contaminated 2 - Clean-Contaminated Last Modified By: Vangie Tanner Kindred, Pamela RN-PATIENT CARE BEDSIDE RN-PATIENT CARE BEDSIDE NON-EXEMPT 03/02/22 NON-EXEMPT 03/02/22 12:47:11 12:46:22 [facility] - Surgical Procedures Audit 03/02/22 12:47:11 Tool Crib Supervisor: [id number] Modifier: [id number] 1 <*> Procedure Esophagogastroduodenoscopy 1 <+> Wound Class 03/02/22 12:46:22 Tool Crib Supervisor: [id number] Modifier: [id number] <+> 2 Procedure <+> 2 Primary Procedure <+> 2 Primary Surgeon <+> 2 Specialty <+> 2 Start <+> 2 Stop <+> 2 Wound Class <+> 2 Anesthesia Type <+> 2 Additional Procedure Description [facility] - Time Out Entry 1 Procedure to be Esophagogastroduodenosco Performed py, Gastric Biopsy Time Out Time Out Pause Time 03/02/22 11:51:00 All activity Yes suspended (unless life threatening emergency) Team Verbally Correct patient Confirms Information identity, Consent form is present and accurate, Agreement on the procedure to be done, Correct patient position Antibiotic N/A Prophylaxis Administered Or In Progress Within the Last 60 Minutes Beta Mando N/A Administered Venous N/A Thromboembolism Prophylaxis Required Anticipated Critical Events Surgeon None expected Last Modified By: Vangie Tanner RN-PATIENT CARE BEDSIDE NON-EXEMPT 03/02/22 12:46:30 E Endo - Time Out Audit 03/02/22 12:46:30 Tool Crib Supervisor: [id number] Modifier: [id number] 1 <*> Procedure to be Performed Esophagogastroduodenoscopy Case Comments <None> Finalized By: Vangie Tanner RN-PATIENT CARE BEDSIDE NON-EXEMPT Document Signatures Signed By: Vangie Tanner RN-PATIENT CARE BEDSIDE NON-EXEMPT 03/02/22 12:52 Electronically signed by Shannon [facility] Conversion Black Leather Trimmer Cerner at 11/23/2022 8:53 PM CDT documented in this encounter Plan of Treatment Not on file documented as of this encounter Visit Diagnoses Not on filedocumented in this encounter Care Teams Yardage Control Operator Relationship Specialty Start Date End Date Daniel Carranza MD [address] [place] [address] PCP - General Family Medicine 07/04/22 documented as of this encounter
--- OUTSIDE RECORDS SUMMARY | 2025-01-08 12:32 | XMS_ITS | Encounter Summary ---
Author Organization [employer] Address [address] [place] [address] Care Team Providers Care Surgical Scrub Tech Name Role Phone Daniel Carranza MD Primary Care Provider [phone] Encounter Details Date Type Department Care Team (Late st Contact Info) Description 03/02/2022 Transcribed Document [facility] [place] [place] [facility] [address] ProviderLashaun MD [address] [place], [place] [id number] Social History Tobacco Use Types Packs/Day Years Used Date Smoking Tobacco: Never Assessed Comments Unknown Sex and Gender Information Value Date Recorded Sex Assigned at Not on file Legal Sex Female 1:26 PM CDT Gender Identity Not on file Sexual Orientation Not on file documented as of this encounter Miscellaneous Notes * Cerner Conversion Note - Lashaun ProviderMD - 03/02/2022 11:24 AM CDT Pre Procedure Adult Entered On: 03/02/2022 11:27 EDT Performed On: 03/02/2022 11:24 EDT by Romana Polanco RN Height and Weight, Clinical Dosing Height Source : Stated Height Entry Format : [place] Height, Feet : 5 ft(Converted to: 152 cm, 60 Inch) Height, Inches : 7 Inch(Converted to: 0 ft 7 Inch, 17.78 cm) Clinical Height : 170.18 cm Weight Source : Standing scale Weight Entry Format : [place]all Clinical Dosing Weight : 103.36 kg Weight, Pounds : 227.4 lb Body Surface Area (BSA) : 2.14 m2 Body Mass Index : 35.7 kg/m2 (HI) [place] Body Weight : 61 kg Romana Polanco RN - 03/02/2022 11:24 EDT Health Histories Smoking Status : Never (less than 100 in lifetime; none in last 30 days) Smokeless Tobacco Status : Never Romana Polanco RN - 03/02/2022 11:24 EDT Social History (As Of: 03/02/2022 11:27:24 EDT) Infectious Disease History Does patient have symptoms of COVID-19? : No Tested for COVID19 in the past 14 days : No, Patient stated Does the Patient state known exposure to a COVID-19 positive case in the last 14 days? : No Patient Vaccinated for COVID-19 : Fully vaccinated Romana Polanco RN - 03/02/2022 11:24 EDT Infectious Disease Risk Screening Grid Cough < 2 wks of unknown origin : NO Cough > 2 weeks : NO Blood in Sputum : NO Fever or self-reported Fever : NO Rash of unknown origin : NO Headache : NO Stiff neck : NO Night Sweats : NO Unexplained Weight Loss : NO Diarrhea (3 episode per day) : NO Romana Polanco RN - 03/02/2022 11:24 EDT Physical contact outside [place] in the last 30 days : No Hospitalized in Foreign Country : No Infectious Disease History : None INF Disease TB Screening Calc : 0 INF Disease Recent Travel Calc : 0 Romana Polanco RN - 03/02/2022 11:24 EDT COVID19 PreProcedure Screening Is this an Emergent or Add on Procedure? : No Date PreProcedure COVID-19 test known? : No Has patient been isolated since the test : N/A - PreProcedure, in-person visit Exposed to COVID19 symptoms since test? : N/A - PreProcedure, in-person visit Romana Polanco RN - 03/02/2022 11:24 EDT Anesthesia/Transfusion History Family History of Anesthesia Reaction : No prior transfusion(s) Transfusion History : Prior anesthesia without reaction Family History of Anesthesia Reaction : None Romana Polanco RN - 03/02/2022 11:24 EDT Functional Assessment Living Situation : Home Current Home Treatments : None Romana Polanco RN - 03/02/2022 11:24 EDT [place] Suicide Severity Rating Scale (C-SSRS) CSSRS Past Month Wish to be : No CSSRS Past Month Suicidal Thoughts : No CSSRS Lifetime Suicide Behavior : No Suicide Severity Rating Score : 0 Suicide Severity Rating : No Additional Care Required at this time Romana Polanco RN - 03/02/2022 11:24 EDT Psychosocial History Currently in Unsafe Situation : No Romana Polanco RN - 03/02/2022 11:24 EDT Advance Directive Patient has Advance Directive *Q : No, patient refuses Advance Directive information Romana Polanco RN - 03/02/2022 11:24 EDT General Info Want Family/Rep/Phys Notified of Admit : No Emergency Contact #1 : Saida Rausch Emergency Contact #1 Emergency Contact #1 Relationship : mother Emergency Contact #2 : Emergency Contact #2 Phone Number : Emergency Contact #2 Relationship : Primary Language : Slovak Communication Barrier : None Mop Handle Assembler Needed : No Romana Polanco RN - 03/02/2022 11:24 EDT Sleep Apnea Risk Assmt BiPAP/CPAP Ordered for Home Use : No Hx of Obstructive Sleep Apnea Diagnosis : Yes Age over 50 Years Old : No Gender Male : No Romana Polanco RN - 03/02/2022 11:24 EDT Brando Scale Brando Sensory Perception : No impairment Brando Moisture : Rarely moist Brando Activity : Walks frequently Brando Mobility : No limitation Brando Nutrition : Excellent Brando Friction and Shear : No apparent problem Brando Score : 23 Romana Polanco RN - 03/02/2022 11:24 EDT Fall Risk Scales ABCs Fall Injury Risk Identification : None MEJIA Hx Falls Immediate/Within 3 Months : No Mejia Secondary Diagnosis : No MEJIA Use of Ambulatory Aid : None MEJIA IV Therapy or IV Access : Yes Mejia Gait/Transferring : Normal, bedrest, immobile Mejia Mental Status : Oriented to own ability Mejia Fall Risk Score : 20 MEJIA Fall Scale Risk Level : 0-24 Low Risk [place] Fall Interventions : Adequate lighting, Assistive devices within reach, Bed in low position, Call device within reach, Frequent orientation to call device, Frequent orientation to surroundings, Non-slip footwear, Personal items within reach, Reinforced to call for assistance before getting out of bed, Room free of clutter/spills, Wheels locked, Wires/Cords secured Romana Polanco RN - 03/02/2022 11:24 EDT Valuables and Belongings Valuables and Belongings : Clothing Clothing : Common streetwear Clothing Disposition : With patient Romana Polanco RN - 03/02/2022 11:24 EDT Electronically signed by Rodney Ortega Conversion Inorganic Chemistry Professor Cerner at 11/23/2022 8:47 PM CDT documented in this encounter Plan of Treatment Not on file documented as of this encounter Visit Diagnoses Not on filedocumented in this encounter Care Teams Surgical Scrub Tech Relationship Specialty Start Date End Date Daniel Carranza MD [address] [place] [id number] PCP - General Family Medicine 07/04/22 documented as of this encounter
--- OUTSIDE RECORDS SUMMARY | 2025-01-08 12:32 | XMS_ITS | Encounter Summary ---
Author Organization [employer] Address [address] [place] [address] Care Team Providers Care Die Maker Apprentice Name Role Phone Daniel Carranza MD Primary Care Provider [phone] Encounter Details Date Type Department Care Team (Late st Contact Info) Description 03/02/2022 Transcribed Document [facility] [place] Family Medicine [facility] [place] [address] ProviderLashaun MD [address] [place] [id number] Social History Tobacco Use Types Packs/Day Years [...] ProviderMD - 03/02/2022 11:53 AM CDT [facility] PACU Summary Primary Physician: MESSI STEEL MD-JOCELYN Finalized Date/Time: 03/02/22 14:38:15 Pt. Name: JIMMY OLSEN/Sex: 1975 Female Med Rec #: [id number] Physician: MESSI STEEL MD-JOCELYN Financial #: [id number] Pt. [facility] Admit/Disch: 03/02/22 10:46:00 - Institution: [facility] PACU Case Times Entry 1 In PACU I 03/02/22 11:58:00 Ready for PACU 03/02/22 12:15:00 Discharge Discharge from PACU 03/02/22 12:20:00 I [facility] PACU Case Times Audit 03/02/22 14:37:18 Section Leader: [id number] Modifier: [id number] <+> 1 Ready for PACU Discharge <+> 1 Discharge from PACU I Finalized By: FERNANDO JHA RN Document Signatures Signed By: FERNANDO JHA RN 03/02/22 14:38 Electronically signed by Shannon [facility] Conversion In Processing Instructor Cerner at 11/23/2022 8:45 PM CDT documented in this encounter Plan of Treatment Not on file documented as of this encounter Visit Diagnoses Not on filedocumented in this encounter Care Teams Die Maker Apprentice Relationship Specialty Start Date End Date Daniel Carranza MD [address] [place] [id number] PCP - General Family Medicine 07/04/22 documented as of this encounter
--- OUTSIDE RECORDS SUMMARY | 2025-01-08 12:32 | XMS_ITS | Referral Summary ---
Author Organization [employer] Address [address] [place] [address] Care Team Providers Care Photograph Finisher Name Role Phone Daniel Carranza MD Primary Care Provider Allergies Active Allergy Reactions Criticality Noted Date Comments Lisinopril Swelling High 05/31/2022 Medications levothyroxine (SYNTHROID, LEVOTHROID) 75 MCG tablet Take 75 mcg by mouth daily. 2 Active escitalopram oxalate (LEXAPRO) 10 MG tablet Take 10 mg by mouth daily. 3 Active levothyroxine (SYNTHROID, LEVOTHROID) 50 MCG tablet Take 1 tablet (50 mcg total) by mouth in the morning. Alternates with 75mcg. 3 Active Active Problems No known active problems Social History Tobacco Use Types Packs/Day Years Used Date Smoking Tobacco: Former Cigarettes Q uit: 2019 Smokeless Tobacco: Never Alcohol Use Standard Drinks/Week Comments Never 0 (1 standard drink = 0.6 oz pur e alcohol) Interpersonal Safety Answer Date Record ed Family or friends hurt you Not on file 08/23 Family or friends insult you Not on file Family or friends threaten you Not on file 0 08/23/2023 Family or friends scream or curse at you Not on file 08/23/2023 Housing Stability Answer Date Recorded Living situation today Not on file Living situation problems Not on file 2023 Family and Community Support Answer Edi e Recorded Help with Day to Day Activities Not on file 08/23/2023 Feeling Lonely or Isolated Not on file 08/23 Educational Attainment Answer Date Anil rded Speak language other than Wallisian at home Not on file 08/23/2023 Want help with school or training Not on file 08/23/2023 Depression Answer Date Recorded PHQ-2 Risk Not on file 08/23/2023 Disabilities Answer Date Recorded Difficulty concentrating Not on file 024 Difficulty doing errands alone Not on file 0 08/23/2023 Substance Use Answer Date Recorded Used prescription meds for non-medical reasons N ot on file 08/23/2023 Used illegal drugs past 12 months Not on file 08/23/2023 Comments Unknown Sex and Gender Information Value Date Recorded Sex Assigned at Not on file Legal Sex Female 1:26 PM CDT Gender Identity Not on file Sexual Orientation Not on file Last Filed Vital Signs Vital Sign Reading Time Taken Comments Blood Pressure 108/70 11/28/2022 11:13 AM EDT Pulse 72 11/28/2022 11:13 AM EDT Temperature 36.4 C (97.5 F) 05/31/2022 8:38 AM EDT Respiratory Rate - - Oxygen Saturation - - Inhaled Oxygen Concentration - - Weight 75.9 kg (167 lb 6.4 oz) 11/28/2022 11:13 AM EDT Height 167.6 cm (5' 6 ) 07/04/2022 10:11 AM EST Body Mass Index 27.02 07/04/2022 10:11 AM EST Plan of Treatment Not on file Procedures Procedure Name Priority Date/Time Associated Diagnosis Comments LIPID PANEL Routine 03/02/2022 10:53 AM EDT from Last 3 Months or Most Recently Relevant to Health Maintenance Results * (ABNORMAL) LIPID PANEL (03/02/2022 10:53 AM EDT) Triglyceride 146 0 - 249 mg/dL 03/02/2022 5:57 PM EDT Cholesterol HDL 34.0 mg/dL 5:57 PM EDT Comment: Desirable > 60 mg/dl Increased Risk < 40 mg/dl Cholesterol Total 191 0 - 199 mg/dL 03/02/2022 5:57 PM EDT Comment: 200 to 239 mg/dL Moderate (borderline) >239 mg/dL High Cholesterol VLDL Calculation 29.2 5.0 - 40.0 mg/dL 03/02/2022 5:57 PM EDT Comment:Calculated by Discer n Rule [id number] Cholesterol LDL Calculation 127.8(H) 0.0 - 99.0 mg/dL 03/02/2022 5:57 PM EDT Comment: DESIRABLE <130 BORDERLINE 130 to 159 HIGH >=160 Cholesterol/HDL Ratio 5.6(H) 0.0 - 3.2 03/02/2022 5:57 PM EDT LDL/HDL Ratio 3.8(H) 0.0 - 3.2 03/02/2022 5:57 PM EDT Blood 03/02/2022 10:5 3 AM EDT 03/02/2022 2:53 PM EDT [facility] Historical Provider PATHOLOGY/CYTOLOGY RASHAUN FORD Edited Result - Final [facility] [address] [phone] from Last 3 Months or Most Recently Relevant to Health Maintenance Insurance BLUE CROSS/BLUE SHIELD Care Teams Photograph Finisher Relationship Specialty Start Date End Date Daniel Carranza MD [address] [place] [address] PCP - General Family Medicine 07/04/22
--- OUTSIDE RECORDS SUMMARY | 2025-01-08 12:32 | XMS_ITS | Clinical Summary ---
Author Organization [employer] Address [address] [place] [address] Care Team Providers Care Plant Wire Chief Name Role Phone Daniel Carranza MD Primary Care Provider [phone] Allergies Active Allergy Reactions Criticality Noted Date [...] Date Anil rded Speak language other than Comoran at home Not on file 08/23/2023 Want [...] 07/04/2022 10:11 AM EST Plan of Treatment Health Maintenance Due Date Last Done Comments CT Colonography 1976 Colonoscopy 1976 Colorectal Cancer Screening 1976 FOBT/FIT 1976 Fit-DNA (Cologuard) 1976 Sigmoidoscopy 1976 Depression Screening (12+) 1988 HIV Screening 1991 Hepatitis C Screening 1994 DTAP/TDAP/TD VACCINES (1 - Tdap) 1995 Pap Smear 1997 Breast Cancer Screening 2016 Tobacco Cessation Counseling and Screening (12+) 11/29/2023 11/28/2022 COVID-19 VACCINE (2 - 2023-2 5 season) 2024 10/12/2020 Influenza Vaccine (Season Ended) 2025 Lipid Panel 03/02/2027 03/02/2022 Pneumococcal Vaccine: 0-49 Years Aged Out No longer eligible based on patient's age to complete this topic Procedures Procedure Name Priority Date/Time Associated Diagnosis [...] 3 AM EDT 03/02/2022 2:53 PM EDT [facility] Historical Provider PATHOLOGY/CYTOLOGY RASHAUN FORD Edited Result - Final [facility] [address] [place] [address], [facility] [phone] from Last 3 Months or Most Recently Relevant to Health Maintenance Insurance BLUE CROSS/BLUE SHIELD Care Teams Plant Wire Chief Relationship Specialty Start Date End Date Daniel Carranza MD [address] [place] [address] PCP - General Family Medicine 07/04/22
--- OUTSIDE RECORDS SUMMARY | 2025-01-08 12:32 | XMS_ITS | Encounter Summary ---
Author Organization [employer] Address [address] [place] [address] Care Team Providers Care Media Sales Representative Name Role Phone Daniel Carranza MD Primary Care Provider [phone] Encounter Details Date Type Department Care Team (Late st Contact Info) Description 03/02/2022 Transcribed Document [facility] [place] [facility] [place] [address] ProviderLashaun MD [address], [place] [id number] Social History Tobacco Use Types Packs/Day Years Used Date Smoking Tobacco: Never Assessed Comments Unknown Sex and Gender Information Value Date Recorded Sex Assigned at Not on file Legal Sex Female 1:26 PM CDT Gender Identity Not on file Sexual Orientation Not on file documented as of this encounter Miscellaneous Notes * Cerner Conversion Note - Lashaun ProviderMD - 03/02/2022 12:06 PM CDT [address] [address] JIMMY OLSEN :1975 Visit Time:03/02/2022 What to do next Your Diagnosis Gastro-esophageal reflux disease without esophagitis, Gastro-esophageal reflux disease without esophagitis Instructions From Your Care Team Diet after Discharge: Resume usual diet as tolerated, Do not drink any alcoholic beverages, Activity after Discharge: Rest and relax today, No strenuous activity Driving after Discharge: Do not drive for 24 hours May Return to Work/School: tomorrow Notify Provider of: Fever or chills of 101, persistent vomiting or vomiting blood, severe abdominal pain, chest pain, black tarry stools, any bleeding exceeding a tablespoon Follow-Up Appointments Follow Up with MESSI STEEL MD-JOCELYN When Only if needed Where: [address] [place] [address]- Medications What How Much When Instructions Next Dose cholecalciferol (Vitamin D3 50,000 units oral capsule) 1 Capsule(s) Oral Weekly escitalopram (escitalopram 10 mg oral tablet) Oral Every Day hydrochlorothiazide-losartan (hydrochlorothiazide-losartan 12.5 mg-100 mg oral tablet) 1 Tablet(s) Oral Every Day levothyroxine (levothyroxine 75 mcg (0.075 mg) oral tablet) 1 Tablet(s) Oral Every Day multivitamin (Multi Vitamin+) omeprazole 20 Milligram(s) Oral Every Day Take your medications faithfully. Do NOT skip medication. Do NOT stop taking medications without the direction of a physician. Carry a list of your medications with you at all times, and take this medication list with you to your first follow up visit. Report any side effects. Avoid herbal remedies unless discussed with your physician. As part of your treatment plan, your physician may have prescribed a limited course of a controlled substance. This medication may be given to help people with moderate or severe pain or for other medical conditions, but there are risks involved with treatment. Common side effects may include nausea, constipation, drowsiness, sweating, itching, dry mouth, and rash. More serious side effects may include cognitive and motor impairment, like problems with thinking, concentrating, alertness, and movement (e.g. slowed reflexes), and driving and operating heavy machinery can be dangerous. It is important for you to talk to your physician if you have these side effects or questions. These controlled substances can produce physical dependence and be habit-forming if taken for an extended period of time, which means that the body has gotten used to them and may experience withdrawal symptoms if they are abruptly stopped. Withdrawal symptoms can include runny nose, sweating, goose bumps, diarrhea, abdominal cramping, rapid heartbeat, difficulty sleeping, and nervousness. Please dispose of unused and medications per pharmacy guidance. Education Materials Upper Endoscopy, Adult, Care After This sheet [...] activities are safe for you. ??? Take zpzs-lfa-dxraoaz and prescription medicines only as told by [...] provider. Document Revised: 07/19/2020 Document Reviewed: 12/22/2018 Elsevier Patient Education ?? 2020 [employer]. Monitored Anesthesia Care Anesthesia refers to techniques, [...] including vitamins, herbs, eye drops, creams, and xsrj-bbw-ruiynai medicines. ??? Any problems you or family [...] Up to 2 hours before the procedure ??? you may continue to drink clear liquids, such as water, clear fruit juice, black coffee, and plain tea. Eating and drinking restrictions Follow instructions from your health care provider about eating and drinking, which may include: ??? 8 hours before the procedure ??? stop eating heavy meals or foods, such as meat, fried foods, or fatty foods. ??? 6 hours before the procedure ??? stop eating light meals or foods, such as toast or cereal. ??? 6 hours before the procedure ??? stop drinking milk or drinks that contain milk. ??? 2 hours before the procedure ??? stop drinking clear liquids. Medicines Ask your health care provider about: ??? Changing or stopping your regular medicines. This is especially important if you are taking diabetes medicines or blood thinners. ??? Taking medicines such as aspirin and ibuprofen. These medicines can thin your blood. Do not take these medicines unless your health care provider tells you to take them. ??? Taking uuth-ltc-gjgmuig medicines, vitamins, herbs, and supplements. Tests and [...] provider. Document Revised: 04/06/2021 Document Reviewed: 06/23/2020 [employer] Patient Education ?? 2020 [employer]. Helicobacter Pylori Antibodies Test Why am I [...] including vitamins, herbs, eye drops, creams, and utoi-fit-wfjrqgf medicines. How are the results reported? Your [...] to 1 unit/mL. This is positive. ? 0.75???0.99 units/mL. This is equivocal. ??? IgM antibodies: ? Less than or equal to 30 units/mL. This is negative. ? Greater than or equal to 40 units/mL. This is positive. ? 30.01???39.99 units/mL. This is equivocal. What do the [...] provider. Document Revised: 07/04/2018 Document Reviewed: 03/04/2018 [employer] Patient Education ?? 2020 [employer]. Emergency Awareness and Preventative Care STROKE is an EMERGENCY Every Minute Counts Act FAST and Check for these signs: FACE Does the face look uneven? ARM Does one arm drift down? SPEECH Does their speech sound strange? TIME Call at any sign of stroke Stroke Risk Factors Atrial Fibrillation (irregular heartbeat) Diabetes Family history of stroke Heart Disease Heavy alcohol use High Blood Pressure High Cholesterol Physical inactivity and obesity Smoking Cigarette Smoking The facts are clear, cigarette smoking will shorten your life. Smoking can cause many illnesses along the way. As a healthcare provider, we recommend that you stop smoking. Assistance with quitting is available by contacting 4-727-INSN-NOW. This is a free resource providing counseling, support, and referral. Or you may contact your personal physician. National Suicide Prevention Lifeline: The National Suicide Prevention Lifeline is a national network of local crisis centers that provides free and confidential emotional support to people in suicidal crisis or emotional distress 24 hours a day, 7 days a week. Don't Wait! Stop a Heart Attack Before it Starts What is a heart attack? A heart attack is damage or to a part of the heart from severely decreased or lack of blood flow to the heart. Over time, arteries can become narrow from the buildup of fat and cholesterol, which is called plaque. The plaque can rupture causing a blood clot to form. When the blood clot forms, the artery can become severely narrowed or completely blocked, causing a heart attack. Heart attack is the leading cause of in the [place]. 85% of muscle damage occurs within the first 2 hours. Delay in the recognition of heart attack symptoms increases the chances of . Know the early symptoms of a heart attack: Nausea Feeling of fullness in chest Jaw Pain Pain that travels down one or both arms Fatigue/being tired Anxiety Back Pain Chest pressure, squeezing, or discomfort Shortness of breath Sweating, or a cold sweat Feeling of impending doom There are unusual signs of a heart attack, too! Women, the elderly, and diabetics may present with atypical symptoms: Fainting/dizziness Weakness Confusion Risk Factors for a Heart Attack Some heart disease risk factors, such as age and family history, cannot be changed. Others, like smoking and lack of exercise, can be changed. Smoking High Cholesterol High Blood Pressure Family History Obesity Age Gender (Males are at higher risk) Lack of Exercise Diabetes Diet Stress Excessive Alcohol Intake If you or someone you know is experiencing the signs and symptoms of a heart attack, DON???T DELAY. Call immediately and seek help. If someone collapses, perform CPR! Do not attempt to drive if you are having symptoms of heart attack. Hands-Only CPR Why Hands-Only CPR? Hands-Only CPR has been shown to be as effective as conventional CPR for cardiac arrests that occur outside of a hospital. Survival depends on immediately receiving CPR from someone nearby. How do you perform Hands-Only CPR? There are two easy steps: Call if you see a teen or adult collapse Push hard and fast in the center of the chest at a beat of 100 beats per minute. Save a life! 4 WAYS TO GET AHEAD OF SEPSIS SEPSIS is a MEDICAL EMERGENCY. Time matters! Infections put you and your family at risk for a life-threatening condition called sepsis. Sepsis is the body's extreme response to an infection. It is life-threatening, and without timely treatment, sepsis can rapidly lead to tissue damage, organ failure, and . Sepsis happens when an infection you already have-in your skin, lungs, urinary tract or somewhere else-triggers a chain reaction throughout your body. 1 PREVENT INFECTIONS Take good care of chronic conditions. Talk to your doctor about getting the recommended vaccines. 2 PRACTICE GOOD HYGIENE Wash your hands frequently. Keep cuts or open sores clean and covered until they are healed. 3 KNOW THE SYMPTOMS Confusion or disorientation Shortness of breath High heart rate Fever, shivering, or feeling very cold Extreme pain or discomfort Clammy or sweaty skin 4 ACT FAST Get medical care IMMEDIATELY if you suspect sepsis or if you have an infection that is not getting better or is getting worse. To learn more about sepsis and how to prevent infections, visit www.cdc.gov/sepsis. Test Results Laboratory or Other Results This Visit (last charted value for your 03/02/2022 visit) Hematology 03/02/2022 10:37 AM WBC: 8.6 K/uL -- Normal range between ( 3.9 and 10.0 ) RBC: 4.58 Million/uL -- Normal range between ( 3.93 and 5.22 ) Hct: 39.1 % -- Normal range between ( 34.1 and 44.9 ) Hgb: 12.9 Gram/dL -- Normal range between ( 11.2 and 15.7 ) Platelet Count: 299 K/uL -- Normal range between ( 163 and 369 ) MCH: 28.2 pg -- Normal range between ( 25.6 and 32.2 ) MCHC: 33.0 Gram/dL -- Normal range between ( 32.3 and 36.5 ) MCV: 85.4 fL -- Normal range between ( 79.0 and 94.8 ) Slide Review: No Eos %: 1.5 % -- Normal range between ( 1.0 and 7.0 ) [place] #: 0.47 K/uL -- Normal range between ( 0.24 and 0.82 ) Eos #: 0.13 K/uL -- Normal range between ( 0.04 and 0.54 ) [place] %: 5.5 % -- Normal range between ( 4.7 and 12.5 ) Baso %: 0.7 % -- Normal range between ( 0.0 and 1.0 ) Baso #: 0.06 K/uL -- Normal range between ( 0.01 and 0.08 ) RDW: 13.9 % -- Normal range between ( 11.6 and 14.4 ) Neut %: 64.8 % -- Normal range between ( 34.0 and 71.0 ) Neut #: 5.55 K/uL -- Normal range between ( 1.56 and 6.13 ) Lymph %: 27.3 % -- Normal range between ( 19.3 and 53.0 ) Lymph #: 2.34 K/uL -- Normal range between ( 1.18 and 3.74 ) MPV: 9.0 fL -- Normal range between ( 9.4 and 12.4 ) IG#: 0 x10(3)/uL IG%: 0 % -- Normal range between ( 0 and 1 ) Patient Name:JIMMY OLSEN I have received this information and was given the opportunity to ask questions. Patient/Salesperson Corsets Name: Patient/Salesperson Corsets Signature: Relationship to Patient: Clinician/Hospital Salesperson Corsets Signature: Date: Electronically signed by [facility] Conversion Choral Teacher Cerner at 11/23/2022 8:32 PM CDT documented in this encounter Plan of Treatment Not on file documented as of this encounter Visit Diagnoses Not on filedocumented in this encounter Care Teams Media Sales Representative Relationship Specialty Start Date End Date Daniel Carranza MD [address] [place] [address] PCP - General Family Medicine 07/04/22 documented as of this encounter
--- OUTSIDE RECORDS SUMMARY | 2025-01-08 12:32 | XMS_ITS | Data Portability ---
Author Organization [facility] Address [address] [facility] [address] [place] [address] Care Team Providers Care Finisher Polisher Name Role Phone ESTERELISEO Primary Care Provider Assessment Encounter Date Assessment Date Assessment LastModified by Organization Details LastModified Time 10/20/2021 10/20/2021 Procedure perfor med: C6-7 anterior cervical discectomy and fusion Use of 13 mm Depuy Synthes Uni-plate with (2)14 mm screws Use of 6 mm conduit interbody device packed with morselized bone allograft and autograft harvested from the osteophytectomy Use of morselized bone allograft Use of morcellized bone autograft Use of the microscope Preoperative diagnosis: C6-7 right sided disc herniation with neuroforaminal stenosis and radiculopathy Postoperative diagnosis: C6-7 right-sided disc herniation with neuroforaminal stenosis and radiculopathy Surgeon: Regi Washington M.D. electrician's assistant Radha Angelo PA-C Anesthesia: Gen. endotracheal anesthesia blood loss: 40 mL Specimens: None Consultations: None acute Indications for procedure: C6-7 disc herniation with radiculopathy having failed conservative measures Description of procedure: After the patient was identified in the preoperative area by name and medical record number at that was over the inter. Staying back to the operating room and general endotracheal anesthesia was initiated by anesthesiology service peaches placed the operative table supine position. All pressure points padded matrices were placed. C6-7 levels were visualized using intraoperative fluoroscopy. Due to the patient's body habitus images were difficult to characterize. Right neck incision was drawn corresponding to the C6-7 level. He was then injected lidocaine with epinephrine. Patient was aprepitant usual sterile fashion. At her last appointment as correct. Confirmation of her operative he tries was given. Incision is opened sharply with a 15 blade. Scheduled soft tissues and Bovie electric cautery. Telfa contact chooses to facilitate exposure. We identified the platysma muscle and entered using monopolar cautery. We then used hand-held Cloward to dissect medial to the sternocleidomastoid and lateral to the aerodigestive tract. We then used a Kitner instrument to dissect off the prevertebral fascia minimally. We then placed her spinal he of present C6-7 level. We counted using intraoperative past be confirm we were indeed at the correct levels. We then used Bovie electric cautery to dissect off any tissue on the underside of the longus coli muscles to facilitate placement of Leksell retractors. These were sized and placed without complication. We then placed one Alexis pin at the appropriate portion of the vertebral body at C6 and the other at the superior portion of C7. We took an x-ray. We then placed distraction. Rhythm and rate for the discectomy portion of the procedure. We used the 11 blade to incise her disc. This was removed using pituitary instruments. We then used a #3 Kerrison punch dissect off the inferior osteophyte at the anterior endplate of C6. Esophageal for harvesting. We then used the micro-curettes to remove the cartilaginous endplate on the inferior plate of C6 and superior endplate of C7 down to the posterior wall. This is arthrodesis portion of procedure to enhance the fusion process to facilitate interbody placement. We then brought the microscope into the field to facilitate a microsurgical technique. We then removed the posterior wall using #1 and #2 Kerrison punch. We did find to disc fragment out the neuroforamen on the right side. Very pleasant advanced the nerve out after decompressing the posterior longitudinal ligament and visualizing the glistening thecal sac.were happy with our decompression. We then used a trial 6 mm interbody device and gently malleted into position. The microscope was removed from the field. We then took the actual conduit interbody device packed with morselized bone allograft and autograft harvested from the osteophytectomy and gently malleted into position. We took an x-ray to confirm adequate placement. We then removed the Alexis pins. We then took a 13 mm uni-plate and placed it across the construct. We secured it down using 14 mm screws. The cam device was then used to lock this in place. We took an x-ray to confirm adequate placement. Copious irrigation tube. Hemostasis is achieved using bipolar cautery as well as FloSeal. Then, patters place. We closed the deep muscular layers of the platysma using a running 2 overt sheet. The subscapular space was closed using a running Monocryl suture followed by Dermabond. All sharps and sponges are correct at the end of the case. No intraoperative NOTED. RADHA ROBLESALFREDOIST HIS PRESENT PRESCRIPTION FOR THE ENTIRETY OF THIS PROCEDURE. [email or web address] Not available 10/20/2021 10:09:42 Plan of Treatment Reminders Order Date Submit Date Provider Last Modified By Organization Details Last Modified Time Details Appointments None record ed. Lab None record ed. Referral None record ed. Procedures None record ed. Surgeries None record ed. Imaging None record ed. Medication Orders None record ed. Patient TargetsNo targets recorded. Patient Instructions Encounter Date Encounter Id Patient Instructions Last Modified By Organization Details Last Modified Time 09/16/2023 [id number] Recommended OTC liquid gel Ibuprofen if able. Advised the patient to clear this with her PCP. F/U PRN Will obtain an MRI if she calls back. [email or web address] Not available 09/16/2023 15:58:08 Reason for Referral None Reported. Results Created Date Observation Date Name Description Value Unit Range Abnormal Flag Note LastModifiedBy Organization Detail LastModifiedTime 10/19/19 22 10/18/2021 SARS- COV 2 RNA, ALANNA sars cov 2 result Negati ve negati ve normal Not Available [facility] [address] [place] [address], [phone], 10/18/2021 16:12:30 10/04/19 22 10/03/2021 XR, cervi karlee spine , 2 or [address] [address] Shaylaana power Name: JIMMY power : 1974 Sera power 4 Orderi ng Provid er: REGI TIMONE Y EXAM DATE: 2021 EXAM: XR CERVIC AL SPINE FLEX/E XT ONLY CLINIC AL INFORM ATION: Neck pain. IMAGES PROVID ED: Latera l views of the cervic al spine in flexio n and extens ion. COMPAR MARCY: None. FINDIN GS: FINDIN GS: Verteb ral body height s are normal . Disc spaces are well-m aintai genie. No abnorm ality of alignm ent is seen. No instab ility is seen on flexio n or extens ion. No radiog raphic eviden ce of injury is noted. IMPRES BORA: Normal radiog raphic series of the cervic al spine. No instab ility. Interp reted By: Apollo Jenkins MD Electr onical ly Signed By: Apollo Jenkins MD on 10/04/19 22 1:07 PM [facility] [address], [address], 12/25/2021 12:49:19 11/21/19 22 11/20/2021 XR, cervi karlee spine , 2 or [address] [address] Patien t Name: JIMMY power : 1974 Patien t 4 Orderi ng Provid er: REGI Monae EXAM DATE: 2021 EXAM: XR CERVIC AL AP/LAT CLINIC AL INFORM ATION: Postop erativ e. IMAGES PROVID ED: AP, and latera l views of the cervic al spine. COMPAR MARCY: None. FINDIN GS AND IMPRES BORA: Anteri or spinal fusion is noted at C6-C7 level with compre ssion plate and screws . Surgic al hardwa re is satisf actori ly placed . No eviden ce of loosen ing or infect ion is seen. Other levels are normal . Interp reted By: Apollo Jenkins MD Electr onical ly Signed By: Apollo Jenkins MD on 022 1:55 PM [facility]iology [facility] [address] [place] [address], [phone], 12/25/2021 12:23:51 01/18/20 22 01/17/2022 XR, cervi karlee spine , 2 or 3 view [place] [address] [place] [address] Sera power Name: JIMMY power : 1974 Sera power 4 Orderi ng Provid er: REGI Monae EXAM DATE: 2021 EXAM: XR CERVIC AL AP/LAT CLINIC AL INFORM ATION: Postop erativ e. IMAGES PROVID ED: AP, and latera l views of the cervic al spine. COMPAR MARCY: None. FINDIN GS AND IMPRES BORA: Anteri or spinal fusion is noted at C6-C7 level with compre ssion plate and screws . Surgic al hardwa re is satisf actori ly placed . No eviden ce of loosen ing or infect ion is seen. Other levels are normal . Interp reted By: Apollo Jenkins MD Electr onical ly Signed By: Apollo Jenkins MD on 022 12:06 PM [facility] [address], [address], 05/28/2022 12:37:23 Result Notes None recorded. Problems No Known Problems Procedures Surgical History Date Name Laterality Status Provider Name and Address Organization Details Recorded Time 10/02/19 19 Suture/Staple removal completed Sanket CARMONA PA-C [address] [place] [address], [phone], [facility] 10/02/2018 14:29:50 08/18/19 19 PT Manual Therapy completed BRE JIN, PT [address] [place], [address], [facility] 08/18/2018 11:33:03 08/18/19 19 PT Therapeutic Exercise completed BRE JIN, PT [address] [place], [address], [facility] 08/18/2018 11:33:16 08/18/19 19 Injection Joint/Bursa, Major completed HOA MARCUS MD [address] [place] [address], [phone], [facility] 08/18/2018 11:57:39 08/04/20 18 PT Evaluation - Low Complexity completed BRE JIN, PT [address] [place], [address], [facility] 08/04/2018 11:40:47 08/04/20 18 PT Manual Therapy completed BRE JIN, PT [address] [place], [address], [facility] 08/04/2018 11:42:11 08/04/20 18 PT Therapeutic Exercise completed BRE JIN, PT [address] [place], [address], [facility] 08/04/2018 11:42:41 reconstruction of anterior cruciate ligament of knee joint completed Marie SUBRAMANIAN [facility] 09/13/2021 09:13:03 cholecystectomy completed Marie SUBRAMANIAN [facility] 09/13/2021 09:13:09 Caesarean Section completed Marie Shirley [facility] 09/13/2021 09:13:17 oophorectomy completed Marie Hector SUBRAMANIAN [facility] 09/13/2021 09:13:29 procedure on shoulder completed Marie SUBRAMANIAN [facility] 09/13/2021 09:13:41 extraction of wisdom tooth completed Marie Young [facility] 09/13/2021 09:13:47 Imaging Results None recorded. Procedure Notes None recorded. Medical Equipment None Reported. Allergies Allergen ID Allergen Name Allergen Category Reaction Reaction Severity Criticality Documentation Date Start Date Code Code System Note Provider Name and Address Organization Details Recorded Time 012107 lisinopri l medicatio n Not available Not available Not available 09/13/2021 96467 RxNorm Marie mays [facility] 09:11:45 Medications Name Sig Start Date Stop Date Status Note LastModified by Organization Details LastModified Time blood pressu solution kit 09/16 completed Not Available Not Available Not Available hello heart kit 09/16 completed Not Available Not Available Not Available cyclobenzap rine 10 mg tablet 09/16 completed Not Available Not Available Not Available amoxicillin 500 mg capsule 09/16 completed Not Available Not Available Not Available Colace 100 mg capsule Take 1 capsule every day by oral route as needed. 09/16 completed Not Available Not Available Not Available azithromyci n 250 mg tablet 09/16 completed Not Available Not Available Not Available ibuprofen 800 mg tablet 09/16 completed Not Available Not Available Not Available prednisone 20 mg tablet 09/16 completed Not Available Not Available Not Available tramadol 50 mg tablet 09/16 completed Not Available Not Available Not Available levothyroxi ne 75 mcg tablet active Not Available Not Available Not Available oxycodone-a cetaminophe n 5 mg-325 mg tablet Take 1 tablet every 6 hours by oral route as needed. 09/16 completed Not Available Not Available Not Available Percocet 10 mg-325 mg tablet Take 1 tablet every 4-6 hours by oral route as needed. 10/02 completed Not Available Not Available Not Available tamsulosin 0.4 mg capsule 09/16 completed Not Available Not Available Not Available levothyroxi ne 50 mcg tablet 09/16 completed Not Available Not Available Not Available cephalexin 500 mg capsule 09/16 completed Not Available Not Available Not Available gabapentin 300 mg capsule 09/16 completed Not Available Not Available Not Available omeprazole 20 mg capsule,del ayed release 09/16 completed Not Available Not Available Not Available mupirocin 2 % topical ointment 09/16 completed Not Available Not Available Not Available gabapentin 100 mg capsule 09/16 completed Not Available Not Available Not Available ibuprofen 600 mg tablet 09/16 completed Not Available Not Available Not Available methylpredn isolone 4 mg tablets in a dose pack 09/16 completed Not Available Not Available Not Available ondansetron 4 mg disintegrat ing tablet 09/16 completed Not Available Not Available Not Available losartan 100 mg tablet 09/16 completed Not Available Not Available Not Available escitalopra m 10 mg tablet Take 1 tablet every day by oral route. active Not Available Not Available No t Available cyclobenzap rine 5 mg tablet Take 1 tablet 3 times a day by oral route as needed. 09/16 completed Not Available Not Available Not Available losartan 100 mg-hydrochl orothiazide 12.5 mg tablet 09/16 completed Not Available Not Available Not Available hydrochloro thiazide 09/16 completed Not Available Not Available Not Available losartan 09/16 completed Not Available Not Available Not Available hydrochloro thiazide 12.5 mg tablet 09/16 completed Not Available Not Available Not Available levothyroxi ne 50 mcg capsule Take 1 capsule every day by oral route. active Not Available Not Available No t Available sodium,pota ssium,mag sulfates 17.5 gram-3.13 gram-1.6 gram oral soln Take as directed 09/16 completed Not Available Not Available Not Available Vitals Date Recorded Body height Body mass index (BMI) Body weight Provider Name and Address Organization Details Last Updated DateTime 09/16/2023 172.72 cm 26.6 kg/m2 69747.66 g [facility] 09/16/2023 14:58:56 Date Recorded Body height Provider Name an d Address Organization Details Last Updated DateTime 11/20/2021 172.72 cm Marie Young [facility] 11:38:05 Date Recorded Body height Body mass index (BMI) Body weight Systolic blood pressure Diastolic blood pressure Provider Name and Address Organization Details Last Updated DateTime 01/17/2022 172.72 cm 35.9 kg/m2 396790.8 g 120 mm[Hg] 80 mm[Hg] Haily Manzanaresholz [facility] 11:27:24 Social History Question Answer Notes LastModified by Organizat ion Details LastModified Time Tobacco Smoking Status [facility]/13[facility]2021 09:12:47 Rate The Severity Of Your Symptoms: (0-10 With 0=none And 10=worst Possible) 7 rcrank Information not available 09/04/2018 What Was The Date Of Your Most Recent Tobacco Screening? 09/13/2021 Information not available 09/13/2021 Has Tobacco Cessation Counseling Been Provided? No Information not available 09/13/2021 How Many Years Have You Smoked Tobacco? 5 Information not available 09/13/2021 Sex: Female Functional Status Question Answer Note LastModified by Organizat ion Details LastModified Time Do you use any illicit or recreational drugs? No Information not available 09/13/2021 Do you or have you ever used any other forms of tobacco or nicotine? No Information not available 09/13/2021 What is your level of alcohol consumption? Occasional Information not available 09/13/2021 Mental Status None recorded. Family History Relationship Description Onset Age of this Age Resolved Age Notes LastModified by Organization Details LastModified Time Unspecified Relation Malignant neoplastic disease apurdie Not available 2021 09:12:06 Unspecified Relation Cerebrovascu lar accident apurdie Not available 04/2022 09:12:12 Unspecified Relation Hypertensive disorder apurdie Not available 2021 09:12:23 Medical History Condition Response Liver Disease Y Hypertension Y Sleep Apnea Y Gynecological HistoryNo gynecological history recorded. Obstetrics History GPAL:G 0 P 0 0 0 0 Past Encounters Encounter ID Performer Location Encounter Start Date Encounter Closed Date Diagnosis/Indication Diagnosis SNOMED-CT Code Diagnosis ICD10 Code Diagnosis Note [id number] HOA MARCUS MD [facility] [address] [place] [address] 07/21/2018 08:12:15 07/21/2018 09:58:07 Pain of right shoulder joint 4870626459 2007456 M25.511 Impingemen t syndrome of right shoulder region 7125592957 11675 M75.41 [id number] BRE JIN, PT PHYSICAL THERAPY / HAND THERAPY [facility] [address] [place] [address] 08/04/2018 08:20:34 08/04/2018 13:40:03 Shoulder joint pain 197888858 M25.519 Injury of glenoid labrum of shoulder joint 960545540 S49.91XD Muscle weakness 87704778 M62.81 [id number] HOA MARCUS MD [facility] [address] [place] [address] 08/18/2018 10:31:14 08/18/2018 12:34:43 Arthritis of acromioclavicular joint 314699379 M13.465 [id number] BRE JIN, PT PHYSICAL THERAPY / HAND THERAPY [facility] [address] [place] [address] 08/18/2018 10:45:28 08/18/2018 11:44:50 Injury of glenoid labrum of shoulder joint 525904516 S49.91XD Muscle weakness 30681634 M62.81 Shoulder joint pain 2679 19936 M25.673 [id number] HOA MARCUS MD [facility] [address] [place] [address] 09/04/2018 14:37:40 09/04/2018 15:35:14 Injury of glenoid labrum of shoulder joint 756718932 S49.91XD Shoulder joint pain 2679 51488 M25.519 Arthritis of acromioclavicular joint 318571414 M13.110 [id number] HOA MARCUS MD SURGERY SCHEDULE [address] [place] [address] 09/26/2018 08:18:23 09/26/2018 08:24:17 [id number] Sanket CARMONA PA-C [facility] [address] [address] 10/02/2018 13:14:20 10/02/2018 14:25:26 Postoperative care [id number] Z48.89 [id number] Sanket CARMONA PA-C [facility] [address] [facility] [facility] [address] 10/23/2018 11:21:53 10/23/2018 12:10:53 Postoperative care 824801793 Z48.89 [id number] HOA MARCUS MD [facility] [address] [address] 11/20/2018 09:55:33 11/20/2018 10:43:11 Injury of glenoid labrum of shoulder joint 205278149 S49.91XD Pain of ri ght shoulder joint 5567497139 6783789 M25.511 s/p 09/26/18 ONESIMO RT BEATRIZ AC RES [id number] HOA MARCUS MD [facility] [address] [place] [address] 01/01/2019 10:10:06 01/01/2019 11:21:27 Shoulder joint pain 590555418 M25.519 s/p 09/26/18 ONESIMO RT BEATRIZ AC RES Injury of glenoid labrum of shoulder joint 596088083 S49.91XD s/p 09/26/18 ONESIMO RT BEATRIZ AC RES [id number] GRABIEL FYR PA-C [facility] [address] [place] [address] 09/13/2021 08:55:00 09/14/2021 09:30:25 Cervical radiculopathy 15635175 M54.12 [id number] REGI WASHINGTON MD [facility] [address] [place] [address] 10/03/2021 09:34:50 10/04/2021 09:15:47 Cervical radiculopathy 30012610 M54.12 Her imaging is not here today however we did review it at her last appointmen t. I did discuss the risks and benefits associated with surgery of a C6-7 anterior cervical discectomy and fusion. We've discussed the risks and benefits and she is elected to proceed. We will see her back on Saturday of her surgery. We will obtain cervical flexion extension before her surgical date. [id number] REGI WASHINGTON MD SURGERY SCHEDULE [address] [place] [address] 10/20/2021 06:57:16 10/20/2021 06:57:45 [id number] REGI WASHINGTON MD [facility] [address] [place] [address] 11/20/2021 11:13:25 11/23/2021 14:02:00 Postoperative care [id number] Z48.89 Patient is doing very well this time. We discussed increasing activity levels. I would like to keep her from returning to work for full 3 months. I will see her back on 17 January to monitor her care with x-rays. She knows to contact us sooner if any new issues should arise. [id number] URIEL MOSQUEDA PA-C NEUROSURG [facility]IE [facility] [address] [place] [address] 01/17/2022 11:17:08 01/18/2022 14:22:28 Postoperative care [id number] Z48.89 Patient is a 46-year-ol d female status post C6-C7 ACDF on 10/20/[address] Washington. Presents today for second postoperat conor karl t. Patient overall is doing very well. She is still relieved of any radicular symptoms. The only pain she still having is in the back of the neck causing some migraines. She has not been back to work since the surgery. Her job does require a lot of labor, heavy lifting, bending, twisting. Her biggest concern today is work status from here. Discussed case and imaging with Dr. Washington. Gave patient a printed copy of imaging to take home. Had a very honest discussion with the patient about work status from here. As we are at 3 months we cannot continue to keep this patient off work. We can try to send her back with restrictio ns of no excessive lifting, pulling, overhead movements, excessive standing. Because her job requires high amounts of these tasks they may not accept this. If they do not accept these restrictio ns patient should call back and we will get her set up for an GLENROY. As far as the surgery patient is doing as expected and we will release her from our care. She knows to call the office with any other questions or concerns. Patient was seen by myself in Dr. Washington today. New AP lateral cervical x-rays today at [facility] placement of hardware with no evidence of loosening or complicati on [id number] LEXIE JACOBSON MD SURGERY SCHEDULE [address] [place] [address] 09/06/2023 10:51:47 09/06/2023 10:52:33 [id number] HOA MARCUS MD [facility] [address] [place] [address] 09/16/2023 14:22:06 09/16/2023 15:59:04 Pain of left shoulder joint 5023457541 2011323 M25.512 Health Concerns Section Related Observation LastModified by Organization Detai ls LastModified Time None Recorded Concern Status LastModified by Organization Details LastModified Time None Recorded Advance Directives Directive None Recorded Payers Insurance Date Sequence Insurance Name Policy Number Policy Peterson Covered Member ID Peterson Member ID Guarantor Name 01/16/2022 1 [facility] [id number] Jimmy Olsen [id number] Jimmy Olsen 01/16/2022 2 [id number] Jimmy Olsen [id number] Jimmy Olsen 12/06/2020 PAYMENT PLAN Jimmy Olsen 10/04/2023 1 [place] [id number] Jimmy Olsen [id number] Jimmy Olsen Notes Date Note Type Note Provider Name and Address Organization Details Recorded Time 11/20/2021 text/html Jimmy Olsen is a very pleasant 46-year-old woman here today for continued follow-up after her anterior cervical discectomy and fusion. She is done very well. She's had resolution of the arm pain. She is having ongoing issues with hoarseness. She states she is not quite ready to return to work. She is no other neurologic complaints. Imaging: I personally reviewed her AP lateral cervical x-rays which demonstrate intact hardware no acute complication REGI WASHINGTON MD [address] [place] [address], [address], [facility] 11/20/2021 11:55:09 01/17/2022 text/html Patient is a 46-year-old female status post C6-C7 ACDF on 10/20/[address] Washington. Presents today for second postoperative appointment. Patient was doing extremely well at the first appointment. We did keep her off of work for a full 3 months postoperatively which would bring her to her appointment today. Patient overall is doing very well. She is still relieved of any radicular symptoms. The only pain she still having is in the back of the neck causing some migraines. She has not been back to work since the surgery. Her job does require a lot of labor, heavy lifting, bending, twisting. Her biggest concern today is work status from here. New AP lateral cervical x-rays today at the [facility] URIEL DE SANTIAGOKEVIN WATTS [address] [place], [id number], [facility] 01/17/2022 12:26:00 09/16/2023 text/html PCP: Dr. Jai BALLARD FOR CONSULTATION AT THE REQUEST OF:HAND DOMINANCE: RightWHAT: Left Shoulder.WHEN: 6-7 months HOW: felt a knot and it started becoming more painful SYMPTOMS:PAIN: 3 /10 Sharp pain down the arm. No numbness or tingling. Knot right around the AC joint, which is intermittently sore. No change in size. No prior injuries or surgeries on the shoulder. Bothers her if she lays on it. History of C6-7 ACDF on 10/20/2021 Right shoulder is doing well. Does not take NSAIDs due to history of weight loss surgery. X-RAY: Patient has disc 09/09/2023: Left shoulder x-rays were reviewed and discussed by me with the patient in detail today. Images reveal no acute osseous abnormalities or pathological process. Normal appearing AC joint. MRI:PT:NSAIDS: tylenol prnINJECTION: HOA MARCUS MD [address] [place], [id number], [place] [facility] 10/03/2023 22:05:42 OBGyn Episode No OBEpisode recorded.
== END 2025-01-07 23:59 | disposition home or self-care (01) ==
LOC: LAB.DROPOF 01-08 12:30
PROVIDERS: PCP Student in an Organized Health Care Education/Training Program; Visit Provider Student in an Organized Health Care Education/Training Program
DX: N39.0 Urinary tract infection, site not specified (principal)
CPT/HCPCS: 87086

== ENCOUNTER 2025-01-11 08:56 | Emergency (ER) | payer BC, SELFPAY ==
[2025-01-11] VITALS (8 sets, daily range): BP systolic 135–187; BP diastolic 88–117; PULSE 70–82; RESP 16–18; TEMP 36.6–36.9; O2SAT 96–99; BMI 28.1
[2025-01-11 09:09] LABS: Microscopic, Urine URINE MICROSCOPIC (MICROSCOPIC)
--- NOTE | 2025-01-11 09:10 | HMH.EDGENADL ---
Discharge Plan Disposition Patient Disposition: Home, Self-Care Condition: Good Prescriptions Prescriptions: New tamsulosin [Flomax] 0.4 mg capsule 0.4 mg PO HS 30 Days Qty: 30 0RF fluconazole 150 mg tablet 150 mg PO DAILY Qty: 1 0RF Rx Instructions: administer on day 1 of therapy naproxen 500 mg tablet 500 mg PO BID PRN (Reason: pain) 14 Days Qty: 28 0RF oxycodone 5 mg tablet 5 mg PO Q8H PRN (Reason: pain) 3 Days Qty: 10 0RF Held aspirin [Adult Low Dose Aspirin] 81 mg tablet,delayed release (DR/EC) 81 mg PO DAILY Qty: 90 3RF Hold Instructions: Resume on 01/26/25. Do not take in conjunction with naproxen No Action levothyroxine 75 mcg tablet 75 mcg PO Q OTHER DAY atorvastatin 20 mg tablet 20 mg PO DAILY Qty: 90 3RF levothyroxine 50 mcg tablet 50 mcg PO Q OTHER DAY phenazopyridine [Pyridium] 100 mg tablet 100 mg PO TID PRN (Reason: pain) Qty: 6 0RF escitalopram oxalate 10 mg tablet 10 mg PO DAILY Referrals Follow up/Referrals: Debora Olsen APRN [Primary Care Provider, Medical] - See instructions Ilir Leyva MD [Referring, Urology] - See instructions Activity Restrictions/Add. Instructions Additional Instructions/Restrictions: As we discussed, you have 3 kidney stones on your right side that are all 4 mm or less meaning that they are very likely to pass on their own. It is atypical to have multiple stones that are passing at the same time which may put you at a higher risk of needing a procedure by a urologist. That being said, given that your pain has improved and your labs are overall reassuring, you are stable for discharge at this time. I prescribed a medication called Flomax which can potentially help you pass the kidney stone more quickly. Please take this at night until you pass the kidney stone. I prescribed a medication for yeast infection that is a one-time dose. I also prescribed naproxen 500 mg as well as oxycodone 5 mg. Please hold your aspirin 81 mg tablet while you are taking the naproxen. Please take the oxycodone as needed for breakthrough pain. I have placed a referral to the urologist for you to follow-up. Please return with any new or worsening symptoms. Clinical Impressions Clinical Impression: Urolithiasis, Hydronephrosis Stand Alone Forms Stand Alone Forms: Work/School Release Instructions Patient Instructions: Kidney Stones -- Adult, DI for Kidney Stones Print Language Print Language: Romansh Discharge ED Provider: Eitan Fontaine General Adult HPI General Chief complaint: Urogenital-Female Stated complaint: Back pain, Burning when urinating, abd. pain Time Seen by Provider: 01/11/25 09:10 History of Present Illness HPI narrative: The patient presents to the Emergency Department with symptoms concerning to her for a kidney stone, which started approximately 2 weeks ago. The patient initially dismissed the symptoms but has experienced worsening over time. The patient reports constant right-sided back pain, which feels similar to previous kidney stone episodes. Associated symptoms include nausea, decreased urinary output, and a burning sensation during urination. The patient also experienced chills over the weekend. Initially, the patient thought it might be a urinary tract infection due to the burning sensation and frequent urination. However, urinary frequency has since decreased to 2-3 times per day. The patient sought medical attention previously for these symptoms. They were given medication to help with the burning sensation, but it did not provide relief. A urine culture was performed, which reportedly showed multiple organelles of carbonation. The patient states the symptoms have progressively worsened, with the addition of back pain and nausea developing today. The patient has a history of kidney stones. When asked about the frequency of kidney stones, the patient did not provide a specific answer but confirmed previous occurrences. It is unclear whether past kidney stones passed spontaneously or required intervention. The patient's medical history includes previous kidney stones. They were given medication for the burning sensation by a doctor, which did not help. The patient reports an allergy to contrast, though the nature of the reaction was not specified. The patient reports chills, nausea, dysuria, urinary frequency, oliguria, and back pain. They deny any rash. Please note that above description of symptoms, in this electronic medical record under categorization of recalled from ER triage doctor by RN are reflective of an initial nursing assessment, however, is not reflective of my full history and physical exam that was personally taken and clarified. Consequentially, this preceding description of symptoms, which may include the patient's categorized chief complaint in the EMR, do not reflect my personal clinical impression, and the ultimate description of history of present illness and patient stated complaints should be deferred to this section of the note. Unless stated otherwise or congruent with this section of the note, additional signs, symptoms, or incongruence should be interpreted as inaccurate with my clinical impression. Related Data Home Medications ?Medication ?Instructions ?Recorded ?Confirmed escitalopram oxalate 10 mg tablet 10 mg PO DAILY 03/30/24 01/11/25 levothyroxine 75 mcg tablet 75 mcg PO Q OTHER DAY 06/30/24 01/11/25 levothyroxine 50 mcg tablet 50 mcg PO Q OTHER DAY 11/25/24 01/11/25 Previous Rx's ?Medication ?Instructions ?Recorded aspirin 81 mg tablet,delayed 81 mg PO DAILY #90 tabs 08/27/24 release (Adult Low Dose Aspirin) Held on 01/11/25. Instructions: Resume on 01/26/25. Do not take in conjunction with naproxen atorvastatin 20 mg tablet 20 mg PO DAILY #90 tabs 08/27/24 phenazopyridine 100 mg tablet 100 mg PO TID PRN pain 6 doses #6 01/07/25 (Pyridium) tabs fluconazole 150 mg tablet 150 mg PO DAILY 1 dose #1 tab 01/11/25 naproxen 500 mg tablet 500 mg PO BID PRN pain 2 weeks #28 01/11/25 tabs oxycodone 5 mg tablet 5 mg PO Q8H PRN pain 3 days #10 01/11/25 tabs tamsulosin 0.4 mg capsule (Flomax) 0.4 mg PO HS 30 days #30 caps 01/11/25 Allergies Allergy/AdvReac Type Severity Reaction Status Date / Time Iodinated Contrast Media Allergy Hives Verified 01/07/25 17:31 [facility] Disclaimer: The information contained in this section may have been updated after the patient was seen, as this information can be updated by other users. Medical History HTN (hypertension) Abnormal cardiovascular stress test Lumbar spondylosis Degenerative disc disease Hypothyroid Surgical History History of colonoscopy History of appendectomy H/O gastric sleeve Hx of cholecystectomy H/O section H/O oophorectomy H/O neck surgery H/O shoulder surgery H/O knee surgery Family History Other No significant family history Social History Smoking Status: Former smoker alcohol intake: never substance use type: denies use current occupational status: other Travel in the last 8 weeks?: None Have you lived/traveled outside [place] in past 30 days?: No Contact w/someone who lives/traveled outside [place] past 30 days?: No Exposure to someone with infectious disease in past 14 days?: No Do you have a fever (greater than 100.4 F or 38 C)?: No Have you tested positive for COVID-19?: No Exposed to someone with COVID-19 in past 14 days?: No Do you have a sore throat?: No Do you have a cough?: No Do you have any weakness?: No Do you have any diarrhea?: No Are you experiencing any unusual bleeding?: No Do you have any muscle aches/pain?: No Do you have any abdominal pain?: Yes Are you experiencing loss of taste or smell?: No Other Medical History Have you received the Flu Vaccine for this season: Yes Have you received the Pneumonia Vaccine: No ROS Obtained: Yes other As per HPI Physical Exam General General appearance: alert and in no apparent distress Head Head exam: atraumatic and normocephalic Eye Eye exam: Present normal appearance Neck Neck exam: Present normal inspection Chest Chest inspection: Present normal inspection and symmetric chest wall rise Respiratory Respiratory exam: Present normal lung sounds bilaterally; Absent respiratory distress Cardiovascular Cardiovascular exam: Present regular rate and normal rhythm Abdominal Exam Abdominal exam: Present soft Neurological Exam Neurological exam: Present alert and oriented X3 Psychiatric Psychiatric exam: Present normal affect and normal mood Skin Skin exam: Present warm and dry Medical Decision Making Medical Records Medical records reviewed: Yes I reviewed the patient's medical records. Screening: Per USPSTF and CDC recommendations, given the prevalence of disease in our region, it is our hospital?s policy to screen for HIV and viral Hepatitis for all patients aged 18 and over and those with ongoing risk factors. Braulio Inquiry Pt receiving controlled substance: No Vital Signs: 01/11/25 09:08 01/11/25 09:09 01/11/25 09:30 Temperature 97.8 F Temperature Source Oral Pulse Rate 78 71 Pulse Rate [Radial] 82 Respiratory Rate 18 Blood Pressure 187/117 H 167/101 H Blood Pressure [Right Arm] 156/96 H Blood Pressure Mean [Right Arm] 116 Blood Pressure Source Blood Pressure Source [Right Arm] Automatic Cuff Blood Pressure Position Blood Pressure Position [Right Arm] Sitting 02 Sat by Pulse Oximetry 98 99 98 Oxygen Delivery Method Room Air 01/11/25 10:20 01/11/25 10:30 01/11/25 11:00 Temperature Temperature Source Pulse Rate 73 70 81 Pulse Rate [Radial] Respiratory Rate Blood Pressure 137/90 135/91 H 143/88 H Blood Pressure [Right Arm] Blood Pressure Mean [Right Arm] Blood Pressure Source Blood Pressure Source [Right Arm] Blood Pressure Position Blood Pressure Position [Right Arm] 02 Sat by Pulse Oximetry 97 96 97 Oxygen Delivery Method 01/11/25 11:31 01/11/25 11:40 Temperature 98.5 F Temperature Source Oral Pulse Rate 78 78 Pulse Rate [Radial] Respiratory Rate 16 Blood Pressure 156/92 H 156/92 H Blood Pressure [Right Arm] Blood Pressure Mean [Right Arm] Blood Pressure Source Automatic Cuff Blood Pressure Source [Right Arm] Blood Pressure Position Sitting Blood Pressure Position [Right Arm] 02 Sat by Pulse Oximetry 98 Oxygen Delivery Method Room Air Lab Data Lab Results 01/11/25 09:04: Urine Color Yellow, Urine Appearance Clear, Urine pH 6.5, Ur Specific [place] <= 1.005, Urine Protein 1+ A, Urine Glucose (UA) Negative, Urine Ketones Negative, Urine Blood 2+ A, Urine Nitrate Negative, Urine Bilirubin Negative, Urine Urobilinogen 0.2, Ur Leukocyte Esterase Negative, Urine RBC 3-5, Urine WBC Occasional, Ur Squamous Epith Cells 5-10, Urine Bacteria Trace 01/11/25 09:15: WBC 10.8, RBC 5.00, Hgb 14.3, Hct 41.9, MCV 83.8, MCH 28.6, MCHC 34.1, RDW 14.0, Plt Count 317, MPV 9.4, Neut % (Auto) 75.9, Lymph % (Auto) 17.7, [place] % (Auto) 4.5, Eos % (Auto) 0.9, Baso % (Auto) 0.6, Neut # (Auto) 8.2 H, Lymph # (Auto) 1.9, [place] # (Auto) 0.5, Eos # (Auto) 0.1, Baso # (Auto) 0.1, Sodium 141, Potassium 3.9, Chloride 105, Carbon Dioxide 26, Anion Gap 13.9, BUN 14, Creatinine 0.80, Estimated Creat Clear 111, Estimated GFR 77, Est GFR ( Amer) 93, Glucose 114 H, Calcium 9.9, Total Bilirubin 1.4 H, AST 31, ALT 33, Alkaline Phosphatase 78, Total Protein 8.3 H, Albumin 4.9, Globulin 3.4 H, Albumin/Globulin Ratio 1.4, Lipase 89, Serum HCG, Qual Negative 01/11/25 09:15 01/11/25 09:15 Orders (Tests/Meds): ED MEDICATIONS Discontinued Medications Generic Name Dose Route Start Last Admin Trade Name Freq PRN Reason Stop Dose Admin Ketorolac Tromethamine 15 mg 01/11/25 09:17 01/11/25 09:43 Ketorolac 30mg/Ml Vial IV 01/11/25 09:18 15 mg ONCE ONE Administration ORDERS Category Date Time Status CT abdomen pelvis wo con Stat Cat Scan 01/11/25 09:51 Completed CBC w/Auto Diff [Complete Blood Count Auto Diff] Stat Lab 01/11/25 09:15 Completed CMP [Comprehensive Metabolic Panel] Stat Lab 01/11/25 09:15 Completed HCG Qualitative, Serum Stat Lab 01/11/25 09:15 Completed Lipase Stat Lab 01/11/25 09:15 Completed UA [Urinalysis and Microscopic] Stat Lab 01/11/25 09:04 Completed Medical Decision Narrative: Patient with history and exam per above presenting for evaluation of flank pain Diagnoses considered include urolithiasis, pyelonephritis, cystitis, among others ED workup and treatment included: ED MEDICATIONS Discontinued Medications Generic Name Dose Route Start Last Admin Trade Name Freq PRN Reason Stop Dose Admin Ketorolac Tromethamine 15 mg 01/11/25 09:17 01/11/25 09:43 Ketorolac 30mg/Ml Vial IV 01/11/25 09:18 15 mg ONCE ONE Administration ORDERS Category Date Time Status CT abdomen pelvis wo con Stat Cat Scan 01/11/25 09:51 Completed CBC w/Auto Diff [Complete Blood Count Auto Diff] Stat Lab 01/11/25 09:15 Completed CMP [Comprehensive Metabolic Panel] Stat Lab 01/11/25 09:15 Completed HCG Qualitative, Serum Stat Lab 01/11/25 09:15 Completed Lipase Stat Lab 01/11/25 09:15 Completed UA [Urinalysis and Microscopic] Stat Lab 01/11/25 09:04 Completed Labs were independently interpreted by me, significant for no leukocytosis, creatinine within normal limits, urinalysis with 5-10 squamous epithelial cells, trace bacteriuria, nitrate negative Imaging was independently visualized and interpreted by me, significant for multiple urolithiasis, all under or equal to 4 mm, with associated hydronephrosis, on ipsilateral side the patient's symptoms Please refer to radiology report for full details. Patient has satisfactory improvement of her symptoms upon repeat evaluation. Creatinine is within normal limits and no leukocytosis, urinalysis without convincing evidence of infection at this time. Patient describes additional symptoms consistent with yeast infection and irritation precipitating dysuria is clinically isolated to urethra. I will prescribe her fluconazole x 1, as well as multimodal pain control and patient will follow-up with urology. I discussed my clinical impression with patient and answered all questions. At this time, the evidence for any other entities in the differential is insufficient to warrant any further testing or ED observation. This was explained to the patient. The patient was advised that persistent or worsening symptoms require further evaluation. Critical Care Critical Care Time Critical Care Time: No
--- OUTSIDE RECORDS SUMMARY | 2025-01-11 09:11 | XMS_ITS | Data Portability ---
Author Organization [place] VALENCIA Chadwick [facility] Address [address] [facility] [address] [place] [address] Care Team Providers Care Hyperbaric Technologist Name Role Phone ESTERELISEO Primary Care Provider [...] stenosis and radiculopathy Surgeon: Regi [place] M.D. habilitation assistant Radha Angelo PA-C Anesthesia: Gen. endotracheal [...] placed without complication. We then placed one Meno pin at the appropriate portion of the [...] confirm adequate placement. We then removed the Meno pins. We then took a 13 mm [...] By Organization Details Last Modified Time 09/16/2023 [id number] Recommended OTC liquid gel Ibuprofen if able. [...] Negati ve negati ve normal Not Available [facility] [address] [place] [address], [phone], 10/18/2021 16:12:30 10/04/19 22 10/03/2021 XR, cervi karlee spine , 2 or [address] [address] Shaylaana power Name: JIMMY power : 1974 [...] Jenkins MD on 10/04/19 22 1:07 PM [facility] [address], [address], 12/25/2021 12:49:19 11/21/19 22 11/20/2021 XR, cervi karlee spine , 2 or [address] [address] Patien t Name: JIMMY power : 1974 [...] Apollo Jenkins MD on 022 1:55 PM [facility] Radiology [facility] [address] [place] [address], [phone], 12/25/2021 12:23:51 01/18/20 22 01/17/2022 XR, cervi karlee spine , 2 or 3 view [place] [address] [place] [address] Sera power Name: JIMMY power : 1974 [...] Apollo Jenkins MD on 022 12:06 PM [facility] [address], [address], 05/28/2022 12:37:23 Result Notes None recorded. Problems No Known Problems Procedures Surgical History Date Name Laterality Status Provider Name and Address Organization Details Recorded Time 10/02/19 19 Suture/Staple removal completed Sanket CARMONA PA-C [address] [place] [address], [phone], [facility] 10/02/2018 14:29:50 08/18/19 19 PT Manual Therapy completed BRE JIN, PT [address] [place], [address], [facility] 08/18/2018 11:33:03 08/18/19 19 PT Therapeutic Exercise completed BRE JIN, PT [address] [place], [address], [facility] 08/18/2018 11:33:16 08/18/19 19 Injection Joint/Bursa, Major completed HOA MARCUS MD [address] [place] [address], [phone], [facility] 08/18/2018 11:57:39 08/04/20 18 PT Evaluation - Low Complexity completed BRE JIN, PT [address] [place], [address], [facility] 08/04/2018 11:40:47 08/04/20 18 PT Manual Therapy completed BRE JIN, PT [address] [place], [address], [facility] 08/04/2018 11:42:11 08/04/20 18 PT Therapeutic Exercise completed BRE JIN, PT [address] [place], [address], [facility] 08/04/2018 11:42:41 reconstruction of anterior cruciate ligament of knee joint completed Marie SUBRAMANIAN [facility] 09/13/2021 09:13:03 cholecystectomy completed Marie SUBRAMANIAN [facility] 09/13/2021 09:13:09 Caesarean Section completed Marie Shirley [facility] 09/13/2021 09:13:17 oophorectomy completed Marie Hector SUBRAMANIAN [facility] 09/13/2021 09:13:29 procedure on shoulder completed Marie SUBRAMANIAN [facility] 09/13/2021 09:13:41 extraction of wisdom tooth completed Marie Young [place] [facility] 09/13/2021 09:13:47 Imaging Results None recorded. Procedure Notes None recorded. Medical Equipment None Reported. Allergies Allergen ID Allergen Name Allergen Category Reaction Reaction Severity Criticality Documentation Date Start Date Code Code System Note Provider Name and Address Organization Details Recorded Time 763413 lisinopri l medicatio n Not available Not available Not available 09/13/2021 76555 RxNorm Marie mays [place] [facility] 09:11:45 Medications Name Sig Start Date Stop [...] Updated DateTime 09/16/2023 172.72 cm 26.6 kg/m2 22947.66 g [facility] 09/16/2023 14:58:56 Date Recorded Body height Provider Name an d Address Organization Details Last Updated DateTime 11/20/2021 172.72 cm Marie Young [facility] 11:38:05 Date Recorded Body height Body mass index (BMI) Body weight Systolic blood pressure Diastolic blood pressure Provider Name and Address Organization Details Last Updated DateTime 01/17/2022 172.72 cm 35.9 kg/m2 433804.8 g 120 mm[Hg] 80 mm[Hg] Haily Manzanaresholz [facility] 11:27:24 Social History Question Answer Notes LastModified by Organizat ion Details LastModified Time Tobacco Smoking Status [facility] 09/13/2021 09:12:47 Rate The Severity Of Your [...] SNOMED-CT Code Diagnosis ICD10 Code Diagnosis Note [id number] HOA MARCUS MD [facility]TH[facility]EDI [facility] [address] [place] [address] 07/21/2018 08:12:15 07/21/2018 09:58:07 Pain of right shoulder joint 0289829122 9275367 M25.511 Impingemen t syndrome of right shoulder region 1963574880 78197 M75.41 [id number] BRE JIN, PT PHYSICAL THERAPY / HAND THERAPY [facility] [address] [place] [address] 08/04/2018 08:20:34 08/04/2018 13:40:03 Shoulder joint pain 033700634 M25.519 Injury of glenoid labrum of shoulder joint 967224386 S49.91XD Muscle weakness 68937890 M62.81 [id number] HOA MARCUS MD [facility] [address] [place] [address] 08/18/2018 10:31:14 08/18/2018 12:34:43 Arthritis of acromioclavicular joint 819843405 M13.868 [id number] BRE JIN, PT PHYSICAL THERAPY / HAND THERAPY [facility] [address] [address] 08/18/2018 10:45:28 08/18/2018 11:44:50 Injury of glenoid labrum of shoulder joint 598126307 S49.91XD Muscle weakness 94809319 M62.81 Shoulder joint pain 2679 47152 M25.497 [id number] HOA MARCUS MD [facility]I [facility] [address] [place] [address] 09/04/2018 14:37:40 09/04/2018 15:35:14 Injury of glenoid labrum of shoulder joint 607549703 S49.91XD Shoulder joint pain 2679 211[address] M25.519 Arthritis of acromioclavicular joint 925976191 M13.814 [id number] HOA MARCUS MD SURGERY SCHEDULE [address] [place] [address] 09/26/2018 08:18:23 09/26/2018 08:24:17 [id number] Sanket CARMONA PA-C [facility] [address] [facility] [place] [address] 10/02/2018 13:14:20 10/02/2018 14:25:26 Postoperative care [id number] Z48.89 [id number] Sanket CARMONA PA-C [facility] [address] [facility] [place] [address] 10/23/2018 11:21:53 10/23/2018 12:10:53 Postoperative care [id number] Z48.89 [id number] HOA MARCUS MD [facility] [address] [address] 11/20/2018 09:55:33 11/20/2018 10:43:11 Injury of glenoid labrum of shoulder joint 056355587 S49.91XD Pain of ri ght shoulder joint 6396073883 2019204 M25.511 s/p 09/26/18 ONESIMO RT BEATRIZ AC RES [id number] HOA MARCUS MD [facility] [address] [address] 01/01/2019 10:10:06 01/01/2019 11:21:27 Shoulder joint pain 635535201 M25.519 s/p 09/26/18 ONESIMO RT BEATRIZ AC RES Injury of glenoid labrum of shoulder joint 926579291 S49.91XD s/p 09/26/18 ONESIMO RT BEATRIZ AC RES [id number] GRABIEL FRY PA-C [facility]G [facility] [address] [place] [address] 09/13/2021 08:55:00 09/14/2021 09:30:25 Cervical radiculopathy 46745908 M54.12 [id number] REGI WASHINGTON MD [facility] [address] [place] [address] 10/03/2021 09:34:50 10/04/2021 09:15:47 Cervical radiculopathy 25848406 M54.12 Her imaging is not here today [...] cervical flexion extension before her surgical date. [id number] REGI WASHINGTON MD SURGERY SCHEDULE [address] [place] [address] 10/20/2021 06:57:16 10/20/2021 06:57:45 [id number] REGI W[place] MD [facility] [address] [place] [address] 11/20/2021 11:13:25 11/23/2021 14:02:00 Postoperative care [id number] Z48.89 Patient is doing very well this time. We discussed increasing activity levels. I would like to keep her from returning to work for full 3 months. I will see her back on 17 January to monitor her care with x-rays. She knows to contact us sooner if any new issues should arise. [id number] URIEL MOSQUEDA PA-C NE[facility]OSURG [facility] [address] [place] [address] 01/17/2022 11:17:08 01/18/2022 14:22:28 Postoperative care [id number] Z48.89 Patient is a 46-year-ol d female [...] AP lateral cervical x-rays today at the [facility] placement of hardware with no evidence of loosening or complicati on [id number] LEXIE JACOBSON MD SURGERY SCHEDULE [address] [place] [address] 09/06/2023 10:51:47 09/06/2023 10:52:33 [id number] HOA MARCUS MD [facility]EDI [facility] [address] [place] [address] 09/16/2023 14:22:06 09/16/2023 15:59:04 Pain of left shoulder joint 9043761219 3446721 M25.512 Health Concerns Section Related Observation LastModified by Organization Detai ls LastModified Time None Recorded Concern Status LastModified by Organization Details LastModified Time None Recorded Advance Directives Directive None Recorded Payers Insurance Date Sequence Insurance Name Policy Number Policy Peterson Covered Member ID Peterson Member ID Guarantor Name 01/16/2022 1 [facility] [id number] Jimmy Olsen [id number] Jimmy Olsen 01/16/2022 2 [place] [id number] Jimmy Olsen [id number] Jimmy Olsen 12/06/2020 PAYMENT PLAN Jimmy Olsen 10/04/2023 1 [place] [id number] Jimmy Olsen [id number] Jimmy Olsen Notes Date Note Type [...] hardware no acute complication REGI WASHINGTON MD [address] [place] [address], [address], [facility] 11/20/2021 11:55:09 01/17/2022 text/html Patient is a [...] AP lateral cervical x-rays today at the [facility] URIEL DE SANTIAGOKEVIN WATTS [address] [place], [address], [facility] 01/17/2022 12:26:00 09/16/2023 text/html PCP: Dr. Jai [...] MRI:PT:NSAIDS: tylenol prnINJECTION: HOA MARCUS MD [address] [place], [address], [place] [facility] 10/03/2023 22:05:42 OBGyn Episode No OBEpisode recorded.
--- OUTSIDE RECORDS SUMMARY | 2025-01-11 09:11 | XMS_ITS | Encounter Summary ---
Author Organization [employer] Address [address] [place] [address] Care Team Providers Care Tongue And Groove Machine Feeder Name Role Phone Daniel Carranza MD Primary Care Provider [phone] Encounter Details Date Type Department Care Team (Late st Contact Info) Description 03/02/2022 Transcribed Document [facility] [place] [place] Family Medicine [facility] [place] [address] Lashaun Moseley MD [address] [place] [id number] Social History Tobacco Use Types Packs/Day Years [...] activities are safe for you. ??? Take wcgk-usu-hpkizou and prescription medicines only as told by [...] provider. Document Revised: 07/19/2020 Document Reviewed: 12/22/2018 [employer] Patient Education ? 2020 [employer]. Helicobacter Pylori Antibodies Test Why am I [...] including vitamins, herbs, eye drops, creams, and dius-bsj-qqdecli medicines. How are the results reported? Your [...] provider. Document Revised: 07/04/2018 Document Reviewed: 03/04/2018 [employer] Patient Education ? 2020 [employer]. Pharmacology Monitored Anesthesia Care Anesthesia refers to [...] including vitamins, herbs, eye drops, creams, and ilrn-qsj-fjmkgwx medicines. ??? Any problems you or family [...] tells you to take them. ??? Taking jwkw-hcv-gfhpmyn medicines, vitamins, herbs, and supplements. Tests and [...] Reviewed: 06/23/2020 [employer] Patient Education ? 2020 [employer] documented in this encounter Plan of Treatment Not on file documented as of this encounter Visit Diagnoses Not on filedocumented in this encounter Care Teams Tongue And Groove Machine Feeder Relationship Specialty Start Date End Date Daniel Carranza MD [address] [place], [place] [address] PCP - General Family Medicine 07/04/22 documented as of this encounter
--- OUTSIDE RECORDS SUMMARY | 2025-01-11 09:11 | XMS_ITS | Encounter Summary ---
Author Organization [employer] Address [address] [place] [address] Care Team Providers Care Block Paver Name Role Phone Daniel Carranza MD Primary Care Provider [phone] Encounter Details Date Type Department Care Team (Late st Contact Info) Description 03/02/2022 Transcribed Document [facility] [place] Family [facility] [address] ProviderLashaun MD [address] [place], [place] [id number] Social History Tobacco Use Types Packs/Day Years [...] Source : Stated Height Entry Format : [place] Height, Feet : 5 ft(Converted to: 152 cm, 60 Inch) Height, Inches : 7 Inch(Converted to: 0 ft 7 Inch, 17.78 cm) Clinical Height : 170.18 cm Weight Source : Standing scale Weight Entry Format : [place] Clinical Dosing Weight : 103.36 kg Weight, Pounds : 227.4 lb Body Surface Area (BSA) : 2.14 m2 Body Mass Index : 35.7 kg/m2 (HI) [place] Body Weight : 61 kg Romana Polanco [...] Romana Polanco RN - 03/02/2022 11:24 EDT [place] Suicide Severity Rating Scale (C-SSRS) CSSRS Past [...] Contact #2 Relationship : Primary Language : Welsh Communication Barrier : None Hardwood Faller Needed : No Romana Polanco RN - [...] Scale Risk Level : 0-24 Low Risk [place] Fall Interventions : Adequate lighting, Assistive devices [...] Romana Polanco RN - 03/02/2022 11:24 EDT documented in this encounter Plan of Treatment Not on file documented as of this encounter Visit Diagnoses Not on filedocumented in this encounter Care Teams Block Paver Relationship Specialty Start Date End Date Daniel Carranza MD [address] [place] [address] PCP - General Family Medicine 07/04/22 documented as of this encounter
--- OUTSIDE RECORDS SUMMARY | 2025-01-11 09:11 | XMS_ITS | Clinical Summary ---
Author Organization [employer] Address [address] [place] [address] Care Team Providers Care Wastewater Treatment Plant Operator Name Role Phone Daniel Carranza MD Primary Care Provider [phone] Allergies Active Allergy Reactions Criticality Noted Date [...] Date Anil rded Speak language other than [place] Islander at home Not on file 08/23/2023 Want [...] 3 AM EDT 03/02/2022 2:53 PM EDT [facility] Historical Provider PATHOLOGY/CYTOLOGY RASHAUN FORD Edited Result - Final [facility] [address] [place] [address], [facility] [phone] from Last 3 Months or Most Recently Relevant to Health Maintenance Insurance BLUE CROSS[employer] Care Teams Wastewater Treatment Plant Operator Relationship Specialty Start Date End Date Daniel Carranza MD [address] [place] [address] PCP - General Family Medicine 07/04/22
--- OUTSIDE RECORDS SUMMARY | 2025-01-11 09:11 | XMS_ITS | Encounter Summary ---
Author Organization [employer] Address [address] [place] [address] Care Team Providers Care Air Duct Mechanic Name Role Phone Daniel Carranza MD Primary Care Provider [phone] Encounter Details Date Type Department Care Team (Late st Contact Info) Description 03/02/2022 Transcribed Document [facility] [place] Family Medicine [facility] [place] [address] ProviderLashaun MD [address] [place], [place] [id number] Social History Tobacco Use Types Packs/Day Years [...] JIMMY OLSEN/Sex: 1975 Female Med Rec #: [id number] Physician: MESSI STEEL MD-JOCELYN Financial #: [id number] Pt. Type: Room/Bed: [facility] Admit/Disch: 03/02/22 10:46:00 - Institution: [facility] PreOp Case Times Entry 1 In Preop 03/02/22 10:51:00 Ready for Holding n/a Room Patient Ready for 03/02/22 11:36:00 Surgery Patient Out of Preop 03/02/22 11:36:00 Patient Out of n/a Holding Room [facility] PreOp Case Times Audit 03/02/22 11:36:28 Change Room Attendant: [id number] Modifier: [id number] <+> 1 Patient Out of Preop <+> 1 Patient Ready for Surgery Finalized By: Romana Polanco RN Document Signatures Signed By: Romana Polanco RN 03/02/22 11:36 documented in this encounter Plan of Treatment Not on file documented as of this encounter Visit Diagnoses Not on filedocumented in this encounter Care Teams Air Duct Mechanic Relationship Specialty Start Date End Date Daniel Carranza MD [address] [place] [address] PCP - General Family Medicine 07/04/22 documented as of this encounter
--- OUTSIDE RECORDS SUMMARY | 2025-01-11 09:11 | XMS_ITS | Data Portability ---
Author Organization [facility] Address [address] [place] [address] Care Team Providers Care Riverboat Captain Name Role Phone CHRISTINA DAVIS Referring Provider [...] TSH + free T4, serum 2024 025 [place] [facility], [address], [facility] F, [place], [address], 5 08:11:38 Referral pain management referral 2024 025 ALBERT Nuñez MD, [address] [facility], [facility] [address], [place], [address], 5 10:26:18 Procedures None recorded. Surgeries None recorded. Imaging electrocard iogram 2023 024 [facility], [address] [facility], [place], [address], 4 18:01:59 Medication Orders escitalopra m 10 mg tablet 2024 025 [facility], [address] [place] [address], [address], [place], [address], 16:28:29 levothyroxi ne 50 mcg tablet 2024 025 [facility], [address] [place] [address], [address], [place], [address], 16:28:30 prednisone 20 mg tablet 2023 025 [facility], [address] [place] [address], [facility], [place], [address], 15:48:11 Patient TargetsNo targets recorded. Patient Instructions Encounter Date Encounter Id Patient Instructions Last Modified By Organization Details Last Modified Time 10/27/2024 [id number] learning about healthy weight efryman Not available 10/27/2024 18:10:52 body mass index: care instructions efrybucyrus Not available 10/27/2024 18:10:52 Reason for Referral Pain Management Referral for Chronic back pain Referring Physician: Debora Olsen, Family Medicine, Encounter Date: 10/27/2024 Results Created Date Observation Date Name Description Value Unit Range Abnormal Flag Note LastModifiedBy Organization Detail LastModifiedTime 09/01/1909/02/2024 TSH+F REE T4 TSH 1.230 uIU/m L 0.450- 4.500 normal Not Available [facility] ([facility]) [address] [place], [address], 09/02/2024 08:11:38 09/01/19 25 09/02/2024 TSH+F REE T4 T4,free(dire ct) 1.09 NG/dL 0.82-1 .77 normal Not Available [facility] ([facility]) [address] [place], [address], 09/02/2024 08:11:38 03/30/20 24 03/30/2024 CT, abdom en + pelvi s, w/ contr ast No observ ation record ed. [facility] [address], [place], [address], 03/30/2024 09:22:21 03/30/20 24 03/30/2024 CT, abdom en + pelvi s, w/ contr ast No observ ation record ed. [facility] [address], [place], [address], 03/30/2024 09:22:08 03/30/20 24 03/30/2024 stres s echoc ardio gram with doppl er color flow (PROC ) No observ ation record ed. [facility] [address], [place], [address], 03/30/2024 16:07:26 06/09/20 24 06/09/2024 elect rocar diogr am No observ ation record ed. efryman [address], [address], 06/11/2024 08:32:20 06/09/20 24 06/09/2024 elect rocar diogr am No observ ation record ed. [email or web address] [address], [address], 06/12/2024 11:43:27 06/09/20 24 06/09/2024 XR, chest , 2 view No observ ation record ed. [facility] [address], [place], [address], 06/11/2024 08:56:51 06/09/20 24 06/09/2024 CT, angio gram, chest , w/ contr ast No observ ation record ed. [facility] [address], [place], [address], 06/11/2024 08:54:36 06/09/20 24 06/09/2024 elect robert shepardgr am No observ ation record ed. [facility] [address], [place], [address], 06/11/2024 08:54:03 07/06/20 24 07/03/2024 cardi ac stres s test No observ ation record ed. [facility] [address], [place], [place], [address], 07/06/2024 13:48:22 07/06/20 24 07/03/2024 NM, myoca rdial perfu dylan scan, w/ stres s No observ ation record ed. [facility] [address], [place], [place], [address], 07/06/2024 13:48:09 08/26/19 25 08/24/2024 CT, angio gram, coron seven arter ies, w/ contr ast No observ ation record ed. [facility] [address], [place], [address], 08/27/2024 08:26:45 Result Notes None recorded. Problems Name Problem SNOMED Code Status Onset Date Resolution Date Notes Provider Name and Address Organization Details Recorded Time Anxiety 27766380 Active Hiwot Beaulieu null, [place] - [facility] 3 09:09:45 Hypothyroi dism 46129572 Active Hiwot Beaulieu null, [place] - [facility] 3 09:10:07 Non-alcoho lic fatty liver 537314327 Active Hiwot Beaulieu null, [place] - [facility] 3 09:10:31 Chronic neck pain 7857931625081 Active 2022 Debora Olsen, [employer] SAFETY INSPECTOR [address], [place], [address] , [place] - [facility] 3 11:24:20 Problem [...] 5 170.18 cm 18 /min 29.3 kg/m2 87346.7 7 g 98 [degF] 78 /min 98 [...] Updated DateTime 5 170.18 cm 30.5 kg/m2 43957.5 1 g 98 [degF] 18 /min 88 [...] 4 170.18 cm 18 /min 28.8 kg/m2 69371 g 80 /min 98 % 98 % [...] Updated DateTime 4 170.18 cm 29 kg/m2 76546.5 9 g 98.3 [degF] 18 /min 99 [...] 4 170.18 cm 18 /min 28.8 kg/m2 91443 g 88 /min 96 % 96 % [...] Or The Highest Degree You Have Received? [id number] Information not available 12/11/2022 Have There Been [...] Do You Have A Medical Power Of Batchmaker? 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 [id number] Information not available 12/11/2022 Do you have [...] available 2022 08:55:19 Medical History Condition Response Hypothyroidism Y Vision or Eye Problems Y Thyroid Problems Y Degenerative Disc Disease Y Gynecological History Statement/Question Response Abnormal Pap [...] PF 05/28/2024 completed Not Available [facility] 2024 17:43:23 Tdap 07/08/2023 completed Hiwot Beaulieu [...] SNOMED-CT Code Diagnosis ICD10 Code Diagnosis Note [id number] Debora Olsen APRN [address] [address] 12/11/2022 08:47:06 12/11/2022 09:56:35 Body mass index 25-29 - overweight 903022270 Z68.26 Overweight 745139342 E66 .3 Anxiety 05678708 F41.9 Otitis ext bria of right ear 9269255700 294105 H60.91 Chronic ne ck pain for greater than 3 months 8682474252 32510 M54.2 see forms filled out for disability - see notecan work with restrictio ns as stated by surgeon.se dentary work only [id number] Debora Olsen [address] [address] 03/22/2023 14:06:48 03/22/2023 14:52:51 Chronic neck pain 9929145790 107 M54.2 follow up with neurosurge ry Chronic back pain 116280 002 G89.29 pt needs a job that is statuary and has freq breaks Disorder o f cervical spine 174334991 M53.82 Degenerati on of lumbar intervertebral disc 69063996 M51.36 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 88581346 M51.34 Lumbar fac et joint pain 492344125 M54.51 [id number] [facility] [address] [address] 06/17/2023 08:21:13 06/17/2023 08:59:37 Anxiety 28239152 F41.9 Chronic neck pain 850571 0309 107 M54.2 follow up with neurosurge ry Hypothyroidism 99364794 E03.9 Non-alcoho lic fatty liver 212646553 K76.0 [id number] Debora Olsen [address] [address] 06/18/2023 17:23:01 06/26/2023 08:47:14 [id number] [facility] [address] [address] 07/08/2023 10:52:29 07/08/2023 11:52:35 Administration of diphtheria, pertussis, and tetanus vaccine 197287427 Z23 Dog bite of forearm 6597 96676 S51.851A monitor for s/s of infection Screening for malignant neoplasm of colon 996112791 Z12.11 Screening mammography of bilateral breasts 5180806404 26002 Z12.31 [id number] Debora Olsen [address] [place] [address] 09/05/2023 10:39:55 09/05/2023 11:33:10 Chronic neck pain 2138776332 107 M54.2 follow up with neurosurge rypaper work completed- she may return to work on restrictio ns [id number] Debora Olsen [address] [address] 11/18/2023 14:06:59 11/18/2023 15:55:21 Chronic neck pain 5788100212 107 M54.2 follow up with neurosurge rypaper work completed- she may return to work on restrictio ns [id number] Debora Olsen [address] [address] 01/21/2024 08:53:10 01/21/2024 09:33:23 Chronic neck pain 4756719205 107 M54.2 pt can return to work for sedentary work only with freq breaks Hypothyroidism 09708953 E03.9 Non-alcoho lic fatty liver 523043601 K76.0 [id number] Debora Olsen [address] [address] 04/07/2024 09:19:38 04/07/2024 10:10:10 History of appendectomy 590179249 Z90.49 follow up with surgeon Tachycardia 3962162 R00. 0 follow up with cardiology [id number] Debora Olsen APRN [address] [address] 06/09/2024 17:26:40 06/09/2024 17:59:42 Chest pain 62290624 R07.9 sent to ed for eval Headache 54845115 R51.9 [id number] Debora Olsen [address] [address] 06/18/2024 09:17:45 06/18/2024 10:10:26 Allergic reaction 259918541 T78.40XA benadryl as neededretu rn if worsen or no improvemen t [id number] Debora Olsen APRN [address] [address] 09/01/2024 15:11:47 09/01/2024 17:02:46 Hypothyroidism 08458137 E03.9 Anxiety 98297115 F41.9 [id number] Debora Olsen APRN [address] [address] 10/27/2024 17:42:41 10/27/2024 18:09:21 Body mass index 30+ - obesity 987499220 Z68.30 30.5 Obesity 422758842 E66.9 Chronic back pain 809734 002 G89.29 if symptoms worsen or no improvemen t return Health Concerns Section Related Observation LastModified by Organization Detai ls LastModified Time None Recorded Concern Status LastModified by Organization Details LastModified Time None Recorded Advance Directives Directive N: Payers Insurance Date Sequence Insurance Name Policy Number Policy Peterson Covered Member ID Peterson Member ID Guarantor Name 09/01/2024 1 [place] [id number] Mayte Olsen [id number] Mayte Olsen 11/18/2024 1 [place] ([place]) [id number] Moises Olsen [id number] Mayte Olsen Notes Date Note Type Note Provider Name and Address Organization Details Recorded Time 04/07/2024 text/html Emergency Depart ment Follow-Up RecordReported bypatient.Discharge InformationName of hospital/urgent care patient was seen: ([facility]); Patient presented to hospital/urgent care on or [...] needs a stress test Debora Olsen APRN [facility] [address], [place], [address], [place] - [facility] 04/07/2024 10:19:36 06/09/2024 text/html 48 year old mima keene who presents to the office today with concerns of sweats, chest pain, pain in left shoulder states Saturday she had a sore throat, little cough, has headache that will not go away Deontenir BASIL miller [address], [place], [address], [place] - [facility] 06/09/2024 18:01:01 06/18/2024 text/html [...] Olsen APRN [address], [place], [address], [place] - [facility] 06/18/2024 10:04:30 09/01/2024 text/html 49 year old mima keene who presents to the office today for a follow up onhypothyroidism -needs medication refill, needs labsanxiety-needs refill on escitalopram Deontenir BASIL miller [address], [place], [address], [place] - [facility] 09/01/2024 16:28:13 10/27/2024 text/html [...] [facility], Asa Dee MD in [place]. would like referral to pain management for injections. no change in bowel or bladder Deontenir BASIL miller [address], [place], [address], [place] - [facility] 10/27/2024 18:11:26 OBGyn Episode No OBEpisode recorded.
--- OUTSIDE RECORDS SUMMARY | 2025-01-11 09:11 | XMS_ITS | Encounter Summary ---
Author Organization [employer] Address [address] [place] [address] Care Team Providers Care Junction Maker Name Role Phone Daniel Carranza MD Primary Care Provider [phone] Encounter Details Date Type Department Care Team (Late st Contact Info) Description 03/02/2022 Transcribed Document [facility] Family Medicine [facility] [place] [address] ProviderLashaun MD [address] [place], [place] [id number] Social History Tobacco Use Types Packs/Day Years Used Date Smoking Tobacco: Never Assessed Comments Unknown Sex and Gender Information Value Date Recorded Sex Assigned at Not on file Legal Sex Female 1:26 PM CDT Gender Identity Not on file Sexual Orientation Not on file documented as of this encounter Miscellaneous Notes * Cerner Conversion Note - Lashaun ProviderMD - 03/02/2022 12:06 PM CDT [address] [address] JIMMY OLSEN :1975 Visit Time:03/02/2022 [...] When Only if needed Where: [address] [place] [address]- Medications What How Much When Instructions Next [...] activities are safe for you. ??? Take uywq-fip-gpqdnma and prescription medicines only as told by [...] Reviewed: 12/22/2018 Elsevier Patient Education ?? 2020 [employer]. Monitored Anesthesia Care Anesthesia refers to techniques, [...] including vitamins, herbs, eye drops, creams, and thym-vcx-lppoaen medicines. ??? Any problems you or family [...] tells you to take them. ??? Taking pobv-hbf-kxrrvdx medicines, vitamins, herbs, and supplements. Tests and [...] provider. Document Revised: 04/06/2021 Document Reviewed: 06/23/2020 [employer]uity Patient Education ?? 2020 [employer]. Helicobacter Pylori Antibodies Test Why am I [...] including vitamins, herbs, eye drops, creams, and butr-kbs-psemoax medicines. How are the results reported? Your [...] provider. Document Revised: 07/04/2018 Document Reviewed: 03/04/2018 [employer]uity Patient Education ?? 2020 [employer]. Emergency Awareness and Preventative Care STROKE is [...] Assistance with quitting is available by contacting 0-750-DPEG-NOW. This is a free resource providing counseling, [...] range between ( 1.0 and 7.0 ) [place] #: 0.47 K/uL -- Normal range between ( 0.24 and 0.82 ) [place] #: 0.13 K/uL -- Normal range between ( 0.04 and 0.54 ) [place] %: 5.5 % -- Normal range between [...] was given the opportunity to ask questions. Patient/Lead Blender Name: Patient/Lead Blender Signature: Relationship to Patient: Clinician/Hospital Lead Blender Signature: Date: Electronically signed by [facility] Conversion Special Forces Officer Cerner at 11/23/2022 8:32 PM CDT documented in this encounter Plan of Treatment Not on file documented as of this encounter Visit Diagnoses Not on filedocumented in this encounter Care Teams Junction Maker Relationship Specialty Start Date End Date Daniel Carranza MD [address] [place] [address] PCP - General Family Medicine 07/04/22 documented as of this encounter
--- OUTSIDE RECORDS SUMMARY | 2025-01-11 09:11 | XMS_ITS | Encounter Summary ---
Author Organization [employer] Address [address] [place] [address] Care Team Providers Care Tube Mill Operator Name Role Phone Daniel Carranza MD Primary Care Provider Encounter Details Date Type Department Care Team (Late st Contact Info) Description 03/02/2022 Transcribed Document [facility] [place] [address] ProviderLashaun MD [address] [place] [id number] Social History Tobacco Use Types Packs/Day Years [...] JIMMY OLSEN/Sex: 1975 Female Med Rec #: [id number] Physician: MESSI STEEL MD-JOCELYN Financial #: [id number] Pt. Type: Room/Bed: [facility] Admit/Disch: 03/02/22 10:46:00 - Institution: [facility] PACU Case Times Entry 1 In PACU I 03/02/22 11:58:00 Ready for PACU 03/02/22 12:15:00 Discharge Discharge from PACU 03/02/22 12:20:00 I [facility] PACU Case Times Audit 03/02/22 14:37:18 Gear Grinder: [id number] Modifier: [id number] <+> 1 Ready for PACU Discharge <+> 1 Discharge from PACU I Finalized By: FERNANDO JHA RN Document Signatures Signed By: FERNANDO JHA RN 03/02/22 14:38 Electronically signed by Shannon [facility] Conversion Spiral Tube Winder Cerner at 11/23/2022 8:45 PM CDT documented in this encounter Plan of Treatment Not on file documented as of this encounter Visit Diagnoses Not on filedocumented in this encounter Care Teams Tube Mill Operator Relationship Specialty Start Date End Date Daniel Carranza MD [address] [place] [address] PCP - General Family Medicine 07/04/22 documented as of this encounter
--- OUTSIDE RECORDS SUMMARY | 2025-01-11 09:11 | XMS_ITS | Referral Summary ---
Author Organization [employer] Address [address] [place] [address] Care Team Providers Care Impregnator Operator Name Role Phone Daniel Carranza MD Primary Care Provider [phone] Allergies Active Allergy Reactions Criticality Noted Date [...] Date Anil rded Speak language other than Egyptian at home Not on file 08/23/2023 Want [...] 3 AM EDT 03/02/2022 2:53 PM EDT [facility] Historical Provider PATHOLOGY/CYTOLOGY RASHAUN FORD Edited Result - Final [facility] [address] [phone] from Last 3 Months or Most Recently Relevant to Health Maintenance Insurance BLUE CROSS/BLUE SHIELD Care Teams Impregnator Operator Relationship Specialty Start Date End Date Daniel Carranza MD [address] [place] [address] PCP - General Family Medicine 07/04/22
--- OUTSIDE RECORDS SUMMARY | 2025-01-11 09:12 | XMS_ITS | Encounter Summary ---
Author Organization [employer] Address [address] [place] [address] Care Team Providers Care Branch Credit Counselor Name Role Phone Daniel Carranza MD Primary Care Provider [phone] Encounter Details Date Type Department Care Team (Late st Contact Info) Description 03/02/2022 Transcribed Document [facility] Family Medicine [facility] [place] [address] ProviderLashaun MD [address] [place], [place] [phone] Social History Tobacco Use Types Packs/Day Years [...] JIMMY OLSEN/Sex: 1975 Female Med Rec #: [id number] Physician: MESSI STEEL MD-JOCELYN Financial #: [id number] Pt. Type: Room/Bed: [facility] Admit/Disch: 03/02/22 10:46:00 - Institution: [facility] [place]o - Case Attendance Entry 1 Entry 2 Entry 3 Case Attendee MESSI STEEL [facility], BRITTANY, CIELO OTHER, ATTENDEE -JOCELYN Role Performed Surgeon/Proceduralist, RETAIL TEAM MEMBER/Nurse Mfg Assoc Student First Time In 03/02/22 11:51:00 03/02/22 11:51:00 03/02/22 11:51:00 Time Out 03/02/22 11:56:00 03/02/22 11:56:00 03/02/22 11:56:00 Procedure Esophagogastroduodenosco Esophagogastroduodenosco Esophagogastroduodenosco py, Gastric Biopsy py, Gastric Biopsy py, Gastric Biopsy Other Attendee Ambrosio MENDEZ Superficial Wound Closed By: Last Modified By: Vangie Tanner Kindred, Pamela, Kindred, Pamela, RN-PATIENT CARE BEDSIDE RN-PATIENT CARE BEDSIDE RN-PATIENT CARE BEDSIDE NON-EXEMPT 03/02/22 NON-EXEMPT 03/02/22 NON-EXEMPT 03/02/22 12:46:28 12:46:28 12:46:28 Entry 4 Entry 5 Case Attendee Vangie Tanner CHILDERS, BRIAN, TECH RN-PATIENT CARE BEDSIDE NON-EXEMPT Role Performed Tennis Instructor, First Scrub, First Time In 03/02/22 11:51:00 03/02/22 11:51:00 Time Out 03/02/22 11:56:00 03/02/22 11:56:00 Procedure Esophagogastroduodenosco Esophagogastroduodenosco py, Gastric Biopsy py, Gastric Biopsy Other Attendee Superficial Wound Closed By: Last Modified By: Vangie Tanner Kindred, Pamela, RN-PATIENT CARE BEDSIDE RN-PATIENT CARE BEDSIDE NON-EXEMPT 03/02/22 NON-EXEMPT 03/02/22 12:46:28 12:46:28 [facility] [place] - Case Attendance Audit 03/02/22 12:46:28 Highway Engineer: [id number] Modifier: [id number] 1 <*> Procedure Esophagogastroduodenoscopy 2 <*> Procedure Esophagogastroduodenoscopy 3 <*> Procedure Esophagogastroduodenoscopy 4 <*> Procedure Esophagogastroduodenoscopy 5 <*> Procedure Esophagogastroduodenoscopy 03/02/22 12:44:04 Highway Engineer: [id number] Modifier: [id number] <+> 1 Procedure 2 <*> Procedure Esophagogastroduodenoscopy 3 <*> Procedure Esophagogastroduodenoscopy 4 <*> Procedure Esophagogastroduodenoscopy 5 <*> Procedure Esophagogastroduodenoscopy 03/02/22 12:42:17 Highway Engineer: [id number] Modifier: [id number] 3 <*> Procedure Esophagogastroduodenoscopy 3 <*> Other Attendee 03/02/22 12:09:39 Highway Engineer: [id number] Modifier: [id number] <+> 1 Time In <+> 1 Time [...] Endo - Case Times Audit 03/02/22 12:42:39 Highway Engineer: [id number] Modifier: [id number] <+> 1 Stop Time <+> 1 Anesthesia [...] by RN-PATIENT CARE BEDSIDE NON-EXEMPT, CHAY WILKINS, RETAIL TEAM MEMBER, OTHER, ATTENDEE Last Modified By: Vangie Tanner [...] - Fire Risk Assessment Audit 03/02/22 12:43:16 Highway Engineer: [id number] Modifier: [id number] 1 <*> Fire Risk Assessment Verified 03/02/22 11:47:00 Date/Time 03/02/22 12:43:03 Highway Engineer: [id number] Modifier: [id number] <+> 1 Fire Risk Assessment Verified Date/Time [facility] End[facility] - General Case Ring Cutter Lathe Operator 1 Case Information OR Endo 02 [facility] Case Level 1 Room Verified Yes Wound Class 2 - Clean-Contaminated Specialty General Anesthesia Type MAC ASA Class 3 Diagnosis Preop Diagnosis GERD, dyspepsia Postop Diagnosis see MD report Wound Class Definitions Last Modified By: Vangie Tanner RN-PATIENT CARE BEDSIDE NON-EXEMPT 03/02/22 12:52:00 [facility] End[facility] - General Case Data Audit 03/02/22 12:52:00 Highway Engineer: [id number] Modifier: [id number] <+> 1 ASA Class [facility] Endo - [...] Endo - Patient Positioning Audit 03/02/22 12:46:30 Highway Engineer: [id number] Modifier: [id number] 1 <*> Procedure Esophagogastroduodenoscopy [facility] End[facility] - [...] Endo - Surgical Procedures Audit 03/02/22 12:47:11 Highway Engineer: [id number] Modifier: [id number] 1 <*> Procedure Esophagogastroduodenoscopy 1 <+> Wound Class 03/02/22 12:46:22 Highway Engineer: [id number] Modifier: [id number] <+> 2 Procedure <+> 2 Primary Procedure [...] Endo - Time Out Audit 03/02/22 12:46:30 Highway Engineer: [id number] Modifier: [id number] 1 <*> Procedure to be Performed Esophagogastroduodenoscopy Case Comments <None> Finalized By: Vangie Tanner RN-PATIENT CARE BEDSIDE NON-EXEMPT Document Signatures Signed By: Vangie Tanner RN-PATIENT CARE BEDSIDE NON-EXEMPT 03/02/22 12:52 Electronically signed by Shannon [facility] Conversion Residential Treatment Staff Cerner at 11/23/2022 8:53 PM CDT documented in this encounter Plan of Treatment Not on file documented as of this encounter Visit Diagnoses Not on filedocumented in this encounter Care Teams Branch Credit Counselor Relationship Specialty Start Date End Date Daniel Carranza MD [address] [place] [address] PCP - General Family Medicine 07/04/22 documented as of this encounter
[2025-01-11 09:16] LABS: Appearance,Urine CLEAR (Clear); Bilirubin,Urine Negative (Negative); Blood, Urine 2+ (Negative); Color,Urine YELLOW (Yellow); Glucose,Urine (UA) Negative (Negative); Ketones,Urine Negative (Negative); Leukocyte Esterase,Urine Negative (Negative); Nitrate,Urine Negative (Negative); PH,Urine 6.5 (5.0-8.5); Protein,Urine 1+ (Negative); Specific Gravity, Urine <= 1.005 (1.005-1.030); Urobilinogen,Urine 0.2 EU/dl (0.2)
[2025-01-11 09:26] LABS: Basophils # 0.1 K/mm3 (0-0.2); Basophils % 0.6 % (0.1-2.0); Eosinophils # 0.1 Kmm3 (0.0-0.4); Eosinophils % 0.9 % (0.1-12.0); Hematocrit 41.9 % (37.0-47.0); Hemoglobin 14.3 g/dL (12.2-16.2); Immature Granulocytes # 0.04 10^3uL; Immature Granulocytes % 0.4 %; Lymphocytes # 1.9 K/mm3 (0.7-4.5); Lymphocytes % 17.7 % (10-50); Mean Corpuscular HGB Conc 34.1 g/dL (31.8-35.4); Mean Corpuscular Hemoglobin 28.6 pg (27.0-31.2); Mean Corpuscular Volume 83.8 fl (81-99); Mean Platelet Volume 9.4 fl (7.4-10.4); Monocytes # 0.5 K/mm3 (0.1-1.0); Monocytes % 4.5 % (1.7-9.3); Neutrophils # 8.2 K/mm3 (1.8-7.8); Neutrophils % 75.9 % (37.0-80.0); Nucleated Red Blood Cells # 0 10^3/uL; Nucleated Red Blood Cells % 0 %; Platelet Count 317 K/mm3 (142-424); Red Cell Distribution Width-SD 42.2 fL; White Blood Count 10.8 K/mm3 (4.8-10.8)
[2025-01-11 09:28] LABS: Bacteria,Urine Trace /lpf; WBC,Urine Occasional #/hpf (0-3)
[2025-01-11 09:31] LABS: HCG Qualitative, Serum Negative (Negative)
[2025-01-11 09:34] LABS: Alanine Aminotransferase 33 U/L (12-78); Albumin Level 4.9 g/dl (3.5-5.0); Albumin/Globulin Ratio 1.4 (1.1-1.8); Alkaline Phosphatase 78 U/L (38-126); Anion Gap 13.9 mEq/L (5-15); Aspartate Amino Transferase 31 U/L (14-36); Bilirubin,Total 1.4 mg/dl (0.2-1.3); Blood Urea Nitrogen 14 mg/dl (7-17); Calcium 9.9 mg/dl (8.4-10.2); Carbon Dioxide 26 mmol/L (22.0-30.0); Chloride 105 mmol/L (98-107); Creatinine Clearance Estimated 111 mL/min (50-200); Estimated Glomerular Filt Rate 77 ml/min (>60); GFR (African American) 93 ML/MIN (>60); Globulin 3.4 g/dL (1.3-3.2); Glucose 114 mg/dl (74-100); Lipase 89 U/L (23-300); Potassium 3.9 mmoL/L (3.5-5.1); Sodium 141 mmol/L (136-145); Total Protein,Serum 8.3 g/dl (6.3-8.2)
[2025-01-11] MEDS: KETOROLAC 30MG/ML VIAL 15 MG IV (09:43)
--- NOTE | 2025-01-11 09:51 | CT_ITS ---
FINAL REPORT TECHNIQUE: Axial images through the abdomen and pelvis were performed without contrast. This study was performed with techniques to keep radiation doses as low as reasonably achievable, (ALARA). Individualized dose reduction techniques using automated exposure control or adjustment of mA and/or kV according to the patient's size were employed. CLINICAL HISTORY: R flank pain, dysuria COMPARISON: 03/30/2024 FINDINGS: Abdomen: The lung bases are clear. There is mild fatty infiltration of the liver. The gallbladder is surgically absent. Gastric sleeve is noted. The spleen, pancreas, and adrenal glands are unremarkable. There are tiny bilateral nonobstructing kidney stones. There is moderate right hydronephrosis and hydroureter with multiple small stones at the level of the right UVJ. There are 3 separate stones measuring up to 4 mm in greatest dimension, well seen on image 112 of series 3. Pelvis: The urinary bladder is unremarkable. The appendix is surgically absent. The uterus is present. No pelvic free fluid is seen. There is no pelvic mass or inflammation. IMPRESSION: Three obstructing stones at the right UVJ with moderate right hydronephrosis and hydroureter. Postoperative changes from gastric sleeve. Reviewed, Interpreted and Dictated by Maik Shay MD Transcribed by Marie Murcia Authenticated and [facility]
--- NOTE | 2025-01-11 10:01 | PC.NURSE ---
PT TO CT
--- NOTE | 2025-01-11 10:08 | PC.NURSE ---
PT RETURNED FROM CT
--- NOTE | 2025-01-11 10:09 | PC.NURSE ---
ROUNDED ON PT, UPDATED ON POC. NO NEEDS AT THIS TIME. CALL LIGHT WITHIN REACH
--- NOTE | 2025-01-11 11:07 | PC.NURSE ---
ROUNDED ON PT. UPDATED ON POC. NO NEEDS AT THIS TIME. CALL LIGHT WITHIN REACH
== END 2025-01-11 11:45 | disposition home or self-care (01) ==
PROVIDERS: Emergency Provider Emergency Medicine; PCP Nurse Practitioner Family
DX: N13.0 Hydronephrosis with ureteropelvic junction obstruction (principal); N13.4 Hydroureter; R10.9 Unspecified abdominal pain; M54.59 Other low back pain; R30.0 Dysuria
CPT/HCPCS: 74176; 80053; 81001; 83690; 84703; 85025; 96374; 99284; J1885

== ENCOUNTER 2025-01-27 08:29 | Outpatient (POV) | payer BC, SELFPAY ==
--- OUTSIDE RECORDS SUMMARY | 2025-01-27 08:33 | XMS_ITS | Encounter Summary ---
Author Organization [employer] Address [address] [place] [address] Care Team Providers Care Distance Education Teacher Name Role Phone Daniel Carranza MD Primary Care Provider [phone] Encounter Details Date Type Department Care Team (Late st Contact Info) Description 03/02/2022 Transcribed Document [facility] [place] [address] ProviderLashaun MD [address], [place] [id number] Social History Tobacco Use Types Packs/Day Years Used Date Smoking Tobacco: Never Assessed Comments Unknown Sex and Gender Information Value Date Recorded Sex Assigned at Not on file Legal Sex Female 1:26 PM CDT Gender Identity Not on file Sexual Orientation Not on file documented as of this encounter Miscellaneous Notes * Cerner Conversion Note - Lashaun ProviderMD - 03/02/2022 12:06 PM CDT [address] [address] JIMMY OLSEN :1975 Visit Time:03/02/2022 [...] When Only if needed Where: [address] [place] [address]- Medications What How Much When Instructions Next [...] activities are safe for you. ??? Take qlwe-pxl-qfllmli and prescription medicines only as told by [...] Reviewed: 12/22/2018 Elsevier Patient Education ?? 2020 Lab42. Monitored Anesthesia Care Anesthesia refers to techniques, [...] including vitamins, herbs, eye drops, creams, and wyno-vkt-obejydd medicines. ??? Any problems you or family [...] tells you to take them. ??? Taking ilac-zva-rrsnbdn medicines, vitamins, herbs, and supplements. Tests and [...] provider. Document Revised: 04/06/2021 Document Reviewed: 06/23/2020 [employer] Patient Education ?? 2020 Lab42. Helicobacter Pylori Antibodies Test Why am I [...] including vitamins, herbs, eye drops, creams, and bgyf-ixu-cblxgxi medicines. How are the results reported? Your [...] provider. Document Revised: 07/04/2018 Document Reviewed: 03/04/2018 [employer] Patient Education ?? 2020 Lab42. Emergency Awareness and Preventative Care STROKE is [...] Assistance with quitting is available by contacting 3-719-OBIR-NOW. This is a free resource providing counseling, [...] range between ( 1.0 and 7.0 ) Smith #: 0.47 K/uL -- Normal range between ( 0.24 and 0.82 ) Eos #: 0.13 K/uL -- Normal range between ( 0.04 and 0.54 ) Smith %: 5.5 % -- Normal range between [...] was given the opportunity to ask questions. Patient/Weigh Tank Operator Name: Patient/Weigh Tank Operator Signature: Relationship to Patient: Clinician/Hospital Weigh Tank Operator Signature: Date: documented in this encounter Plan of Treatment Not on file documented as of this encounter Visit Diagnoses Not on filedocumented in this encounter Care Teams Distance Education Teacher Relationship Specialty Start Date End Date Daniel Carranza MD [address] [place] [address] PCP - General Family Medicine 07/04/22 documented as of this encounter
--- OUTSIDE RECORDS SUMMARY | 2025-01-27 08:33 | XMS_ITS | Data Portability ---
Author Organization [facility] Address [address] [place] [address] Care Team Providers Care Aircraft Painter Apprentice Name Role Phone CHRISTINA DAVIS Referring Provider Assessment Encounter Date Assessment Date Assessment LastModified by Organization Details LastModified Time 01/19/2025 01/19/2025 -Medications were reviewed and any necessary updates and renewals were made, patient instructed to complete as prescribed. -The potential side effects of medications were discussed. -Counseling was done on care goals and ways to prevent future hospitalizatio ns. -Further treatment per orders listed below. [email or web address] Not available 01/19/2025 17:41:27 Plan of Treatment Reminders Order Date Submit Date Provider Last Modified By Organization Details Last Modified Time Details Appointments None recorded. Lab TSH + free T4, serum 2024 025 YUMA [facility], [address] , [facility], [place], [address], 5 08:11:38 Referral urologist referral - Ilir Leyva--- STAT 2024 025 KIMBERLY [facility], [address], [place], [address], 5 08:36:49 pain management referral 2024 025 ALBERT Nuñez MD, [address] [facility] [address], [place], [address], 5 10:26:18 Procedures None recorded. Surgeries None recorded. Imaging electrocar diogram 2023 024 [facility], [address] [facility], [place], [address], 4 18:01:59 Medication Orders escitalopr am 10 mg tablet 2024 025 [facility], [address] [place] [address], [facility], [place], [address], 5 16:28:29 levothyrox ine 50 mcg tablet 2024 025 [facility], [address] [place] [address], [facility], [place], [address], 5 16:28:30 prednisone 20 mg tablet 2023 025 [facility], [address] [place] [address], [facility], [place], [address], 15:48:11 Patient TargetsNo targets recorded. Patient Instructions Encounter Date Encounter Id Patient Instructions Last Modified By Organization Details Last Modified Time 10/27/2024 [id number] learning about healthy weight efryman Not available 10/27/2024 18:10:52 body mass index: care instructions efryman Not available 10/27/2024 18:10:52 Reason for Referral Pain Management Referral for Chronic back pain Referring Physician: Debora Olsen [facility], Encounter Date: 10/27/2024 Urologist Referral for Kidne y stone Ilir Art--- STAT Referring Physician: Debora Olsen [facility], Encounter Date: 01/19/2025 Results Created Date Observation Date Name Description Value Unit Range Abnormal Flag Note LastModifiedBy Organization Detail LastModifiedTime 09/01/1909/02/2024 TSH+F REE T4 TSH 1.230 uIU/m L 0.450- 4.500 normal Not Available [facility] ([facility]) [address] [facility], [place], [address], 09/02/2024 08:11:38 09/01/19 25 09/02/2024 TSH+F REE T4 T4,free(dire ct) 1.09 NG/dL 0.82-1 .77 normal Not Available [facility] ([facility]) [address] [facility], [place], [address], 09/02/2024 08:11:38 06/09/20 24 06/09/2024 elect rocar diogr am No observ ation record ed. [email or web address] [address], [address], 06/11/2024 08:32:20 06/09/20 24 06/09/2024 elect rocar diogr am No observ ation record ed. [email or web address] [address], [address], 06/12/2024 11:43:27 06/09/20 24 06/09/2024 XR, chest , 2 view No observ ation record ed. [facility] [address], [place], [address], 06/11/2024 08:56:51 06/09/20 24 06/09/2024 CT, angio gram, chest , w/ contr ast No observ ation record ed. [facility] [address], [place], [address], 06/11/2024 08:54:36 06/09/20 24 06/09/2024 elect rocar diogr am No observ ation record ed. [facility] [address], [place], [address], 06/11/2024 08:54:03 07/06/20 24 07/03/2024 cardi ac stres s test No observ ation record ed. [facility] [address], [place], [address], 07/06/2024 13:48:22 07/06/20 24 07/03/2024 NM, myoca rdial perfu dylan scan, w/ stres s No observ ation record ed. [facility] [address], [place], [address], 07/06/2024 13:48:09 08/26/19 25 08/24/2024 CT, angio gram, coron seven arter ies, w/ contr ast No observ ation record ed. [facility] [address], [place], [address], 08/27/2024 08:26:45 01/12/20 25 01/11/2025 CT, abdom en + pelvi s, w/o contr ast No observ ation record ed. [facility] [address], [place], [address], 01/11/2025 11:50:45 Result Notes None recorded. Problems Name Problem SNOMED Code Status Onset Date Resolution Date Notes Provider Name and Address Organization Details Recorded Time Anxiety 58977709 Active Hiwot Beaulieu null, [place] - [facility] 3 09:09:45 Hypothyroi dism 63651499 Active Hiwot Beaulieu null, [place] - [facility] 3 09:10:07 Non-alcoho lic fatty liver 864808476 Active Hiwot Beaul[place] null, [place] - [facility] 3 09:10:31 Chronic neck pain 6583145575535 Active 2022 Debora Olsen, OCCUPATIONAL HYGIENIST [address], [place], [address] , [place] - [facility] 3 11:24:20 Problem Notes None recorded. Procedures Surgical History Date Name Laterality Status Provider Name and Address Organization Details Recorded Time 01/20/20 Medication Reconcilliation completed Hiwot Beaulieu [place] - [facility] 01/19/2025 17:41:27 04/07/20 24 Medication Reconcilliation completed Michelle Ness [place] - [facility] 04/07/2024 09:28:06 09/06/19 24 Date of Last Colonoscopy completed Hiwot SUBRAMANIAN - [facility] 03/03/2024 09:45:11 07/26/20 23 Date of Last Mammogram completed Michelle Ness [place] - [facility] 08/01/2023 10:52:51 10/12/19 07 Caesarean Section completed Hiwot SUBRAMANIAN - [facility] 12/11/2022 08:55:20 Arthroscopic Surgery completed Hiwot SUBRAMANIAN - [facility] 12/11/2022 08:55:20 Gastric Bypass completed Hiwot SUBRAMANIAN - [facility] 12/11/2022 08:55:20 Orthopedic Surgery completed Chaz SUBRAMANIAN - [facility] 12/11/2022 08:55:20 Adnexal surgery completed Hiwot SUBRAMANIAN - [facility] 12/11/2022 08:55:20 appendectomy completed Michelle Ness [place] - [facility] 06/09/2024 17:34:34 Imaging Results None recorded. Procedure Notes None recorded. Medical Equipment None Reported. Allergies No known drug allergies Medications Name Sig Start Date Stop Date Status Note LastModified by Organization Details LastModified Time blood pressu solution kit 06/17 completed Not Available Not Available Not Available cyclobenza kristie 10 mg tablet 04/07 completed Not Available Not Available Not Available Flomax 0.4 mg capsule Take 1 capsule every day by oral route. active Not Available Not Available No t Available neomycin-p olymyxin-h ydrocort 3.5 mg/mL-10,0 00 unit/mL-1 % ear solution 03/22 completed Not Available Not Available Not Available atorvastat in 20 mg tablet 1 qd active Not Available Not Available Not Available hydrocodon e 5 mg-acetami nophen 325 mg tablet TAKE 1 TO 2 TABLET(S ) BY MOUTH EVERY 6 HOURS NEEDED FOR PAIN MAY CAUSE DROWSINE SS 06/09 completed Not Available Not Available Not Available ondansetro n HCl 8 mg tablet 12/11 completed Not Available Not Available Not Available prednisone 20 mg tablet Take 1 tablet twice a day by oral route for 5 days. 09/01 completed Not Available Not Available Not Available aspirin 81 mg tablet,del ayed release 1 qd active on hold for flomax/ kidney stones Not Available Not Available Not Available levothyrox ine 75 mcg tablet Take 1 tablet every other day by oral route. active Not Available Not Available No t Available levothyrox ine 50 mcg tablet Take 1 tablet every other day by oral route. active Not Available Not Available No t Available cephalexin 500 mg capsule Take 1 capsule twice a day by oral route for 10 days. 09/05 completed Not Available Not Available Not Available pantoprazo le 40 mg tablet,del ayed release TAKE ONE TABLET BY MOUTH EVERY DAY 09/01 completed Not Available Not Available Not Available omeprazole 20 mg capsule,de layed release 12/11 completed Not Available Not Available Not Available mupirocin 2 % topical ointment APPLY A SMALL AMOUNT TO THE AFFECTED AREA BY TOPICAL ROUTE 3 TIMES PER DAY 11/17 completed Not Available Not Available Not Available ibuprofen 600 mg tablet 12/11 completed Not Available Not Available Not Available Naprosyn 500 mg tablet Take 1 tablet twice a day by oral route. active Not Available Not Available No t Available ondansetro n 4 mg disintegra ting tablet 12/11 completed Not Available Not Available Not Available amoxicilli n 500 mg-potassi um clavulanat e 125 mg tablet TAKE ONE TABLET BY MOUTH TWICE DAILY FOR 3 DAYS -- FINISH ALL MEDICINE -- 04/07 completed Not Available Not Available Not Available oxycodone 5 mg tablet Take 1 tablet every 8 hours by oral route as needed. active Not Available Not Available No t Available neomycin-p olymyxin-h ydrocort 3.5 mg-10,000 unit/mL-1 % ear drops,susp INSTILL 4 DROPS INTO AFFECTED EAR(S) BY OTIC ROUTE 3 TIMES PER DAY 03/22 completed Not Available Not Available Not Available escitalopr am 10 mg tablet Take 1 tablet every day by oral route for 90 days. active Not Available Not Available No t Available losartan 100 mg-hydroch lorothiazi de 12.5 mg tablet 12/11 completed Not Available Not Available Not Available sodium,pot assium,mag sulfates 17.5 gram-3.13 gram-1.6 gram oral soln [...] 5 170.18 cm 18 /min 29.3 kg/m2 44456.7 7 g 98 [degF] 78 /min 98 [...] Updated DateTime 5 170.18 cm 30.5 kg/m2 47131.5 1 g 98 [degF] 18 /min 88 /min 99 % 99 % 132 mm[Hg] 78 mm[Hg] Michelle Stears [place] - [facility] 5 17:51:39 Date Recorded Body height Body mass index (BMI) Body weight Provider Name and Address Organization Details Last Updated DateTime 01/19/2025 170.18 cm 29.8 kg/m2 57807.55 g Hiwot Beaulieu [place] - [facility] 01/19/2025 17:55:28 Date Recorded Body height Body mass index (BMI) Body weight Body temperature Respiratory rate Oxygen saturation Oxygen saturation in Arterial blood by Pulse oximetry Heart rate Systolic blood pressure Diastolic blood pressure Provider Name and Address Organization Details Last Updated DateTime 4 170.18 cm 29 kg/m2 39985.5 9 g 98.3 [degF] 18 /min 99 [...] 4 170.18 cm 18 /min 28.8 kg/m2 23925 g 88 /min 96 % 96 % 97.9 [degF] 156 mm[Hg] 88 mm[Hg] Michelle Stears [place] - [facility] 4 09:31:19 Social History Question Answer Notes LastModified by Organizat ion Details LastModified Time Tobacco Smoking Status Former Smoker Hiwot Christofer null, [place] - [facility] 12/11/2022 08:55:20 Do You Have [...] Or The Highest Degree You Have Received? [id number] Information not available 12/11/2022 Have There Been Any Changes To Your Family Or Social Situation? No Information no t available 12/11/2022 What Is The Fluoride Status Of Your Home? Fluoridated Information not available 12/11/2022 When Did You Quit Smoking? 1-5yearssinmary hernandez 2019 Information not available 03/22/2023 Have You Recently Or Are You Planning To Travel To An Area With Zika Virus? No Information not available 12/11/2022 Do You Have A Medical Power Of Business Continuity Coordinator? 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 [id number] Information not available 12/11/2022 Do you have [...] Mammogram 07/26/2023 Flow Heavy Date of LMP 12/14/2024 STIs/STDs N HPV Vaccine N Duration of [...] virus, trivalent, PF 05/28/2024 completed Not Available [facility] 2024 17:33:20 Tdap 07/08/2023 completed Hiwot Beaul[place] null, [place] - [facility] 07/08/2023 13:25:04 COVID-19 vaccine, vector-nr, rS-Ad26, PF, 0.5 mL 10/12/2020 completed Michelle Stears null, [place] - [facility] 03/22/2023 14:13:03 Influenza, split virus, quadrivalent, PF 05/10/2022 completed Michelle Stears null, [place] - [facility] 03/22/2023 14:13:03 Influenza, split virus, quadrivalent, PF 06/05/2023 completed Michelle Stears null, [place] - [facility] 04/07/2024 09:28:33 Past Encounters Encounter ID Performer Location Encounter Start Date Encounter Closed Date Diagnosis/Indication Diagnosis SNOMED-CT Code Diagnosis ICD10 Code Diagnosis Note [id number] Debora Olsen APRN [address] [address] 12/11/2022 08:47:06 12/11/2022 09:56:35 Body mass index 25-29 - overweight 062153589 Z68.26 Overweight 209225544 E66 .3 Anxiety 54316287 F41.9 Otitis ext bria of right ear 8420708042 238933 H60.91 Chronic ne ck pain for greater than 3 months 7775719863 13340 M54.2 see forms filled out for disability - see notecan work with restrictio ns as stated by surgeon.se dentary work only [id number] Debora Olsen [address] [address] 03/22/2023 14:06:48 03/22/2023 14:52:51 Chronic neck pain 0281741423 107 M54.2 follow up with neurosurge ry Chronic back pain 036350 002 G89.29 pt needs a job that is statuary and has freq breaks Disorder o f cervical spine 149372660 M53.82 Degenerati on of lumbar intervertebral disc 26636260 M51.36 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 70265022 M51.34 Lumbar fac et joint pain 119337393 M54.51 [id number] Debora Olsen [address] [address] 06/17/2023 08:21:13 06/17/2023 08:59:37 Anxiety 31721816 F41.9 Chronic neck pain 147258 7779 107 M54.2 follow up with neurosurge ry Hypothyroidism 93721408 E03.9 Non-alcoho lic fatty liver 932690481 K76.0 [id number] [facility] [address] [address] 06/18/2023 17:23:01 06/26/2023 08:47:14 [id number] [facility] [address] [address] 07/08/2023 10:52:29 07/08/2023 11:52:35 Administration of diphtheria, pertussis, and tetanus vaccine 294563740 Z23 Dog bite of forearm 2577 21480 S51.851A monitor for s/s of infection Screening for malignant neoplasm of colon 649414100 Z12.11 Screening mammography of bilateral breasts 3324848900 21907 Z12.31 [id number] Debora Olsen [address] [address] 09/05/2023 10:39:55 09/05/2023 11:33:10 Chronic neck pain 4043032760 107 M54.2 follow up with neurosurge rypaper work completed- she may return to work on restrictio ns [id number] Debora Olsen APRN [address] [address] 11/18/2023 14:06:59 11/18/2023 15:55:21 Chronic neck pain 4294991011 107 M54.2 follow up with neurosurge rypaper work completed- she may return to work on restrictio ns [id number] Debora Olsen APRN [address] [address] 01/21/2024 08:53:10 01/21/2024 09:33:23 Chronic neck pain 1009808990 107 M54.2 pt can return to work for sedentary work only with freq breaks Hypothyroidism 98756834 E03.9 Non-alcoho lic fatty liver 499880973 K76.0 [id number] Debora Olsen APRN [address] [address] 04/07/2024 09:19:38 04/07/2024 10:10:10 History of appendectomy 062874058 Z90.49 follow up with surgeon Tachycardia 8747742 R00. 0 follow up with cardiology [id number] Debora Olsen APRN [address] [address] 06/09/2024 17:26:40 06/09/2024 17:59:42 Chest pain 65166029 R07.9 sent to ed for eval Headache 90210011 R51.9 [id number] Debora Olsen APRN [address] [address] 06/18/2024 09:17:45 06/18/2024 10:10:26 Allergic reaction 666859396 T78.40XA benadryl as neededsangeeta zuleta if worsen or no improvemen t [id number] Debora Olsen APRN [address] [address] 09/01/2024 15:11:47 09/01/2024 17:02:46 Hypothyroidism 41559459 E03.9 Anxiety 16355723 F41.9 [id number] Debora Olsen [address] [address] 10/27/2024 17:42:41 10/27/2024 18:09:21 Body mass index 30+ - obesity 102474042 Z68.30 30.5 Obesity 243830044 E66.9 Chronic back pain 419461 002 G89.29 if symptoms worsen or no improvemen t return [id number] Debora Olsen APRN [address] [address] 01/19/2025 17:32:57 01/19/2025 18:07:38 Kidney stone 49141941 N20.0 continue with meds and increase fluid intakeif worsening or no improvemen t return Health Concerns Section Related Observation LastModified by Organization Detai ls LastModified Time None Recorded Concern Status LastModified by Organization Details LastModified Time None Recorded Advance Directives Directive N: Payers Insurance Date Sequence Insurance Name Policy Number Policy Peterson Covered Member ID Peterson Member ID Guarantor Name 09/01/2024 1 [place]IA [place] (PPO) [id number] Mayte Olsen [id number] Mayte Olsen 01/18/2025 1 MARIA [place] (PPO) [id number] Moises Olsen [id number] Mayte Olsen Notes Date Note Type Note Provider Name and Address Organization Details Recorded Time 06/09/2024 text/html 48 year old mima keene who presents to the office today with concerns of sweats, chest pain, pain in left shoulder states Saturday she had a sore throat, little cough, has headache that will not go away Debora Olsen APRN [address], [place], [address], [place] - [facility] 06/09/2024 18:01:01 06/18/2024 text/html [...] feet and anklescontinued itching/redness since stopping medication Debora Olsen OCCUPATIONAL HYGIENIST [address], [place], [address], [place] - [facility] 06/18/2024 10:04:30 09/01/2024 text/html 49 year old mima keene who presents to the office today for a follow up onhypothyroidism -needs medication refill, needs labsanxiety-needs refill on escitalopram Debora OlsenBASIL [address], [place], [address], [place] - [facility] 09/01/2024 16:28:13 10/27/2024 text/html 49 year old mima keene who presents to the office today with concerns of low back pain- pt states she started sleeping in a recliner about 4-5 years ago due to back pain and now that is not helping either.pt states she was offered back injections in -2020 by previous ortho [facility], Asa Dee MD in [place]. would like referral to pain management for injections. no change in bowel or bladder Debora Olsen BASIL [address], [place], [address], [place] - [facility] 10/27/2024 18:11:26 01/19/2025 text/html Emergency Depart ment Follow-Up RecordReported bypatient.Discharge InformationName of hospital/urgent care patient was seen: ([facility]); Patient presented to hospital/urgent care on or around: actual date 01/11/25; Patient presented to hospital for treatment of: (kidney stones); Treatment received by hospital/urgent care: (meds, ct scan); Patient's condition has: improved; Hospital records available at the time of this visit: No 49 yr old female presents for a follow up after an er visit. She has kidney stones- er doctor thought she could pass them but she hasn't passed yet. would like referral to urology Debora Olsen, OCCUPATIONAL HYGIENIST [address], [place], [address], [facility] - [facility] 01/19/2025 18:15:14 OBGyn Episode No OBEpisode recorded.
--- OUTSIDE RECORDS SUMMARY | 2025-01-27 08:34 | XMS_ITS | Continuity of Care Document ---
Author Organization [facility] Address [address] [place] [address] Care Team Providers Care Call Center Assistant Name Role Phone CHRISTINA DAVIS Referring Provider [...] Modified Time Details Appointments None recorded. Lab None recorded. Referral urologist referral - Ilir Gordon--- STAT 2024 025 [facility], [address], [place], [address], 08:36:49 Procedures None recorded. Surgeries None recorded. Imaging None recorded. Medication Orders None recorded. Patient TargetsNo targets recorded. Patient InstructionsNo instructions recorded. Reason for Referral Urologist Referral for Kidne y stone Ilir Gordon--- STAT Referring Physician: Debora Olsen, Family Medicine, Encounter Date: 01/19/2025 Results Created Date Observation Date Name Description Value Unit Range Abnormal Flag Note LastModifiedBy Organization Detail LastModifiedTime 01/12/2001/11/2025 CT, abdom en + pelvi s, w/o contr ast No observ ation record ed. [facility] [address], [place], [address], 01/11/2025 11:50:45 Result Notes None recorded. Problems Name Problem SNOMED Code Status Onset Date Resolution Date Notes Provider Name and Address Organization Details Recorded Time Anxiety 54079227 Active Hiwot Beaulieu null, [place] - [facility] 3 09:09:45 Hypothyroi dism 72715273 Active Hiwot [place] - [facility] 3 09:10:07 Non-alcoho lic fatty liver 568826519 Active Hiwot [place], [place] [facility] 09:10:31 Chronic neck pain 8690912148017 Active 2022 Beliabeth Raúl, LEGAL TECHNICIAN [address], [place], [address] , [place] - [facility] 11:24:20 Problem Notes None recorded. Procedures Surgical History Date Name Laterality Status Provider Name and Address Organization Details Recorded Time 01/20/20 25 Medication Reconcilliation completed Hiwot Beaulieu [place] - [facility] 01/19/2025 17:41:27 04/07/20 24 Medication Reconcilliation completed Michelle Ness [place] - [facility] 04/07/2024 09:28:06 09/06/19 24 Date of Last Colonoscopy completed Hiwot [place]ulieu [place] - [facility] 03/03/2024 09:45:11 07/26/20 23 Date of Last Mammogram completed Michelle Ness [place] [facility] 08/01/2023 10:52:51 10/12/19 07 Caesarean Section completed Hiwot [place] [facility] 12/11/2022 08:55:20 Arthroscopic Surgery completed Hiwot [place] [facility] 12/11/2022 08:55:20 Gastric Bypass completed Hiwot [place] [facility] 12/11/2022 08:55:20 Orthopedic Surgery completed Chaz [place] [facility] 12/11/2022 08:55:20 Adnexal surgery completed Hiwot [place] [facility] 12/11/2022 08:55:20 appendectomy completed Michelle [...] Updated DateTime 01/19/2025 170.18 cm 29.8 kg/m2 53626.55 g Hiwot Beaulieu [place] [facility] 01/19/2025 17:55:28 Social History Question Answer Notes LastModified by Organizat ion Details LastModified Time Tobacco Smoking Status Former Smoker Hiwot [place], [place] [facility] 12/11/2022 08:55:20 Do [...] Or The Highest Degree You Have Received? SI33473-2 Information not available 12/11/2022 Have There Been [...] Do You Have A Medical Power Of Cut Off [place]? 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 HR33439-0 Information not available 12/11/2022 Do you have [...] 17:33:20 Tdap 07/08/2023 completed Hiwot [place], [place] [...] SNOMED-CT Code Diagnosis ICD10 Code Diagnosis Note [id number] Debora Olsen APRN [address] [address] 01/19/2025 17:32:57 01/19/2025 18:07:38 Kidney stone 73992980 N20.0 continue with meds and increase fluid intakeif worsening or no improvemen t return Health Concerns Section Related Observation LastModified by Organization Detai ls LastModified Time None Recorded Concern Status LastModified by Organization Details LastModified Time None Recorded Payers Encounter Date Sequence Insurance Name Policy Number Policy Peterson Covered Member ID Peterson Member ID Guarantor Name 01/19/2025 1 [place] [id number] 2 Moises Olsen [id number] Mayte Olsen Notes Date Note Type Note Provider Name and Address Organization Details Recorded Time 01/19/2025 text/html Emergency Depart ment Follow-Up RecordReported bypatient.Discharge InformationName of hospital/urgent care patient was seen: ([facility]); Patient presented to hospital/urgent care on or [...] would like referral to urology Debora Olsen, LEGAL TECHNICIAN [address], [place], [address], [place] [facility] 01/19/2025 18:15:14 OBGyn Episode No OBEpisode recorded.
--- OUTSIDE RECORDS SUMMARY | 2025-01-27 08:34 | XMS_ITS | Referral Summary ---
Author Organization [employer] Address [address] [place] [address] Care Team Providers Care Business Solutions Consultant Name Role Phone Daniel Carranza MD Primary Care Provider [phone] Allergies Active Allergy Reactions Criticality Noted Date [...] Date Anil rded Speak language other than Yoruba at home Not on file 08/23/2023 Want [...] 3 AM EDT 03/02/2022 2:53 PM EDT [facility] Historical Provider PATHOLOGY/CYTOLOGY RASHAUN FORD Edited Result - Final [facility] [address] [phone] from Last 3 Months or Most Recently Relevant to Health Maintenance Insurance BLUE CROSS/BLUE SHIELD Care Teams Business Solutions Consultant Relationship Specialty Start Date End Date Daniel Carranza MD [address] [place] [address] PCP - General Family Medicine 07/04/22
--- OUTSIDE RECORDS SUMMARY | 2025-01-27 08:34 | XMS_ITS | Encounter Summary ---
Author Organization [employer] Address [address] [place] [address] Care Team Providers Care Business Continuity Planner Name Role Phone Daniel Carranza MD Primary Care Provider [phone] Encounter Details Date Type Department Care Team (Late st Contact Info) Description 03/02/2022 Transcribed Document [facility] [place] [address] ProviderLashaun MD [address] [place], [place] [id number] Social History Tobacco Use Types Packs/Day Years [...] Source : Stated Height Entry Format : [place] Height, Feet : 5 ft(Converted to: 152 cm, 60 Inch) Height, Inches : 7 Inch(Converted to: 0 ft 7 Inch, 17.78 cm) Clinical Height : 170.18 cm Weight Source : Standing scale Weight Entry Format : [place] Clinical Dosing Weight : 103.36 kg Weight, Pounds : 227.4 lb Body Surface Area (BSA) : 2.14 m2 Body Mass Index : 35.7 kg/m2 (HI) [place] Body Weight : 61 kg Romana Polanco [...] Romana Polanco RN - 03/02/2022 11:24 EDT [place] Suicide Severity Rating Scale (C-SSRS) CSSRS Past [...] Contact #2 Relationship : Primary Language : Greenlandic Communication Barrier : None Higher Level Teaching Assistant Needed : No Romana Polanco RN - [...] Scale Risk Level : 0-24 Low Risk [place] Fall Interventions : Adequate lighting, Assistive devices [...] on filedocumented in this encounter Care Teams Business Continuity Planner Relationship Specialty Start Date End Date Daniel Carranza MD [address] [place] [address] PCP - General Family Medicine 07/04/22 documented as of this encounter
--- OUTSIDE RECORDS SUMMARY | 2025-01-27 08:34 | XMS_ITS | Encounter Summary ---
Author Organization [employer] Address [address] [facility] [place] [address] Care Team Providers Care Storehouse Clerk Name Role Phone Daniel Carranza MD Primary Care Provider [phone] Encounter Details Date Type Department Care Team (Late st Contact Info) Description 03/02/2022 Transcribed Document [facility] [place] [address] Lashaun Moseley MD [address] [place] [id number] Social History Tobacco Use Types Packs/Day Years [...] activities are safe for you. ??? Take yuyr-gnw-rfqfrco and prescription medicines only as told by [...] provider. Document Revised: 07/19/2020 Document Reviewed: 12/22/2018 [employer] Patient Education ? 2020 [employer]. Helicobacter Pylori Antibodies Test Why am I [...] including vitamins, herbs, eye drops, creams, and hflz-utq-tqxgemz medicines. How are the results reported? Your [...] provider. Document Revised: 07/04/2018 Document Reviewed: 03/04/2018 [employer] Patient Education ? 2020 [employer]. Pharmacology Monitored Anesthesia Care Anesthesia refers to [...] including vitamins, herbs, eye drops, creams, and bjeg-orf-ckwrpvr medicines. ??? Any problems you or family [...] tells you to take them. ??? Taking lhct-aql-trngiqc medicines, vitamins, herbs, and supplements. Tests and [...] Reviewed: 06/23/2020 [employer] Patient Education ? 2020 [employer] documented in this encounter Plan of Treatment Not on file documented as of this encounter Visit Diagnoses Not on filedocumented in this encounter Care Teams Storehouse Clerk Relationship Specialty Start Date End Date Daniel Carranza MD [address] [place], [place] [address] PCP - General Family Medicine 07/04/22 documented as of this encounter
--- OUTSIDE RECORDS SUMMARY | 2025-01-27 08:34 | XMS_ITS | Data Portability ---
Author Organization [facility] Address [address] [place] [address] Care Team Providers Care Medical Practice Assistant Name Role Phone ELISEO NROMAN Primary Care Provider Assessment Encounter Date Assessment [...] stenosis and radiculopathy Surgeon: Regi Washington M.D. patient clerical assistant Radha Angelo PA-C Anesthesia: Gen. endotracheal [...] placed without complication. We then placed one [place] pin at the appropriate portion of the [...] confirm adequate placement. We then removed the [place] pins. We then took a 13 mm [...] By Organization Details Last Modified Time 09/16/2023 [id number] Recommended OTC liquid gel Ibuprofen if able. [...] Negati ve negati ve normal Not Available [facility] [address] [place] [address], [address], 10/18/2021 16:12:30 10/04/19 22 10/03/2021 XR, cervi karlee spine , 2 or [address] [address] Shaylaana power Name: JIMMY power : 1974 [...] Jenkins MD on 10/04/19 22 1:07 PM [facility] [address] [place] [address], [address], 12/25/2021 12:49:19 11/21/19 22 11/20/2021 XR, cervi karlee spine , 2 or [address] [address] Patien tono Name: JIMMY power : 1974 Patien t [...] Apollo Jenkins MD on 022 1:55 PM [facility] [address] [place], [address], 12/25/2021 12:23:51 01/18/20 22 01/17/2022 XR, cervi karlee spine , 2 [place] 3 [place] [address] Sera power Name: JIMMY power : 1974 Sera power 4 Orderi ng Provid er: REGI BLACKMANSARAH Y EXAM DATE: 2021 EXAM: XR CERVIC [...] . Interp reted By: Apollo Jenkins MD [facility] onical ly Signed By: Apollo Jenkins MD on 022 12:06 PM [facility] [address], [address], 05/28/2022 12:37:23 Result Notes Documentation Provider Name and Address Organization Details Recorded Time Xr, Cervical Spine, 2 Or 3 View : [place] [address] Patient Name: JIMMY SHAFFER Patient : 1975 Patient Ordering Provider: REGI WASHINGTON EXAM DATE: 11/20/2021 EXAM: XR CERVICAL AP/LAT CLINICAL INFORMATION: Postoperative. IMAGES PROVIDED: AP, and lateral views of the cervical spine. COMPARISON: None. FINDINGS AND IMPRESSION: Anterior spinal fusion is noted at C6-C7 level with compression plate and screws. Surgical hardware is satisfactorily placed. No evidence of loosening or infection is seen. Other levels are normal. Interpreted By: Augie Jenkins MD WASHINGTON MD [address] [place] [address], [address], [facility] 12/25/2021 12:23:51 Xr, Cervical Spine, 2 Or 3 View : [address] [address] Patient Name: JIMMY SHAFFER Patient : 1975 Patient Ordering Provider: REGI WASHINGTON EXAM DATE: 01/17/2022 EXAM: XR CERVICAL AP/LAT CLINICAL INFORMATION: Postoperative. IMAGES PROVIDED: AP, and lateral views of the cervical spine. COMPARISON: None. FINDINGS AND IMPRESSION: Anterior spinal fusion is noted at C6-C7 level with compression plate and screws. Surgical hardware is satisfactorily placed. No evidence of loosening or infection is seen. Other levels are normal. Interpreted By: Augie Jenkins MD WASHINGTON MD [address] [place] [address], [phone] 05/28/2022 12:37:23 Problems No Known Problems Procedures Surgical History Date Name Laterality Status Provider Name and Address Organization Details Recorded Time 10/02/19 19 Suture/Staple removal completed Sanket CARMONA PA-C [address] [place] [address], [address], [facility] 10/02/2018 14:29:50 08/18/19 19 PT Manual Therapy completed BRE JIN, PT [address] [place] [address], [address], [facility] 08/18/2018 11:33:03 08/18/19 19 PT Therapeutic Exercise completed BRE JIN, PT [address] [place], [address], [facility] 08/18/2018 11:33:16 08/18/19 19 Injection Joint/Bursa, Major completed HOA MARCUS MD [address] [place] [address], [address], [facility] 08/18/2018 11:57:39 08/04/20 18 PT Evaluation - Low Complexity completed BRE JIN, PT [address] [place], [address], [facility] 08/04/2018 11:40:47 08/04/20 18 PT Manual Therapy completed MARIA LUISACHINOANIYA Lisa JIN, PT [address] [place], [address], [facility] 08/04/2018 11:42:11 08/04/20 18 PT Therapeutic Exercise completed JOHANAANIYA Lisa JIN, PT [address] [place], [address], [facility] 08/04/2018 11:42:41 reconstruction of anterior cruciate ligament of knee joint completed Marie Hector [place] [facility] 09/13/2021 09:13:03 cholecystectomy completed Marie [facility]ector [place] [facility] 09/13/2021 09:13:09 Caesarean Section completed [facility] Hector Shirley [facility] 09/13/2021 09:13:17 oophorectomy completed [facility] Hector [place] [facility] 09/13/2021 09:13:29 procedure on shoulder completed [facility] Hector [place] [facility] 09/13/2021 09:13:41 extraction of wisdom tooth completed [facility] Hector SUBRAMANIAN [facility] 09/13/2021 09:13:47 Imaging Results None recorded. Procedure Notes None recorded. Medical Equipment None Reported. Allergies Allergen ID Allergen Name Allergen Category Reaction Reaction Severity Criticality Documentation Date Start Date Code Code System Note Provider Name and Address Organization Details Recorded Time 664465 lisinopri l medicatio n Not available Not available Not available 09/13/2021 34843 RxNorm [facility] Hectorjocelyne mays [place] [facility] 09:11:45 Medications Name Sig Start Date Stop [...] Updated DateTime 09/16/2023 172.72 cm 26.6 kg/m2 94332.66 g [facility] 09/16/2023 14:58:56 Date Recorded Body height Provider Name an d Address Organization Details Last Updated DateTime 11/20/2021 172.72 cm Marie Gallegosdie [facility] 11:38:05 Date Recorded Body height Body mass index (BMI) Body weight Systolic blood pressure Diastolic blood pressure Provider Name and Address Organization Details Last Updated DateTime 01/17/2022 172.72 cm 35.9 kg/m2 390715.8 g 120 mm[Hg] 80 mm[Hg] Haily Manzanaresholz [facility] 11:27:24 Social History Question Answer Notes LastModified by [employer] ion Details LastModified Time Tobacco Smoking Status Former Smoker [facility] 09/13/2021 09:12:47 Rate The Severity Of [...] SNOMED-CT Code Diagnosis ICD10 Code Diagnosis Note [id number] HOA MARCUS MD [facility]I [facility] [address] [place] [address] 07/21/2018 08:12:15 07/21/2018 09:58:07 Pain of right shoulder joint 5456286462 8811458 M25.511 Impingemen t syndrome of right shoulder region 7007000127 01888 M75.41 [id number] BRE JIN, PT PHYSICAL THERAPY / HAND THERAPY [facility] [address] [place] [address] 08/04/2018 08:20:34 08/04/2018 13:40:03 Shoulder joint pain 532994321 M25.519 Injury of glenoid labrum of shoulder joint 834228462 S49.91XD Muscle weakness 34952644 M62.81 [id number] HOA MARCUS MD [facility] [address] [place] [address] 08/18/2018 10:31:14 08/18/2018 12:34:43 Arthritis of acromioclavicular joint 302191669 M13.585 [id number] BRE JIN, PT PHYSICAL THERAPY / HAND THERAPY [facility] [address] [place] [address] 08/18/2018 10:45:28 08/18/2018 11:44:50 Injury of glenoid labrum of shoulder joint 979042213 S49.91XD Muscle weakness 68344782 M62.81 Shoulder joint pain 2679 78722 M25.701 [id number] HOA MARCUS MD [facility] [address] [address] 09/04/2018 14:37:40 09/04/2018 15:35:14 Injury of glenoid labrum of shoulder joint 158883089 S49.91XD Shoulder joint pain 2679 37007 M25.519 Arthritis of acromioclavicular joint 306675641 M13.012 [id number] HOA MARCUS MD SURGERY SCHEDULE [address] [place] [address] 09/26/2018 08:18:23 09/26/2018 08:24:17 [id number] Sanket CARMONA PA-C [facility] [address] [address] 10/02/2018 13:14:20 10/02/2018 14:25:26 Postoperative care 355214394 Z48.89 [id number] Sanket CARMONA PA-C [facility] [address] [address] 10/23/2018 11:21:53 10/23/2018 12:10:53 Postoperative care 679124532 Z48.89 [id number] HOA MARCUS MD [facility] [address] [address] 11/20/2018 09:55:33 11/20/2018 10:43:11 Injury of glenoid labrum of shoulder joint 880501407 S49.91XD Pain of ri ght shoulder joint 2899823632 1531047 M25.511 s/p 09/26/18 ONESIMO RT BEATRIZ AC RES [id number] HOA MARCUS MD [facility] [address] [address] 01/01/2019 10:10:06 01/01/2019 11:21:27 Shoulder joint pain 473005969 M25.519 s/p 09/26/18 ONESIMO RT BEATRIZ AC RES Injury of glenoid labrum of shoulder joint 070032612 S49.91XD s/p 09/26/18 ONESIMO RT BEATRIZ AC RES [id number] GRABIEL FRY PA-C NE[facility]G [facility] [address] [place] [address] 09/13/2021 08:55:00 09/14/2021 09:30:25 Cervical radiculopathy 76097212 M54.12 [id number] REGI WASHINGTON MD NEUROS[facility]G [facility] [address] [place] [address] 10/03/2021 09:34:50 10/04/2021 09:15:47 Cervical radiculopathy 98839135 M54.12 Her imaging is not here today [...] cervical flexion extension before her surgical date. [id number] REGI WASHINGTON MD SURGERY SCHEDULE [address] [place] [address] 10/20/2021 06:57:16 10/20/2021 06:57:45 [id number] REGI WASHINGTON MD NEUROSURG EMILIE [facility] [address] [place] [address] 11/20/2021 11:13:25 11/23/2021 14:02:00 Postoperative care 098421789 Z48.89 Patient is doing very well this time. We discussed increasing activity levels. I would like to keep her from returning to work for full 3 months. I will see her back on 17 January to monitor her care with x-rays. She knows to contact us sooner if any new issues should arise. [id number] URIEL MOSQUEDA PA-C NEUROSURG EMILIE [facility] [address] [place] [address] 01/17/2022 11:17:08 01/18/2022 14:22:28 Postoperative care 083262970 Z48.89 Patient is a 46-year-ol d female status post C6-C7 ACDF on 10/20/[address] Washington. Presents today for second postoperat conor power. Patient overall is doing very well. She [...] AP lateral cervical x-rays today at the [facility] placement of hardware with no evidence of loosening or complicati on [id number] LEXIE JACOBSON MD SURGERY SCHEDULE [address] [place] [address] 09/06/2023 10:51:47 09/06/2023 10:52:33 [id number] HOA MARCUS MD [facility] [address] [place] [address] 09/16/2023 14:22:06 09/16/2023 15:59:04 Pain of left shoulder joint 1750583342 3290434 M25.512 Health Concerns Section Related Observation LastModified by Organization Detai ls LastModified Time None Recorded Concern Status LastModified by Organization Details LastModified Time None Recorded Advance Directives Directive None Recorded Payers Insurance Date Sequence Insurance Name Policy Number Policy Peterson Covered Member ID Peterson Member ID Guarantor Name 01/16/2022 1 [facility] [id number] Jimmy Shaffer [id number] Jimmy Shaffer 01/16/2022 2 [place] [id number] Jimmy Shaffer [id number] Jimmy Shaffer 12/06/2020 PAYMENT PLAN Jimmy Shaffer 10/04/2023 1 [place] [id number] Jimmy Shaffer [id number] Jimmy Shaffer Notes Date Note Type Note Provider Name and Address Organization Details Recorded Time 11/20/2021 text/html Jimmy Shaffer is a very pleasant 46-year-old woman here [...] hardware no acute complication REGI WASHINGTON MD [facility] [place], [address], [facility] 11/20/2021 11:55:09 01/17/2022 text/html Patient is [...] AP lateral cervical x-rays today at the [facility] URIEL TEMPLE-C [address] [place], [address], [facility] 01/17/2022 12:26:00 09/16/2023 text/html PCP: Dr. [...] joint. MRI:PT:NSAIDS: tylenol prnINJECTION: HOA MARCUS MD [facility] [place], [address], [facility] 10/03/2023 22:05:42 OBGyn Episode No OBEpisode recorded.
--- OUTSIDE RECORDS SUMMARY | 2025-01-27 08:34 | XMS_ITS | Encounter Summary ---
Author Organization [employer] Address [address] [place] [address] Care Team Providers Care Systems Coordinator Name Role Phone Daniel Carranza MD Primary Care Provider [phone] Encounter Details Date Type Department Care Team (Late st Contact Info) Description 03/02/2022 Transcribed Document [facility] [place] [facility] [place] [address] ProviderLashaun MD [address] [place], [place] [id number] Social History Tobacco Use Types Packs/Day Years [...] JIMMY OLSEN/Sex: 1975 Female Med Rec #: [id number] Physician: MESSI STEEL MD-JOCELYN Financial #: [id number] Pt. Type: Room/Bed: [facility] Admit/Disch: 03/02/22 10:46:00 - Institution: [facility] Endo - Case Attendance Entry 1 Entry 2 Entry 3 Case Attendee MESSI STEEL [facility], BRITTANY, CIELO OTHER, ATTENDEE -JOCELYN Role Performed Surgeon/Proceduralist, OPERATIONS INTELLIGENCE/Nurse Ventilating Equipment Installer Student First Time In 03/02/22 11:51:00 03/02/22 [...] TECH RN-PATIENT CARE BEDSIDE NON-EXEMPT Role Performed Aircraft Delivery Checker, First Scrub, First Time In 03/02/22 11:51:00 03/02/22 11:51:00 Time Out 03/02/22 11:56:00 03/02/22 11:56:00 Procedure Esophagogastroduodenosco Esophagogastroduodenosco py, Gastric Biopsy py, Gastric Biopsy Other Attendee Superficial Wound Closed By: Last Modified By: Vangie Tanner Kindred, Pamela, RN-PATIENT CARE BEDSIDE RN-PATIENT CARE BEDSIDE NON-EXEMPT 03/02/22 NON-EXEMPT 03/02/22 12:46:28 12:46:28 [facility] End[facility] - Case Attendance Audit 03/02/22 12:46:28 Portable Power Tool Repairer: [id number] Modifier: [id number] 1 <*> Procedure Esophagogastroduodenoscopy 2 <*> Procedure Esophagogastroduodenoscopy 3 <*> Procedure Esophagogastroduodenoscopy 4 <*> Procedure Esophagogastroduodenoscopy 5 <*> Procedure Esophagogastroduodenoscopy 03/02/22 12:44:04 Portable Power Tool Repairer: [id number] Modifier: [id number] <+> 1 Procedure 2 <*> Procedure Esophagogastroduodenoscopy 3 <*> Procedure Esophagogastroduodenoscopy 4 <*> Procedure Esophagogastroduodenoscopy 5 <*> Procedure Esophagogastroduodenoscopy 03/02/22 12:42:17 Portable Power Tool Repairer: [id number] Modifier: [id number] <*> Procedure Esophagogastroduodenoscopy 3 <*> Other Attendee 03/02/22 12:09:39 Portable Power Tool Repairer: [id number] Modifier: [id number] <+> 1 Time In <+> 1 Time [...] Endo - Case Times Audit 03/02/22 12:42:39 Portable Power Tool Repairer: [id number] Modifier: [id number] <+> 1 Stop Time <+> 1 Anesthesia [...] by RN-PATIENT CARE BEDSIDE NON-EXEMPT, CHAY WILKINS, OPERATIONS INTELLIGENCE, OTHER, ATTENDEE Last Modified By: Vangie Tanner [...] - Fire Risk Assessment Audit 03/02/22 12:43:16 Portable Power Tool Repairer: [id number] Modifier: [id number] 1 <*> Fire Risk Assessment Verified 03/02/22 11:47:00 Date/Time 03/02/22 12:43:03 Portable Power Tool Repairer: [id number] Modifier: [id number] <+> 1 Fire Risk Assessment Verified Date/Time [facility] - General Case Patient Support Assistant 1 Case Information OR Endo 02 [facility] Case Level 1 Room Verified Yes Wound Class 2 - Clean-Contaminated Specialty General Anesthesia Type MAC ASA Class 3 Diagnosis Preop Diagnosis GERD, dyspepsia Postop Diagnosis see MD report Wound Class Definitions Last Modified By: Vangie Tanner RN-PATIENT CARE BEDSIDE NON-EXEMPT 03/02/22 12:52:00 [facility] - General Case Data Audit 03/02/22 12:52:00 Portable Power Tool Repairer: [id number] Modifier: [id number] <+> 1 ASA Class [facility] - [...] Endo - Patient Positioning Audit 03/02/22 12:46:30 Portable Power Tool Repairer: [id number] Modifier: [id number] 1 <*> Procedure Esophagogastroduodenoscopy [facility] - [...] Endo - Surgical Procedures Audit 03/02/22 12:47:11 Portable Power Tool Repairer: [id number] Modifier: [id number] 1 <*> Procedure Esophagogastroduodenoscopy 1 <+> Wound Class 03/02/22 12:46:22 Portable Power Tool Repairer: [id number] Modifier: [id number] <+> 2 Procedure <+> 2 Primary Procedure [...] Endo - Time Out Audit 03/02/22 12:46:30 Portable Power Tool Repairer: [id number] Modifier: [id number] 1 <*> Procedure to be Performed Esophagogastroduodenoscopy Case Comments <None> Finalized By: Vangie Tanner RN-PATIENT CARE BEDSIDE NON-EXEMPT Document Signatures Signed By: Vangie Tanner RN-PATIENT CARE BEDSIDE NON-EXEMPT 03/02/22 12:[address] [facility] Conversion Real Estate Loan Processor Cerner at 11/23/2022 8:53 PM CDT documented in this encounter Plan of Treatment Not on file documented as of this encounter Visit Diagnoses Not on filedocumented in this encounter Care Teams Systems Coordinator Relationship Specialty Start Date End Date Daniel Carranza MD [address] [place] [address] PCP - General Family Medicine 07/04/22 documented as of this encounter
--- OUTSIDE RECORDS SUMMARY | 2025-01-27 08:34 | XMS_ITS | Clinical Summary ---
Author Organization [employer] Address [address] [place] [address] Care Team Providers Care Rouge Miller Name Role Phone Daniel Carranza MD Primary Care Provider [phone] Allergies Active Allergy Reactions Criticality Noted Date [...] Date Anil rded Speak language other than Polish at home Not on file 08/23/2023 Want [...] 3 AM EDT 03/02/2022 2:53 PM EDT [facility] Historical Provider PATHOLOGY/CYTOLOGY RASHAUN FORD Edited Result - Final [facility] [address] [place] [address], [facility] [phone] from Last 3 Months or Most Recently Relevant to Health Maintenance Insurance BLUE CROSS/BLUE SHIELD Care Teams Rouge Miller Relationship Specialty Start Date End Date Daniel Carranza MD [address] [place] [address] PCP - General Family Medicine 07/04/22
--- OUTSIDE RECORDS SUMMARY | 2025-01-27 08:34 | XMS_ITS | Encounter Summary ---
Author Organization [employer] Address [address] [place] [address] Care Team Providers Care Hair Weaver Name Role Phone Daniel Carranza MD Primary Care Provider [phone] Encounter Details Date Type Department Care Team (Late st Contact Info) Description 03/02/2022 Transcribed Document [facility] [place] [facility] [place] [address] ProviderLashaun MD [address] [place] [phone] Social History Tobacco Use Types Packs/Day Years [...] JIMMY OLSEN/Sex: 1975 Female Med Rec #: [id number] Physician: MESSI STEEL MD-JOCELYN Financial #: [id number] Pt. Type: Room/Bed: [facility] Admit/Disch: 03/02/22 10:46:00 - Institution: [facility] PACU Case Times Entry 1 In PACU I 03/02/22 11:58:00 Ready for PACU 03/02/22 12:15:00 Discharge Discharge from PACU 03/02/22 12:20:00 I [facility] PACU Case Times Audit 03/02/22 14:37:18 Utility Division Project Manager: [id number] Modifier: [id number] <+> 1 Ready for PACU Discharge <+> 1 Discharge from PACU I Finalized By: FERNANDO JHA RN Document Signatures Signed By: FERNANDO JHA RN 03/02/22 14:38 Electronically signed by Shannon [facility] Conversion Neon Tube Pumper Cerner at 11/23/2022 8:45 PM CDT documented in this encounter Plan of Treatment Not on file documented as of this encounter Visit Diagnoses Not on filedocumented in this encounter Care Teams Hair Weaver Relationship Specialty Start Date End Date Daniel Carranza MD [address] [place] [id number] PCP - General Family Medicine 07/04/22 documented as of this encounter
--- OUTSIDE RECORDS SUMMARY | 2025-01-27 08:34 | XMS_ITS | Encounter Summary ---
Author Organization [employer] Address [address] [place] [address] Care Team Providers Care Cell Maker Name Role Phone Daniel Carranza MD Primary Care Provider [phone] Encounter Details Date Type Department Care Team (Late st Contact Info) Description 03/02/2022 Transcribed Document [facility] [place] [facility] [place] [address] ProviderLashaun MD [address] [place], [place] [phone] Social History Tobacco Use Types Packs/Day Years [...] JIMMY OLSEN/Sex: 1975 Female Med Rec #: [id number] Physician: MESSI STEEL MD-JOCELYN Financial #: [id number] Pt. [facility]: [facility] Admit/Disch: 03/02/22 10:46:00 - Institution: [facility] PreOp Case Times Entry 1 In Preop 03/02/22 10:51:00 Ready for Holding n/a Room Patient Ready for 03/02/22 11:36:00 Surgery Patient Out of Preop 03/02/22 11:36:00 Patient Out of n/a Holding Room [facility] PreOp Case Times Audit 03/02/22 11:36:28 Hot Stone Setter: [id number] Modifier: [id number] <+> 1 Patient Out of Preop <+> 1 Patient Ready for Surgery Finalized By: Romana Polanco RN Document Signatures Signed By: Romana Polanco RN 03/02/22 11:36 documented in this encounter Plan of Treatment Not on file documented as of this encounter Visit Diagnoses Not on filedocumented in this encounter Care Teams Cell Maker Relationship Specialty Start Date End Date Daniel Carranza MD [address] [place] [id number] PCP - General Family Medicine 07/04/22 documented as of this encounter
[2025-01-27 08:59] VITALS: BP 135/73; PULSE 71; RESP 12; O2SAT 99; BMI 29.4
--- NOTE | 2025-01-27 09:03 | EXP.PAIN.SOA ---
[facility] Disclaimer: The information contained in this section may have been updated after the patient was seen, as this information can be updated by other users. Medical History HTN (hypertension) Abnormal cardiovascular stress test Lumbar spondylosis Degenerative disc disease Hypothyroid Surgical History History of colonoscopy History of appendectomy H/O gastric sleeve Hx of cholecystectomy H/O section H/O oophorectomy H/O neck surgery H/O shoulder surgery H/O knee surgery Family History Other No significant family history Social History Smoking Status: Former smoker alcohol intake: never substance use type: denies use current occupational status: other Travel in the last 8 weeks?: None PM Subjective & Objective Subjective Subjective:: Patient is a pleasant 49-year-old female who presents today for worsening low back and left hip pain. She does rated a 9 out of 10. She denies any new falls however does state from her last visit she was having episodes of kidney stones and that she did officially passed them. Patient does state the pain is still worse with certain movements such as bending, twisting or lifting. She does state the pain is unbearable and is interfering with her ability perform activities of daily living such as cooking and cleaning. Patient does feel like her last injection has worn off and would like to see about getting scheduled for a repeat injection. Patient felt much more functional with the last lumbar medial branch block bilaterally L4-L5 and L5-S1 in December 01, 2024. Patient is prescribed compounded cream from our office. Her Braulio has been reviewed and is appropriate. Review of Systems: General: No recent weight changes, no fever, no sleep disturbances Respiratory: No cough, no shortness of air, no recurring pulmonary infections Cardiovascular/peripheral vascular: No chest pain, no palpitations, no edema, no shortness of breath Gastrointestinal: No new onset incontinence, normal bowel movements reported Genitourinary: No new onset incontinence Musculoskeletal: Low back pain, left hip pain Psychiatric: [Normal mood/affect] Neurological: [Denies weakness in extremities], [denies balance issues] Pain at rest (0-10 scale): 9 Objective Objective:: Physical Exam: General: Alert and oriented x3, no acute distress, pleasant and cooperative Lungs: Respirations even and unlabored, symmetrical chest expansion Eyes: PERRL Musculoskeletal: Flexion and extension of lumbar [spine] somewhat guarded secondary to pain, [antalgic gait noted] positive Kemps test mild tenderness along left SI joint Neurological: Speech clear, no gross sensory deficit Has patient had previous pain injection?: No Conservative treatment options previously tried: Home exercise plan (Longer than 12 weeks) Length of treatment: Longer than 12 weeks Meds Home Medications and Allergies Home Medications ?Medication ?Instructions ?Recorded ?Confirmed ?Type escitalopram oxalate 10 mg tablet 10 mg PO DAILY 03/30/24 01/27/25 History levothyroxine 75 mcg tablet 75 mcg PO Q OTHER DAY 06/30/24 01/27/25 History aspirin 81 mg tablet,delayed 81 mg PO DAILY #90 tabs 08/27/24 01/27/25 Rx release (Adult Low Dose Aspirin) Held on 01/11/25. Instructions: Resume on 01/26/25. Do not take in conjunction with naproxen atorvastatin 20 mg tablet 20 mg PO DAILY #90 tabs 08/27/24 01/27/25 Rx levothyroxine 50 mcg tablet 50 mcg PO Q OTHER DAY 11/25/24 01/27/25 History phenazopyridine 100 mg tablet 100 mg PO TID PRN pain 6 doses #6 01/07/25 01/27/25 Rx (Pyridium) tabs fluconazole 150 mg tablet 150 mg PO DAILY 1 dose #1 tab 01/11/25 01/27/25 Rx naproxen 500 mg tablet 500 mg PO BID PRN pain 2 weeks #28 01/11/25 01/27/25 Rx tabs oxycodone 5 mg tablet 5 mg PO Q8H PRN pain 3 days #10 01/11/25 01/27/25 Rx tabs tamsulosin 0.4 mg capsule (Flomax) 0.4 mg PO HS 30 days #30 caps 01/11/25 01/27/25 Rx New Prescriptions to Start Prescriptions: Allergies Allergy/AdvReac Type Severity Reaction Status Date / Time Iodinated Contrast Media Allergy Hives Verified 01/07/25 17:31 Assessment and Plan *Assessment and plan (1) Low back pain: Status: Acute Category: Medical Code(s): M54.50 - Low back pain, unspecified (2) Degenerative disc disease: Status: Acute Category: Medical (3) Lumbar spondylosis: Status: Acute Category: Medical Code(s): M47.816 - Spondylosis without myelopathy or radiculopathy, lumbar region Plan Patient did have a successful first lumbar medial branch block and I did review with her regarding repeat lumbar block. Risk and benefits were discussed with patient and she would like to proceed forward with this plan of care. Patient did have limited range of motion of her lumbar spine during today's visit with a positive Kemps test. Patient was counseled if she does get significant improvement with this second block we will proceed forward with the lumbar RFA at a later date. Patient acknowledges understanding agrees with plan of care. Patient has continued at home stretching and exercise for longer than 12 weeks with no additional changes. She has had a chronic back pain for longer than 6 months. Her last lumbar block provided 80% relief and did give improved function with overall decreased pain. Patient has failed oral medications, heat and ice, topicals. We will schedule her for the second lumbar medial branch block bilaterally L4-L5 and L5-S1 under fluoroscopy. Patient has been instructed to contact the clinic with any concerns before the next appointment. Dr. Nuñez has reviewed this note and agrees with this plan of care. This note was dictated using voice recognition software and make contain errors or omissions. All injections are used with Lidocaine, Bupivacaine and dexamethasone unless diagnostic in which no steroids are used. Occasionally urine drug screen is needed to verify patient's compliance with our office pain contract. This is ordered based off specific treatments related to chronic pain with the potential to abuse certain medications.
== END 2025-01-27 23:59 ==
LOC: SC.PAIN 08:30
PROVIDERS: PCP Nurse Practitioner Family; Visit Provider Nurse Practitioner Family
DX: M47.816 Spondylosis without myelopathy or radiculopathy, lumbar region (principal)
CPT/HCPCS: 99202; G0463

== ENCOUNTER 2025-02-16 11:44 | Day surgery (SDC) | payer BC, SELFPAY ==
[2025-02-16 11:47] VITALS: BP 140/74; PULSE 78; RESP 16; O2SAT 97; BMI 29.4
[2025-02-16 12:12] VITALS: BP 140/91; PULSE 73; RESP 18; O2SAT 98
--- NOTE | 2025-02-16 12:25 | EXP.PAIN.PRO ---
Procedure Date: 02/16/25 Time: 12:10 Anesthesiologist:: Thomas Mckeon CRNA Complications:: None Pre-procedure Diagnosis:: Degenerative disc lumbar spine multilevels. Lumbar radiculopathy. Lumbar facet arthropathy. Lumbar spondylosis. Post-procedure Diagnosis:: Same. Indications for Procedure:: Patient is a very pleasant 49-year-old female who comes our clinic today foROUND TWO of diagnostic lumbar medial branch blocks/facet injections at the L4-5 and L5-S1 level. Patient describes low lumbar back pain as constant, dull, aching. She reports having difficulty with lumbar flexion, extension, left and right rotation. She rates her pain 7/10. Procedure Details:: Informed consent was obtained and the risk and benefits of the procedure was explained to the patient. Patient was taken to the procedure room where noninvasive monitors were placed, including noninvasive blood pressure cuff as well as pulse oximeter. The area over the lumbar spine was cleansed using chlorhexidine as a cleansing solution. I anesthetized the skin and subcutaneous tissues with 1% Lidocaine. I placed 22-gauge spinal needles into the facet joint/ medial branches of L4-L5, and L5-S1 bilaterally. Needle placement was confirmed with fluoroscopy. After confirmation of needle placement, each site was injected with 1 mL of 1% lidocaine and 0.25 % Marcaine 1 mL. Patient tolerated the procedure without difficulty. There were no complications. Plan and Disposition:: Patient was discharged without incident.
[2025-02-16] MEDS: BUPIVACAINE 0.25% 10ML INJ 25 MG IJ (12:27)
[2025-02-16] MEDS: LIDOCAINE 1% 5ML PF VIAL 5 ML (12:28)
[2025-02-16 12:29] VITALS: BP 156/87; PULSE 80; RESP 18; O2SAT 96
[2025-02-16 12:30] VITALS: BP 156/87; PULSE 80; RESP 18; O2SAT 96
== END 2025-02-16 12:12 | disposition home or self-care (01) ==
PROVIDERS: PCP Nurse Practitioner Family; Visit Provider Nurse Anesthetist, Certified Registered
DX: M51.16 Intervertebral disc disorders with radiculopathy, lumbar region (principal); M47.26 Other spondylosis with radiculopathy, lumbar region; I10 Essential (primary) hypertension; E03.9 Hypothyroidism, unspecified; Z87.891 Personal history of nicotine dependence; Z91.041 Radiographic dye allergy status; Z79.82 Long term (current) use of aspirin; Z79.890 Hormone replacement therapy; Z79.899 Other long term (current) drug therapy
CPT/HCPCS: 64483; 64494; J0665; J2003

== ENCOUNTER 2025-02-26 14:57 | Outpatient (POV) | payer BC, SELFPAY ==
--- OUTSIDE RECORDS SUMMARY | 2025-02-26 14:59 | XMS_ITS | Data Portability ---
Author Organization [place] - [facility] - [place] & [place] [facility] ADMIN Address [address] [place] [address] Care Team Providers Care Lacquer Mixer Name Role Phone JANET OLSEN Primary Care Provider Assessment Encounter Date Assessment Date Assessment LastModified by Organization Details LastModified Time 01/28/2025 01/28/2025 ASSESSMENT: Mayte Olsen is a 49-year-old female with a history of recurrent kidney stones, including a recent episode involving the passage of three stones. PLAN: 1. Recommend an ultrasound to evaluate kidney function and ensure no residual stones or blockages remain. 2. Initiate a metabolic evaluation due to the patient's history of recurrent kidney stones. This includes: - Blood work to assess parathyroid hormone, uric acid levels, and calcium. - A 24-hour urine collection to identify potential metabolic abnormalities. 3. Provide instructions for the 24-hour urine collection process, including hydration requirements and mailing the sample for analysis. 4. Advise follow-up in three months to review results and discuss further management. 5. Discuss the potential for dietary or medication interventions to reduce the recurrence of kidney stones. Please note this report was created using voice recognition/text compilation software documentation services during the encounter with the patient. [email or web address] Not available 01/28/2025 10:56:17 Plan of Treatment Reminders Order Date Submit Date Provider Last Modified By Organization Details Last Modified Time Details Appointments OV EST 15 2024 09:00A Milagros SAMS MD Not available Not available Not available Lab PTH (parathyr oid hormone), intact + calcium, serum or plasma [address] (Registration ), [address], [place], [address], 02/04/2025 08:24:31 uric acid, serum or plasma [address] (Registration ), [address], [place], [address], 02/04/2025 08:24:31 magnesium , serum or plasma [address] (Registration ), [address], [place], [address], 02/04/2025 08:24:31 urinalysi s, dipstick [address] [facility], [facility] [place], [address], 01/28/2025 11:22:22 kidney stone analysis [address] (Registration ), [address] [place], [address], 02/04/2025 08:24:32 Referral None recorded. Procedures bladder scan (PROC) [address] [facility], [address] [facility] [address], [place], [address], 01/28/2025 11:22:22 Surgeries None recorded. Imaging US, renal 2024 025 [facility] Scheduling Department -New Scheduling Process, [address] [facility] [address], [place], [address], 02/24/2025 15:20:40 Medication Orders None recorded. Patient TargetsNo targets recorded. Patient InstructionsNo instructions recorded. Reason for Referral None Reported. Results Created Date Observation Date Name Description Value Unit Range Abnormal Flag Note LastModifiedBy Organization Detail LastModifiedTime 01/29/20 25 01/28/2025 CALCI UM TOTAL calcium 10.1 mg/dL 8.5-10 .5 Not Available [facility] ([facility]) [address], [place], [address], 01/28/2025 12:30:19 01/29/20 25 01/28/2025 URIC ACID uric acid 4.6 mg/dL 2.6-6. 0 Not Available [facility] ([facility]) [address], [place], [address], 01/28/2025 12:30:21 01/29/20 25 01/28/2025 MAGNE SIUM magnesium 2.2 mg/dL 1.8-2. 4 Not Available [facility] ([facility]) [address] [place], [address], 01/28/2025 12:30:21 01/29/20 25 01/29/2025 PTH, INTAC T PTH, intact 27 pg/mL 15-65 Perfo [place]med at: [place] [address] Lab Dire tor: Lokesh matthew PhD, Phone : [phone] Not Available [facility] ([facility]) [address] [place], [address], 01/29/2025 10:13:36 01/29/20 25 02/04/2025 CALCU ELIO UR (STON E MELBA SIS) source Commen t . Not provi ded Not Available [facility] ([facility]) [address] [place], [address], 02/04/2025 20:11:35 01/29/20 25 02/04/2025 CALCU LI, UR (STON E MELBA SIS) color Redman Not Available [facility] ([facility]) [address] [place], [address], 02/04/2025 20:11:35 01/29/20 25 02/04/2025 CALCU LI, UR (STON E MELBA SIS) size 4x3 mm Multi ple piece s recei dewey. Dimen sions of the large st piece repor benny. Not Available [facility] ([facility]) [address], [place], [address], 02/04/2025 20:11:35 01/29/20 25 02/04/2025 CALCU LI, UR (STON E MELBA SIS) weight 24 mg Not Available [facility] ([facility]) [address], [place], [address], 02/04/2025 20:11:35 01/29/20 25 02/04/2025 CALCU LI, UR (STON E MELBA SIS) Ca oxalate dihydrate 100 % Not Available [facility] ([facility]) [address], [place], [address], 02/04/2025 20:11:35 01/29/20 25 02/04/2025 CALCU LI, UR (STON E MELBA SIS) pdf image . Perfo rmed at: [facility] [address] [place] [address] [address] Lab Direc tor: Katelyn lynch PhD, Phone : [phone] Not Available [facility] ([facility]) [address], [place], [address], 02/04/2025 20:11:35 01/29/20 25 01/28/2025 urina lysis , dipst ick Leukocytes (reference range) negati ve Not Available [facility] [address] [facility] [address], [place], [address], 01/28/2025 10:14:56 01/29/20 25 01/28/2025 urina lysis , dipst ick Nitrite (reference range:) negati ve Not Available [facility] [place] [address], [place], [address], 01/28/2025 10:14:56 01/29/20 25 01/28/2025 urina lysis , dipst ick Urobilinogen (reference range) 0.2 Not Available [facility] [place] [address] [address], [place], [address], 01/28/2025 10:14:56 01/29/20 25 01/28/2025 urina lysis , dipst ick Protein (reference range) negati ve Not Available [place] [address] [address] [facility] [address], [place], [address], 01/28/2025 10:14:56 01/29/20 25 01/28/2025 urina lysis , dipst ick pH (reference range 5-8.5) 5.0 Not Available [place] [address] [address] [facility] [address], [place], [address], 01/28/2025 10:14:56 01/29/20 25 01/28/2025 urina lysis , dipst ick Blood (reference range:) non-He molyze d: Modera te Not Available [facility] [place] [address] [address] [facility] [address], [place], [address], 01/28/2025 10:14:56 01/29/20 25 01/28/2025 urina lysis , dipst ick Specific Mulberry (reference range) 1.015 Not Available [facility] [place] [address] [address] [facility] [address], [place], [address], 01/28/2025 10:14:56 01/29/20 25 01/28/2025 urina lysis , dipst ick Ketone (reference range) negati ve Not Available [place] [address] [address] [facility] [address], [place], [address], 01/28/2025 10:14:56 01/29/20 25 01/28/2025 urina lysis , dipst ick Bilirubin (reference range) negati ve Not Available [place] [address], [place], [address], 01/28/2025 10:14:56 01/29/20 25 01/28/2025 urina lysis , dipst ick Glucose (reference range) negati ve Not Available [place] [address], [place], [address], 01/28/2025 10:14:56 01/29/20 25 01/28/2025 urina lysis , dipst ick Color (reference range: yellow-brown ) Yellow Not Available [place] [address], [place], [address], 01/28/2025 10:14:56 01/29/20 25 01/28/2025 bladd er scan (PROC ) Calculated Residual Urine: 0ml Not Available [place] [address] [address], [place], [address], 01/28/2025 10:14:40 Result Notes None recorded. Problems Name Problem SNOMED Code Status Onset Date Resolution Date Notes Provider Name and Address Organization Details Recorded Time Ureteric stone 72687240 Active 2024 MIHAI SAMS MD [address] , [place], [address] , [place] - [facility] & [place] 10:55:44 Recurrent kidney stone 8137851419328 102 Active 2024 MIHIA SAMS MD [address] , [place], [address] , [place] [facility] & [place] 10:55:55 Problem Notes None recorded. Procedures Surgical History Date Name Laterality Status Provider Name and Address Organization Details Recorded Time section completed Norma CUEVAS [facility] & [place] 01/28/2025 11:29:16 repair of anterior cruciate ligament of knee joint completed Norma CUEVAS [facility] & [place] 01/28/2025 11:29:28 appendicocecostomy completed Norma CUEVAS [facility] & [place] 01/28/2025 11:29:37 operation on gallbladder completed Norma CUEVAS [facility] & [place] 01/28/2025 11:29:50 cervical arthrodesis completed Yodit CUEVAS [facility] & [place] 01/28/2025 11:29:58 laparoscopic sleeve gastrectomy completed Norma CUEVAS [facility] & [place] 01/28/2025 11:30:07 operative procedure on shoulder completed Norma CUEVAS [facility] & [place] 01/28/2025 11:30:14 excision of cyst of ovary completed Norma CUEVAS [facility] & [place] 01/28/2025 11:30:29 Imaging Results None recorded. Procedure Notes None recorded. Medical Equipment None Reported. Allergies Allergen ID Allergen Name Allergen Category Reaction Reaction Severity Criticality Documentation Date Start Date Code Code System Note Provider Name and Address Organization Details Recorded Time 702797 Iodinated contrast media (substanc e) medicatio n Not available Not available Not available 01/28/2025 27165 2003 SNOMED [place] Barnhart [facility] & [place] 11:28:49 429664 lisinopri l medicatio n Not available Not available Not available 01/28/2025 52472 RxNorm [place] Barnhart [facility] & [place] 11:28:59 Medications Name Sig Start Date Stop Date Status Note LastModified by Organization Details LastModified Time atorvastati n 20 mg tablet Take 1 tablet every day by oral route. active Not Available Not Available No t Available hydrocodone 5 mg-acetamin ophen 325 mg tablet TAKE 1 TO 2 TABLET(S) BY MOUTH EVERY 6 HOURS NEEDED FOR PAIN MAY CAUSE DROWSINES S 01/28 completed Not Available Not Available Not Available levothyroxi ne 75 mcg tablet Take 1 tablet every day by oral route. active Not Available Not Available No t Available levothyroxi ne 50 mcg tablet Take 1 tablet every day by oral route. active Not Available Not Available No t Available pantoprazol e 40 mg tablet,timothy yed release TAKE ONE TABLET BY MOUTH EVERY DAY 01/28 completed Not Available Not Available Not Available aspirin 81 mg tablet Take 1 tablet every day by oral route. active Not Available Not Available No t Available amoxicillin 500 mg-potassiu m clavulanate 125 mg tablet TAKE ONE TABLET BY MOUTH TWICE DAILY FOR 3 DAYS -- FINISH ALL MEDICINE -- 01/28 completed Not Available Not Available Not Available escitalopra m 10 mg tablet Take 1 tablet every day by oral route. active Not Available Not Available No t Available Vitals Date Recorded Body weight Oxygen saturation Oxygen saturation in Arterial blood by Pulse oximetry Heart rate Systolic And Diastolic Provider Name and Address Organization Details Last Updated DateTime 5 28036.9 9 g 99 % 99 % 77 /min 146/96 mm[Hg] Rhea Genia [facility] [place] [facility] [place] 10:14:22 Social History None recorded. Functional Status None recorded. Mental Status None recorded. Family History Relationship Description Onset Age of this Age Resolved Age Notes LastModified by Organization Details LastModified Time Father Cerebrovascu lar accident pt. added direct ly (01/25) [email or web address] Not available 01/25/2025 12:16:35 Father Hypercholest erolemia pt. added direct ly (01/25) [email or web address]-13 Not available 01/25/2025 12:16:47 Father Hypertensive disorder pt. added direct ly (01/25) [email or web address] Not available 01/25/2025 12:16:57 Father Malignant neoplastic disease [email or web address] [email or web address] Not available 01/28/2025 11:31:09 Father Benign hypertension [email or web address] z1 Not available 01/28/2025 11:31:25 Mother Hypercholest erolemia pt. added direct ly (01/25) [email or web address] Not available 01/25/2025 12:16:48 Brother Hypertensive disorder pt. added direct ly (01/25) [email or web address] Not available 01/25/2025 12:16:57 Sister Thyroid dysfunction keli witt Not available 01/28/2025 11:32:08 Medical History No medical history recorded. Gynecological HistoryNo gynecological history recorded. Obstetrics History GPAL:G 0 P 0 0 0 0 Past Encounters Encounter ID Performer Location Encounter Start Date Encounter Closed Date Diagnosis/Indication Diagnosis SNOMED-CT Code Diagnosis ICD10 Code Diagnosis Note [id number] MIHAI SAMS MD [facility] [place] [address] 01/28/2025 09:52:10 01/28/2025 11:03:27 Ureteric stone 97042546 N20.1 Recurrent kidney stone 9053564847 266391 N20.0 Health Concerns Section Related Observation LastModified by Organization Detai ls LastModified Time None Recorded Concern Status LastModified by Organization Details LastModified Time None Recorded Advance Directives Directive None Recorded Payers Insurance Date Sequence Insurance Name Policy Number Policy Peterson Covered Member ID Peterson Member ID Guarantor Name 01/26/2025 1 [place] [id number] 2 Moises Royangela [id number] Mayte Olsen Notes Date Note Type Note Provider Name and Address Organization Details Recorded Time 01/28/2025 text/html 01/28/25 [id number]-ums-female referred to my office for kidney stones. Patient seen PCP after ER visit 01/11/25 CT showed three obstructing stones larges 4mm. Mayte Olsen is a 49-year-old female who presents for a new patient visit. She reports a history of kidney stones, with the most recent episode occurring on 06/24. Prior to this, she visited urgent care on the Saturday before, suspecting a urinary tract infection (UTI). She waited through the weekend for lab results but continued to feel unwell the following Saturday, prompting a return to urgent care, where she was sent directly to the operating room. She has experienced flank pain and abdominal discomfort but denies fever. She passed three stones simultaneously, with no prior procedures required for stone removal. Her previous kidney stone episode occurred approximately two years ago and involved a single 2 mm stone, which she passed without intervention. She has a history of blood in her urine following stone passage, which she understands may persist temporarily. She denies any other urologic issues or problems with urination aside from the recent episode. The patient is allergic to CT contrast dye. 01/11/25 CT abd/pel w/o ([facility]): Three obstructing stones, largest measuring 4 mm, at the R UVJ with moderate R hydronephrosis and hydroureter MIHAI SAMS MD [address], [place], [address], [facility] - [place] [facility] [place] 01/28/2025 13:01:40 OBGyn Episode No OBEpisode recorded.
--- OUTSIDE RECORDS SUMMARY | 2025-02-26 14:59 | XMS_ITS | Referral Summary ---
Author Organization [employer] ([place], [place], [place], [place]) Address [address] [place] [address] Care Team Providers Care Collar Padder Blindstitch Name Role Phone Daniel Carranza MD Primary Care Provider [phone] Allergies Active Allergy Reactions Criticality Noted Date [...] drink = 0.6 oz pur e alcohol) Family and Community Support Answer Edi e Recorded Help with Day to Day Activities Not on file 08/23/2023 Feeling Lonely or Isolated Not on file 08/23 Educational Attainment Answer Date Anil rded Speak language other than [place] Rican at home Not on file 08/23/2023 Want help with school or training Not on file 08/23/2023 Substance Use Answer Date Recorded Used [...] 3 AM EDT 03/02/2022 2:53 PM ED[address] [facility] Historical Provider PATHOLOGY/CYTOLOGY SHARIFChristy FORD Edited Result - Final [facility] [address] [place] [id number] [phone] from Last 3 Months or Most Recently Relevant to Health Maintenance Insurance BLUE CROSS/BLUE SHIELD Care Teams Collar Padder Blindstitch Relationship Specialty Start Date End Date Daniel Carranza MD [address] [place] [address] PCP - General Family Medicine 07/04/22
--- OUTSIDE RECORDS SUMMARY | 2025-02-26 14:59 | XMS_ITS | Encounter Summary ---
Author Organization [employer] ([place], [place], [place], [place]) Address [address] [place] [address] Care Team Providers Care Air Conditioning Technician Name Role Phone Daniel Carranza MD Primary Care Provider [phone] Encounter Details Date Type Department Care Team (Late st Contact Info) Description 03/02/2022 Transcribed Document [facility] [address] [place] [address] ProviderLashaun MD [address] [place] [address] Social History Tobacco Use Types Packs/Day Years Used Date Smoking Tobacco: Never Assessed Family and Community Support Answer Edi e Recorded Help with Day to Day Activities Not on file 08/23/2023 Feeling Lonely or Isolated Not on file 08/23 Educational Attainment Answer Date Anil rded Speak language other than Moroccan at home Not on file 08/23/2023 Want [...] Miscellaneous Notes * Cerner Conversion Note - Historical ProviderMD - 03/02/2022 12:06 PM CDT [facility] [address] [place] [address] JIMMY OLSEN :1975 Visit Time:03/02/2022 What [...] When Only if needed Where: [address] [place] [address]- Medications What How Much When Instructions Next [...] activities are safe for you. ??? Take lzow-rdv-jzojhgc and prescription medicines only as told by [...] provider. Document Revised: 07/19/2020 Document Reviewed: 12/22/2018 [employer] Patient Education ?? [employer] Monitored Anesthesia Care Anesthesia refers to techniques, [...] including vitamins, herbs, eye drops, creams, and igcd-bpn-rdxihuf medicines. ??? Any problems you or family [...] tells you to take them. ??? Taking nzha-fgo-pghzazm medicines, vitamins, herbs, and supplements. Tests and [...] provider. Document Revised: 04/06/2021 Document Reviewed: 06/23/2020 [employer] Patient Education ?? 2020 [employer] Helicobacter Pylori Antibodies Test Why am I [...] including vitamins, herbs, eye drops, creams, and qzvq-pia-fffwhdk medicines. How are the results reported? Your [...] provider. Document Revised: 07/04/2018 Document Reviewed: 03/04/2018 [employer] Patient Education ?? 2020 [employer] Emergency Awareness and Preventative Care STROKE is [...] Assistance with quitting is available by contacting 0-581-BMEN-NOW. This is a free resource providing counseling, [...] range between ( 1.0 and 7.0 ) [place] #: 0.47 K/uL -- Normal range between ( 0.24 and 0.82 ) Eos #: 0.13 K/uL -- Normal range between ( 0.04 and 0.54 ) [place] %: 5.5 % -- Normal range between [...] was given the opportunity to ask questions. Patient/Senior Manager Name: Patient/Senior Manager Signature: Relationship to Patient: Clinician/Hospital Senior Manager Signature: Date: documented in this encounter Plan of Treatment Not on file documented as of this encounter Visit Diagnoses Not on filedocumented in this encounter Care Teams Air Conditioning Technician Relationship Specialty Start Date End Date Daniel Carranza MD [address] [place], [place] [address] PCP - General Family Medicine 07/04/22 documented as of this encounter
--- OUTSIDE RECORDS SUMMARY | 2025-02-26 14:59 | XMS_ITS | Clinical Summary ---
Author Organization [employer] ([place], [place], [place], [place]) Address [address] [place] [address] Care Team Providers Care Log Chipper Operator Name Role Phone Daniel Carranza MD [...] Date Anil rded Speak language other than Grenadian at home Not on file 08/23/2023 Want [...] 2023-2 5 season) 2024 10/12/2020 Influenza Vaccine (#1) 2025 Lipid Panel 03/02/2027 03/02/2022 Pneumococcal Vaccine: [...] 3 AM EDT 03/02/2022 2:53 PM EDT [facility] Historical Provider PATHOLOGY/CYTOLOGY RASHAUN FORD Edited Result - Final [facility] [address] [phone] from Last 3 Months or Most Recently Relevant to Health Maintenance Insurance BLUE CROSS/BLUE SHIELD Care Teams Log Chipper Operator Relationship Specialty Start Date End Date Daniel Carranza MD [address] [place] [address] PCP - General Family Medicine 07/04/22
--- OUTSIDE RECORDS SUMMARY | 2025-02-26 14:59 | XMS_ITS | Encounter Summary ---
Author Organization [employer] ([place], [place], [place], [place]) Address [address] [place] [address] Care Team Providers Care Glass Ribbon Machine Operator Assistant Name Role Phone Daniel Carranza MD Primary Care Provider [phone] Encounter Details Date Type Department Care Team (Late st Contact Info) Description 03/02/2022 Transcribed Document [facility] Family Medicine [address] [place] [address] ProviderLashaun MD [address] [place], [place] [id number] Social History Tobacco Use Types Packs/Day Years Used Date Smoking Tobacco: Never Assessed Family and Community Support Answer Edi e Recorded Help with Day to Day Activities Not on file 08/23/2023 Feeling Lonely or Isolated Not on file 08/23 Educational Attainment Answer Date Anil rded Speak language other than Serbian at home Not on file 08/23/2023 Want [...] Conversion Note - Historical ProviderMD - 03/02/2022 12:30 PM CDT [facility] PreOp Summary Primary Physician: MESSI STEEL MD-SUR Finalized Date/Time: 03/02/22 11:36:30 Pt. Name: JIMMY OLSEN YAMILKA Akbar/Sex: 1975 Female Med Rec #: [id number] Physician: MESSI STEEL MD-SUR Financial #: [id number] Pt. Type: E Room/Bed: [facility]/ Admit/Disch: 03/02/22 10:46:00 - Institution: [facility] PreOp Case Times Entry 1 In Preop 03/02/22 10:51:00 Ready for Holding n/a Room Patient Ready for 03/02/22 11:36:00 Surgery Patient Out of Preop 03/02/22 11:36:00 Patient Out of n/a Holding Room [facility] PreOp Case Times Audit 03/02/22 11:36:28 Consultant Teacher: [id number] Modifier: [email or web address] <+> 1 Patient Out of Preop <+> 1 Patient Ready for Surgery Finalized By: Romana Polanco RN Document Signatures Signed By: Romana Polanco RN 03/02/22 11:36 documented in this encounter Plan of Treatment Not on file documented as of this encounter Visit Diagnoses Not on filedocumented in this encounter Care Teams Glass Ribbon Machine Operator Assistant Relationship Specialty Start Date End Date Daniel Carranza MD [address] [place] [address] PCP - General Family Medicine 07/04/22 documented as of this encounter
--- OUTSIDE RECORDS SUMMARY | 2025-02-26 14:59 | XMS_ITS | Encounter Summary ---
Author Organization [employer] ([place], [place], [place], [place]) Address [address] [place] [address] Care Team Providers Care Contractor General Engineering Name Role Phone Daniel Carranza MD Primary Care Provider [phone] Encounter Details Date Type Department Care Team (Late st Contact Info) Description 03/02/2022 Transcribed Document [facility] Family Medicine [address] [place] [address] ProviderLashaun MD [address] [place], [place] [id number] Social History Tobacco Use Types Packs/Day Years Used Date Smoking Tobacco: Never Assessed Family and Community Support Answer Edi e Recorded Help with Day to Day Activities Not on file 08/23/2023 Feeling Lonely or Isolated Not on file 08/23 Educational Attainment Answer Date Anil rded Speak language other than Brazilian at home Not on file 08/23/2023 Want [...] Lashaun ProviderMD - 03/02/2022 11:53 AM CDT [facility] PACU Summary Primary Physician: MESSI STEEL MD-SUR Finalized Date/Time: 03/02/22 14:38:15 Pt. Name: JIMMY OLSEN YAMILKA Akbar/Sex: 1975 Female Med Rec #: [id number] Physician: MESSI STEEL MD-SUR Financial #: [id number] Pt. Type: E Room/Bed: [facility] Admit/Disch: 03/02/22 10:46:00 - Institution: [facility] PACU Case Times Entry 1 In PACU I 03/02/22 11:58:00 Ready for PACU 03/02/22 12:15:00 Discharge Discharge from PACU 03/02/22 12:20:00 I [facility] PACU Case Times Audit 03/02/22 14:37:18 Validation Specialist: [id number] Modifier: [id number] <+> 1 Ready for PACU Discharge <+> 1 Discharge from PACU I Finalized By: FERNANDO JHA RN Document Signatures Signed By: FERNANDO JHA RN 03/02/22 14:38 Electronically signed by [facility] Conversion Optical Instrument Repairer Cerner at 11/23/2022 8:45 PM CDT documented in this encounter Plan of Treatment Not on file documented as of this encounter Visit Diagnoses Not on filedocumented in this encounter Care Teams Contractor General Engineering Relationship Specialty Start Date End Date Daniel Carranza MD [address] [place], [place] [address] PCP - General Family Medicine 07/04/22 documented as of this encounter
--- OUTSIDE RECORDS SUMMARY | 2025-02-26 14:59 | XMS_ITS | Encounter Summary ---
Author Organization [employer] ([place], [place], [place], [place]) Address [address] [place] [address] Care Team Providers Care Electrotyper Apprentice Name Role Phone Daniel Carranza MD Primary Care Provider [phone] Encounter Details Date Type Department Care Team (Late st Contact Info) Description 03/02/2022 Transcribed Document [facility] [place] [address] [place] [address] ProviderLashaun MD [address], [place] [id number] Social History Tobacco Use Types Packs/Day Years Used Date Smoking Tobacco: Never Assessed Family and Community Support Answer Edi e Recorded Help with Day to Day Activities Not on file 08/23/2023 Feeling Lonely or Isolated Not on file 08/23 Educational Attainment Answer Date Anil rded Speak language other than [place] at home Not on file 08/23/2023 Want [...] Source : Stated Height Entry Format : [place] Height, Feet : 5 ft(Converted to: 152 cm, 60 Inch) Height, Inches : 7 Inch(Converted to: 0 ft 7 Inch, 17.78 cm) Clinical Height : 170.18 cm Weight Source : Standing scale Weight Entry Format : [place] Clinical Dosing Weight : 103.36 kg Weight, Pounds : 227.4 lb Body Surface Area (BSA) : 2.14 m2 Body Mass Index : 35.7 kg/m2 (HI) [place] Body Weight : 61 kg Romana Polanco [...] Romana Polanco RN - 03/02/2022 11:24 EDT [place] Suicide Severity Rating Scale (C-SSRS) CSSRS Past [...] Contact #2 Relationship : Primary Language : [place] Communication Barrier : None Production Line Assembler Needed : No Romana Polanco RN [...] Scale Risk Level : 0-24 Low Risk [place] Fall Interventions : Adequate lighting, Assistive devices [...] on filedocumented in this encounter Care Teams Electrotyper Apprentice Relationship Specialty Start Date End Date Daniel Carranza MD [address] [place] [address] PCP - General Family Medicine 07/04/22 documented as of this encounter
--- OUTSIDE RECORDS SUMMARY | 2025-02-26 14:59 | XMS_ITS | Data Portability ---
Author Organization [facility] Address [address] [place] [address] Care Team Providers Care Bus Dispatcher Interstate Name Role Phone CHRISTINA DAVIS Referring Provider [...] TSH + free T4, serum 2024 025 [place] [facility], [address] , [address], [place], [address], 5 08:11:38 Referral urologist referral - Ilir Leyva--- STAT [address] [facility], [address], [place], [address], 5 04:05:06 pain management referral 2024 025 ALBERT Nuñez MD, [address] [facility] [address], [place], [address], 5 10:26:18 Procedures None recorded. Surgeries None recorded. Imaging electrocard iogram 2023 024 [facility], [address] [facility], [place], [address], 4 18:01:59 Medication Orders escitalopra m 10 mg tablet 2024 025 [facility], [address] [place] [address], [facility] [address], [place], [address], 5 16:28:29 levothyroxi ne 50 mcg tablet 2024 025 [facility], [address] [place] [address], [facility], [place], [address], 5 16:28:30 prednisone 20 mg tablet 2023 025 [facility], [address] [place] [address], [facility], [place], [address], 5 15:48:11 Patient TargetsNo targets recorded. Patient Instructions Encounter Date Encounter Id Patient Instructions Last Modified By Organization Details Last Modified Time 10/27/2024 [id number] learning about healthy weight efryman Not available 10/27/2024 18:10:52 body mass index: care instructions efrypalo alto Not available 10/27/2024 18:10:52 Reason for Referral [...] L 0.450- 4.500 normal Not Available [facility] ([facility]) [address] [facility], [place], [address], 09/02/2024 08:11:38 09/01/19 25 09/02/2024 TSH+F REE T4 T4,free(dire ct) 1.09 NG/dL 0.82-1 .77 normal Not Available [facility] ([facility]) [address] [facility], [place], [address], 09/02/2024 08:11:38 06/09/20 24 06/09/2024 elect rocar diogr am No observ ation record ed. efryman [address], [place], [address], 06/11/2024 08:32:20 06/09/20 24 06/09/2024 elect rocar diogr am No observ ation record ed. [email or web address] [address], [place], [address], 06/12/2024 11:43:27 06/09/20 24 06/09/2024 XR, chest , 2 view No observ ation record ed. [facility] [address], [place], [address], 06/11/2024 08:56:51 06/09/20 24 06/09/2024 CT, angio gram, chest , w/ contr ast No observ ation record ed. [facility] [address], [place], [address], 06/11/2024 08:54:36 06/09/20 24 06/09/2024 elect rocar diogr am No observ ation record ed. [facility] [address], [place], [address], 06/11/2024 08:54:03 07/06/20 24 07/03/2024 cardi ac stres s test No observ ation record ed. [facility] [address], [place], [address], 07/06/2024 13:48:22 07/06/20 24 07/03/2024 NM, myoca rdial perfu dylan scan, w/ stres s No observ ation record ed. [facility] [address], [place], [address], 07/06/2024 13:48:09 08/26/19 25 08/24/2024 CT, angio gram, coron seven arter ies, w/ contr ast No observ ation record ed. [place] [id number], [place], [address], 08/27/2024 08:26:45 01/12/20 25 01/11/2025 CT, abdom en + pelvi s, w/o contr ast No observ ation record ed. [place] [id number] [facility] [address] [address], [place], [address], 01/11/2025 11:50:45 Result Notes None recorded. Problems Name Problem SNOMED Code Status Onset Date Resolution Date Notes Provider Name and Address Organization Details Recorded Time Anxiety 44385488 Active Hiwot Beaulieu null, [place] - [facility] 3 09:09:45 Hypothyroi dism 42097705 Active Hiwot Beaulieu null, [place] - [facility] 3 09:10:07 Non-alcoho lic fatty liver 697019932 Active Hiwot Beaulieu null, [place] - [facility] 3 09:10:31 Chronic neck pain 2118244244698 Active 2022 Debora Olsen, MEDICINE MAN [address], [place], [address] , [place] - [facility] 3 11:24:20 Problem [...] 23 Date of Last Mammogram completed Michelle SUBRAMANIAN - [facility] 08/01/2023 10:52:51 10/12/19 07 Caesarean Section completed Hiwot SUBRAMANIAN - [facility] 12/11/2022 08:55:20 Arthroscopic Surgery completed Hiwot SUBRAMANIAN - [facility] 12/11/2022 08:55:20 Gastric Bypass completed Hiwot SUBRAMANIAN - [facility] 12/11/2022 08:55:20 Orthopedic Surgery completed Chaz SUBRAMANIAN - [facility] 12/11/2022 08:55:20 Adnexal surgery completed Hiwot SUBRAMANIAN - [facility] 12/11/2022 08:55:20 appendectomy completed Michelle SUBRAMANIAN - [facility] 06/09/2024 17:34:34 Imaging Results None [...] Not Available levothyrox ine 75 mcg tablet TAKE 1 TABLET BY MOUTH EVERY OTHER DAY 2024 active Not Available Not Available Not Avai lable levothyrox ine 50 mcg tablet TAKE 1 TABLET BY MOUTH EVERY OTHER DAY 2024 active Not Available Not Available Not Avai lable cephalexin 500 mg capsule Take 1 capsule [...] in Arterial blood by Pulse oximetry Systolic And Diastolic Provider Name and Address Organization Details Last Updated DateTime 5 170.18 cm 18 /min 29.3 kg/m2 46260.7 7 g 98 [degF] 78 /min 98 % 98 % 138/82 mm[Hg] Michelle Stears [place] - [facility] 5 15:40:28 Date Recorded Body height Body mass index (BMI) Body weight Body temperature Respiratory rate Heart rate Oxygen saturation Oxygen saturation in Arterial blood by Pulse oximetry Systolic And Diastolic Provider Name and Address Organization Details Last Updated DateTime 5 170.18 cm 30.5 kg/m2 37887.5 1 g 98 [degF] 18 /min 88 /min 99 % 99 % 132/78 mm[Hg] Michelle Stears [place] - [facility] 5 17:51:39 Date Recorded Body height Body mass index (BMI) Body weight Provider Name and Address Organization Details Last Updated DateTime 01/19/2025 170.18 cm 29.8 kg/m2 18914.55 g Hiwot Christofer [place] - [facility] 01/19/2025 17:55:28 Date Recorded Body height Body mass index (BMI) Body weight Body temperature Respiratory rate Oxygen saturation Oxygen saturation in Arterial blood by Pulse oximetry Heart rate Systolic And Diastolic Provider Name and Address Organization Details Last Updated DateTime 4 170.18 cm 29 kg/m2 13473.5 9 g 98.3 [degF] 18 /min 99 % 99 % 88 /min 142/84 mm[Hg] Michelle Stears [place] - [facility] 4 17:33:50 Date Recorded Body height Respiratory rate Body mass index (BMI) Body weight Heart rate Oxygen saturation Oxygen saturation in Arterial blood by Pulse oximetry Body temperature Systolic And Diastolic Provider Name and Address Organization Details Last Updated DateTime 4 170.18 cm 18 /min 28.8 kg/m2 09065 g 88 /min 96 % 96 % 97.9 [degF] 156/88 mm[Hg] Michelle Stears [place] - [facility] 4 [...] Or The Highest Degree You Have Received? OF92033-9 Information not available 12/11/2022 Have There Been [...] Do You Have A Medical Power Of Medical Management Specialist? No Information not available 12/11/2022 What Was [...] 12/11/2022 Are you able to care for yourself independently? Yes Information not available 12/11/2022 Do you have difficulty dressing, bathing, grooming, or toileting? 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 [id number] Information not available 12/11/2022 Do you have [...] virus, trivalent, PF 05/28/2024 completed Not [facility] 17:33:20 Tdap 07/08/2023 completed Hiwot Beaulieu null, [place] - [facility] 07/08/2023 13:25:04 COVID-19 vaccine, vector-nr, rS-Ad26, PF, 0.5 mL 10/12/2020 completed Michelle Stears null, [place] - [facility] 03/22/2023 14:13:03 Influenza, split virus, quadrivalent, PF 05/10/2022 completed Michelle Stears null, [place] - [facility] 03/22/2023 14:13:03 Influenza, split virus, quadrivalent, PF 06/05/2023 completed Michelle Stears null, [place] - [facility] 04/07/2024 09:28:33 Past Encounters Encounter ID Performer Location Encounter Start Date Encounter Closed Date Diagnosis/Indication Diagnosis SNOMED-CT Code Diagnosis ICD10 Code Diagnosis Note [id number] Debora Olsen APRN [address] [address] 12/11/2022 08:47:06 12/11/2022 09:56:35 Body mass index 25-29 - overweight 103624570 Z68.26 Overweight 484230975 E66 .3 Anxiety 08977284 F41.9 Otitis ext bria of right ear 6709177888 694768 H60.91 Chronic ne ck pain for greater than 3 months 9861770972 58496 M54.2 see forms filled out for disability - see notecan work with restrictio ns as stated by surgeon.se dentary work 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 [id number] Debora Olsen [address] [address] 03/22/2023 14:06:48 03/22/2023 14:52:51 Chronic neck pain 9299226961 107 M54.2 follow up with neurosurge ry Chronic back pain 686022 002 G89.29 pt needs a job that is statuary and has freq breaks Disorder o f cervical spine 708362859 M53.82 Degenerati on of lumbar intervertebral disc 20662829 M51.36 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 05361293 M51.34 Lumbar fac et joint pain 257999599 M54.51 [id number] Debora Olsen [place] [id number] 06/17/2023 08:21:13 06/17/2023 08:59:37 Anxiety 15411643 F41.9 Chronic neck pain 593676 2511 107 M54.2 follow up with neurosurge ry Hypothyroidism 58348245 E03.9 Non-alcoho lic fatty liver 353529827 K76.0 [id number] [facility] Grenadabeth Olsen [place] [id number] 06/18/2023 17:23:01 06/26/2023 08:47:14 [id number] [facility] Grenadabeth Olsen [address] [address] 07/08/2023 10:52:29 07/08/2023 11:52:35 Administration of diphtheria, pertussis, and tetanus vaccine 855479917 Z23 Dog bite of forearm 9887 38422 S51.851A monitor for s/s of infection Screening for malignant neoplasm of colon 570943293 Z12.11 Screening mammography of bilateral breasts 6626224026 86404 Z12.31 [id number] Debora Olsen [address] [address] 09/05/2023 10:39:55 09/05/2023 11:33:10 Chronic neck pain 1223470142 107 M54.2 follow up with neurosurge rypaper work completed- she may return to work on restrictio ns [id number] Debora Olsen [address] [address] 11/18/2023 14:06:59 11/18/2023 15:55:21 Chronic neck pain 7839186462 107 M54.2 follow up with neurosurge rypaper work completed- she may return to work on restrictio ns [id number] Debora Olsen MEDICINE MAN [address] [address] 01/21/2024 08:53:10 01/21/2024 09:33:23 Chronic neck pain 7843812119 107 M54.2 pt can return to work for sedentary work only with freq breaks Hypothyroidism 18592768 E03.9 Non-alcoho lic fatty liver 273708533 K76.0 [id number] Debora Olsen MEDICINE MAN [address] [address] 04/07/2024 09:19:38 04/07/2024 10:10:10 History of appendectomy 141317277 Z90.49 follow up with surgeon Tachycardia 2871440 R00. 0 follow up with cardiology [id number] Debora Olsen APRN [address] [address] 06/09/2024 17:26:40 06/09/2024 17:59:42 Chest pain 54931942 R07.9 sent to ed for eval Headache 60543053 R51.9 [id number] Debora Olsen [address] [address] 06/18/2024 09:17:45 06/18/2024 10:10:26 Allergic reaction 469798566 T78.40XA benadryl as neededsangeeta zuleta if worsen or no improvemen t [id number] Eugonda Fryman, MEDICINE MAN [address] [address] 09/01/2024 15:11:47 09/01/2024 17:02:46 Hypothyroidism 51637451 E03.9 Anxiety 35594488 F41.9 [id number] Debora Olsen APRN [address] [address] 10/27/2024 17:42:41 10/27/2024 18:09:21 Body mass index 30+ - obesity 402753372 Z68.30 30.5 Obesity 789346531 E66.9 Chronic back pain 620442 002 G89.29 if symptoms worsen or no improvemen t return [id number] Debora Olsen APRN [address] [address] 01/19/2025 17:32:57 01/19/2025 18:07:38 Kidney stone 98197025 N20.0 continue with meds and increase fluid [...] Guarantor Name 09/01/2024 1 MARIA TERESA-KOSTAS (PPO) [id number] Mayte Olsen [id number] Mayte Olsen 01/18/2025 1 MARIA TERESA-[place]OSTAS (PPO) [id number] Moises Olsen [id number] Mayte Olsen Notes Date Note Type Note Provider Name and Address Organization Details Recorded Time 06/09/2024 text/html ROS as noted in the HPI 48 year old female who presents to the office today with concerns of sweats, chest pain, pain in left shoulder states Saturday she had a sore throat, little cough, has headache that will not go away Debora Olsen APRN [address], [place], [address], [place] - [facility] 06/09/2024 18:01:01 06/18/2024 text/html ROS as noted in the HPI 48 year old female who presents to the office today with concerns of itchy rash on lower legs/feet since Saturdaywas started on Pantoprazole on 06-10-24 from ER visit on 06-09-24. she stopped taking medicine after Saturday morning 06-13-24 thinking rash could be from this medication, rash has improved some now manly on feet and anklescontinued itching/redness since stopping medication Debora OlsenBASIL [address], [place], [address], [place] - [facility] 06/18/2024 10:04:30 09/01/2024 text/html ROS as noted in the HPI 49 year old female who presents to the office today for a follow up onhypothyroidism -needs medication refill, needs labsanxiety-needs refill on escitalopram Debora OlsenBASIL [address], [place], [address], [place] - [facility] 09/01/2024 16:28:13 10/27/2024 text/html ROS as noted in the HPI 49 year old female who presents to the office today with concerns of low back pain- pt states she started sleeping in a recliner about 4-5 years ago due to back pain and now that is not helping either.pt states she was offered back injections in -2020 by previous ortho [facility], Asa Dee MD in [place]. would like referral to pain management for injections. no change in bowel or bladder Debora JordanBASIL go [address], [place], [address], [place] - [facility] 10/27/2024 18:11:26 01/19/2025 text/html Emergency Depart ment Follow-Up RecordReported by PatientEmergency Room Follow-Up RecordFor discharge information, patient reportsname of hospital/urgent care patient was seen: ([facility]),patient presented to hospital/urgent care on or around: actual date 01/11/25,patient presented to hospital for treatment of: (kidney stones),treatment received by hospital/urgent care: (meds, ct scan),patient's condition has: improved, andhospital records available at the time of this visit: no. 49 yr old female presents for a follow up after an er visit. She has kidney stones- er doctor thought she could pass them but she hasn't passed yet. would like referral to urology Debora Olsen, MEDICINE MAN [address], [place], [address], [place] - [facility] 01/19/2025 18:15:14 OBGyn Episode No OBEpisode recorded.
--- OUTSIDE RECORDS SUMMARY | 2025-02-26 15:00 | XMS_ITS | Encounter Summary ---
Author Organization [employer] ([place], [place], [place], [place]) Address [address] [place] [address] Care Team Providers Care Ventilating Engineer Name Role Phone Daniel Carranza MD Primary Care Provider [phone] Encounter Details Date Type Department Care Team (Late st Contact Info) Description 03/02/2022 Transcribed Document [facility] [address] [place] [address] ProviderLashaun MD [address], [place] [id number] Social History Tobacco Use Types Packs/Day Years Used Date Smoking Tobacco: Never Assessed Family and Community Support Answer Edi e Recorded Help with Day to Day Activities Not on file 08/23/2023 Feeling Lonely or Isolated Not on file 08/23 Educational Attainment Answer Date Anil rded Speak language other than Welsh at home Not on file 08/23/2023 Want [...] Conversion Note - Historical ProviderMD - 03/02/2022 11:53 AM CDT [facility] IntraOp Summary Primary Physician: MESSI STEEL MD-SUR Finalized Date/Time: 03/02/22 12:52:30 Pt. Name: JIMMY OLSEN YAMILKA Akbar/Sex: [address] [facility] Rec #: [id number] Physician: MESSI STEEL MD-SUR Financial #: [id number] Pt. Type: Room/Bed: [facility] Admit/Disch: 03/02/22 10:46:00 - Institution: [facility] [place]o - Case Attendance Entry 1 Entry 2 Entry 3 Case Attendee MESSI STEEL, CHAY WILKINS, CIELO OTHER, ATTENDEE MARCO Role Performed Surgeon/Proceduralist, TYING IN MACHINE OPERATOR/Nurse Commission Auditor Student First Time In 03/02/22 11:51:00 03/02/22 [...] TECH RN-PATIENT CARE BEDSIDE NON-EXEMPT Role Performed Cardiology Manager, First Scrub, First Time In 03/02/22 11:51:00 03/02/22 11:51:00 Time Out 03/02/22 11:56:00 03/02/22 11:56:00 Procedure Esophagogastroduodenosco Esophagogastroduodenosco py, Gastric Biopsy py, Gastric Biopsy Other Attendee Superficial Wound Closed By: Last Modified By: Vangie Tanner Kindred, Pamela, RN-PATIENT CARE BEDSIDE RN-PATIENT CARE BEDSIDE NON-EXEMPT 03/02/22 NON-EXEMPT 03/02/22 12:46:28 12:46:28 [facility] - Case Attendance Audit 03/02/22 12:46:28 Fiber Optic Technician: [id number] Modifier: [id number] 1 <*> Procedure Esophagogastroduodenoscopy 2 <*> Procedure Esophagogastroduodenoscopy 3 <*> Procedure Esophagogastroduodenoscopy 4 <*> Procedure Esophagogastroduodenoscopy 5 <*> Procedure Esophagogastroduodenoscopy 03/02/22 12:44:04 Fiber Optic Technician: [id number] Modifier: [id number] <+> 1 Procedure 2 <*> Procedure Esophagogastroduodenoscopy 3 <*> Procedure Esophagogastroduodenoscopy 4 <*> Procedure Esophagogastroduodenoscopy 5 <*> Procedure Esophagogastroduodenoscopy 03/02/22 12:42:17 Fiber Optic Technician: [id number] Modifier: [id number] <*> Procedure Esophagogastroduodenoscopy 3 <*> Other Attendee 03/02/22 12:09:39 Fiber Optic Technician: [id number] Modifier: [id number] <+> 1 Time In <+> 1 Time [...] Endo - Case Times Audit 03/02/22 12:42:39 Fiber Optic Technician: [id number] Modifier: [id number] <+> 1 Stop Time <+> 1 Anesthesia [...] Reported to FERNANDO JHA RN Post-op Transport Stretcher/Blurney Via Patient Transport Vangie Tanner, Accompanied by RN-PATIENT CARE BEDSIDE NON-EXEMPT, CHAY WILKINS, TYING IN MACHINE OPERATOR, OTHER, ATTENDEE Last Modified By: Vangie Tanner [...] - Fire Risk Assessment Audit 03/02/22 12:43:16 Fiber Optic Technician: [id number] Modifier: [id number] 1 <*> Fire Risk Assessment Verified 03/02/22 11:47:00 Date/Time 03/02/22 12:43:03 Fiber Optic Technician: [id number] Modifier: [id number] <+> 1 Fire Risk Assessment Verified Date/Time [facility] - General Case Photographic Developer And Printer 1 Case Information OR Endo 02 [facility] Case Level 1 Room Verified Yes Wound Class 2 - Clean-Contaminated Specialty General Anesthesia Type MAC ASA Class 3 Diagnosis Preop Diagnosis GERD, dyspepsia Postop Diagnosis see MD report Wound Class Definitions Last Modified By: Vangie Tanner RN-PATIENT CARE BEDSIDE NON-EXEMPT 03/02/22 12:52:00 [facility] - General Case Data Audit 03/02/22 12:52:00 Fiber Optic Technician: [id number] Modifier: [id number] <+> 1 ASA Class [facility] - [...] Endo - Patient Positioning Audit 03/02/22 12:46:30 Fiber Optic Technician: [id number] Modifier: [id number] 1 <*> Procedure Esophagogastroduodenoscopy [facility] - [...] Tanner RN-PATIENT CARE BEDSIDE NON-EXEMPT 03/02/22 12:45:01 [facility] Endo - Surgical Procedures Entry 1 Entry 2 Procedure Esophagogastroduodenosco Gastric Biopsy py Modifiers Additional W/BX W/BX Procedure Description Primary Procedure Yes No Primary Surgeon MESSI STEEL STRIFLING, JOHN R, MD-JOCELYN -JOCELYN Start 03/02/22 11:53:00 03/02/22 11:53:00 Stop 03/02/22 11:54:00 03/02/22 11:54:00 Physician States Cecum Reached Anesthesia Type MAC MAC Specialty General General Wound Class 2 - Clean-Contaminated 2 - Clean-Contaminated Last Modified By: Vangie Tanner, Vangie Tanner RN-PATIENT CARE BEDSIDE RN-PATIENT CARE BEDSIDE NON-EXEMPT 03/02/22 NON-EXEMPT 03/02/22 12:47:11 12:46:22 [facility] - Surgical Procedures Audit 03/02/22 12:47:11 Fiber Optic Technician: [id number] Modifier: [id number] 1 <*> Procedure Esophagogastroduodenoscopy 1 <+> Wound Class 03/02/22 12:46:22 Fiber Optic Technician: [id number] Modifier: [id number] <+> 2 Procedure <+> 2 Primary Procedure [...] BEDSIDE NON-EXEMPT 03/02/22 12:46:30 [facility] - Time Out Audit 03/02/22 12:46:30 Fiber Optic Technician: [id number] Modifier: [id number] 1 <*> Procedure to be Performed Esophagogastroduodenoscopy Case Comments <None> Finalized By: Vangie Tanner RN-PATIENT CARE BEDSIDE NON-EXEMPT Document Signatures Signed By: Vangie Tanner RN-PATIENT CARE BEDSIDE NON-EXEMPT 03/02/22 12:52 Electronically signed by Shannon [facility] Conversion Senior Mainframe Programmer Analyst Cerner at 11/23/2022 8:53 PM CDT documented in this encounter Plan of Treatment Not on file documented as of this encounter Visit Diagnoses Not on filedocumented in this encounter Care Teams Ventilating Engineer Relationship Specialty Start Date End Date Daniel Carranza MD [address] [place] [address] PCP - General Family Medicine 07/04/22 documented as of this encounter
--- OUTSIDE RECORDS SUMMARY | 2025-02-26 15:00 | XMS_ITS | Data Portability ---
Author Organization [facility] VALENCIA Chadwick [facility] Address [address] [place] [address] Care Team Providers Care Licensed Architect Name Role Phone ELISEO NORMAN Primary Care Provider Assessment Encounter Date Assessment [...] stenosis and radiculopathy Surgeon: Regi Washington M.D. higher level teaching assistant Radha Angelo PA-C Anesthesia: Gen. endotracheal [...] placed without complication. We then placed one Dillard pin at the appropriate portion of the [...] confirm adequate placement. We then removed the Dillard pins. We then took a 13 mm [...] By Organization Details Last Modified Time 09/16/2023 [id number] Recommended OTC liquid gel Ibuprofen if able. [...] Negati ve negati ve normal Not Available [facility] [address] [place] [address], [phone], 10/18/2021 16:12:30 10/04/19 22 10/03/2021 XR, cervi karlee spine , 2 or [address] [address] Shaylaana power Name: JIMMY power : 1974 [...] Jenkins MD on 10/04/19 22 1:07 PM [facility] [address] [place] [address], [phone], 12/25/2021 12:49:19 11/21/19 22 11/20/2021 XR, cervi karlee spine , 2 or [address] [address] Patien tono Name: JIMMY power : 1974 [...] Apollo Jenkins MD on 022 1:55 PM [facility] [address] [place], [address], 12/25/2021 12:23:51 01/18/20 22 01/17/2022 XR, cervi karlee spine , 2 [place] 3 [place] [address] Sera power Name: JIMMY power : 1974 [...] reted By: Apollo Jenkins MD [facility] onical ly Signed By: Apollo Jenkins MD on 022 12:06 PM [facility] [address], [address], 05/28/2022 12:37:23 Result Notes Documentation Provider Name and Address Organization Details Recorded Time Xr, Cervical Spine, 2 Or 3 View : [place] [address] Patient Name: JIMMY SHAFFER Patient : 1975 [...] Interpreted By: Augie Jenkins MD WASHINGTON MD [address] [place] [address], [phone], [facility] 12/25/2021 12:23:51 Xr, Cervical Spine, 2 Or 3 View : [address] [address] Patient Name: JIMMY SHAFFER Patient : 1975 [...] Interpreted By: Augie Jenkins MD WASHINGTON MD [address] [place] [address], [phone] 05/28/2022 12:37:23 Problems No Known Problems Procedures Surgical History Date Name Laterality Status Provider Name and Address Organization Details Recorded Time 10/02/19 19 Suture/Staple removal completed Sanket CARMONA PA-C [address] [place] [address], [address], [facility] 10/02/2018 14:29:50 08/18/19 19 PT Manual Therapy completed BER JIN, PT [address] [place] [address], [address], [facility] 08/18/2018 11:33:03 08/18/19 19 PT Therapeutic Exercise completed BRE JIN, PT [address] [place], [address], [facility] 08/18/2018 11:33:16 08/18/19 19 Injection Joint/Bursa, Major completed HOA MARCUS MD [address] [place] [address], [address], [facility] 08/18/2018 11:57:39 08/04/20 18 PT Evaluation - Low Complexity completed BRE JIN, PT [address] [place], [address], [facility] 08/04/2018 11:40:47 08/04/20 18 PT Manual Therapy completed MARIA LUISACHINOANIYA Lisa JIN, PT [address] [place], [address], [email or web address] 08/04/2018 11:42:11 08/04/20 18 PT Therapeutic Exercise completed JOHANAANIYA Lisa JIN, PT [address] [place], [address], [facility] [[email or web address] 08/04/2018 11:42:41 reconstruction of anterior cruciate ligament of knee joint completed Marie Hector MORIS [facility] 09/13/2021 09:13:03 cholecystectomy completed Marie Hector MORIS [facility] 09/13/2021 09:13:09 Caesarean Section completed [facility] Hector Shirley [facility] 09/13/2021 09:13:17 oophorectomy completed [facility] Hector MORIS [facility] 09/13/2021 09:13:29 procedure on shoulder completed [facility] Hector MORIS [facility] 09/13/2021 09:13:41 extraction of wisdom tooth completed [facility] Hector SUBRAMANIAN [facility] 09/13/2021 09:13:47 Imaging Results None recorded. Procedure Notes None recorded. Medical Equipment None Reported. Allergies Allergen ID Allergen Name Allergen Category Reaction Reaction Severity Criticality Documentation Date Start Date Code Code System Note Provider Name and Address Organization Details Recorded Time [id number] lisinopri l medicatio n Not available Not available Not available 09/13/2021 78578 RxNorm [facility] Hectorjocelyne mays MORIS [facility] 09:11:45 Medications Name Sig Start Date [...] height Body mass index (BMI) Body weight Pain severity - 0-10 verbal numeric rating [Score] - Reported Provider Name and Address Organization Details Last Updated DateTime 09/16/2023 172.72 cm 26.6 kg/m2 43805.66 g 3 [facility] 09/16/2023 14:59:03 Date Recorded Body height Provider Name an d Address Organization Details Last Updated DateTime 11/20/2021 172.72 cm Marie Young [facility] 11:38:05 Date Recorded Body height Body mass index (BMI) Body weight Systolic And Diastolic Provider Name and Address Organization Details Last Updated DateTime 01/17/2022 172.72 cm 35.9 kg/m2 849720.8 g 120/80 mm[Hg] Haily Manzanaresholz [facility] 01/17/2022 11:27:24 Social History Question Answer Notes LastModified by [employer] Details LastModified Time Tobacco Smoking Status [facility] 09/13/2021 09:12:47 Rate The Severity [...] Functional Status Question Answer Note LastModified by [employer] Details LastModified Time Do you use any [...] Medical History Condition Response Liver Disease Y Sleep Apnea Y Hypertension Y Gynecological HistoryNo gynecological history recorded. Obstetrics History GPAL:G 0 P 0 0 0 0 Past Encounters Encounter ID Performer Location Encounter Start Date Encounter Closed Date Diagnosis/Indication Diagnosis SNOMED-CT Code Diagnosis ICD10 Code Diagnosis Note [id number] HOA MARCUS MD [facility]I [facility] [address] [place] [address] 07/21/2018 08:12:15 07/21/2018 09:58:07 Pain of right shoulder joint 8271047573 2543756 M25.511 Impingemen t syndrome of right shoulder region 0184102403 16153 M75.41 [id number] BRE JIN, PT PHYSICAL THERAPY / HAND THERAPY [facility] [address] [place] [address] 08/04/2018 08:20:34 08/04/2018 13:40:03 Shoulder joint pain 901647448 M25.519 Injury of glenoid labrum of shoulder joint 990632266 S49.91XD Muscle weakness 93533926 M62.81 [id number] HOA MARCUS MD [facility] [address] [place] [address] 08/18/2018 10:31:14 08/18/2018 12:34:43 Arthritis of acromioclavicular joint 713296284 M13.617 [id number] BRE JIN, PT PHYSICAL THERAPY / HAND THERAPY [facility] [address] [place] [address] 08/18/2018 10:45:28 08/18/2018 11:44:50 Injury of glenoid labrum of shoulder joint 962851050 S49.91XD Muscle weakness 74537774 M62.81 Shoulder joint pain 2679 98848 M25.358 [id number] HOA MARCUS MD [facility] [address] [address] 09/04/2018 14:37:40 09/04/2018 15:35:14 Injury of glenoid labrum of shoulder joint 054950568 S49.91XD Shoulder joint pain 2679 14544 M25.519 Arthritis of acromioclavicular joint 297354718 M13.626 [id number] HOA MARCUS MD SURGERY SCHEDULE [address] [place] [address] 09/26/2018 08:18:23 09/26/2018 08:24:17 [id number] Sanket CARMONA PA-C [facility] [address] [place] [address] 10/02/2018 13:14:20 10/02/2018 14:25:26 Postoperative care 312651790 Z48.89 [id number] Sanket CARMONA PA-C [facility] [address] [place] [address] 10/23/2018 11:21:53 10/23/2018 12:10:53 Postoperative care 655005852 Z48.89 [id number] HOA MARCUS MD [facility] [address] [place] [address] 11/20/2018 09:55:33 11/20/2018 10:43:11 Injury of glenoid labrum of shoulder joint 655232390 S49.91XD Pain of ri ght shoulder joint 2959287398 4648953 M25.511 s/p 09/26/18 ONESIMO RT BEATRIZ AC RES [id number] HOA MARCUS MD [facility] [address] [address] 01/01/2019 10:10:06 01/01/2019 11:21:27 Shoulder joint pain 875988155 M25.519 s/p 09/26/18 ONESIMO RT BEATRIZ AC RES Injury of glenoid labrum of shoulder joint 562866118 S49.91XD s/p 09/26/18 ONESIMO RT BEATRIZ AC RES [id number] GRABIEL FRY PA-C NEUROSURG EMILIEDov [facility] [address] [place] [address] 09/13/2021 08:55:00 09/14/2021 09:30:25 Cervical radiculopathy 35987899 M54.12 [id number] REGI WASHINGTON MD NEUROSURG EMILIE MACIAS [facility] [address] [place] [address] 10/03/2021 09:34:50 10/04/2021 09:15:47 Cervical radiculopathy 73992712 M54.12 Her imaging is not here today [...] cervical flexion extension before her surgical date. [id number] REGI WASHINGTON MD SURGERY SCHEDULE [address] [place] [address] 10/20/2021 06:57:16 10/20/2021 06:57:45 [id number] REGI WASHINGTON MD NEUROSURG EMILIE MACIAS [facility] [address] [place] [address] 11/20/2021 11:13:25 11/23/2021 14:02:00 Postoperative care 229582191 Z48.89 Patient is doing very well this time. We discussed increasing activity levels. I would like to keep her from returning to work for full 3 months. I will see her back on 17 January to monitor her care with x-rays. She knows to contact us sooner if any new issues should arise. [id number] URIEL MOSQUEDA PA-C NEUROSURG EMILIE CHI [facility] [address] [place] [address] 01/17/2022 11:17:08 01/18/2022 14:22:28 Postoperative care 992213805 Z48.89 Patient is a 46-year-ol d female status post C6-C7 ACDF on 10/20/[address] Washington. Presents today for second postoperat conor karl power. Patient overall is doing very well. [...] AP lateral cervical x-rays today at the [facility] placement of hardware with no evidence of loosening or complicati on [id number] LEXIE JACOBSON MD SURGERY SCHEDULE [address] [place] [address] 09/06/2023 10:51:47 09/06/2023 10:52:33 [id number] HOA MARCUS MD [facility]I [facility] [address] [place] [address] 09/16/2023 14:22:06 09/16/2023 15:59:04 Pain of left shoulder joint 0730685695 0311587 M25.512 Health Concerns Section Related Observation LastModified by Organization Detai ls LastModified Time None Recorded Concern Status LastModified by Organization Details LastModified Time None Recorded Advance Directives Directive None Recorded Payers Insurance Date Sequence Insurance Name Policy Number Policy Peterson Covered Member ID Peterson Member ID Guarantor Name 01/16/2022 1 [facility] [id number] Jimmy Shaffer [id number] Jimmy Shaffer 01/16/2022 2 [place] [id number] Jimmy Shaffer [id number] Jimmy Shaffer 12/06/2020 PAYMENT PLAN Jimmy Shaffer 10/04/2023 1 [place] [id number] Jimmy Shaffer [id number] Jimmy Shaffer Notes Date Note Type [...] hardware no acute complication REGI WASHINGTON MD [address] [place] [address], [address], [facility] 11/20/2021 11:55:09 01/17/2022 text/html ROS as noted in the HPI Patient is a 46-year-old female status post [...] AP lateral cervical x-rays today at the [facility] URIEL MOSQUEDA PA-C [address] [place], [address], [facility] 01/17/2022 12:26:00 09/16/2023 text/html PCP: Dr. Sands FOR CONSULTATION AT THE REQUEST OF:HAND DOMINANCE: [...] MRI:PT:NSAIDS: tylenol prnINJECTION: HOA MARCUS MD [address] [place], [address], [facility] 10/03/2023 22:05:42 OBGyn Episode No OBEpisode recorded.
--- OUTSIDE RECORDS SUMMARY | 2025-02-26 15:00 | XMS_ITS | Continuity of Care Document ---
Author Organization [facility] Address [address] [address] Care Team Providers Care Fruit Press Operator Name Role Phone JANET OLSEN Primary Care Provider [phone] Assessment Encounter Date Assessment Date Assessment LastModified [...] + calcium, serum or plasma [address] (Registration ), [address] [facility], [place], [address], 02/04/2025 08:24:31 uric acid, serum or plasma [address] (Registration ), [address], [place], [address], 02/04/2025 08:24:31 magnesium , serum or plasma [address] (Registration ), [address], [place], [address], 02/04/2025 08:24:31 urinalysi s, dipstick [address] Urology-100, 1140 [facility] [address], [place], [address], 01/28/2025 11:22:22 kidney stone analysis [address] (Registration ), [address] [place], [address], 02/04/2025 08:24:32 Referral None recorded. Procedures bladder scan (PROC) [address] Urology-100, [address]0 [facility] [address], [place], [address], 01/28/2025 11:22:22 Surgeries None recorded. Imaging US, renal 2024 025 [facility] Scheduling Department -New Scheduling Process, [facility] [address], [place], [address], 02/24/2025 15:20:40 Medication Orders None recorded. Patient TargetsNo targets recorded. Patient InstructionsNo instructions recorded. Reason for Referral None Reported. Results Created Date Observation Date Name Description Value Unit Range Abnormal Flag Note LastModifiedBy Organization Detail LastModifiedTime 01/29/2001/28/2025 CALCI UM TOTAL calcium 10.1 mg/dL 8.5-10 .5 Not Available [facility] ([facility]) [address] [place], [address], 01/28/2025 12:30:19 01/29/2001/28/2025 URIC ACID uric acid 4.6 mg/dL 2.6-6. 0 Not Available [facility] ([facility]) [address] [place], [address], 01/28/2025 12:30:21 01/29/2001/28/2025 MAGNE SIUM magnesium 2.2 mg/dL 1.8-2. 4 Not Available [facility] ([facility]) [address] [place], [address], 01/28/2025 12:30:21 01/29/2001/29/2025 PTH, INTAC T PTH, intact 27 pg/mL 15-65 Perfo rmed at: [place] [address] Lab Direc tor: Lokesh matthew PhD, Phone : [phone] Not Available [facility] ([facility]) [address] [place], [address], 01/29/2025 10:13:36 01/29/20 25 02/04/2025 CALCU FARTUN BALLARD (STON E MELBA SIS) source Commen t . Not provi ded Not Available [facility] ([facility]) [address] [place], [address], 02/04/2025 20:11:35 01/29/20 25 02/04/2025 CALCU FARTUN BALLARD (STON E MELBA SIS) color Redman Not Available [facility] ([facility]) [address] [facility], [place], [address], 02/04/2025 20:11:35 01/29/20 25 02/04/2025 CALCU LI UR (STON E MELBA SIS) size 4x3 mm Multi ple piece s recei dewey. Dimen sions of the large st piece repor benny. Not Available [facility] ([facility]) [address] [facility], [place], [address], 02/04/2025 20:11:35 01/29/20 25 02/04/2025 CALCU LI UR (STON E MELBA SIS) weight 24 mg Not Available [facility] ([facility]) [address] [facility], [place], [address], 02/04/2025 20:11:35 01/29/20 25 02/04/2025 CALCU LI UR (STON E MELBA SIS) Ca oxalate dihydrate 100 % Not Available [facility] ([facility]) [address] [facility], [place], [address], 02/04/2025 20:11:35 01/29/20 25 02/04/2025 CALCU ELIO UR (STON E MELBA SIS) pdf image . [facility] at: [facility] [address] [place] [address] Lab Direc tor: Katelyn lynch PhD, Phone : [phone] Not Available [facility] ([facility]) [address] [facility], [place], [address], 02/04/2025 20:11:35 01/29/20 25 01/28/2025 urina lysis , dipst ick Leukocytes (reference range) negati ve Not Available [facility] Urology-100 [address] [facility] [address], [place], [address], 01/28/2025 10:14:56 01/29/20 25 01/28/2025 urina lysis , dipst ick Nitrite (reference range:) negati ve Not Available [place] [address] [address] [facility] [address], [place], [address], 01/28/2025 10:14:56 01/29/20 25 01/28/2025 urina lysis , dipst ick Urobilinogen (reference range) 0.2 Not Available [facility] [place] [address] [address] [facility] [address], [place], [address], 01/28/2025 10:14:56 01/29/20 25 01/28/2025 urina lysis , dipst ick Protein (reference range) negati ve Not Available [place] [address] [address] [facility] [address], [place], [address], 01/28/2025 10:14:56 01/29/20 25 01/28/2025 urina lysis , dipst ick pH (reference range 5-8.5) 5.0 Not Available [facility] [place] [address] [address] [facility] [address], [place], [address], 01/28/2025 10:14:56 01/29/20 25 01/28/2025 urina lysis , dipst ick Blood (reference range:) non-He molyze d: Modera te Not Available [place] [address] [address] [facility] [address], [place], [address], 01/28/2025 10:14:56 01/29/20 25 01/28/2025 urina lysis , dipst ick Specific Lometa (reference range) 1.015 Not Available [facility] [place] [address] [address] [facility] [address], [place], [address], 01/28/2025 10:14:56 01/29/20 25 01/28/2025 urina lysis , dipst ick Ketone (reference range) negati ve Not Available [place] [address], [place], [address], 01/28/2025 10:14:56 01/29/20 25 01/28/2025 urina lysis , dipst ick Bilirubin (reference range) negati ve Not Available [place] [address], [place], [address], 01/28/2025 10:14:56 01/29/20 25 01/28/2025 urina lysis , dipst ick Glucose (reference range) negati ve Not Available [place] [address], [place], [address], 01/28/2025 10:14:56 01/29/20 25 01/28/2025 urina lysis , dipst ick Color (reference range: yellow-brown ) Yellow Not Available [place] [address] [address] [facility] [address], [place], [address], 01/28/2025 10:14:56 01/29/20 25 01/28/2025 bladd er scan (PROC ) Calculated Residual Urine: 0ml Not Available [place] [address] [address] [facility] [address], [place], [address], 01/28/2025 10:14:40 Result Notes None recorded. Problems Name Problem SNOMED Code Status Onset Date Resolution Date Notes Provider Name and Address Organization Details Recorded Time Ureteric stone 02129824 Active 2024 MIHAI SAMS MD [address] [facility], [place], [address] , [facility] - [facility] & [place] 10:55:44 Recurrent kidney stone 3228265819871 102 Active 2024 MIHAI SAMS MD [address] [facility], [place], [address] , [place] - [facility] & [place] 10:55:55 Problem Notes None recorded. Procedures Surgical History Date Name Laterality Status Provider Name and Address Organization Details Recorded Time section completed Norma CUEVAS [facility] & [place] 01/28/2025 11:29:16 repair of anterior cruciate ligament of knee joint completed Norma CUEVAS [facility] & [place] 01/28/2025 11:29:28 appendicocecostomy completed Norma CUEVAS [facility] & [place] 01/28/2025 11:29:37 operation on gallbladder completed Norma CUEVAS [facility] & [place] 01/28/2025 11:29:50 cervical arthrodesis completed Yodit CUEVAS [facility] & [place] 01/28/2025 11:29:58 laparoscopic sleeve gastrectomy completed Norma CUEVAS [facility] & [place] 01/28/2025 11:30:07 operative procedure on shoulder completed Norma CUEVAS [facility] & [place] 01/28/2025 11:30:14 excision of cyst of ovary completed Norma CUEVAS [facility] & [place] 01/28/2025 11:30:29 Imaging Results None recorded. Procedure Notes None recorded. Medical Equipment None Reported. Allergies Allergen ID Allergen Name Allergen Category Reaction Reaction Severity Criticality Documentation Date Start Date Code Code System Note Provider Name and Address Organization Details Recorded Time 079246 Iodinated contrast media (substanc e) medicatio n Not available Not available Not available 01/28/2025 20862 2003 SNOMED MORIS Barnhart [facility] & [place] 11:28:49 485020 lisinopri l medicatio n Not available Not available Not available 01/28/2025 38995 RxNorm [place]ORIS Barnhart [facility] & [place] 11:28:59 Medications Name Sig Start Date Stop [...] Address Organization Details Last Updated DateTime 5 32378.9 9 g 99 % 99 % 77 /min 146/96 mm[Hg] Rhea SUBRAMANIAN [facility] - [place] & [place] 5 10:14:22 Social History None recorded. Functional Status [...] SNOMED-CT Code Diagnosis ICD10 Code Diagnosis Note [id number] MIHAI SAMS MD [facility] Urology-[address] [facility] [place] [address] 01/28/2025 09:52:10 01/28/2025 11:03:27 Ureteric stone 02036898 N20.1 Recurrent kidney stone 4229638906 159858 N20.0 Health Concerns Section Related Observation LastModified by Organization Detai ls LastModified Time None Recorded Concern Status LastModified by Organization Details LastModified Time None Recorded Payers Encounter Date Sequence Insurance Name Policy Number Policy Peterson Covered Member ID Peterson Member ID Guarantor Name 01/28/2025 1 [place] [id number] 2 Moises Jordanabbi [id number] Mayte Olsen Notes Date Note Type Note Provider Name and Address Organization Details Recorded Time 01/28/2025 text/html 01/28/25 27-zipo-uoa-female referred to my office for kidney stones. [...] CT contrast dye. 01/11/25 CT abd/pel w/o ([facility]): Three obstructing stones, largest measuring 4 mm, at the R UVJ with moderate R hydronephrosis and hydroureter MIHAI SAMS MD [address] [facility], [place], [address], [facility] - [place] & [place] 01/28/2025 13:01:40 OBGyn Episode No OBEpisode recorded.
--- OUTSIDE RECORDS SUMMARY | 2025-02-26 15:00 | XMS_ITS | Encounter Summary ---
Author Organization [employer] ([place], [place] Address [address] [place] [address] Care Team Providers Care Supervisor Machining Name Role Phone Daniel Carranza MD Primary Care Provider [phone] Encounter Details Date Type Department Care Team (Late st Contact Info) Description 03/02/2022 Transcribed Document [facility] Family Medicine [address] [place] [address] ProviderLashaun MD [address] [place] [id number] Social History Tobacco Use Types Packs/Day Years Used Date Smoking Tobacco: Never Assessed Family and Community Support Answer Edi e Recorded Help with Day to Day Activities Not on file 08/23/2023 Feeling Lonely or Isolated Not on file 08/23 Educational Attainment Answer Date Anil rded Speak language other than Monegasque at home Not on file 08/23/2023 Want [...] Conversion Note - Lashaun ProviderMD - 03/02/2022 8:57 AM CDT Patient Education [...] activities are safe for you. ??? Take qyvy-upu-pojyash and prescription medicines only as told by [...] provider. Document Revised: 07/19/2020 Document Reviewed: 12/22/2018 [employer] Patient Education ? 2020 [employer] Helicobacter Pylori Antibodies Test Why am [...] including vitamins, herbs, eye drops, creams, and tuoo-sdz-nitpbwh medicines. How are the results reported? Your [...] provider. Document Revised: 07/04/2018 Document Reviewed: 03/04/2018 [employer] Patient Education ? 2020 [employer] Pharmacology Monitored Anesthesia Care Anesthesia refers to [...] including vitamins, herbs, eye drops, creams, and lfdo-rhk-vrwvefa medicines. ??? Any problems you or family [...] tells you to take them. ??? Taking sxpg-psz-rqfjmes medicines, vitamins, herbs, and supplements. Tests and [...] provider. Document Revised: 04/06/2021 Document Reviewed: 06/23/2020 [employer] Patient Education ? 2020 [employer]. documented in this encounter Plan of Treatment Not on file documented as of this encounter Visit Diagnoses Not on filedocumented in this encounter Care Teams Supervisor Machining Relationship Specialty Start Date End Date Daniel Carranza MD [address] [place] [address] PCP - General Family Medicine 07/04/22 documented as of this encounter
--- OUTSIDE RECORDS SUMMARY | 2025-02-26 15:00 | XMS_ITS | Continuity of Care Document ---
Author Organization [place] [facility] Address [address] [place] [address] Care Team Providers Care Deputy United States Marshal Name Role Phone CHRISTINA DAVIS Referring Provider [...] None recorded. Referral urologist referral - Ilir Leyva--- STAT 2024 025 [facility], [address], [place], [address], 5 04:05:06 Procedures None recorded. Surgeries None recorded. Imaging None recorded. Medication Orders None recorded. Patient TargetsNo targets recorded. Patient InstructionsNo instructions recorded. Reason for Referral Urologist Referral for Kidne y stone Ilir Leyva--- STAT Referring Physician: Debora Olsen, Family Medicine, Encounter Date: 01/19/2025 Results Created Date Observation Date Name Description Value Unit Range Abnormal Flag Note LastModifiedBy Organization Detail LastModifiedTime 01/12/2001/11/2025 CT, abdom en + pelvi s, w/o contr ast No observ ation record ed. [facility] [address], [place], [address], 01/11/2025 11:50:45 Result Notes None recorded. Problems Name Problem SNOMED Code Status Onset Date Resolution Date Notes Provider Name and Address Organization Details Recorded Time Anxiety 40219727 Active Hiwot Beaulieu null, [place] - [facility] 3 09:09:45 Hypothyroi dism 03236542 Active Hiwot Bea[place], [place] - [facility] 3 09:10:07 Non-alcoho lic fatty liver 596181649 Active Hiwot Beaulieu null, [place] - [facility] 09:10:31 Chronic neck pain 5702670083759 Active 2022 Beliabeth Raúl, USED CAR SALES MANAGER [address], [place], [address] , [place] - [facility] 11:24:20 Problem Notes [...] Updated DateTime 01/19/2025 170.18 cm 29.8 kg/m2 50757.55 g Hiwot Beaulieu [place] - [facility] 01/19/2025 [...] Or The Highest Degree You Have Received? [id number] Information not available 12/11/2022 Have There Been [...] Do You Have A Medical Power Of Ocular Care Technologist? No Information not available 12/11/2022 What Was [...] 12/11/2022 What is your occupation? [employer] disability Information not available 03/22/2023 Mental Status Question Answer Note LastModified by Organizat ion Details LastModified Time Do you feel stressed (tense, restless, nervous, or anxious, or unable to sleep at night)? [id number] Information not available 12/11/2022 Do you have [...] SNOMED-CT Code Diagnosis ICD10 Code Diagnosis Note [id number] Debora Olsen APRN [address] [address] 01/19/2025 17:32:57 01/19/2025 18:07:38 Kidney stone 86577757 N20.0 continue with meds and increase fluid intakeif worsening or no improvemen t return Health Concerns Section Related Observation LastModified by Organization Detai ls LastModified Time None Recorded Concern Status LastModified by Organization Details LastModified Time None Recorded Payers Encounter Date Sequence Insurance Name Policy Number Policy Peterson Covered Member ID Peterson Member ID Guarantor Name 01/19/2025 1 [place] [id number] 2 Moises Olsen [id number] Mayte Olsen Notes Date Note Type Note Provider Name and Address Organization Details Recorded Time 01/19/2025 text/html Emergency Depart ment Follow-Up RecordReported by PatientEmergency Room Follow-Up RecordFor discharge information, patient reportsname of hospital/urgent care patient was seen: ([facility]),patient presented to hospital/urgent care on or around: [...] would like referral to urology Debora Olsen, USED CAR SALES MANAGER [address], [place], [address], [facility] - [facility] 01/19/2025 18:15:14 OBGyn Episode No OBEpisode recorded.
[2025-02-26 15:10] VITALS: BP 146/91; BP 148/87; PULSE 72; RESP 14; O2SAT 98; BMI 29.4
--- NOTE | 2025-02-26 15:29 | EXP.PAIN.SOA ---
[facility] Disclaimer: The information contained in this section may have been updated after the patient was seen, as this information can be updated by other users. Medical History HTN (hypertension) Abnormal cardiovascular stress test Lumbar spondylosis Degenerative disc disease Hypothyroid Surgical History History of colonoscopy History of appendectomy H/O gastric sleeve Hx of cholecystectomy H/O section H/O oophorectomy H/O neck surgery H/O shoulder surgery H/O knee surgery Family History Other No significant family history Social History Smoking Status: Former smoker alcohol intake: never substance use type: denies use current occupational status: other Travel in the last 8 weeks?: None PM Subjective & Objective Subjective Subjective:: Patient is a pleasant 49-year-old female who presents today for follow-up of her [lumbar medial branch block bilaterally L4-L5, L5-S1 on 02/16/2025. Today she does state that she had pretty much immediate improvement of at least 80 to 85% relief. Patient denies any new falls or injuries. Patient states she is doing overall wonderful and rates her pain today a 2 out of 10. Patient does states she is able to move around easier with overall decreased pain. 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 Patient is prescribed compounded cream. She denies any other changes. Her Braulio has been reviewed and is appropriate. Review of Systems: General: No recent weight changes, no fever, no sleep disturbances Respiratory: No cough, no shortness of air, no recurring pulmonary infections Cardiovascular/peripheral vascular: No chest pain, no palpitations, no edema, no shortness of breath Gastrointestinal: No new onset incontinence, normal bowel movements reported Genitourinary: No new onset incontinence Musculoskeletal: Low back pain Psychiatric: [Normal mood/affect] Neurological: [Denies weakness in extremities], [denies balance issues] Pain at rest (0-10 scale): 2 Objective Objective:: Physical Exam: General: Alert and oriented x3, no acute distress, pleasant and cooperative Lungs: Respirations even and unlabored, symmetrical chest expansion Eyes: PERRL Musculoskeletal: Flexion and extension of lumbar [spine] somewhat guarded Neurological: Speech clear, no gross sensory deficit Has patient had previous pain injection?: Yes Percent improvement in pain since last injection: 80 to 85% Conservative treatment options previously tried: Home exercise plan Length of treatment: Longer than 12 weeks Meds Home Medications and Allergies Home Medications ?Medication ?Instructions ?Recorded ?Confirmed ?Type escitalopram oxalate 10 mg tablet 10 mg PO DAILY 03/30/24 02/26/25 History levothyroxine 75 mcg tablet 75 mcg PO Q OTHER DAY 06/30/24 02/26/25 History aspirin 81 mg tablet,delayed 81 mg PO DAILY #90 tabs 08/27/24 02/26/25 Rx release (Adult Low Dose Aspirin) Held on 01/11/25. Instructions: Resume on 01/26/25. Do not take in conjunction with naproxen atorvastatin 20 mg tablet 20 mg PO DAILY #90 tabs 08/27/24 02/26/25 Rx levothyroxine 50 mcg tablet 50 mcg PO Q OTHER DAY 11/25/24 02/26/25 History cream base no.39 (bulk) (Versapro 1 applic topical DIRECTED 02/25/25 02/26/25 History Cream Base topical) New Prescriptions to Start Prescriptions: Allergies Allergy/AdvReac Type Severity Reaction Status Date / Time Iodinated Contrast Media Allergy Hives Verified 02/25/25 11:06 Assessment and Plan *Assessment and plan (1) Degenerative disc disease: Status: Acute Category: Medical (2) Low back pain: Status: Acute Category: Medical Code(s): M54.50 - Low back pain, unspecified (3) Lumbar spondylosis: Status: Acute Category: Medical Code(s): M47.816 - Spondylosis without myelopathy or radiculopathy, lumbar region Plan Patient has had significant improvement following this procedure and does not require any additional injection therapy. I did discuss with the patient that I do believe in future she would benefit from the lumbar RFA. We did review over risk and benefits. Patient will return to clinic in 1 month for reevaluation of symptoms and plan of care. Patient has been instructed to contact the clinic with any concerns before the next appointment. Dr. Nuñez has reviewed this note and agrees with this plan of care. This note was dictated using voice recognition software and make contain errors or omissions. All injections are used with Lidocaine, Bupivacaine and dexamethasone. Occasionally urine drug screen is needed to verify patient's compliance with our office pain contract. This is ordered based off specific treatments related to chronic pain with the potential to abuse certain medications.
== END 2025-02-26 23:59 | disposition home or self-care (01) ==
LOC: SC.PAIN 14:58
PROVIDERS: PCP Nurse Practitioner Family; Visit Provider Nurse Practitioner Family
DX: M47.816 Spondylosis without myelopathy or radiculopathy, lumbar region (principal)
CPT/HCPCS: 99212; G0463

== ENCOUNTER 2025-03-03 07:12 | Outpatient (CLI) | payer BC, SELFPAY ==
--- OUTSIDE RECORDS SUMMARY | 2025-03-03 07:15 | XMS_ITS | Encounter Summary ---
Author Organization [employer] ([place], [place], [place]) Address [address] [place] [address] Care Team Providers Care Emt Basic Name Role Phone Daniel Carranza MD Primary Care Provider [phone] Encounter Details Date Type Department Care Team (Late st Contact Info) Description 03/02/2022 Transcribed Document [facility] Family Medicine [address] [place] [address] ProviderLashaun MD [address] [place], [place] [id number] Social History Tobacco Use Types Packs/Day Years [...] YAMILKA Akbar/Sex: 1975 Female Med Rec #: [id number] Physician: MESSI STEEL MD-SUR Financial #: [id number] Pt. Type: E Room/Bed: [facility]/ Admit/Disch: 03/02/22 10:46:00 - Institution: [facility] PreOp Case Times Entry 1 In Preop 03/02/22 10:51:00 Ready for Holding n/a Room Patient Ready for 03/02/22 11:36:00 Surgery Patient Out of Preop 03/02/22 11:36:00 Patient Out of n/a Holding Room [facility] PreOp Case Times Audit 03/02/22 11:36:28 Steam Pan Sponger: [id number] Modifier: [id number] <+> 1 Patient Out of Preop <+> 1 Patient Ready for Surgery Finalized By: Romana Polanco RN Document Signatures Signed By: Romana Polanco RN 03/02/22 11:36 documented in this encounter Plan of Treatment Not on file documented as of this encounter Visit Diagnoses Not on filedocumented in this encounter Care Teams Emt Basic Relationship Specialty Start Date End Date Daniel Carranza MD [address] [place] [address] PCP - General Family Medicine 07/04/22 documented as of this encounter
--- OUTSIDE RECORDS SUMMARY | 2025-03-03 07:15 | XMS_ITS | Encounter Summary ---
Author Organization [employer] ([place], [place], [place], [place]) Address [address] [place] [address] Care Team Providers Care Pumper Brewery Name Role Phone Daniel Carranza MD Primary Care Provider [phone] Encounter Details Date Type Department Care Team (Late st Contact Info) Description 03/02/2022 Transcribed Document [facility] Family Medicine [address] [place] [address] ProviderLashaun MD [address], [place] [id number] Social History Tobacco Use Types Packs/Day Years Used Date Smoking Tobacco: Never Assessed Family and Community Support Answer Edi e Recorded Help with Day to Day Activities Not on file 08/23/2023 Feeling Lonely or Isolated Not on file 08/23 Educational Attainment Answer Date Anil rded Speak language other than Mauritian at home Not on file 08/23/2023 Want [...] Source : Stated Height Entry Format : [place] Height, Feet : 5 ft(Converted to: 152 cm, 60 Inch) Height, Inches : 7 Inch(Converted to: 0 ft 7 Inch, 17.78 cm) Clinical Height : 170.18 cm Weight Source : Standing scale Weight Entry Format : [place] Clinical Dosing Weight : 103.36 kg Weight, Pounds : 227.4 lb Body Surface Area (BSA) : 2.14 m2 Body Mass Index : 35.7 kg/m2 ([place]) [place] Body Weight : 61 kg Romana Polanco [...] Romana Polanco RN - 03/02/2022 11:24 EDT [place] Suicide Severity Rating Scale (C-SSRS) CSSRS Past [...] Contact #2 Relationship : Primary Language : Mauritian Communication Barrier : None Museum Archivist Needed : No Romana Polanco RN - [...] Scale Risk Level : 0-24 Low Risk [place] Fall Interventions : Adequate lighting, Assistive devices within reach, Bed in low position, Call device within reach, Frequent orientation to call device, Frequent orientation to surroundings, Non-slip footwear, Personal items within reach, Reinforced to call for assistance before getting out of bed, Room free of clutter/spills, Wheels locked, Wires/Cords secured Romana Polanoc RN - 03/02/2022 11:24 EDT Valuables and Belongings Valuables and Belongings : Clothing Clothing : Common streetwear Clothing Disposition : With patient Romana Polanco RN - 03/02/2022 11:24 EDT Electronically signed by Rodney Ortega Conversion Career Development Specialist Cerner at 11/23/2022 8:47 PM CDT documented in this encounter Plan of Treatment Not on file documented as of this encounter Visit Diagnoses Not on filedocumented in this encounter Care Teams Pumper Brewery Relationship Specialty Start Date End Date Daniel Carranza MD [address] [place] [address] PCP - General Family Medicine 07/04/22 documented as of this encounter
--- OUTSIDE RECORDS SUMMARY | 2025-03-03 07:15 | XMS_ITS | Clinical Summary ---
Author Organization [employer] ([place], [place], [place], [place]) Address [address] [place] [address] Care Team Providers Care Plating Foreman Name Role Phone Daniel Carranza MD Primary Care Provider [phone] Allergies Active Allergy Reactions Criticality Noted Date [...] Date Anil rded Speak language other than Bolivian at home Not on file 08/23/2023 Want [...] 3 AM EDT 03/02/2022 2:53 PM EDT [facility] Historical Provider PATHOLOGY/CYTOLOGY RASHAUN FORD Edited Result - Final [facility] [address] [phone] from Last 3 Months or Most Recently Relevant to Health Maintenance Insurance BLUE CROSS/BLUE SHIELD Care Teams Plating Foreman Relationship Specialty Start Date End Date Daniel Carranza MD [address] [place] [address] PCP - General Family Medicine 07/04/22
--- OUTSIDE RECORDS SUMMARY | 2025-03-03 07:15 | XMS_ITS | Encounter Summary ---
Author Organization [employer] ([place], [place], [place], [place]) Address [address] [place] [address] Care Team Providers Care Pad Assembler Name Role Phone Daniel Carranza MD Primary Care Provider [phone] Encounter Details Date Type Department Care Team (Late st Contact Info) Description 03/02/2022 Transcribed Document [facility] Family Medicine [address] [place] [address] ProviderLashaun MD [address], [place] [phone] Social History Tobacco Use Types Packs/Day Years Used Date Smoking Tobacco: Never Assessed Family and Community Support Answer Edi e Recorded Help with Day to Day Activities Not on file 08/23/2023 Feeling Lonely or Isolated Not on file 08/23 Educational Attainment Answer Date Anil rded Speak language other than Ivorian at home Not on file 08/23/2023 Want [...] Name: JIMMY OLSEN YAMILKA Akbar/Sex: [address] [facility] Rec #: [id number] Physician: MESSI STEEL MD-SUR Financial #: [id number] Pt. Type: Room/Bed: [facility] Admit/Disch: 03/02/22 10:46:00 - Institution: [facility] Endo - Case Attendance Entry 1 Entry 2 Entry 3 Case Attendee MESSI STEEL, CHAY WILKINS, CIELO OTHER, ATTENDEE MARCO Role Performed Surgeon/Proceduralist, MEDICAL SUPERVISOR/Nurse Newsroom Intern Student First Time In 03/02/22 11:51:00 03/02/22 [...] TECH RN-PATIENT CARE BEDSIDE NON-EXEMPT Role Performed Tobacco Dipper, First Scrub, First Time In 03/02/22 11:51:00 03/02/22 11:51:00 Time Out 03/02/22 11:56:00 03/02/22 11:56:00 Procedure Esophagogastroduodenosco Esophagogastroduodenosco py, Gastric Biopsy py, Gastric Biopsy Other Attendee Superficial Wound Closed By: Last Modified By: Vangie Tanner Kindred, Pamela, RN-PATIENT CARE BEDSIDE RN-PATIENT CARE BEDSIDE NON-EXEMPT 03/02/22 NON-EXEMPT 03/02/22 12:46:28 12:46:28 [facility] - Case Attendance Audit 03/02/22 12:46:28 Wax Coating Machine Tender: [id number] Modifier: [id number] 1 <*> Procedure Esophagogastroduodenoscopy 2 <*> Procedure Esophagogastroduodenoscopy 3 <*> Procedure Esophagogastroduodenoscopy 4 <*> Procedure Esophagogastroduodenoscopy 5 <*> Procedure Esophagogastroduodenoscopy 03/02/22 12:44:04 Wax Coating Machine Tender: [id number] Modifier: [id number] <+> 1 Procedure 2 <*> Procedure Esophagogastroduodenoscopy 3 <*> Procedure Esophagogastroduodenoscopy 4 <*> Procedure Esophagogastroduodenoscopy 5 <*> Procedure Esophagogastroduodenoscopy 03/02/22 12:42:17 Wax Coating Machine Tender: [id number] Modifier: [id number] 3 <*> Procedure Esophagogastroduodenoscopy 3 <*> Other Attendee 03/02/22 12:09:39 Wax Coating Machine Tender: [id number] Modifier: [id number] <+> 1 Time In <+> 1 Time [...] Stop Time 03/02/22 11:54:00 Last Modified By: aVngie Tanner RN-PATIENT CARE BEDSIDE NON-EXEMPT 03/02/22 12:42:39 [facility] - Case Times Audit 03/02/22 12:42:39 Wax Coating Machine Tender: [id number] Modifier: [id number] <+> 1 Stop Time <+> 1 Anesthesia [...] by RN-PATIENT CARE BEDSIDE NON-EXEMPT, CHAY WILKINS, MEDICAL SUPERVISOR, OTHER, ATTENDEE Last Modified By: Vangie Tanner [...] - Fire Risk Assessment Audit 03/02/22 12:43:16 Wax Coating Machine Tender: [id number] Modifier: [id number] 1 <*> Fire Risk Assessment Verified 03/02/22 11:47:00 Date/Time 03/02/22 12:43:03 Wax Coating Machine Tender: [id number] Modifier: [id number] <+> 1 Fire Risk Assessment Verified Date/Time [facility] - General Case Hospice Volunteer 1 Case Information OR Endo 02 [facility] Case Level 1 Room Verified Yes Wound Class 2 - Clean-Contaminated Specialty General Anesthesia Type MAC ASA Class 3 Diagnosis Preop Diagnosis GERD, dyspepsia Postop Diagnosis see MD report Wound Class Definitions Last Modified By: Vangie Tanner RN-PATIENT CARE BEDSIDE NON-EXEMPT 03/02/22 12:52:00 [facility] - General Case Data Audit 03/02/22 12:52:00 Wax Coating Machine Tender: [id number] Modifier: [id number] <+> 1 ASA Class [facility] - [...] Endo - Patient Positioning Audit 03/02/22 12:46:30 Wax Coating Machine Tender: [id number] Modifier: [id number] 1 <*> Procedure Esophagogastroduodenoscopy [facility] - [...] Tanner RN-PATIENT CARE BEDSIDE NON-EXEMPT 03/02/22 12:45:01 [facility] - Surgical Procedures Entry 1 Entry [...] Endo - Surgical Procedures Audit 03/02/22 12:47:11 Wax Coating Machine Tender: [id number] Modifier: [id number] 1 <*> Procedure Esophagogastroduodenoscopy 1 <+> Wound Class 03/02/22 12:46:22 Wax Coating Machine Tender: [id number] Modifier: [id number] <+> 2 Procedure <+> 2 Primary Procedure [...] Endo - Time Out Audit 03/02/22 12:46:30 Wax Coating Machine Tender: [id number] Modifier: [id number] 1 <*> Procedure to be Performed Esophagogastroduodenoscopy Case Comments <None> Finalized By: Vangie Tanner RN-PATIENT CARE BEDSIDE NON-EXEMPT Document Signatures Signed By: Vangie Tanner RN-PATIENT CARE BEDSIDE NON-EXEMPT 03/02/22 12:52 Electronically signed by Shannon [facility] Conversion Rug Inspector Helper Cerner at 11/23/2022 8:53 PM CDT documented in this encounter Plan of Treatment Not on file documented as of this encounter Visit Diagnoses Not on filedocumented in this encounter Care Teams Pad Assembler Relationship Specialty Start Date End Date Daniel Carranza MD [address] [place] [address] PCP - General Family Medicine 07/04/22 documented as of this encounter
--- OUTSIDE RECORDS SUMMARY | 2025-03-03 07:15 | XMS_ITS | Encounter Summary ---
Author Organization [employer] ([place], [place], [place], [place]) Address [address] [place] [address] Care Team Providers Care Carburizing Furnace Operator Name Role Phone Daniel Carranza MD Primary Care Provider [phone] Encounter Details Date Type Department Care Team (Late st Contact Info) Description 03/02/2022 Transcribed Document [facility] Family Medicine [address] [place] [address] ProviderLashaun MD [address], [place] [id number] Social History Tobacco Use Types Packs/Day Years Used Date Smoking Tobacco: Never Assessed Family and Community Support Answer Edi e Recorded Help with Day to Day Activities Not on file 08/23/2023 Feeling Lonely or Isolated Not on file 08/23 Educational Attainment Answer Date Anil rded Speak language other than Montenegrin at home Not on file 08/23/2023 Want [...] YAMILKA Akbar/Sex: 1975 Female Med Rec #: [id number] Physician: MESSI STEEL MD-SUR Financial #: [id number] Pt. Type: E Room/Bed: [facility] Admit/Disch: 03/02/22 10:46:00 - Institution: [facility] PACU Case Times Entry 1 In PACU I 03/02/22 11:58:00 Ready for PACU 03/02/22 12:15:00 Discharge Discharge from PACU 03/02/22 12:20:00 I [facility] PACU Case Times Audit 03/02/22 14:37:18 Calendering Supervisor: [id number] Modifier: [id number] <+> 1 Ready for PACU Discharge <+> 1 Discharge from PACU I Finalized By: FERNANDO JHA RN Document Signatures Signed By: FERNANDO JHA RN 03/02/22 14:38 Electronically signed by Shannon [facility] Conversion Supervisor Baking Cerner at 11/23/2022 8:45 PM CDT documented in this encounter Plan of Treatment Not on file documented as of this encounter Visit Diagnoses Not on filedocumented in this encounter Care Teams Carburizing Furnace Operator Relationship Specialty Start Date End Date Daniel Carranza MD [address] [place], [place] [address] PCP - General Family Medicine 07/04/22 documented as of this encounter
--- OUTSIDE RECORDS SUMMARY | 2025-03-03 07:15 | XMS_ITS | Encounter Summary ---
Author Organization [employer] ([place], [place], [place], [place]) Address [address] [place] [address] Care Team Providers Care Sealer Sander Name Role Phone Daniel Carranza MD Primary Care Provider [phone] Encounter Details Date Type Department Care Team (Late st Contact Info) Description 03/02/2022 Transcribed Document [facility] [place] Family Medicine [address] [place] [address] ProviderLashaun MD [address], [place] [id number] Social History Tobacco Use Types Packs/Day Years Used Date Smoking Tobacco: Never Assessed Family and Community Support Answer Edi e Recorded Help with Day to Day Activities Not on file 08/23/2023 Feeling Lonely or Isolated Not on file 08/23 Educational Attainment Answer Date Anil rded Speak language other than Cambodian at home Not on file 08/23/2023 Want [...] activities are safe for you. ??? Take fvyx-xhy-jxjipns and prescription medicines only as told by [...] provider. Document Revised: 07/19/2020 Document Reviewed: 12/22/2018 [employer] Patient Education ? 2020 [employer] Helicobacter Pylori Antibodies Test Why am [...] including vitamins, herbs, eye drops, creams, and utgr-zvr-dgrhrkc medicines. How are the results reported? Your [...] provider. Document Revised: 07/04/2018 Document Reviewed: 03/04/2018 [employer] Patient Education ? 2020 [employer] Pharmacology Monitored Anesthesia Care Anesthesia refers [...] including vitamins, herbs, eye drops, creams, and qrpc-ner-jckplor medicines. ??? Any problems you or family [...] tells you to take them. ??? Taking gohc-bch-kejwuir medicines, vitamins, herbs, and supplements. Tests and [...] provider. Document Revised: 04/06/2021 Document Reviewed: 06/23/2020 [employer] Patient Education ? 2020 [employer]. Electronically signed by Rodney Ortega Conversion Freelance Programmer/App Developer Cerner at 11/23/2022 8:47 PM CDT documented in this encounter Plan of Treatment Not on file documented as of this encounter Visit Diagnoses Not on filedocumented in this encounter Care Teams Sealer Sander Relationship Specialty Start Date End Date Daniel Carranza MD [address] [place] [id number] PCP - General Family Medicine 07/04/22 documented as of this encounter
--- OUTSIDE RECORDS SUMMARY | 2025-03-03 07:15 | XMS_ITS | Referral Summary ---
Author Organization [employer] ([place], [place], [place], [place]) Address [address] [place] [address] Care Team Providers Care Box Covering Machine Operator Name Role Phone Daniel Carranza MD Primary Care Provider [phone] Allergies Active Allergy Reactions Criticality Noted Date [...] Date Anil rded Speak language other than Rwandan at home Not on file 08/23/2023 Want [...] 3 AM EDT 03/02/2022 2:53 PM EDT [facility] Historical Provider PATHOLOGY/CYTOLOGY SHARIFChristy FORD Edited Result - Final [facility] [address] [id number] [phone] from Last 3 Months or Most Recently Relevant to Health Maintenance Insurance BLUE CROSS/BLUE SHIELD Care Teams Box Covering Machine Operator Relationship Specialty Start Date End Date Daniel Carranza MD [address] [place] [address] PCP - General Family Medicine 07/04/22
--- OUTSIDE RECORDS SUMMARY | 2025-03-03 07:15 | XMS_ITS | Encounter Summary ---
Author Organization [employer] ([place], [place], [place], [place]) Address [address] [place] [address] Care Team Providers Care Wholesale Representative Name Role Phone Daniel Carranza MD Primary Care Provider [phone] Encounter Details Date Type Department Care Team (Late st Contact Info) Description 03/02/2022 Transcribed Document [facility] Family Medicine [address] [place] [address] ProviderLashaun MD [address] [place] [address] Social History Tobacco Use Types Packs/Day Years Used Date Smoking Tobacco: Never Assessed Family and Community Support Answer Edi e Recorded Help with Day to Day Activities Not on file 08/23/2023 Feeling Lonely or Isolated Not on file 08/23 Educational Attainment Answer Date Anil rded Speak language other than Faroese at home Not on file 08/23/2023 Want [...] Historical ProviderMD - 03/02/2022 12:06 PM CDT [facility] [address] [place] [email or web address] [address] JIMMY OLSEN :1975 Visit Time:03/02/2022 [...] When Only if needed Where: [address] [place] [address]- Medications What How Much When Instructions Next [...] activities are safe for you. ??? Take hchh-ofy-tybjkjm and prescription medicines only as told by [...] provider. Document Revised: 07/19/2020 Document Reviewed: 12/22/2018 [employer] Patient Education ?? 202 [employer]. Monitored Anesthesia Care Anesthesia refers to techniques, [...] including vitamins, herbs, eye drops, creams, and kxpr-ywy-kvguukt medicines. ??? Any problems you or family [...] tells you to take them. ??? Taking lfkj-owq-qorzmts medicines, vitamins, herbs, and supplements. Tests and [...] provider. Document Revised: 04/06/2021 Document Reviewed: 06/23/2020 [employer] Patient Education ?? 2020 [employer] Helicobacter Pylori Antibodies Test Why am [...] including vitamins, herbs, eye drops, creams, and eoxb-mxu-aegrxxy medicines. How are the results reported? Your [...] provider. Document Revised: 07/04/2018 Document Reviewed: 03/04/2018 [employer] Patient Education ?? 2020 [employer]. Emergency Awareness and Preventative Care STROKE is [...] Assistance with quitting is available by contacting 7-973-WUQE-NOW. This is a free resource providing counseling, [...] range between ( 1.0 and 7.0 ) Gage #: 0.47 K/uL -- Normal range between ( 0.24 and 0.82 ) Eos #: 0.13 K/uL -- Normal range between ( 0.04 and 0.54 ) Gage %: 5.5 % -- Normal range between [...] was given the opportunity to ask questions. Patient/Marketing Intelligence Analyst Name: Patient/Marketing Intelligence Analyst Signature: Relationship to Patient: Clinician/Hospital Marketing Intelligence Analyst Signature: Date: documented in this encounter Plan of Treatment Not on file documented as of this encounter Visit Diagnoses Not on filedocumented in this encounter Care Teams Wholesale Representative Relationship Specialty Start Date End Date Daniel Carranza MD [address] [place], [place] [address] PCP - General Family Medicine 07/04/22 documented as of this encounter
--- NOTE | 2025-03-03 07:30 | US_ITS ---
PROCEDURE: US TRANSVAGINAL CLINICAL INDICATION: abnormal uterine bleeding COMPARISON: CT CT ABDOMEN PELVIS WO CON from 01/11/2025 FINDINGS: Transvaginal sonographic images of the pelvis were obtained. UTERUS: 8.0cm x 6.9 cmx 7.8cm retroverted with a combined endometrial thickness of 11.5mm. There is a posterior fibroid measuring 3.5 cm x 2.2 cm x 3.5 cm. There is a 2nd larger fibroid measuring 5.1 cm x 4.7 cm x 6.8 cm. LEFT OVARY: Surgically absent RIGHT OVARY: 3.6 cmx 2.9 cmx2.3cm with a volume of 12.6ml. There are multiple small peripheral follicles. The largest follicle measures 2.0 cm Right ovary is seen and appears polycystic. Doppler flow to the right ovary is seen. There is no fluid in the cul-de-sac. IMPRESSION: 1. Enlarged, retroverted uterus. The endometrium measures 11.5 mm. There are least 2 fibroids and possibly 3 fibroids within the uterus. A smaller posterior fibroid measures 3.5 cm and the larger fundal fibroid measures 6.8 cm. 2. The left ovary is surgically absent. The right ovary contains multiple small follicles, the largest of which is 2.0 cm. 3. No fluid in the cul-de-sac. Dictated by: Rip Simons MD 03/03/2025 14:00 Rip Simons MD in [place] 03/03/2025 14:00
[2025-03-03 07:36] LABS: Hematocrit 39.1 % (37.0-47.0); Hemoglobin 13.4 g/dL (12.2-16.2); Immature Granulocytes % 0.3 %; Mean Corpuscular HGB Conc 34.3 g/dL (31.8-35.4); Mean Corpuscular Hemoglobin 29.1 pg (27.0-31.2); Mean Corpuscular Volume 85.0 fl (81-99); Nucleated Red Blood Cells % 0 %; Platelet Count 302 K/mm3 (142-424); Red Blood Count 4.60 M/mm3 (4.20-5.40); Red Cell Distribution Width-SD 41.2 fL; White Blood Count 9.3 K/mm3 (4.8-10.8)
--- NOTE | 2025-03-03 08:00 | MM_ITS ---
PROCEDURE INFORMATION: Exam: MG Bilateral Screening 3D Mammography Exam date and time: 03/03/2025 8:04 AM Age: 49 years old Clinical indication: Screening examination TECHNIQUE: Imaging protocol: Bilateral Screening tomosynthesis and 2D mammography including computer-aided detection (CAD) when performed. COMPARISON: 1. MG MM DIG SCREENING MAMM BI W/CAD 07/26/2023 1:11 PM 2. MG DMSB DIG MAMM-SCREEN ROMA 03/23/2014 8:20 AM FINDINGS: MAMMOGRAPHY: Breast composition: The breasts are heterogeneously dense, which may obscure small masses. Mass: None. Architectural distortion: None. Calcifications: No suspicious calcifications. Asymmetric density: None. Skin thickening: None. Axillary adenopathy: None. IMPRESSION: No mammographic evidence of malignancy. Annual screening is recommended unless otherwise clinically indicated. ASSESSMENT: BI-RADS Category 1: Negative.
[2025-03-03 08:06] LABS: Alanine Aminotransferase 43 U/L (12-78); Albumin Level 4.2 g/dl (3.5-5.0); Albumin/Globulin Ratio 1.9 (1.1-1.8); Alkaline Phosphatase 73 U/L (38-126); Anion Gap 9.6 mEq/L (5-15); Aspartate Amino Transferase 33 U/L (14-36); Bilirubin,Total 0.6 mg/dl (0.2-1.3); Blood Urea Nitrogen 12 mg/dl (7-17); Calcium 10.0 mg/dl (8.4-10.2); Carbon Dioxide 29 mmol/L (22.0-30.0); Chloride 105 mmol/L (98-107); Creatinine,Serum 0.70 mg/dl (0.52-1.04); Estimated Glomerular Filt Rate 89 ml/min (>60); GFR (African American) 108 ML/MIN (>60); Globulin 2.2 g/dL (1.3-3.2); Glucose 108 mg/dl (74-100); Potassium 4.6 mmoL/L (3.5-5.1); Sodium 139 mmol/L (136-145); Total Protein,Serum 6.4 g/dl (6.3-8.2)
[2025-03-03 08:37] LABS: Thyroid Stimulating Hormone 1.27 uIU/mL (0.465-4.68)
[2025-03-03 09:32] LABS: Hemoglobin A1C 4.9 % (4.0-6.0)
== END 2025-03-03 23:59 | disposition home or self-care (01) ==
PROVIDERS: PCP Nurse Practitioner Family; Visit Provider Obstetrics & Gynecology
DX: Z12.31 Encounter for screening mammogram for malignant neoplasm of breast (principal); N85.4 Malposition of uterus; D25.9 Leiomyoma of uterus, unspecified; N83.01 Follicular cyst of right ovary; R92.333 Mammographic heterogeneous density, bilateral breasts; I10 Essential (primary) hypertension; E66.9 Obesity, unspecified; Z86.32 Personal history of gestational diabetes; Z90.721 Acquired absence of ovaries, unilateral
CPT/HCPCS: 36415; 76830; 77063; 77067; 80053; 83036; 84146; 84443; 85025

== ENCOUNTER 2025-03-11 10:41 | Outpatient (CLI) | payer BC, SELFPAY ==
--- NOTE | 2025-03-11 10:45 | US_ITS ---
FINAL REPORT TECHNIQUE: Ultrasound images of the kidneys were obtained. CLINICAL HISTORY: CALCULUS OF URETER COMPARISON: None FINDINGS: RENAL ULTRASOUND Limited images of the liver parenchyma demonstrate normal echogenicity. The right kidney measures 11.9 cm in length. It is normal echogenicity. There is no hydronephrosis. The left kidney measures 11.8 cm in length. It is normal echogenicity. There is no hydronephrosis. IMPRESSION: Normal renal ultrasound. Reviewed, Interpreted and Dictated by Maik Shay MD Transcribed by Vangie Holman Authenticated and [facility]
--- OUTSIDE RECORDS SUMMARY | 2025-03-11 10:46 | XMS_ITS | Encounter Summary ---
Author Organization [employer] ([place], [place], [place], [place]) Address [address] [place] [address] Care Team Providers Care Financial Assistance Specialist Name Role Phone Daniel Carranza MD Primary Care Provider [phone] Encounter Details Date Type Department Care Team (Late st Contact Info) Description 03/02/2022 Transcribed Document [facility] [place] Family Medicine [address] [place] [address] ProviderLashaun MD [address], [place] [phone] Social History Tobacco Use Types Packs/Day Years Used Date Smoking Tobacco: Never Assessed Family and Community Support Answer Edi e Recorded Help with Day to Day Activities Not on file 08/23/2023 Feeling Lonely or Isolated Not on file 08/23 Educational Attainment Answer Date Anil rded Speak language other than Ugandan at home Not on file 08/23/2023 Want [...] Source : Stated Height Entry Format : [place] Height, Feet : 5 ft(Converted to: 152 cm, 60 Inch) Height, Inches : 7 Inch(Converted to: 0 ft 7 Inch, 17.78 cm) Clinical Height : 170.18 cm Weight Source : Standing scale Weight Entry Format : [place] Clinical Dosing Weight : 103.36 kg Weight, Pounds : 227.4 lb Body Surface Area (BSA) : 2.14 m2 Body Mass Index : 35.7 kg/m2 ([place]) [place] Body Weight : 61 kg Romana Polanco [...] Romana Polanco RN - 03/02/2022 11:24 EDT [place] Suicide Severity Rating Scale (C-SSRS) CSSRS Past [...] Contact #2 Relationship : Primary Language : Ugandan Communication Barrier : None Fiberglass Boat Maker Needed : No Romana Polanco RN - [...] Scale Risk Level : 0-24 Low Risk [place] Fall Interventions : Adequate lighting, Assistive devices [...] on filedocumented in this encounter Care Teams Financial Assistance Specialist Relationship Specialty Start Date End Date Daniel Carranza MD [address] [place] [phone] PCP - General Family Medicine 07/04/22 documented as of this encounter
--- OUTSIDE RECORDS SUMMARY | 2025-03-11 10:46 | XMS_ITS | Encounter Summary ---
Author Organization [employer] ([place], [place], [place], [place]) Address [address] [place] [address] Care Team Providers Care Core Winder Name Role Phone Daniel Carranza MD Primary Care Provider [phone] Encounter Details Date Type Department Care Team (Late st Contact Info) Description 03/02/2022 Transcribed Document [facility] Family Medicine [address] [place] [address] ProviderLashaun MD [address] [place], [place] [id number] Social History Tobacco Use Types Packs/Day Years Used Date Smoking Tobacco: Never Assessed Family and Community Support Answer Edi e Recorded Help with Day to Day Activities Not on file 08/23/2023 Feeling Lonely or Isolated Not on file 08/23 Educational Attainment Answer Date Anil rded Speak language other than Paraguayan at home Not on file 08/23/2023 Want [...] YAMILKA Akbar/Sex: 1975 Female Med Rec #: [id number] Physician: MESSI STEEL MD-SUR Financial #: [id number] Pt. Type: E Room/Bed: [facility] Admit/Disch: 03/02/22 10:46:00 - Institution: [facility] PreOp Case Times Entry 1 In Preop 03/02/22 10:51:00 Ready for Holding n/a Room Patient Ready for 03/02/22 11:36:00 Surgery Patient Out of Preop 03/02/22 11:36:00 Patient Out of n/a Holding Room [facility] PreOp Case Times Audit 03/02/22 11:36:28 Molder Helper: [id number] Modifier: [id number] <+> 1 Patient Out of Preop <+> 1 Patient Ready for Surgery Finalized By: Romana Polanco RN Document Signatures Signed By: Romana Polanco RN 03/02/22 11:36 documented in this encounter Plan of Treatment Not on file documented as of this encounter Visit Diagnoses Not on filedocumented in this encounter Care Teams Core Winder Relationship Specialty Start Date End Date Daniel Carranza MD [address] [place] [address] PCP - General Family Medicine 07/04/22 documented as of this encounter
--- OUTSIDE RECORDS SUMMARY | 2025-03-11 10:46 | XMS_ITS | Encounter Summary ---
Author Organization [employer] ([place], [place], [place], [place]) Address [address] [place] [address] Care Team Providers Care Development Officer Name Role Phone Daniel Carranza MD Primary Care Provider [phone] Encounter Details Date Type Department Care Team (Late st Contact Info) Description 03/02/2022 Transcribed Document [facility] [place] Family Medicine [address] [place] [address] ProviderLashaun MD [address] [place] [address] Social History Tobacco Use Types Packs/Day Years Used Date Smoking Tobacco: Never Assessed Family and Community Support Answer Edi e Recorded Help with Day to Day Activities Not on file 08/23/2023 Feeling Lonely or Isolated Not on file 08/23 Educational Attainment Answer Date Anil rded Speak language other than [place] at home Not on file 08/23/2023 Want [...] Historical ProviderMD - 03/02/2022 12:06 PM CDT [facility] [address] [place] [address] JIMMY OLSEN :1975 Visit Time:03/02/2022 [...] When Only if needed Where: [address] [place] [address]- Medications What How Much When Instructions Next [...] activities are safe for you. ??? Take chzr-nnp-bfsdfxa and prescription medicines only as told by [...] provider. Document Revised: 07/19/2020 Document Reviewed: 12/22/2018 [employer] Patient Education ?? [address] Monitored Anesthesia Care Anesthesia refers to techniques, [...] including vitamins, herbs, eye drops, creams, and blef-siy-xcwlfph medicines. ??? Any problems you or family [...] tells you to take them. ??? Taking qvhc-fie-bbnydgh medicines, vitamins, herbs, and supplements. Tests and [...] provider. Document Revised: 04/06/2021 Document Reviewed: 06/23/2020 [employer] Patient Education ?? 2020 [employer] Helicobacter Pylori Antibodies Test Why am [...] including vitamins, herbs, eye drops, creams, and iyzj-dbr-njibefh medicines. How are the results reported? Your [...] provider. Document Revised: 07/04/2018 Document Reviewed: 03/04/2018 [employer] Patient Education ?? [address] Emergency Awareness and Preventative Care STROKE is [...] Assistance with quitting is available by contacting 6-580-FMEW-NOW. This is a free resource providing counseling, [...] range between ( 1.0 and 7.0 ) [place] #: 0.47 K/uL -- Normal range between ( 0.24 and 0.82 ) [place] #: 0.13 K/uL -- Normal range between ( 0.04 and 0.54 ) [place] %: 5.5 % -- Normal range between [...] was given the opportunity to ask questions. Patient/Tier And Detonator Name: Patient/Tier And Detonator Signature: Relationship to Patient: Clinician/Hospital Tier And Detonator Signature: Date: documented in this encounter Plan of Treatment Not on file documented as of this encounter Visit Diagnoses Not on filedocumented in this encounter Care Teams Development Officer Relationship Specialty Start Date End Date Daniel Carranza MD [address] [place], [place] [address] PCP - General Family Medicine 07/04/22 documented as of this encounter
--- OUTSIDE RECORDS SUMMARY | 2025-03-11 10:46 | XMS_ITS | Clinical Summary ---
Author Organization [employer] ([place], [place], [place], [place]) Address [address] [place] [address] Care Team Providers Care Able Bodied Tankerman Name Role Phone Daniel Carranza MD Primary Care Provider [phone] Allergies Active Allergy Reactions Criticality Noted Date [...] Date Anil rded Speak language other than Canadian at home Not on file 08/23/2023 Want [...] 3 AM EDT 03/02/2022 2:53 PM EDT [facility] Historical Provider PATHOLOGY/CYTOLOGY RASHAUN FORD Edited Result - Final [facility] [address] [phone] from Last 3 Months or Most Recently Relevant to Health Maintenance Insurance BLUE CROSS/BLUE SHIELD Care Teams Able Bodied Tankerman Relationship Specialty Start Date End Date Daniel Carranza MD [address] [place] [address] PCP - General Family Medicine 07/04/22
--- OUTSIDE RECORDS SUMMARY | 2025-03-11 10:46 | XMS_ITS | Encounter Summary ---
Author Organization [employer] ([place], [place], [place], [place]) Address [address] [place] [address] Care Team Providers Care Compliance Vice President Name Role Phone Daniel Carranza MD Primary Care Provider [phone] Encounter Details Date Type Department Care Team (Late st Contact Info) Description 03/02/2022 Transcribed Document [facility] [place] Family Medicine [address] [place] [address] ProviderLashaun MD [address] [place], [place] [id number] Social History Tobacco Use Types Packs/Day Years Used Date Smoking Tobacco: Never Assessed Family and Community Support Answer Edi e Recorded Help with Day to Day Activities Not on file 08/23/2023 Feeling Lonely or Isolated Not on file 08/23 Educational Attainment Answer Date Anil rded Speak language other than South Korean at home Not on file 08/23/2023 Want [...] YAMILKA Akbar/Sex: [address] [facility] Rec #: [id number] Physician: MESSI STEEL MD-SUR Financial #: [id number] Pt. Type: Room/Bed: [facility] Admit/Disch: 03/02/22 10:46:00 - Institution: [facility] Endo - Case Attendance Entry 1 Entry 2 Entry 3 Case Attendee MESSI STEEL, CHAY WILKINS, CIELO OTHER, ATTENDEE MACRO Role Performed Surgeon/Proceduralist, PHYSICIAN ASSISTANT/Nurse Lithographic Photographer Student First Time In 03/02/22 11:51:00 03/02/22 [...] TECH RN-PATIENT CARE BEDSIDE NON-EXEMPT Role Performed Stable Cleaner, First Scrub, First Time In 03/02/22 11:51:00 03/02/22 11:51:00 Time Out 03/02/22 11:56:00 03/02/22 11:56:00 Procedure Esophagogastroduodenosco Esophagogastroduodenosco py, Gastric Biopsy py, Gastric Biopsy Other Attendee Superficial Wound Closed By: Last Modified By: Vangie Tanner Kindred, Pamela, RN-PATIENT CARE BEDSIDE RN-PATIENT CARE BEDSIDE NON-EXEMPT 03/02/22 NON-EXEMPT 03/02/22 12:46:28 12:46:28 [facility] - Case Attendance Audit 03/02/22 12:46:28 Handicraft Or Hobby Shop Manager: [id number] Modifier: [id number] 1 <*> Procedure Esophagogastroduodenoscopy 2 <*> Procedure Esophagogastroduodenoscopy 3 <*> Procedure Esophagogastroduodenoscopy 4 <*> Procedure Esophagogastroduodenoscopy 5 <*> Procedure Esophagogastroduodenoscopy 03/02/22 12:44:04 Handicraft Or Hobby Shop Manager: [id number] Modifier: [id number] <+> 1 Procedure 2 <*> Procedure Esophagogastroduodenoscopy 3 <*> Procedure Esophagogastroduodenoscopy 4 <*> Procedure Esophagogastroduodenoscopy 5 <*> Procedure Esophagogastroduodenoscopy 03/02/22 12:42:17 Handicraft Or Hobby Shop Manager: [id number] Modifier: [id number] <*> Procedure Esophagogastroduodenoscopy 3 <*> Other Attendee 03/02/22 12:09:39 Handicraft Or Hobby Shop Manager: [id number] Modifier: [id number] <+> 1 Time In <+> 1 Time [...] Endo - Case Times Audit 03/02/22 12:42:39 Handicraft Or Hobby Shop Manager: [id number] Modifier: [id number] <+> 1 Stop Time <+> 1 Anesthesia [...] Accompanied by RN-PATIENT CARE BEDSIDE NON-EXEMPT, CHAY WLIKINS, PHYSICIAN ASSISTANT, OTHER, ATTENDEE Last Modified By: Vangie Tanner [...] Risk Yes Assessment Complete Fire Risk Vangie Tnaner, Assessment Verified RN-PATIENT CARE BEDSIDE By NON-EXEMPT Fire Risk 03/02/22 11:51:00 Assessment Verified Date/Time Fire Risk High Risk Protocol Yes Implemented Standard Fire Yes Safety Precautions Followed Last Modified By: Vangie Tanner RN-PATIENT CARE BEDSIDE NON-EXEMPT 03/02/22 12:43:16 [facility] - Fire Risk Assessment Audit 03/02/22 12:43:16 Handicraft Or Hobby Shop Manager: [id number] Modifier: [id number] 1 <*> Fire Risk Assessment Verified 03/02/22 11:47:00 Date/Time 03/02/22 12:43:03 Handicraft Or Hobby Shop Manager: [id number] Modifier: [id number] <+> 1 Fire Risk Assessment Verified Date/Time [facility] - General Case Tanning Solution Maker 1 Case Information OR Endo 02 [facility] Case Level 1 Room Verified Yes Wound Class 2 - Clean-Contaminated Specialty General Anesthesia Type MAC ASA Class 3 Diagnosis Preop Diagnosis GERD, dyspepsia Postop Diagnosis see MD report Wound Class Definitions Last Modified By: Vangie Tanner RN-PATIENT CARE BEDSIDE NON-EXEMPT 03/02/22 12:52:00 [facility] - General Case Data Audit 03/02/22 12:52:00 Handicraft Or Hobby Shop Manager: [id number] Modifier: [id number] <+> 1 ASA Class [facility] - [...] Endo - Patient Positioning Audit 03/02/22 12:46:30 Handicraft Or Hobby Shop Manager: [id number] Modifier: [id number] 1 <*> Procedure Esophagogastroduodenoscopy [facility] - [...] Tanner RN-PATIENT CARE BEDSIDE NON-EXEMPT 03/02/22 12:45:01 [facility] Endo - Surgical Procedures Entry 1 Entry [...] Endo - Surgical Procedures Audit 03/02/22 12:47:11 Handicraft Or Hobby Shop Manager: [id number] Modifier: [id number] 1 <*> Procedure Esophagogastroduodenoscopy 1 <+> Wound Class 03/02/22 12:46:22 Handicraft Or Hobby Shop Manager: [id number] Modifier: [id number] <+> 2 Procedure <+> 2 Primary Procedure [...] Endo - Time Out Audit 03/02/22 12:46:30 Handicraft Or Hobby Shop Manager: [id number] Modifier: [id number] 1 <*> Procedure to be Performed Esophagogastroduodenoscopy Case Comments <None> Finalized By: Vangie Tanner RN-PATIENT CARE BEDSIDE NON-EXEMPT Document Signatures Signed By: Vangie Tanner RN-PATIENT CARE BEDSIDE NON-EXEMPT 03/02/22 12:52 Electronically signed by [facility] Conversion Senior Games Technician Cerner at 11/23/2022 8:53 PM CDT documented in this encounter Plan of Treatment Not on file documented as of this encounter Visit Diagnoses Not on filedocumented in this encounter Care Teams Compliance Vice President Relationship Specialty Start Date End Date Daniel Carranza MD [address] [place] [address] PCP - General Family Medicine 07/04/22 documented as of this encounter
--- OUTSIDE RECORDS SUMMARY | 2025-03-11 10:46 | XMS_ITS | Encounter Summary ---
Author Organization [employer] ([place], [place], [place], [place]) Address [address] [place] [address] Care Team Providers Care Boxing Instructor Name Role Phone Daniel Carranza MD Primary Care Provider [phone] Encounter Details Date Type Department Care Team (Late st Contact Info) Description 03/02/2022 Transcribed Document [facility] [place] [address] [place] [address] ProviderLashaun MD [address] [place], [place] [id number] Social History Tobacco Use Types Packs/Day Years Used Date Smoking Tobacco: Never Assessed Family and Community Support Answer Edi e Recorded Help with Day to Day Activities Not on file 08/23/2023 Feeling Lonely or Isolated Not on file 08/23 Educational Attainment Answer Date Anil rded Speak language other than Burmese at home Not on file 08/23/2023 Want [...] activities are safe for you. ??? Take mfwk-hqe-vareseg and prescription medicines only as told by [...] provider. Document Revised: 07/19/2020 Document Reviewed: 12/22/2018 [employer] Patient Education ? 2020 [employer] Helicobacter Pylori Antibodies Test Why am [...] including vitamins, herbs, eye drops, creams, and oqdt-ymd-rtvauai medicines. How are the results reported? Your [...] provider. Document Revised: 07/04/2018 Document Reviewed: 03/04/2018 [employer] Patient Education ? 2020 [employer] Pharmacology Monitored Anesthesia Care Anesthesia refers [...] including vitamins, herbs, eye drops, creams, and qbfz-nee-tjgchez medicines. ??? Any problems you or family [...] tells you to take them. ??? Taking onbn-xxo-wczmqtn medicines, vitamins, herbs, and supplements. Tests and [...] provider. Document Revised: 04/06/2021 Document Reviewed: 06/23/2020 [employer] Patient Education ? 2020 [employer]. documented in this encounter Plan of Treatment Not on file documented as of this encounter Visit Diagnoses Not on filedocumented in this encounter Care Teams Boxing Instructor Relationship Specialty Start Date End Date Daniel Carranza MD [address] [place] [address] PCP - General Family Medicine 07/04/22 documented as of this encounter
--- OUTSIDE RECORDS SUMMARY | 2025-03-11 10:46 | XMS_ITS | Referral Summary ---
Author Organization [employer] ([place], [place], [place], [place]) Address [address] [place] [address] Care Team Providers Care Rn Endoscopy Name Role Phone Daniel Carranza MD Primary Care Provider [phone] Allergies Active Allergy Reactions Criticality Noted Date [...] Anil rded Speak language other than [place] at home Not on file 08/23/2023 Want [...] 3 AM EDT 03/02/2022 2:53 PM EDT [facility] Historical Provider PATHOLOGY/CYTOLOGY SHARIFChristy FORD Edited Result - Final [facility] [address] [id number] [phone] from Last 3 Months or Most Recently Relevant to Health Maintenance Insurance BLUE CROSS/BLUE SHIELD Care Teams Rn Endoscopy Relationship Specialty Start Date End Date Daniel Carranza MD [address] [place] [address] PCP - General Family Medicine 07/04/22
--- OUTSIDE RECORDS SUMMARY | 2025-03-11 10:46 | XMS_ITS | Encounter Summary ---
Author Organization [employer] ([place], [place], [place], [place]) Address [address] [place] [address] Care Team Providers Care Passport Support Manager Name Role Phone Daniel Carranza MD Primary Care Provider [phone] Encounter Details Date Type Department Care Team (Late st Contact Info) Description 03/02/2022 Transcribed Document [facility] [place] [address] [place] [address] ProviderLashaun MD [address] [place], [place] [id number] Social History Tobacco Use Types Packs/Day Years Used Date Smoking Tobacco: Never Assessed Family and Community Support Answer Edi e Recorded Help with Day to Day Activities Not on file 08/23/2023 Feeling Lonely or Isolated Not on file 08/23 Educational Attainment Answer Date Anil rded Speak language other than Czech at home Not on file 08/23/2023 Want [...] YAMILKA Akbar/Sex: 1975 Female Med Rec #: [id number] Physician: MESSI STEEL MD-SUR Financial #: [id number] Pt. Type: E Room/Bed: [facility] Admit/Disch: 03/02/22 10:46:00 - Institution: [facility] PACU Case Times Entry 1 In PACU I 03/02/22 11:58:00 Ready for PACU 03/02/22 12:15:00 Discharge Discharge from PACU 03/02/22 12:20:00 I [facility] PACU Case Times Audit 03/02/22 14:37:18 Supervisor Receiving And Processing: [id number] Modifier: [id number] <+> 1 Ready for PACU Discharge <+> 1 Discharge from PACU I Finalized By: FERNANDO JHA RN Document Signatures Signed By: FERNANDO JHA RN 03/02/22 14:38 Electronically signed by [facility] Conversion Financial Economist Cerner at 11/23/2022 8:45 PM CDT documented in this encounter Plan of Treatment Not on file documented as of this encounter Visit Diagnoses Not on filedocumented in this encounter Care Teams Passport Support Manager Relationship Specialty Start Date End Date Daniel Carranza MD [address] [place], [place] [address] PCP - General Family Medicine 07/04/22 documented as of this encounter
== END 2025-03-11 23:59 | disposition home or self-care (01) ==
LOC: RAD 10:42
PROVIDERS: PCP Nurse Practitioner Family; Visit Provider Urology
DX: N20.1 Calculus of ureter (principal)
CPT/HCPCS: 76770

== ENCOUNTER 2025-03-29 14:48 | Outpatient (POV) | payer BC, SELFPAY ==
--- OUTSIDE RECORDS SUMMARY | 2025-03-29 14:50 | XMS_ITS | Referral Summary ---
Author Organization [employer] ([place], [place], [place], [place]) Address [address] [place] [address] Care Team Providers Care Db2 Developer Name Role Phone Daniel Carranza MD Primary Care Provider [phone] Allergies Active Allergy Reactions Criticality Noted Date [...] Date Anil rded Speak language other than Croatian at home Not on file 08/23/2023 Want [...] 3 AM EDT 03/02/2022 2:53 PM EDT [facility] Historical Provider PATHOLOGY/CYTOLOGY SHARIFChristy FORD Edited Result - Final [facility] [address] [id number] [phone] from Last 3 Months or Most Recently Relevant to Health Maintenance Insurance [employer]UE [employer]OSS[employer]UE [employer] Care Teams Db2 Developer Relationship Specialty Start Date End Date Daniel Carranza MD [address] [place] [address] PCP - General Family Medicine 07/04/22
--- OUTSIDE RECORDS SUMMARY | 2025-03-29 14:50 | XMS_ITS | Encounter Summary ---
Author Organization [employer] ([place], [place], [place], [place]) Address [address] [place] [address] Care Team Providers Care Resort Keeper Name Role Phone Daniel Carranza MD Primary Care Provider [phone] Encounter Details Date Type Department Care Team (Late st Contact Info) Description 03/02/2022 Transcribed Document [facility] [place] Family Medicine [address] [place] [address] ProviderLashaun MD [address] [place] [address] Social History Tobacco Use Types Packs/Day Years Used Date Smoking Tobacco: Never Assessed Family and Community Support Answer Edi e Recorded Help with Day to Day Activities Not on file 08/23/2023 Feeling Lonely or Isolated Not on file 08/23 Educational Attainment Answer Date Anil rded Speak language other than Tristanian at home Not on file 08/23/2023 Want [...] Source : Stated Height Entry Format : [place] Height, Feet : 5 ft(Converted to: 152 cm, 60 Inch) Height, Inches : 7 Inch(Converted to: 0 ft 7 Inch, 17.78 cm) Clinical Height : 170.18 cm Weight Source : Standing scale Weight Entry Format : [place] Clinical Dosing Weight : 103.36 kg Weight, Pounds : 227.4 lb Body Surface Area (BSA) : 2.14 m2 Body Mass Index : 35.7 kg/m2 (HI) [place] Body Weight : 61 kg Romana Polanco [...] Romana Polanco RN - 03/02/2022 11:24 EDT [place] Suicide Severity Rating Scale (C-SSRS) CSSRS Past [...] Contact #2 Relationship : Primary Language : Tristanian Communication Barrier : None Histopathology Technician Needed : No Romana Polanco RN - [...] Scale Risk Level : 0-24 Low Risk [place] Fall Interventions : Adequate lighting, Assistive devices [...] EDT Electronically signed by Rodney Ortega Conversion Process Development Associate Cerner at 11/23/2022 8:47 PM CDT documented in this encounter Plan of Treatment Not on file documented as of this encounter Visit Diagnoses Not on filedocumented in this encounter Care Teams Resort Keeper Relationship Specialty Start Date End Date Daniel Carranza MD [address] [place] [address] PCP - General Family Medicine 07/04/22 documented as of this encounter
--- OUTSIDE RECORDS SUMMARY | 2025-03-29 14:50 | XMS_ITS | Encounter Summary ---
Author Organization [employer] ([place], [place], [place], [place]) Address [address] [place] [address] Care Team Providers Care Supervisor Files Name Role Phone Daniel Carranza MD Primary Care Provider [phone] Encounter Details Date Type Department Care Team (Late st Contact Info) Description 03/02/2022 Transcribed Document [facility] [place] Family Medicine [address] [place] [address] ProviderLashaun MD [address] [place] [id number] Social History Tobacco Use Types Packs/Day Years Used Date Smoking Tobacco: Never Assessed Family and Community Support Answer Edi e Recorded Help with Day to Day Activities Not on file 08/23/2023 Feeling Lonely or Isolated Not on file 08/23 Educational Attainment Answer Date Anil rded Speak language other than Russian at home Not on file 08/23/2023 Want [...] activities are safe for you. ??? Take fqyb-fhm-eldpgas and prescription medicines only as told by [...] provider. Document Revised: 07/19/2020 Document Reviewed: 12/22/2018 [employer] Patient Education ? 2020 [employer] Helicobacter Pylori Antibodies Test Why am [...] including vitamins, herbs, eye drops, creams, and ofic-uvb-uzhzaiw medicines. How are the results reported? Your [...] provider. Document Revised: 07/04/2018 Document Reviewed: 03/04/2018 [employer] Patient Education ? 2020 [employer] Pharmacology Monitored Anesthesia Care Anesthesia refers [...] including vitamins, herbs, eye drops, creams, and kdtp-enk-gdoowqf medicines. ??? Any problems you or family [...] tells you to take them. ??? Taking dtnb-crx-tjmeqzi medicines, vitamins, herbs, and supplements. Tests and [...] provider. Document Revised: 04/06/2021 Document Reviewed: 06/23/2020 [employer] Patient Education ? 2020 [employer]. documented in this encounter Plan of Treatment Not on file documented as of this encounter Visit Diagnoses Not on filedocumented in this encounter Care Teams Supervisor Files Relationship Specialty Start Date End Date Danile Carranza MD [address] [place] [address] PCP - General Family Medicine 07/04/22 documented as of this encounter
--- OUTSIDE RECORDS SUMMARY | 2025-03-29 14:50 | XMS_ITS | Encounter Summary ---
Author Organization [employer] ([place], [place], [place], [place]) Address [address] [place] [address] Care Team Providers Care Housing Officer Name Role Phone Daniel Carranza MD Primary Care Provider [phone] Encounter Details Date Type Department Care Team (Late st Contact Info) Description 03/02/2022 Transcribed Document [facility] [place] [address] [place] [address] ProviderLashaun MD [address] [place], [place] [id number] Social History Tobacco Use Types Packs/Day Years Used Date Smoking Tobacco: Never Assessed Family and Community Support Answer Edi e Recorded Help with Day to Day Activities Not on file 08/23/2023 Feeling Lonely or Isolated Not on file 08/23 Educational Attainment Answer Date Anil rded Speak language other than Albanian at home Not on file 08/23/2023 Want [...] YAMILKA Akbar/Sex: 1975 Female Med Rec #: [id number] Physician: MESSI STEEL MD-SUR Financial #: [id number] Pt. Type: E Room/Bed: [facility]/ Admit/Disch: 03/02/22 10:46:00 - Institution: [facility] PreOp Case Times Entry 1 In Preop 03/02/22 10:51:00 Ready for Holding n/a Room Patient Ready for 03/02/22 11:36:00 Surgery Patient Out of Preop 03/02/22 11:36:00 Patient Out of n/a Holding Room [facility] PreOp Case Times Audit 03/02/22 11:36:28 Porter Baggage: [id number] Modifier: [id number] <+> 1 Patient Out of Preop <+> 1 Patient Ready for Surgery Finalized By: Romana Polanco RN Document Signatures Signed By: Romana Polanco RN 03/02/22 11:36 documented in this encounter Plan of Treatment Not on file documented as of this encounter Visit Diagnoses Not on filedocumented in this encounter Care Teams Housing Officer Relationship Specialty Start Date End Date Daniel Carranza MD [address] [place] [address] PCP - General Family Medicine 07/04/22 documented as of this encounter
--- OUTSIDE RECORDS SUMMARY | 2025-03-29 14:50 | XMS_ITS | Clinical Summary ---
Author Organization [employer] ([place], [place], [place], [place]) Address [address] [place] [address] Care Team Providers Care Instructor Warper Name Role Phone Daniel Carranza MD Primary Care Provider [phone] Allergies Active Allergy Reactions Criticality Noted Date [...] Date Anil rded Speak language other than Indian at home Not on file 08/23/2023 Want [...] EDT 03/02/2022 2:53 PM EDT [facility] Historical Provider PATHOLOGY/CYTOLOGY RASHAUN FORD Edited Result - Final [facility] [address] [phone] from Last 3 Months or Most Recently Relevant to Health Maintenance Insurance BLUE CROSS/BLUE SHIELD Care Teams Instructor Warper Relationship Specialty Start Date End Date Daniel Carranza MD [address] [place] [address] PCP - General Family Medicine 07/04/22
--- OUTSIDE RECORDS SUMMARY | 2025-03-29 14:50 | XMS_ITS | Encounter Summary ---
Author Organization [employer] ([place], [place], [place], [place]) Address [address] [place] [address] Care Team Providers Care Asbestos Shingle Inspector Name Role Phone Daniel Carranza MD Primary Care Provider [phone] Encounter Details Date Type Department Care Team (Late st Contact Info) Description 03/02/2022 Transcribed Document [facility] [place] [address] [place] [address] ProviderLashaun MD [address], [place] [id number] Social History Tobacco Use Types Packs/Day Years Used Date Smoking Tobacco: Never Assessed Family and Community Support Answer Edi e Recorded Help with Day to Day Activities Not on file 08/23/2023 Feeling Lonely or Isolated Not on file 08/23 Educational Attainment Answer Date Anil rded Speak language other than Sri Lankan at home Not on file 08/23/2023 Want [...] YAMILKA Akbar/Sex: 1975 Female Med Rec #: [id number] Physician: MESSI STEEL MD-SUR Financial #: [id number] Pt. Type: E Room/Bed: [facility] Admit/Disch: 03/02/22 10:46:00 - Institution: [facility] PACU Case Times Entry 1 In PACU I 03/02/22 11:58:00 Ready for PACU 03/02/22 12:15:00 Discharge Discharge from PACU 03/02/22 12:20:00 I [facility] PACU Case Times Audit 03/02/22 14:37:18 Business And Marketing Teacher: [id number] Modifier: [id number] <+> 1 Ready for PACU Discharge <+> 1 Discharge from PACU I Finalized By: FERNANDO JHA RN Document Signatures Signed By: FERNANDO JHA RN 03/02/22 14:38 Electronically signed by Shannon [facility] Conversion Crane Rigger Cerner at 11/23/2022 8:45 PM CDT documented in this encounter Plan of Treatment Not on file documented as of this encounter Visit Diagnoses Not on filedocumented in this encounter Care Teams Asbestos Shingle Inspector Relationship Specialty Start Date End Date Daniel Carranza MD [address] [place], [place] [address] PCP - General Family Medicine 07/04/22 documented as of this encounter
--- OUTSIDE RECORDS SUMMARY | 2025-03-29 14:50 | XMS_ITS | Encounter Summary ---
Author Organization [employer] ([place], [place], [place], [place]) Address [address] [place] [address] Care Team Providers Care Fur Weigher Name Role Phone Daniel Carranza MD Primary Care Provider [phone] Encounter Details Date Type Department Care Team (Late st Contact Info) Description 03/02/2022 Transcribed Document [facility] [place] [address] [place] [address] ProviderLashaun MD [address] [place] [address] Social History Tobacco Use Types Packs/Day Years Used Date Smoking Tobacco: Never Assessed Family and Community Support Answer Edi e Recorded Help with Day to Day Activities Not on file 08/23/2023 Feeling Lonely or Isolated Not on file 08/23 Educational Attainment Answer Date Anil rded Speak language other than Tunisian at home Not on file 08/23/2023 Want [...] Historical ProviderMD - 03/02/2022 12:06 PM CDT [facility] [address] [place] [address] JIMMY OLSEN :1975 Visit Time:03/02/2022 [...] When Only if needed Where: [address] [place] [address]- Medications What How Much When Instructions Next [...] activities are safe for you. ??? Take zomb-qkn-eqaqsoi and prescription medicines only as told by [...] provider. Document Revised: 07/19/2020 Document Reviewed: 12/22/2018 [employer] Patient Education ?? 202 [employer]. Monitored Anesthesia Care Anesthesia refers to techniques, [...] including vitamins, herbs, eye drops, creams, and gykv-doq-gaklhpo medicines. ??? Any problems you or family [...] tells you to take them. ??? Taking ejtd-xic-jtihakn medicines, vitamins, herbs, and supplements. Tests and [...] provider. Document Revised: 04/06/2021 Document Reviewed: 06/23/2020 [employer] Patient Education ?? 2020 [employer] Helicobacter Pylori Antibodies Test Why am [...] including vitamins, herbs, eye drops, creams, and ajdf-niq-hlzerql medicines. How are the results reported? Your [...] provider. Document Revised: 07/04/2018 Document Reviewed: 03/04/2018 [employer] Patient Education ?? 2020 [employer]. Emergency Awareness and Preventative Care STROKE is [...] Assistance with quitting is available by contacting 0-474-TBYV-NOW. This is a free resource providing counseling, [...] range between ( 1.0 and 7.0 ) Refugio #: 0.47 K/uL -- Normal range between ( 0.24 and 0.82 ) Eos #: 0.13 K/uL -- Normal range between ( 0.04 and 0.54 ) Refugio %: 5.5 % -- Normal range between [...] was given the opportunity to ask questions. Patient/Economic Specialist Name: Patient/Economic Specialist Signature: Relationship to Patient: Clinician/Hospital Economic Specialist Signature: Date: documented in this encounter Plan of Treatment Not on file documented as of this encounter Visit Diagnoses Not on filedocumented in this encounter Care Teams Fur Weigher Relationship Specialty Start Date End Date Daniel Carranza MD [address], [place] [address] PCP - General Family Medicine 07/04/22 documented as of this encounter
--- OUTSIDE RECORDS SUMMARY | 2025-03-29 14:50 | XMS_ITS | Encounter Summary ---
Author Organization [employer] ([place], [place], [place], [place]) Address [address] [place] [address] Care Team Providers Care Pediatric Nurse Practitioner Name Role Phone Daniel Carranza MD Primary Care Provider [phone] Encounter Details Date Type Department Care Team (Late st Contact Info) Description 03/02/2022 Transcribed Document [facility] [place] [address] [place] [address] ProviderLashaun MD [address], [place] [id number] Social History Tobacco Use Types Packs/Day Years Used Date Smoking Tobacco: Never Assessed Family and Community Support Answer Edi e Recorded Help with Day to Day Activities Not on file 08/23/2023 Feeling Lonely or Isolated Not on file 08/23 Educational Attainment Answer Date Anil rded Speak language other than Venezuelan at home Not on file 08/23/2023 Want [...] Name: JIMMY OLSEN YAMILKA Akbar/Sex: 1975 Female [facility] Rec #: [id number] Physician: MESSI STEEL MD-SUR Financial #: [id number] Pt. Type: Room/Bed: [facility] Admit/Disch: 03/02/22 10:46:00 - Institution: [facility] [place] - Case Attendance Entry 1 Entry 2 Entry 3 Case Attendee MESSI STEEL, CHAY WILKINS, CIELO OTHER, ATTENDEE MARCO Role Performed Surgeon/Proceduralist, APPLE TURNER/Nurse Corporate Consultant Student First Time In 03/02/22 11:51:00 [...] TECH RN-PATIENT CARE BEDSIDE NON-EXEMPT Role Performed Commodity Buyer, First Scrub, First Time In 03/02/22 11:51:00 03/02/22 11:51:00 Time Out 03/02/22 11:56:00 03/02/22 11:56:00 Procedure Esophagogastroduodenosco Esophagogastroduodenosco py, Gastric Biopsy py, Gastric Biopsy Other Attendee Superficial Wound Closed By: Last Modified By: Vangie Tanner Kindred, Pamela, RN-PATIENT CARE BEDSIDE RN-PATIENT CARE BEDSIDE NON-EXEMPT 03/02/22 NON-EXEMPT 03/02/22 12:46:28 12:46:28 [facility] - Case Attendance Audit 03/02/22 12:46:28 Vehicle Sales Professional: [id number] Modifier: [id number] 1 <*> Procedure Esophagogastroduodenoscopy 2 <*> Procedure Esophagogastroduodenoscopy 3 <*> Procedure Esophagogastroduodenoscopy 4 <*> Procedure Esophagogastroduodenoscopy 5 <*> Procedure Esophagogastroduodenoscopy 03/02/22 12:44:04 Vehicle Sales Professional: [id number] Modifier: [id number] <+> 1 Procedure 2 <*> Procedure Esophagogastroduodenoscopy 3 <*> Procedure Esophagogastroduodenoscopy 4 <*> Procedure Esophagogastroduodenoscopy 5 <*> Procedure Esophagogastroduodenoscopy 03/02/22 12:42:17 Vehicle Sales Professional: [id number] Modifier: [id number] <*> Procedure Esophagogastroduodenoscopy 3 <*> Other Attendee 03/02/22 12:09:39 Vehicle Sales Professional: [id number] Modifier: [id number] <+> 1 Time In <+> 1 Time [...] Endo - Case Times Audit 03/02/22 12:42:39 Vehicle Sales Professional: [id number] Modifier: [id number] <+> 1 Stop Time <+> 1 Anesthesia [...] by RN-PATIENT CARE BEDSIDE NON-EXEMPT, CHAY WILKINS, APPLE TURNER, OTHER, ATTENDEE Last Modified By: Vangie Tanner [...] - Fire Risk Assessment Audit 03/02/22 12:43:16 Vehicle Sales Professional: [id number] Modifier: [id number] 1 <*> Fire Risk Assessment Verified 03/02/22 11:47:00 Date/Time 03/02/22 12:43:03 Vehicle Sales Professional: [id number] Modifier: [id number] <+> 1 Fire Risk Assessment Verified Date/Time [facility] - General Case Skidder Loader 1 Case Information OR Endo 02 [facility] Case Level 1 Room Verified Yes Wound Class 2 - Clean-Contaminated Specialty General Anesthesia Type MAC ASA Class 3 Diagnosis Preop Diagnosis GERD, dyspepsia Postop Diagnosis see MD report Wound Class Definitions Last Modified By: Vangie Tanner RN-PATIENT CARE BEDSIDE NON-EXEMPT 03/02/22 12:52:00 [facility] - General Case Data Audit 03/02/22 12:52:00 Vehicle Sales Professional: [id number] Modifier: [id number] <+> 1 ASA Class [facility] - [...] Endo - Patient Positioning Audit 03/02/22 12:46:30 Vehicle Sales Professional: [id number] Modifier: [id number] 1 <*> Procedure Esophagogastroduodenoscopy [facility] - [...] Tanner RN-PATIENT CARE BEDSIDE NON-EXEMPT 03/02/22 12:45:01 [facility] [place]o - Surgical Procedures Entry 1 [...] Endo - Surgical Procedures Audit 03/02/22 12:47:11 Vehicle Sales Professional: [id number] Modifier: [id number] 1 <*> Procedure Esophagogastroduodenoscopy 1 <+> Wound Class 03/02/22 12:46:22 Vehicle Sales Professional: [id number] Modifier: [id number] <+> 2 Procedure <+> 2 Primary Procedure [...] Endo - Time Out Audit 03/02/22 12:46:30 Vehicle Sales Professional: [id number] Modifier: [id number] 1 <*> Procedure to be Performed Esophagogastroduodenoscopy Case Comments <None> Finalized By: Vangie Tanner RN-PATIENT CARE BEDSIDE NON-EXEMPT Document Signatures Signed By: Vangie Tanner RN-PATIENT CARE BEDSIDE NON-EXEMPT 03/02/22 12:52 Electronically signed by Shannon [facility] Conversion Metallographic Technician Cerner at 11/23/2022 8:53 PM CDT documented in this encounter Plan of Treatment Not on file documented as of this encounter Visit Diagnoses Not on filedocumented in this encounter Care Teams Pediatric Nurse Practitioner Relationship Specialty Start Date End Date Daniel Carranza MD [address] [place] [address] PCP - General Family Medicine 07/04/22 documented as of this encounter
[2025-03-29 14:58] VITALS: BP 139/90; PULSE 80; RESP 14; O2SAT 98; BMI 29.9
--- NOTE | 2025-03-29 15:09 | EXP.PAIN.SOA ---
[facility] Disclaimer: The information contained in this section may have been updated after the patient was seen, as this information can be updated by other users. Medical History HTN (hypertension) Abnormal cardiovascular stress test Lumbar spondylosis Degenerative disc disease Hypothyroid Surgical History History of colonoscopy History of appendectomy H/O gastric sleeve Hx of cholecystectomy H/O section H/O oophorectomy H/O neck surgery H/O shoulder surgery H/O knee surgery Family History Other No significant family history Social History Smoking Status: Former smoker alcohol intake: never substance use type: denies use current occupational status: other Travel in the last 8 weeks?: None PM Subjective & Objective Subjective Subjective:: Patient is a pleasant 49-year-old female who presents today for 1 month follow-up. She rates her pain today a 1 out of 10. Patient overall states that she is still been doing really well with the previous lumbar medial branch block bilaterally L4-L5 and L5-S1 back in February that did provide 80 to 85% relief. Patient does state that she will occasionally have a flareup with certain movements but overall has continued to do really well. Patient is still using her compounded cream. She denies any other side effects. Her Braulio has been reviewed and is appropriate. Review of Systems: General: No recent weight changes, no fever, no sleep disturbances Respiratory: No cough, no shortness of air, no recurring pulmonary infections Cardiovascular/peripheral vascular: No chest pain, no palpitations, no edema, no shortness of breath Gastrointestinal: No new onset incontinence, normal bowel movements reported Genitourinary: No new onset incontinence Musculoskeletal: Low back pain Psychiatric: [Normal mood/affect] Neurological: [Denies weakness in extremities], [denies balance issues] Pain at rest (0-10 scale): 1 Objective Objective:: Physical Exam: General: Alert and oriented x3, no acute distress, pleasant and cooperative Lungs: Respirations even and unlabored, symmetrical chest expansion Eyes: PERRL Musculoskeletal: Flexion and extension of lumbar [spine] within normal limits Neurological: Speech clear, no gross sensory deficit Has patient had previous pain injection?: No Conservative treatment options previously tried: Home exercise plan Length of treatment: Longer than 12 weeks Meds Home Medications and Allergies Home Medications ?Medication ?Instructions ?Recorded ?Confirmed ?Type escitalopram oxalate 10 mg tablet 10 mg PO DAILY 03/30/24 03/29/25 History levothyroxine 75 mcg tablet 75 mcg PO Q OTHER DAY 06/30/24 03/29/25 History aspirin 81 mg tablet,delayed 81 mg PO DAILY #90 tabs 08/27/24 03/29/25 Rx release (Adult Low Dose Aspirin) Held on 01/11/25. Instructions: Resume on 01/26/25. Do not take in conjunction with naproxen atorvastatin 20 mg tablet 20 mg PO DAILY #90 tabs 08/27/24 03/29/25 Rx levothyroxine 50 mcg tablet 50 mcg PO Q OTHER DAY 11/25/24 03/29/25 History New Prescriptions to Start Prescriptions: Allergies Allergy/AdvReac Type Severity Reaction Status Date / Time Iodinated Contrast Media Allergy Hives Verified 03/25/25 14:14 Assessment and Plan *Assessment and plan (1) Low back pain: Status: Acute Category: Medical Code(s): M54.50 - Low back pain, unspecified (2) Lumbar spondylosis: Status: Acute Category: Medical Code(s): M47.816 - Spondylosis without myelopathy or radiculopathy, lumbar region Plan Patient has continued to do well following her second lumbar medial branch block and does not require any additional injection therapy at this time. Patient will return to clinic in 3 months. Patient has been instructed to contact the clinic with any concerns before the next appointment. Dr. Nuñez has reviewed this note and agrees with this plan of care. This note was dictated using voice recognition software and make contain errors or omissions. All injections are used with Lidocaine, Bupivacaine and dexamethasone. Occasionally urine drug screen is needed to verify patient's compliance with our office pain contract. This is ordered based off specific treatments related to chronic pain with the potential to abuse certain medications.
== END 2025-03-29 23:59 | disposition home or self-care (01) ==
LOC: SC.PAIN 14:49
PROVIDERS: PCP Nurse Practitioner Family; Visit Provider Nurse Practitioner Family
DX: M47.816 Spondylosis without myelopathy or radiculopathy, lumbar region (principal)
CPT/HCPCS: 99212; G0463

== ENCOUNTER 2025-05-28 11:19 | Outpatient (CLI) | payer BC, SELFPAY ==
[2025-05-28 07:48] VITALS: BMI 29.7
--- OUTSIDE RECORDS SUMMARY | 2025-05-28 11:33 | XMS_ITS | Referral Summary ---
Author Organization [employer] ([place], [place], [place], [place]) Address [address] [place] [address] Care Team Providers Care Mechanical Maintenance Instructor Name Role Phone Daniel Carranza MD Primary Care Provider [phone] Allergies Active Allergy Reactions Criticality Noted Date [...] Date Anil rded Speak language other than Bahraini at home Not on file 08/23/2023 Want [...] EDT 03/02/2022 2:53 PM EDT [facility] Historical Provider PATHOLOGY/CYTOLOGY SHARIFChristy FORD Edited Result - Final [facility] [address] [id number] [phone] from Last 3 Months or Most Recently Relevant to Health Maintenance Insurance BLUE CROSS/BLUE SHIELD Care Teams Mechanical Maintenance Instructor Relationship Specialty Start Date End Date Daniel Carranza MD [address] [place] [address] PCP - General Family Medicine 07/04/22
--- OUTSIDE RECORDS SUMMARY | 2025-05-28 11:33 | XMS_ITS ---
Author Organization Unknown ENCOUNTERS Encounter Performer Location Date Diagnosis Diagnosis Status Pre Admit [address] [facility] [place] [address] [id number] Emergency [address] [facility] [address] [id number] HOWIE Pre Admit [address] [place] [address] [id number] Emergency [address] [place] [address] [id number] [facility] [address] [facility] [address] [id number] HOWIE Emergency [address] [place] [address] [id number] Pre Admit [address] [place] [address] [id number] Emergency [address] [facility] [address] [id number] HOWIE *Note: Encounters from your own facility or health system may be excluded. Allergies, Adverse Reactions, Alerts Allergen Type Severity Identification Date Iodinated Contrast Media drug allergy 1 26 Medications Name Date Quantity Days Supplied GPI Number
--- OUTSIDE RECORDS SUMMARY | 2025-05-28 11:33 | XMS_ITS | Clinical Summary ---
Author Organization [employer] ([place], [place], [place], [place]) Address [address] [place] [address] Care Team Providers Care Staff Nurse Name Role Phone Daniel Carranza MD Primary Care Provider [phone] Allergies Active Allergy Reactions Criticality Noted Date [...] Date Anil rded Speak language other than Turkish at home Not on file 08/23/2023 Want [...] (12+) 11/29/2023 11/28/2022 COVID-19 VACCINE (2 - 2024-2 6 season) 2025 10/12/2020 Influenza Vaccine (#1) 2025 Lipid Panel [...] 3 AM EDT 03/02/2022 2:53 PM EDT [facility] Historical Provider PATHOLOGY/CYTOLOGY RASHAUN FORD Edited Result - Final [facility] [address] [phone] from Last 3 Months or Most Recently Relevant to Health Maintenance Insurance BLUE CROSS/BLUE SHIELD Care Teams Staff Nurse Relationship Specialty Start Date End Date Daniel Carranza MD [address] [place] [address] PCP - General Family Medicine 07/04/22
[2025-05-28 12:08] LABS: Hematocrit 39.5 % (37.0-47.0); Hemoglobin 13.4 g/dL (12.2-16.2); Immature Granulocytes % 0.2 %; Mean Corpuscular HGB Conc 33.9 g/dL (31.8-35.4); Mean Corpuscular Hemoglobin 28.9 pg (27.0-31.2); Mean Corpuscular Volume 85.3 fl (81-99); Nucleated Red Blood Cells % 0 %; Platelet Count 295 K/mm3 (142-424); Red Blood Count 4.63 M/mm3 (4.20-5.40); Red Cell Distribution Width-SD 42.0 fL; White Blood Count 11.0 K/mm3 (4.8-10.8)
[2025-05-28 12:21] LABS: HCG Qualitative, Serum Negative (Negative)
[2025-05-28 12:24] LABS: Chloride 103 mmol/L (98-107)
[2025-05-28 12:25] LABS: Albumin Level 4.2 g/dl (3.5-5.0); Potassium 4.1 mmoL/L (3.5-5.1); Sodium 139 mmol/L (136-145)
[2025-05-28 12:27] LABS: Blood Urea Nitrogen 20 mg/dl (7-17); Creatinine Clearance Estimated 134 mL/min (50-200); Creatinine,Serum 0.70 mg/dl (0.52-1.04); Estimated Glomerular Filt Rate 89 ml/min (>60); GFR (African American) 108 ML/MIN (>60)
[2025-05-28 12:28] LABS: Alanine Aminotransferase 45 U/L (12-78); Albumin/Globulin Ratio 1.3 (1.1-1.8); Alkaline Phosphatase 66 U/L (38-126); Anion Gap 10.1 mEq/L (5-15); Aspartate Amino Transferase 32 U/L (14-36); Bilirubin,Total 0.6 mg/dl (0.2-1.3); Calcium 9.6 mg/dl (8.4-10.2); Carbon Dioxide 30 mmol/L (22.0-30.0); Globulin 3.2 g/dL (1.3-3.2); Glucose 92 mg/dl (74-100); Total Protein,Serum 7.4 g/dl (6.3-8.2)
== END 2025-05-28 23:59 | disposition home or self-care (01) ==
LOC: PREOP 11:20
PROVIDERS: PCP Nurse Practitioner Family; Visit Provider Obstetrics & Gynecology
DX: Z01.812 Encounter for preprocedural laboratory examination (principal)
CPT/HCPCS: 80053; 84703; 85025

== ENCOUNTER 2025-06-03 08:13 | Day surgery (SDC) | payer BC, SELFPAY ==
[2025-05-28 12:51] VITALS: BMI 29.4
[2025-06-03] VITALS (11 sets, daily range): BP systolic 114–128; BP diastolic 62–87; PULSE 76–111; RESP 16–18; TEMP 36.2–38; O2SAT 93–98; BMI 29.4
[2025-06-03] MEDS: LACTATED RINGERS 1000ML 1,000 ML 25 ML IV (08:58)
[2025-06-03] MEDS: GABAPENTIN 600MG TABLET 600 MG PO (08:58)
[2025-06-03] MEDS: ACETAMINOPHEN 500MG TAB 1000 MG PO (08:59)
[2025-06-03] MEDS: CELECOXIB 100MG CAPSULE 400 MG PO (08:59)
--- NOTE | 2025-06-03 09:32 | P.PNANES_ITS ---
[facility] Disclaimer: The information contained in this section may have been updated after the patient was seen, as this information can be updated by other users. Medical History Encounter for preoperative assessment Sinusitis HTN (hypertension) Abnormal cardiovascular stress test Lumbar spondylosis Degenerative disc disease Hypothyroid Surgical History History of colonoscopy History of appendectomy H/O gastric sleeve Hx of cholecystectomy H/O section H/O oophorectomy H/O neck surgery H/O shoulder surgery H/O knee surgery Family History Other Family history of CVA Family history of cancer Family history of hypertension Social History Smoking Status: Former smoker alcohol intake: never substance use type: denies use current occupational status: employed Travel in the last 8 weeks?: None Have you lived/traveled outside US in past 30 days?: No Contact w/someone who lives/traveled outside US past 30 days?: No Exposure to someone with infectious disease in past 14 days?: No Do you have a fever (greater than 100.4 F or 38 C)?: No Have you tested positive for COVID-19?: No Exposed to someone with COVID-19 in past 14 days?: No Do you have a sore throat?: No Do you have a cough?: No Do you have any weakness?: No Are you experiencing any nausea/vomitting?: No Do you have any diarrhea?: No Are you experiencing any unusual bleeding?: No Do you have any muscle aches/pain?: No Do you have any abdominal pain?: No Are you experiencing loss of taste or smell?: No [facility] Anesthesia Checklist Patient Identification Patient Identification: Arm Band and Verbal (Name & ) Structural Data Admitted From: Home Planned Operative Procedure/s: hyserectomy Consent for Planned Operative Procedure(s) Verified: Yes Verified Documents: Surgical Consent and History and Physical NPO Status Verified Time NPO: 00:00 Additional verifications Patient : No Anesthesia Reactions: No Hx Blood Transfusions: No Blood Transfusion Reaction: No Airway Assessment Mallampati Score:: Class II Dentition: Good Dentition Neurological Assessment Level of Consciousness: Awake, Alert and Appropriate Hx Seizures: No Numbness or tingling in extremities: No Anesthesia Plan Anesthesia Risk discussed: Yes Anesthesia Plan: Verified ASA Class: II Anesthesia Type: General
[2025-06-03] MEDS: METRONIDAZ/SOD CHL 500 MG/100 ML PIGGYBACK 100 MG IV (10:03)
[2025-06-03] MEDS: LIDOCAINE 1% W/EPI 1:100,000 20ML VIAL 20 ML (10:26)
[2025-06-03] MEDS: WATER FOR IRRIGATION,STERILE 3,000 ML 25 ML IR (10:26)
--- NOTE | 2025-06-03 13:08 | P.OP_ITS ---
Date of procedure: 06/03/25 Pre-op Diagnosis:: 1. Abnormal uterine bleeding 2. Fibroid uterus 3. 2 prior sections 4. Dysmenorrhea 5. History of left salpingo-oophorectomy Post-op Diagnosis:: 1. Abnormal uterine bleeding 2. Fibroid uterus 3. 2 prior sections 4. Dysmenorrhea 5. History of left salpingo-oophorectomy Procedure performed:: 1. Laparoscopic assisted vaginal hysterectomy 2. Right salpingo-oophorectomy 3. Avendano culdoplasty 4. Cystoscopy Surgeon:: Cora Pickens DO Gas Station Manager(s):: Rip Simons MD SYSTEMS SOFTWARE DEVELOPER:: Lucius Morales Anesthesia: GETA Estimated blood loss (mL): 300 Operative findings:: Uterine EUA was significant for 10wk size uterus with irregular borders at the fundus. Stage II apical descent was appreciated. No gross adnexal masses were appreciated. Laparoscopic exam revealed a large fibroid uterus with a fundal fibroid. Uterus was mobile. No ovarian masses noted. Surgically absent left ovary and fallopian tube. No bowel injuries on entry. Cystoscopy revealed brisk flow from both ureters Operative note:: Pt was taken back to the OR where GETA was obtained without difficulty. SCDs were placed and found to be working. The patient was placed in dorsal lithotomy position using yellow fin stirrups. The vagina and abdomen was prepped and draped in the normal sterile fashion. An in and out catheter was used to drain the bladder and methylene blue was instilled. Weighted speculum was inserted into the vagina to visualize the cervix. A single tooth tenaculum was used to grasp the anterior lip of the cervix and an acorn uterine manipulator was placed. Her cervical canal was scarred closed and unable to be penetrated with uterine sound or cervical dilators. It felt as if she had a history of a LEEP. Top gloves were removed and attention was turned to the abdominal portion.? Local anesthetic with epinephrine was injected infraumbilically, an 11mm infraumbilical incision was made sharply. Direct entry into the abdominal cavity was obtained with laparoscopic visualization. A intraabdominal pressure of 7mmHg was observed and CO2 gas was insufflated to create a pneumoperitoneum to a pressure of 15mmHg. The patient was placed in Trendelenburg to facilitate moving the bowel out of the operative field. A second 11mm incision was made to the left, lateral to the rectus muscles with attention to avoid vasculature. Trocar introduced under direct visualization. This process was repeated on the right. Brief abdominal exam revealed anatomy as described above. Since the uterus was very boggy and heavy from the fundal fibroid a grasper was used to elevate the right round ligament and the LigaSure was used to clamp, coagulate, and transect the round ligament. The ureters were evaluated bilaterally. LigaSure was used to separate the anterior and posterior broad ligament and the anterior leaflet of the broad ligament was clamped, coagulated, and transected all the way down the uterus remaining proximal to the uterine body. This dissection was continued across the vesicouterine peritoneum to create a bladder flap. The LigaSure went back and clamped, coagulated, and transected the posterior leaflet of the broad ligament to skeletonize the uterine artery. The uterine artery was skeletonized, clamped, and coagulated multiple times prior to transection. Attention was turned to the left round ligament and the round ligament was clamped, coagulated, and transected. The same process of separation of the anterior and posterior broad ligament was completed and the dissection was c arried down to complete the bladder flap at the midline. Uterine artery was skeletonized on the contralateral side and clamped and coagulated. The right fallopian tube was elevated, the ureter was identified, and the IP ligament was clamped, coagulated, and transected. The ovary was detached and placed in the cul-de-sac for later removal. Hemostasis was noted Attention was turned vaginally, a weighted speculum and [place] retractor were used to identify the cervix. Two Byrd tenaculums were used to grasp the anterior and posterior lip of the cervix. There was noted to be very minimal cervical tissue available. 20mL of a solution made up of 0.5% Marcaine with epinephrine injected circumferentially around the cervix. Outward traction was applied to the cervix and a scalpel was used to make a circumferential colpotomy at the cervicovaginal junction. The incision was carried down to the paracervical fascia allowing the cervix to separate from the vaginal mucosa.? Pickups and Priest scissors were used to initiate and complete dissection into the posterior colpotomy. A long weighted Clyde speculum was placed in the posterior colpotomy. The ovary was visualized, grasped, and removed. Ovary was passed off the operative field to be sent to pathology for further evaluation. The uterosacral ligaments were grasped with Glener clamps, cut and suture ligated bilaterally. These were tagged to be incorporated into the vaginal cuff at a later time. Attention was turned to the anterior edge. Pickups and Metzenbaum scissors were used to initiate the anterior colpotomy without succes s. Glener clamp was used to side of the uterus, remaining proximal, clamped, cut, and suture-ligated with a 0 Vicryl remaining attachments of the cardinal ligaments along with the lower branches of the uterine vessels were clamped, and suture-ligated.? The anterior colpotomy was still unable to be completed secondary to significant scarring from the previous deliveries. 2 single-tooth tenaculums were used to rotate the uterus posteriorly out of the vagina. The remaining attachments were visualized, clamped, transected, and suture-ligated. The uterus, fibroids, and cervix were passed off the operative field to be sent to pathology for further evaluation. The pedicals were inspected bilaterally and there was a small amount of bleeding noted near the left uterosacral ligament. This was grasped with a Velma and suture ligated to be made hemostatic. A moist lap sponge was placed vaginally to retract the bowel. The posterior peritoneum was fixed to the posterior vaginal cuff with a running locking stitch. 0-PDS was used to place a Avendano stitch for the culdoplasty, incorporating the bilateral uterosacral ligaments. The anterior peritoneum was not able to be grasped and the peritoneum was unable to be closed. The vaginal cuff was then closed with 0 Vicryl in a running locking fashion. Avendano culdoplasty was tied to suspend the apex of the vagina. Hemostasis was noted. To reinforce the cuff closure 4 [id number]'s were placed along the vaginal cuff with 0 Vicryl. After changing gloves, the pneumoperitoneum was reestablished, laparoscope was placed and inspection of the cuff. Irrigation of the surgical site and suction reveal hemostasis, images obtained. Brief abdominal survey revealed a normal appearing liver and abdomen, except for previous described pelvic adhesions. Pedicals and cuff reinspected and noted to be hemostatic.? Surgicel powder was applied over the colpotomy and rolled peritoneal edges. Pneumoperitoneum was reduced to a level of 7 and the colpotomy and peritoneal edges were inspected absolutely no bleeding was noted and images were obtained. The abdominal incisions were closed with a deep single interrupted 0 Vicryl followed by a subcuticular 4-0 Monocryl and Dermabond was placed over the incision. Cystoscopy: The patient was removed from Trendelenburg. A 70degree cystoscope was inserted into the urethra. The bladder was distended with sterile water. The mccollum of the bladder were inspected and noted to be intact, free of any sutures, gross masses or abnormal vasculature. Air bubble was noted at the dome of the bladder. Ureteral flow was immediately noted bilaterally. Sponge, instrument and needle counts were correct x3, per nursing. Condition: stable Disposition: PACU Specimens:: Uterine body, cervix, right fallopian tubes and ovaries Complications:: None
--- NOTE | 2025-06-03 13:11 | EXP.ANES.I ---
[facility] Anesthesia Record Part I Anesthesia Record I Intake, IV Amount: 1,300 Hydration: Adequate Estimated blood loss (mL): 300 Urine output (mL): 75 Blood Products used (#): none Blood Pressure: 124/72 SaO2: 95 Pulse Rate: 101 Airway Patency: Patent Respiratory Rate: 16 Temperature: 99.4 F Patient is:: Drowsy and Stable Stable to PACU at:: 13:05
--- NOTE | 2025-06-04 07:37 | EXP.ANES.II ---
[facility] Anesthesia Record Part II Anesthesia Record Part II Discharge Time: 13:35 Destination: Surgical Day Care (OP Surgery) PACU nurse assessment reviewed?: Yes Patient Condition:: Good Anesthesia Complications:: None Swallowing reflex intact?: Yes Airway Patency: Patent Cyanosis?: No Blood Pressure: 125/62 SaO2: 95 Respiratory Rate: 18 Pulse Rate: 111 Temperature: 98.9 F Mental Status: Alert & Oriented Pain level:: 0 Nausea and/or vomitting:: None Intake, IV Amount: 0 Hydration: Adequate
[2025-06-04 07:39] VITALS: BP 125/62; PULSE 111; RESP 18; TEMP 37.2; O2SAT 95
== END 2025-06-03 15:00 | disposition home or self-care (01) ==
PROVIDERS: PCP Nurse Practitioner Family; Visit Provider Obstetrics & Gynecology
PROC: 0UT9FZZ Resection of Uterus, Via Natural or Artificial Opening With Percutaneous Endoscopic Assistance (ICD-10-PCS; CPT 58554; principal; 2025-06-03 09:45)
DX: D25.1 Intramural leiomyoma of uterus (principal); N72 Inflammatory disease of cervix uteri; N87.9 Dysplasia of cervix uteri, unspecified; N93.9 Abnormal uterine and vaginal bleeding, unspecified; I10 Essential (primary) hypertension; M54.9 Dorsalgia, unspecified; E03.9 Hypothyroidism, unspecified; G89.29 Other chronic pain; Z79.82 Long term (current) use of aspirin; Z87.891 Personal history of nicotine dependence; Z86.32 Personal history of gestational diabetes; Z90.721 Acquired absence of ovaries, unilateral; Z98.891 History of uterine scar from previous surgery
CPT/HCPCS: 58554; 86850; J0690; J1100; J1836; J1885; J2003; J2004; J2250; J2405; J2704; J2795; J3010; J7120